=== PATIENT | female | born 1945 | race Caucasian/White ===

== ENCOUNTER → 2017-06-10 | Outpatient (CLI) | payer MEDICARE ==
[2017-06-10 12:55] LABS: Anion Gap 5 mmol/L; Blood Urea Nitrogen 14 mg/dL (7-17); Calcium 9.3 mg/dL (8.4-10.2); Carbon Dioxide 33 mmol/L (22-30); Chloride 100 mmol/L (98-107); Glucose 145 mg/dL (74-99); Non-African American GFR(MDRD) >60 (>60 ml/min/1.73 sqM); Potassium 4.6 mmol/L (3.5-5.1); Sodium 138 mmol/L (137-145)
[2017-06-10 21:00] LABS: Hemoglobin A1C 6.7 % (4.2-6.1)
== END | disposition home or self-care (01) ==
LOC: LABWHC1 11:54
PROVIDERS: ATTEND Internal Medicine
DX: I10 Essential (primary) hypertension (principal); K21.9 Gastro-esophageal reflux disease without esophagitis; R73.9 Hyperglycemia, unspecified
CPT/HCPCS: 36415; 80048; 82272; 83036

== ENCOUNTER → 2017-08-15 | Outpatient (CLI) | payer MEDICARE | END | disposition home or self-care (01) | LOC: LABWHC1 09:59 | PROVIDERS: ATTEND Internal Medicine | DX: E11.9 Type 2 diabetes mellitus without complications (principal) | CPT/HCPCS: 36415; 82947; 83036 ==

== ENCOUNTER 2018-06-08 15:22 | Emergency (ER) | payer MEDICARE ==
[2018-06-08 15:43] VITALS: RESP 18; TEMP 98.2
[2018-06-08] MEDS ORDERED: methylPREDNISolone SOD SUCCI 125 MG/2 ML VIAL IV STA (16:00)
[2018-06-08] MEDS ORDERED: IPRATROPIUM-ALBUTEROL 3 ML NEB INHALATION STA (16:00)
--- NOTE | 2018-06-08 16:05 | ED ---
URI HPI - General Chief Complaint: Upper Respiratory Infection Stated Complaint: SOB, Sent from [facility] Time Seen by Provider: 06/08/18 15:47 Source: patient Mode of arrival: wheelchair Limitations: no limitations - History of Present Illness Initial Comments: Patient is a 72-year-old female with a known past medical history of COPD the presents for shortness breath and coughing. The patient states that since Saturday, she has been having coughing as well as wheezing denies any fevers or chills. She has tried [id number] medication such as DayQuil as well as breathing treatments and she has not had much relief. She denies any chest pain as well as fever/chills or abdominal pain, nausea/vomiting/diarrhea. She was seen at [facility] where a chest x-ray was completed which showed no evidence of infiltrate but they sent her over here for further evaluation as they were concerned about her breathing status. At this time, patient denies any chest pain - Related Data Home Medications Medication Instructions Recorded Confirmed ALPRAZolam [Xanax] 0.5 mg PO BID 06/08/18 06/08/18 Atenolol 25 mg PO DAILY 06/08/18 06/08/18 Dexamethasone [Decadron] 0.75 mg PO DAILY 06/08/18 06/08/18 Gabapentin 600 mg PO TID 06/08/18 06/08/18 HYDROcodone/APAP 10-325MG [[place] 1 tab PO QID PRN 06/08/18 06/08/18 10-325] Ipratropium-Albuterol Nebulize 3 ml INHALATION RT-QID PRN 06/08/18 06/08/18 [Duoneb 0.5 mg-3 mg/3 ml Soln] Meclizine [Antivert] 12.5 mg PO BID 06/08/18 06/08/18 Montelukast [Singulair] 10 mg PO HS 06/08/18 06/08/18 Omeprazole 20 mg PO DAILY 06/08/18 06/08/18 Ranitidine HCl [Zantac] 150 mg PO BID 06/08/18 06/08/18 Simvastatin 40 mg PO DAILY 06/08/18 06/08/18 diphenhydrAMINE [Benadryl] 50 mg PO HS 06/08/18 06/08/18 Previous Rx's Medication Instructions Recorded Azithromycin [Zithromax Z-pack] 250 mg PO DIRECTED #6 tab 06/08/18 predniSONE 50 mg PO DAILY #5 tablet 06/08/18 Allergies Allergy/AdvReac Type Severity Reaction Status Date / Time Penicillins Allergy Rash/Hives Verified 06/08/18 16:07 Review of Systems ROS Statement: Those systems with pertinent positive or pertinent negative responses have been documented in the HPI. Constitutional: Negative for chills, fatigue and fever. HENT: Negative for congestion. Respiratory: Negative for chest tightness, positive for cough, shortness of breath and wheezing. Cardiovascular: Negative for chest pain and palpitations. Gastrointestinal: Negative for abdominal pain. Negative for abdominal distention , diarrhea, nausea and vomiting. Genitourinary: Negative for dysuria. Musculoskeletal: Negative for back pain, neck pain and neck stiffness. Skin: Negative for color change. Neurological: Negative for dizziness, speech difficulty, weakness and light- headedness. Psychiatric/Behavioral: Negative for agitation and confusion. Negative for anxiety ROS Other: All systems not noted in ROS Statement are negative. Past Medical History Past Medical History: Cancer, COPD, Hypertension Additional Past Medical History / Comment(s): breast cancer History of Any Multi-Drug Resistant Organisms: None Reported Past Surgical History: Appendectomy, Breast Surgery, Cholecystectomy, Tubal Ligation Past Psychological History: No Psychological Hx Reported Smoking Status: Current some day smoker Past Alcohol Use History: None Reported Past Drug Use History: None Reported General Exam - General Exam Comments Initial Comments: Constitutional: Pt is oriented to person, place, and time. Pt appears well- developed and well-nourished. No distress. HENT: Head: Normocephalic and atraumatic. Eyes: EOM are normal. Neck: Normal range of motion. Neck supple. Cardiovascular: Normal rate, regular rhythm, S1 normal, S2 normal and normal heart sounds. Exam reveals no gallop and no friction rub. No murmur heard. Pulmonary/Chest: Effort normal. Decreased breath sounds in all lung martinez noted. No tachypnea and no bradypnea. No respiratory distress. No wheezes or rales noted. Abdominal: Soft. Bowel sounds are normal. Pt exhibits no shifting dullness, no distension, no pulsatile liver, no fluid wave, no abdominal bruit and no ascites. There is no tenderness. There is no rigidity, no rebound, no guarding, no tenderness at McBurney's point and negative Kim's sign. Musculoskeletal: Normal range of motion. Neurological: Pt is alert and oriented to person, place, and time. No cranial nerve deficit. Skin: Skin is warm and dry. No rash noted. Pt is not diaphoretic. No erythema. No pallor. Psychiatric: Pt has a normal mood and affect. Pt behavior is normal. Thought content normal. Limitations: no limitations Course Vital Signs 06/08/18 06/08/18 06/08/18 15:40 16:31 16:37 Temperature 98.2 F Pulse Rate 89 67 68 Respiratory 18 Rate Blood Pressure 130/63 O2 Sat by Pulse 93 L Oximetry 06/08/18 06/08/18 06/08/18 16:38 16:48 18:06 Temperature Pulse Rate 68 70 Respiratory Rate Blood Pressure 135/54 O2 Sat by Pulse 94 L Oximetry Medical Decision Making - Medical Decision Making Laboratory studies showed that hemoglobin was stable and there is no evidence of leukocytosis. A letter lites are also relatively within normal limits and chest x-ray showed no evidence of acute infiltrate. Patient was given breathing treatments as well as steroids and showed significant improvement. Troponin was noted to be negative as well and patient was ambulated in the emergency department and did not show any hypoxia. Because of this, it is felt that the patient was a good candidate for outpatient treatment. Therefore she was given azithromycin as well as oral steroids. Explained all labs and diagnostic test results and that we will discharge the patient home and patient is to follow up with PCP in 1-2 days and return to the ED if symptoms worsen. Pt is agreeable to plan. - Lab Data Result diagrams: 06/08/18 16:47 06/08/18 16:47 Lab Results 06/08/18 06/08/18 06/08/18 Range/Units 16:47 16:47 16:47 WBC 8.6 (3.8-10.6) k/uL RBC 4.69 (3.80-5.40) m/uL Hgb 15.2 (11.4-16.0) gm/dL Hct 48.1 H (34.0-46.0) % MCV 102.6 H (80.0-100.0) fL MCH 32.4 (25.0-35.0) pg MCHC 31.5 (31.0-37.0) g/dL RDW 13.1 (11.5-15.5) % Plt Count 184 (150-450) k/uL Neutrophils % 60 % Lymphocytes % 31 % Monocytes % 5 % Eosinophils % 2 % Basophils % 0 % Neutrophils # 5.2 (1.3-7.7) k/uL Lymphocytes # 2.7 (1.0-4.8) k/uL Monocytes # 0.4 (0-1.0) k/uL Eosinophils # 0.1 (0-0.7) k/uL Basophils # 0.0 (0-0.2) k/uL Macrocytosis Slight Sodium 142 (137-145) mmol/L Potassium 4.1 (3.5-5.1) mmol/L Chloride 103 (98-107) mmol/L Carbon Dioxide 31 H (22-30) mmol/L Anion Gap 8 mmol/L BUN 14 (7-17) mg/dL Creatinine 0.85 (0.52-1.04) mg/dL Est GFR (CKD-EPI)AfAm 80 (>60 ml/min/1.73 sqM) Est GFR (CKD-EPI)NonAf 69 (>60 ml/min/1.73 sqM) Glucose 95 (74-99) mg/dL Calcium 9.5 (8.4-10.2) mg/dL Troponin I (0.000-0.034) ng/mL Influenza Type A RNA Not Detected (Not Detectd) Influenza Type B (PCR) Not Detected (Not Detectd) 06/08/18 Range/Units 16:47 WBC (3.8-10.6) k/uL RBC (3.80-5.40) m/uL Hgb (11.4-16.0) gm/dL Hct (34.0-46.0) % MCV (80.0-100.0) fL MCH (25.0-35.0) pg MCHC (31.0-37.0) g/dL RDW (11.5-15.5) % Plt Count (150-450) k/uL Neutrophils % % Lymphocytes % % Monocytes % % Eosinophils % % Basophils % % Neutrophils # (1.3-7.7) k/uL Lymphocytes # (1.0-4.8) k/uL Monocytes # (0-1.0) k/uL Eosinophils # (0-0.7) k/uL Basophils # (0-0.2) k/uL Macrocytosis Sodium (137-145) mmol/L Potassium (3.5-5.1) mmol/L Chloride (98-107) mmol/L Carbon Dioxide (22-30) mmol/L Anion Gap mmol/L BUN (7-17) mg/dL Creatinine (0.52-1.04) mg/dL Est GFR (CKD-EPI)AfAm (>60 ml/min/1.73 sqM) Est GFR (CKD-EPI)NonAf (>60 ml/min/1.73 sqM) Glucose (74-99) mg/dL Calcium (8.4-10.2) mg/dL Troponin I <0.012 (0.000-0.034) ng/mL Influenza Type A RNA (Not Detectd) Influenza Type B (PCR) (Not Detectd) - EKG Data EKG Comments: EKG shows sinus rhythm with first-degree AV block. Rate of 65 bpm, NE interval 210, QRS duration 82, QTC 436 Disposition Clinical Impression: Bronchitis Disposition: HOME SELF-CARE Condition: Good Instructions: Upper Respiratory Infection (ED) Prescriptions: Azithromycin [Zithromax Z-pack] 250 mg PO DIRECTED #6 tab predniSONE 50 mg PO DAILY #5 tablet Is patient prescribed a controlled substance at d/c from ED?: No Referrals: Trae Cooper MD [Primary Care Provider] - 1-2 days Time of Disposition: 18:09
[2018-06-08 16:48] VITALS: PULSE 70
[2018-06-08 17:09] LABS: Basophils % (A) 0 %; Eosinophils # (A) 0.1 k/uL (0-0.7); Eosinophils % (A) 2 %; HCT 48.1 % (34.0-46.0); HGB 15.2 gm/dL (11.4-16.0); Lymphocytes # (A) 2.7 k/uL (1.0-4.8); Lymphocytes % (A) 31 %; MCH 32.4 pg (25.0-35.0); MCHC 31.5 g/dL (31.0-37.0); MCV 102.6 fL (80.0-100.0); Macrocytosis Slight; Mean Platelet Volume 6.6; Monocytes # (A) 0.4 k/uL (0-1.0); Monocytes % (A) 5 %; Neutrophils # (A) 5.2 k/uL (1.3-7.7); Neutrophils % (A) 60 %; Platelet Count 184 k/uL (150-450); RBC 4.69 m/uL (3.80-5.40); RDW 13.1 % (11.5-15.5); WBC 8.6 k/uL (3.8-10.6)
--- NOTE | 2018-06-08 17:09 | XR ---
EXAMINATION TYPE: XR chest 2V DATE OF EXAM: 06/08/2018 COMPARISON: NONE HISTORY: Short of breath TECHNIQUE: Frontal and lateral views of the chest are obtained. FINDINGS: Heart and mediastinum are normal. Lungs are clear. Diaphragm is normal. There are chest le ads. Bony thorax is intact. IMPRESSION: No active cardiopulmonary disease. No change.
[2018-06-08 17:22] LABS: Calcium 9.5 mg/dL (8.4-10.2); Potassium 4.1 mmol/L (3.5-5.1)
[2018-06-08 18:06] VITALS: BP 135/54
== END 2018-06-08 18:21 | disposition home or self-care (01) ==
LOC: EC 15:22
DX: J44.9 Chronic obstructive pulmonary disease, unspecified (principal); I10 Essential (primary) hypertension; F17.200 Nicotine dependence, unspecified, uncomplicated; Z79.899 Other long term (current) drug therapy; Z88.0 Allergy status to penicillin; Z85.3 Personal history of malignant neoplasm of breast
CPT/HCPCS: 36415; 94640 ×2; 93005; 80048; 84484; 85025; 87502; 71046; 99285; 96374; J2930

== ENCOUNTER → 2018-06-13 | Outpatient (CLI) | payer MEDICARE ==
[2018-06-13 14:19] LABS: Basophils % (A) 0 %; Eosinophils # (A) 0.1 k/uL (0-0.7); Eosinophils % (A) 1 %; HCT 46.4 % (34.0-46.0); Lymphocytes # (A) 2.4 k/uL (1.0-4.8); Lymphocytes % (A) 22 %; MCH 33.3 pg (25.0-35.0); MCHC 32.4 g/dL (31.0-37.0); MCV 102.9 fL (80.0-100.0); Macrocytosis Slight; Mean Platelet Volume 6.7; Monocytes # (A) 0.7 k/uL (0-1.0); Monocytes % (A) 6 %; Neutrophils # (A) 7.4 k/uL (1.3-7.7); Neutrophils % (A) 69 %; Platelet Count 200 k/uL (150-450); RBC 4.51 m/uL (3.80-5.40); RDW 13.1 % (11.5-15.5); WBC 10.7 k/uL (3.8-10.6)
[2018-06-13 19:52] LABS: Protein, Total 6.2 g/dL (6.2-8.2)
[2018-06-16 14:07] LABS: Albumin 3.42 g/dL (3.80-4.90); Gamma Globulin 0.85 g/dL (0.70-1.50)
== END | disposition home or self-care (01) ==
LOC: LABWHC1 12:31
PROVIDERS: ATTEND Physical Medicine & Rehabilitation
DX: M54.5 Low back pain (principal); M47.817 Spondylosis without myelopathy or radiculopathy, lumbosacral region; M51.17 Intervertebral disc disorders with radiculopathy, lumbosacral region; M41.86 Other forms of scoliosis, lumbar region; F17.218 Nicotine dependence, cigarettes, with other nicotine-induced disorders; Z85.3 Personal history of malignant neoplasm of breast
CPT/HCPCS: 36415; 84165; 85025

== ENCOUNTER → 2019-03-19 | Outpatient (CLI) | payer MEDICARE ==
--- NOTE | 2019-03-20 09:11 | XR ---
Abdomen HISTORY: Pain Frontal view of the abdomen on 2 images No comparisons There is a rounded density present in the paraspinal location at the L5 level measuring 12 mm in diam eter. Vascular calcifications are present within the pelvis. Degenerative disc change in the visualiz ed spine. There is no evident obstruction or pneumoperitoneum. Surgical clips present in the right up per quadrant. Lung bases are clear. There are overlying artifacts. IMPRESSION: Indeterminate calcification or artifact. Degenerative disc disease.
== END | disposition home or self-care (01) ==
LOC: RADXRMAIN 17:13
PROVIDERS: ATTEND Family Medicine
DX: R10.0 Acute abdomen (principal)
CPT/HCPCS: 74018

== ENCOUNTER → 2019-04-09 | Outpatient (CLI) | payer MEDICARE ==
--- NOTE | 2019-04-09 12:58 | CT ---
EXAMINATION TYPE: CT abdomen wo/w con DATE OF EXAM: 04/09/2019 COMPARISON: None HISTORY: Mid abdominal pain x [address] DLP: 1300 mGycm Automated exposure control for dose reduction was used. TECHNIQUE: Helical acquisition of images was performed from the lung bases through the top of iliac crest to include entire abdomen. CONTRAST: Performed with Oral Contrast and without and with IV Contrast, patient injected with 100 mL of Isovue 300. FINDINGS: LUNG BASES: No significant abnormality is appreciated. LIVER/GB: Low-attenuation liver suggestive of hepatic steatosis or hepatocellular disease. Postcholec ystectomy changes noted.. PANCREAS: No significant abnormality is seen. SPLEEN: No significant abnormality is seen. ADRENALS: No significant abnormality is seen. KIDNEYS: There is a 7 mm lesion involving the lower pole the right kidney measuring 4 Hounsfield unit s compatible simple cyst. Mild cortical loss is seen.. BOWEL: No significant abnormality is seen. LYMPH NODES: No significant abnormality is seen. OSSEOUS STRUCTURES: Scoliotic curvature of the spine with multilevel degenerative disc disease. OTHER: Atherosclerotic change of the aorta. No evidence of aneurysm. IMPRESSION: 1. Simple appearing right renal cyst measuring 4 Hounsfield units and 7 mm. Mild cortical loss on the right suggestive of chronic medical renal disease.
== END | disposition home or self-care (01) ==
LOC: RADCTMAIN 10:03
PROVIDERS: ATTEND Family Medicine
DX: N28.1 Cyst of kidney, acquired (principal); Z88.0 Allergy status to penicillin
CPT/HCPCS: 82565; 84520; 74170; 36415; Q9967

== ENCOUNTER → 2019-06-20 | Outpatient (CLI) | payer MEDICARE ==
--- NOTE | 2019-06-20 17:20 | XR ---
EXAMINATION TYPE: XR chest 2V DATE OF EXAM: 06/20/2019 COMPARISON: 06/08/2018 INDICATION: COPD, preop TECHNIQUE: Frontal and lateral views of the chest are obtained. FINDINGS: The heart size is normal. The pulmonary vasculature is normal. The lungs are clear. There is flattening of diaphragms which can be associated with COPD. IMPRESSION: 1. No acute pulmonary process.
== END ==
LOC: RADXRMAIN 11:07
PROVIDERS: ATTEND Family Medicine
DX: Z01.818 Encounter for other preprocedural examination (principal); J44.9 Chronic obstructive pulmonary disease, unspecified
CPT/HCPCS: 71046

== ENCOUNTER 2019-11-07 | Emergency (ER) | payer MEDICARE | END 2019-11-07 17:05 | disposition home or self-care (01) | CPT/HCPCS: 36415; 93005; 80053; 82150; 83690; 85025; 81001; 74177; 99284; 96374; 96375; 96361 ×2; J2405; S0119; C9113; Q9967 ==

== ENCOUNTER → 2019-12-28 | Outpatient (CLI) | payer MEDICARE | END | disposition home or self-care (01) | LOC: LABWHC1 11:49 | PROVIDERS: ATTEND Surgery Plastic and Reconstructive Surgery | DX: U07.1 COVID-19 (principal) | CPT/HCPCS: 87635 ==

== ENCOUNTER 2019-12-31 10:49 | Day surgery (SDC) | payer MEDICARE ==
[2019-12-30 11:42] VITALS: BMI 25.9
[~2019-12-31 10:49] MED LIST: LACTATED RINGERS 1,000 ML IV SCH
[2019-12-31] MEDS ORDERED: LACTATED RINGERS 1,000 ML IV ONE (11:00)
[2019-12-31 11:06] VITALS: TEMP 97.8
[2019-12-31] MEDS ORDERED: PROPOFOL 10 MG/ML 20 ML VIAL IV ONE (11:39)
--- NOTE | 2019-12-31 11:56 | P.GSHP ---
History of Present Illness H&P Date: 12/31/19 CHIEF COMPLAINT: Dysphagia and rectal bleeding with abdominal pain HISTORY OF PRESENT ILLNESS: The patient is a 74-year-old female who presents with dysphagia, epigastric abdominal pain including rectal bleeding. Upper and lower endoscopy were offered for further evaluation and management. PAST MEDICAL HISTORY: Please see list. PAST SURGICAL HISTORY: Please see list. MEDICATIONS: Please see list. ALLERGIES: Please see list. SOCIAL HISTORY: No illicit drug use FAMILY HISTORY: No reports of Crohn disease or ulcerative colitis. REVIEW OF ORGAN SYSTEMS: CONSTITUTIONAL: No reports of fevers or chills. PHYSICAL EXAM: VITAL SIGNS: Stable GENERAL: Well-developed pleasant in no acute distress. HEENT: No scleral icterus. Extraocular movements grossly intact. Moist buccal mucosa. NECK: Supple without lymphadenopathy. CHEST: Unlabored respirations. Equal bilateral excursions. CARDIOVASCULAR: Regular rate and rhythm. Distal 2+ pulses. ABDOMEN: Soft, nondistended. MUSCULOSKELETAL: No clubbing, cyanosis, or edema. ASSESSMENT: 1. Dysphagia 2. Abdominal pain 3. Rectal bleeding. PLAN: 1. Recommend proceeding with an upper and lower endoscopy Past Medical History Past Medical History: Cancer, COPD, GERD/Reflux, Hypertension Additional Past Medical History / Comment(s): breast cancer History of Any Multi-Drug Resistant Organisms: None Reported Past Surgical History: Appendectomy, Breast Surgery, Cholecystectomy, Tubal Ligation Additional Past Surgical History / Comment(s): SPINAL IMPLANT. LT LUMPECTOMY/WITH 12 LYMPH NODES REMOVED Past Anesthesia/Blood Transfusion Reactions: No Reported Reaction Smoking Status: Current every day smoker - Past Family History Daughter(s) Family Medical History: Cancer Medications and Allergies Home Medications Medication Instructions Recorded Confirmed Type ALPRAZolam [Xanax] 0.5 mg PO DAILY 06/08/18 12/30/19 History Atenolol 25 mg PO DAILY 06/08/18 12/30/19 History Gabapentin 600 mg PO TID 06/08/18 12/30/19 History HYDROcodone/APAP 10-325MG [[place] 1 tab PO QID PRN 06/08/18 12/30/19 History 10-325] Ipratropium-Albuterol Nebulize 3 ml INHALATION RT-QID PRN 06/08/18 12/30/19 History [Duoneb 0.5 mg-3 mg/3 ml Soln] Meclizine [Antivert] 12.5 mg PO BID 06/08/18 12/30/19 History Montelukast [Singulair] 10 mg PO HS 06/08/18 12/30/19 History Omeprazole 20 mg PO DAILY 06/08/18 12/30/19 History Ranitidine HCl [Zantac] 150 mg PO BID 06/08/18 12/30/19 History Simvastatin 40 mg PO DAILY 06/08/18 12/30/19 History Ondansetron Odt [Zofran Odt] 4 mg PO Q8HR PRN #20 tab 11/07/19 12/30/19 Rx Allergies Allergy/AdvReac Type Severity Reaction Status Date / Time Penicillins Allergy Rash/Hives Verified 12/30/19 11:32 Surgical - Exam Vital Signs Temp Pulse Resp BP Pulse Ox 97.8 F 84 18 146/71 96 12/31/19 11:03 12/31/19 11:03 12/31/19 11:03 12/31/19 11:03 12/31/19 11:03
--- NOTE | 2019-12-31 12:15 | P.PCN ---
Date of Procedure: 12/31/19 Description of Procedure: PREOPERATIVE DIAGNOSIS: Dysphagia Abdominal pain POSTOPERATIVE DIAGNOSIS: Ischemic gastritis Gastroesophageal reflux disease Diaphragmatic hiatal hernia OPERATION: Esophagogastroduodenoscopy with biopsies along antrum. SURGEON: Mariangel Torres MD ANESTHESIA: MAC. INDICATIONS: The patient is a 74-year-old female who presents with a history of dysphagia and epigastric abdominal pain. Benefits and risks of the procedure were described. Informed consent was obtained. DESCRIPTION: The patient was brought into the endoscopy suite and laid in the left lateral decubitus position. An Olympus gastroscope was passed along the posterior oropharynx down to the distal esophagus where the squamocolumnar junction was encountered at 36 cm from the incisors. The stomach was entered and no bile reflux was found. Additional findings are listed below. Biopsies with cold forceps were obtained of the antrum. The first through third portion of the duodenum was examined and unremarkable. Retroflexion of the scope confirmed Hill grade 3 lower esophageal valve. The squamocolumnar junction demonstrated LA grade B erosive esophagitis. The stomach was desufflated. The patient tolerated the procedure well. FINDINGS: Squamocolumnar junction 36 cm from the incisors. Diaphragmatic hiatus at 40 cm. Hiatal hernia, 4 cm Hill grade 4 lower esophageal valve. LA grade B erosive esophagitis. No active duodenitis. Chronic gastritis, with ischemic patches with cold forceps biopsies obtained RECOMMENDATIONS: Upper endoscopy as needed.
[2019-12-31 12:19] VITALS: RESP 18
--- NOTE | 2019-12-31 12:21 | P.PCN ---
Date of Procedure: 12/31/19 Description of Procedure: PREOPERATIVE DIAGNOSIS: Change in bowel habits Abdominal pain Rectal bleeding POSTOPERATIVE DIAGNOSIS: Ascending colitis with ulceration Mild sigmoid diverticulosis Sigmoid diverticulitis OPERATION: Colonoscopy to the ileocecal valve and appendiceal orifice. Colonoscopy with cold forceps biopsies. SURGEON: Mariangel Torres MD. ANESTHESIA: MAC. INDICATIONS: The patient is a 74-year-old female who presents with abdominal pain and rectal bleeding. Benefits and risks were described and informed consent was obtained. DESCRIPTION OF PROCEDURE: The patient had undergone Suprep. She had been brought into the operating room and laid in the left lateral decubitus position. After adequate intravenous sedation, the rectum was examined with 2% lidocaine jelly. No external hemorrhoids were encountered. The rectal tone was within normal limits. No lesions were palpated in the rectal vault. An Olympus colonoscope was advanced until the ileocecal valve and appendiceal orifice were clearly viewed. The prep was excellent with clear visualization of the mucosal folds. The scope was removed with visualization of each mucosal fold. sigmoid diverticulosis was encountered. Active ulceration with colitis was found along the ascending colon cold forceps biopsies obtained. Separate ecchymosis along the sigmoid colon was identified also with cold forceps biopsies. Hyperplastic polyps 2 mm of the sigmoid colon. Retroflexion of the scope demonstrated grade 1 internal hemorrhoids without active bleeding or inflammation. The colon was desufflated. The patient had tolerated the procedure well. Withdrawal time was over 6 minutes. FINDINGS: Aronchick preparation quality scale 1 (1-5) Internal hemorrhoids, grade 1 No external prolapsed hemorrhoids. No arteriovenous malformations. Ascending ulcerative colitis biopsies obtained. Biopsies obtained of sigmoid colon Mild sigmoid diverticulosis RECOMMENDATIONS: Lower endoscopy in 5 years, 2024 with history of polyps Plan - Discharge Summary Discharge Rx Participant: No New Discharge Prescriptions: New metroNIDAZOLE [Flagyl] 500 mg PO TID #30 tab Omeprazole [PriLOSEC] 40 mg PO DAILY #30 cap Continue Montelukast [Singulair] 10 mg PO HS Meclizine [Antivert] 12.5 mg PO BID Gabapentin 600 mg PO TID ALPRAZolam [Xanax] 0.5 mg PO DAILY Simvastatin 40 mg PO DAILY Omeprazole 20 mg PO DAILY Atenolol 25 mg PO DAILY HYDROcodone/APAP 10-325MG [[place] 10-325] 1 tab PO QID PRN PRN Reason: Pain Ipratropium-Albuterol Nebulize [Duoneb 0.5 mg-3 mg/3 ml Soln] 3 ml INHALATION RT-QID PRN PRN Reason: Shortness Of Breath Ondansetron Odt [Zofran ODT] 4 mg PO Q8HR PRN #20 tab PRN Reason: Nausea Discontinued Ranitidine HCl [Zantac] 150 mg PO BID Discharge Medication List ALPRAZolam [Xanax] 0.5 mg PO DAILY 06/08/18 [History] Atenolol 25 mg PO DAILY 06/08/18 [History] Gabapentin 600 mg PO TID 06/08/18 [History] HYDROcodone/APAP 10-325MG [[place] 10-325] 1 tab PO QID PRN 06/08/18 [History] Ipratropium-Albuterol Nebulize [Duoneb 0.5 mg-3 mg/3 ml Soln] 3 ml INHALATION RT-QID PRN 06/08/18 [History] Meclizine [Antivert] 12.5 mg PO BID 06/08/18 [History] Montelukast [Singulair] 10 mg PO HS 06/08/18 [History] Omeprazole 20 mg PO DAILY 06/08/18 [History] Simvastatin 40 mg PO DAILY 06/08/18 [History] Ondansetron Odt [Zofran ODT] 4 mg PO Q8HR PRN #20 tab 11/07/19 [Rx] Omeprazole [PriLOSEC] 40 mg PO DAILY #30 cap 12/31/19 [Rx] metroNIDAZOLE [Flagyl] 500 mg PO TID #30 tab 12/31/19 [Rx] Follow up Appointment(s)/Referral(s): Mariangel Torres MD [STAFF PHYSICIAN] - 01/12/20 Patient Instructions/Handouts: Ulcerative Colitis (GEN), Gastritis (DC) Activity/Diet/Wound Care/Special Instructions: Discontinue Zantac. Start Flagyl. Discharge Disposition: HOME SELF-CARE
[2019-12-31] MEDS ORDERED: ONDANSETRON 4 MG/2 ML VIAL IVP ONE (12:33)
[2019-12-31 12:46] VITALS: BP 157/70; PULSE 70
== END 2019-12-31 13:12 | disposition home or self-care (01) ==
LOC: ORWHC2ENDO 10:49
PROVIDERS: ATTEND Surgery Plastic and Reconstructive Surgery
DX: K55.039 Acute (reversible) ischemia of large intestine, extent unspecified (principal); K51.911 Ulcerative colitis, unspecified with rectal bleeding; K63.5 Polyp of colon; K29.50 Unspecified chronic gastritis without bleeding; K57.31 Diverticulosis of large intestine without perforation or abscess with bleeding; K64.0 First degree hemorrhoids; K21.0 Gastro-esophageal reflux disease with esophagitis; K22.10 Ulcer of esophagus without bleeding; K44.9 Diaphragmatic hernia without obstruction or gangrene; E78.5 Hyperlipidemia, unspecified; I10 Essential (primary) hypertension; J44.9 Chronic obstructive pulmonary disease, unspecified; F17.200 Nicotine dependence, unspecified, uncomplicated; Z98.51 Tubal ligation status; Z90.49 Acquired absence of other specified parts of digestive tract; Z79.899 Other long term (current) drug therapy; Z88.0 Allergy status to penicillin; Z85.3 Personal history of malignant neoplasm of breast; Z91.048 Other nonmedicinal substance allergy status
CPT/HCPCS: 88305; 45380; 43239; J2405; J2704

== ENCOUNTER → 2020-03-21 | Outpatient (CLI) | payer MEDICARE ==
[2020-03-21 14:02] LABS: Basophils % (A) 0 %; Eosinophils # (A) 0.1 k/uL (0-0.7); Eosinophils % (A) 1 %; HCT 45.5 % (34.0-46.0); HGB 14.4 gm/dL (11.4-16.0); Lymphocytes # (A) 2.5 k/uL (1.0-4.8); Lymphocytes % (A) 32 %; MCH 32.9 pg (25.0-35.0); MCHC 31.7 g/dL (31.0-37.0); MCV 103.9 fL (80.0-100.0); Macrocytosis Slight; Mean Platelet Volume 7.4; Monocytes # (A) 0.4 k/uL (0-1.0); Monocytes % (A) 5 %; Neutrophils # (A) 4.6 k/uL (1.3-7.7); Neutrophils % (A) 58 %; Platelet Count 242 k/uL (150-450); RBC 4.38 m/uL (3.80-5.40); RDW 12.7 % (11.5-15.5); WBC 7.8 k/uL (3.8-10.6)
[2020-03-21 14:23] LABS: African American GFR (CKD) >90 (>60 ml/min/1.73 sqM); Anion Gap 3 mmol/L; Blood Urea Nitrogen 21 mg/dL (7-17); Carbon Dioxide 33 mmol/L (22-30); Chloride 101 mmol/L (98-107); Non-African American GFR(CKD) 90 (>60 ml/min/1.73 sqM); Potassium 4.3 mmol/L (3.5-5.1); Sodium 137 mmol/L (137-145)
== END | disposition home or self-care (01) ==
LOC: LABPAT 12:59
PROVIDERS: ATTEND Surgery
DX: Z01.818 Encounter for other preprocedural examination (principal); I74.3 Embolism and thrombosis of arteries of the lower extremities
CPT/HCPCS: 36415; 80051; 82565; 84520; 85025

== ENCOUNTER 2020-03-25 07:53 | Day surgery (SDC) | payer MEDICARE ==
[2020-03-22 11:59] VITALS: BMI 23.4
[~2020-03-25 07:53] MED LIST changes: +ALPRAZolam 0.25 MG TAB PO PRN; +ASPIRIN 325 MG TAB PO STA; -LACTATED RINGERS 1,000 ML IV SCH; +SODIUM CHLORIDE 0.9% 1,000 ML in EMPTY BAG 1 BAG IV ONE
[2020-03-25 08:23] VITALS: RESP 16; TEMP 98
[2020-03-25] MEDS ORDERED: SODIUM CHLORIDE 0.9% 1,000 ML IV ONE (08:41)
[2020-03-25] MEDS ORDERED: ASPIRIN 81 MG PO STA (09:08)
[2020-03-25] MEDS ORDERED: ASPIRIN 81 MG ONE (09:10)
[2020-03-25] MEDS ORDERED: MIDAZOLAM 2 MG/2 ML VIAL IV ONE (09:33)
[2020-03-25] MEDS ORDERED: LIDOCAINE 1% INJ 10MG/ML (20 ML MDV) SQ ONE (09:33)
[2020-03-25] MEDS ORDERED: IOPAMIDOL-250 100ML BTL INTRAARTER ONE (09:49)
[2020-03-25] MEDS ORDERED: IOPAMIDOL-250 50ML BTL INTRAARTER ONE (09:50)
--- NOTE | 2020-03-25 10:07 | P.OP ---
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 Celiac artery is stenotic approximately 90% at the takeoff. SMA is stenotic proximally 70% just distal to the takeoff. Iliacs: Right common iliac artery is occluded with reconstitution at the external iliac artery. Left common iliac artery at the takeoff is approximately 60% stenotic. The external iliac arteries bilaterally are patent without any significant stenosis. The left internal iliac artery is patent without any significant stenosis. Femorals: Bilateral common femoral arteries are patent without significant atherosclerotic disease or stenosis. Bilateral profundus and superf icial femoral arteries are patent throughout. Popliteal: Patent without any significant stenosis or atherosclerotic disease. Flow is slowed due to proximal occlusion. Tibials: Patent with slowed flow due to proximal occlusion appears to have at least two-vessel runoff. Operative narrative: After written informed consent was obtained the patient all risks benefits competitions were described the patient is brought to the [facility] and laid in a supine position. The area of the [] was prepped and draped in the usual sterile fashion. Local anesthesia with moderate sedation was performed with continuous pulse ox monitoring and EKG monitoring. Utilizing ultrasound the [] was visualized and shown to be patent without any significant plaque. Utilizing a multipurpose needle under ultrasound guidance the artery was accessed. Guidewire was placed followed by [] sheath. 035 Glidewire was then placed into the aorta followed by pigtail catheter. Angiogram was then obtained of the aorta. Catheter was then placed at the bifurcation and lower extremity runoffs were obtained. Once completed all guidewires, catheters and sheaths were removed and pressure was placed for hemostasis. Patient tolerated procedure well was sent to PACU for recovery Plan - Discharge Summary Discharge Rx Participant: Yes New Discharge Prescriptions: No Action RX: Montelukast [Singulair] 10 mg PO HS RX: Meclizine [Antivert] 12.5 mg PO BID RX: Gabapentin 600 mg PO TID RX: ALPRAZolam [Xanax] 0.5 mg PO DAILY RX: Simvastatin 40 mg PO DAILY RX: atenoloL [Atenolol] 50 mg PO DAILY RX: HYDROcodone/APAP 10-325MG [[place] 10-325] 1 tab PO QID PRN PRN Reason: Pain RX: Ondansetron Odt [Zofran ODT] 4 mg PO Q8HR PRN #20 tab PRN Reason: Nausea RX: Omeprazole [PriLOSEC] 40 mg PO DAILY #30 cap Albuterol Nebulized [Ventolin Nebulized] 2.5 mg INHALATION Q6H PRN PRN Reason: Shortness Of Breath Budesonide [Pulmicort] 0.5 mg INHALATION BID Potassium Chloride [K-Tab ER] 10 meq PO DAILY Discharge Medication List RX: ALPRAZolam [Xanax] 0.5 mg PO DAILY 06/08/18 [History] RX: Gabapentin 600 mg PO TID 06/08/18 [History] RX: HYDROcodone/APAP 10-325MG [[place] 10-325] 1 tab PO QID PRN 06/08/18 [History] RX: Meclizine [Antivert] 12.5 mg PO BID 06/08/18 [History] RX: Montelukast [Singulair] 10 mg PO HS 06/08/18 [History] RX: Simvastatin 40 mg PO DAILY 06/08/18 [History] RX: atenoloL [Atenolol] 50 mg PO DAILY 06/08/18 [History] RX: Ondansetron Odt [Zofran ODT] 4 mg PO Q8HR PRN #20 tab 11/07/19 [Rx] RX: Omeprazole [PriLOSEC] 40 mg PO DAILY #30 cap 12/31/19 [Rx] Albuterol Nebulized [Ventolin Nebulized] 2.5 mg INHALATION Q6H PRN 03/22/20 [History] Budesonide [Pulmicort] 0.5 mg INHALATION BID 03/22/20 [History] Potassium Chloride [K-Tab ER] 10 meq PO DAILY 03/22/20 [History]
[2020-03-25] MEDS ORDERED: SODIUM CHLORIDE 0.9% 1,000 ML IV SCH (10:45)
[2020-03-25 14:36] VITALS: PULSE 59
[2020-03-25 15:08] VITALS: BP 110/62
--- NOTE | 2020-03-25 16:15 | IR ---
EXAMINATION TYPE: IR angio abdominal w runoff DATE OF EXAM: 03/25/2020 CLINICAL HISTORY: Abdominal angiogram with runoff. Right leg pain. TECHNIQUE: Fluoroscopy. COMPARISON: None. FINDINGS: Fluoroscopic guidance was provided for performing physician. A total of 1.2 minutes of fl uoroscopic time was utilized during the procedure and 145 images were acquired. Please see operative report for additional details. IMPRESSION: As Above.
== END 2020-03-25 15:22 | disposition home or self-care (01) ==
LOC: CATHCVL 07:53
PROVIDERS: ATTEND Surgery
DX: I77.4 Celiac artery compression syndrome (principal); K55.1 Chronic vascular disorders of intestine; I74.5 Embolism and thrombosis of iliac artery; I70.8 Atherosclerosis of other arteries; I73.9 Peripheral vascular disease, unspecified; I77.1 Stricture of artery; G89.29 Other chronic pain; R10.9 Unspecified abdominal pain; K55.059 Acute (reversible) ischemia of intestine, part and extent unspecified
CPT/HCPCS: 36200; 75625; 75716; 76937; C1769 ×4; C1894; J2250; J2001; Q9966 ×2

== ENCOUNTER → 2020-03-29 | Outpatient (CLI) | payer MEDICARE ==
--- NOTE | 2020-03-29 18:42 | NM ---
EXAMINATION TYPE: NM bone scan whole body DATE OF EXAM: 03/29/2020 COMPARISON: CT abdomen pelvis 11/07/2019. Chest x-ray 06/20/2019. HISTORY: Breast cancer Delayed whole-body scanning was performed following the injection of 21.2 mCi Tc 99m MDP. Images acq uired 3.5 hours post injection. FINDINGS: There is left-sided curvature of the lumbar spine. There is uptake of the bilateral shoulders, with m ore focused uptake at the left inferior glenohumeral joint/proximal humerus, likely degenerative. The re is degenerative uptake of the spine, with increased activity in the region of L2-L3, which corresp onds to area of significant degenerative change on 11/07/2019 CT comparison. IMPRESSION: 1. No suspicious uptake for metastatic breast cancer. 2. Uptake at the spine and shoulders is likely degenerative.
== END | disposition home or self-care (01) ==
LOC: RADNMMAIN 09:52
PROVIDERS: ATTEND Family Medicine
DX: M19.011 Primary osteoarthritis, right shoulder (principal); M19.012 Primary osteoarthritis, left shoulder; M47.816 Spondylosis without myelopathy or radiculopathy, lumbar region; Z85.3 Personal history of malignant neoplasm of breast
CPT/HCPCS: 78306; A9503

== ENCOUNTER → 2020-06-27 | Outpatient (CLI) | payer MEDICARE ==
[2020-06-27 13:30] LABS: Basophils # (A) 0.1 k/uL (0-0.2); Basophils % (A) 1 %; Eosinophils # (A) 0.1 k/uL (0-0.7); Eosinophils % (A) 2 %; HCT 49.5 % (34.0-46.0); HGB 15.4 gm/dL (11.4-16.0); Hypochromasia Slight; Lymphocytes # (A) 2.4 k/uL (1.0-4.8); Lymphocytes % (A) 36 %; MCH 34.4 pg (25.0-35.0); MCHC 31.2 g/dL (31.0-37.0); MCV 110.3 fL (80.0-100.0); Macrocytosis Marked; Mean Platelet Volume 7.1; Monocytes # (A) 0.4 k/uL (0-1.0); Monocytes % (A) 6 %; Neutrophils # (A) 3.5 k/uL (1.3-7.7); Neutrophils % (A) 52 %; Platelet Count 182 k/uL (150-450); RBC 4.49 m/uL (3.80-5.40); RDW 12.5 % (11.5-15.5); WBC 6.7 k/uL (3.8-10.6)
[2020-06-27 13:35] LABS: African American GFR (CKD) >90 (>60 ml/min/1.73 sqM); Anion Gap 0 mmol/L; Blood Urea Nitrogen 15 mg/dL (7-17); Carbon Dioxide 35 mmol/L (22-30); Chloride 103 mmol/L (98-107); Non-African American GFR(CKD) 87 (>60 ml/min/1.73 sqM); Potassium 5.3 mmol/L (3.5-5.1); Sodium 138 mmol/L (137-145)
== END | disposition home or self-care (01) ==
LOC: LABPAT 12:59
PROVIDERS: ATTEND Surgery
DX: Z01.818 Encounter for other preprocedural examination (principal); I74.3 Embolism and thrombosis of arteries of the lower extremities
CPT/HCPCS: 36415; 80051; 82565; 84520; 85025

== ENCOUNTER 2020-07-05 08:18 | Inpatient (IN) | payer MEDICARE ==
[2020-07-04 10:01] VITALS: BMI 23.6
[~2020-07-05 08:18] MED LIST changes: +ASPIRIN 325 MG TAB PO ONE; -ASPIRIN 325 MG TAB PO STA
[2020-07-05] MEDS ORDERED: SODIUM CHLORIDE 0.9% 1,000 ML IV ONE (08:38)
[2020-07-05] MEDS: MIDAZOLAM 2 MG/2 ML VIAL IV ONE ×2 (09:47→10:51)
[2020-07-05] MEDS: fentaNYL (PF) 50 MCG/ML 2 ML AMP IV ONE ×4 (09:47→11:21)
[2020-07-05] MEDS: LIDOCAINE 1% INJ 10MG/ML (20 ML MDV) SQ ONE ×2 (09:52→12:39)
[2020-07-05] MEDS ORDERED: HEPARIN SODIUM 1,000 UN/ML (10ML VL) IV ONE (10:09)
[2020-07-05] MEDS: MIDAZOLAM 2 MG/2 ML VIAL IVP ONE ×3 (11:14→12:51)
[2020-07-05] MEDS ORDERED: IOPAMIDOL-250 100ML BTL INTRAARTER ONE ×2 (11:25)
[2020-07-05] MEDS: fentaNYL (PF) 50 MCG/ML 2 ML AMP IVP ONE ×4 (11:29→12:41)
[2020-07-05] MEDS ORDERED: IOPAMIDOL-250 50ML BTL INTRAARTER ONE ×2 (11:43→14:38)
[2020-07-05] MEDS ORDERED: ePHEDrine SULFATE/0.9% NACL/PF 50 MG/5 ML SYRINGE IV ONE (13:10)
[2020-07-05] MEDS ORDERED: VANCOMYCIN 1,000 MG VIAL ONE (13:10)
[2020-07-05] MEDS ORDERED: ONDANSETRON 4 MG/2 ML VIAL ONE (13:10)
[2020-07-05] MEDS ORDERED: GLYCOPYRROLATE 0.2 MG/ML 2 ML VIAL ONE (13:10)
[2020-07-05] MEDS ORDERED: DEXAMETHASONE SOD PHOSPHATE 10 MG/ML 1 ML VIAL ONE (13:10)
[2020-07-05] MEDS ORDERED: PROPOFOL 10 MG/ML 20 ML VIAL IV ONE (13:10)
[2020-07-05] MEDS ORDERED: PHENYLEPHRINE-0.9% NACL SYG 1 MG/10 ML SYRINGE ONE (13:10)
[2020-07-05] MEDS ORDERED: FLUMAZENIL 0.1 MG/ML 5 ML VIAL IVP ONE (13:10)
[2020-07-05] MEDS ORDERED: LIDOCAINE 1% INJ 10MG/ML (20 ML MDV) ONE (13:10)
[2020-07-05] MEDS ORDERED: LACTATED RINGERS 1,000 ML IV ONE (13:55)
[2020-07-05] MEDS ORDERED: ALBUTEROL NEBULIZED 2.5 MG/3 ML INHALATION PRN (14:40)
[2020-07-05] MEDS ORDERED: BUDESONIDE 0.5 MG/2 ML NEBU INHALATION PRN (14:40)
[2020-07-05] MEDS: HYDROmorphone 0.5 MG/0.5 ML SYRINGE IVP ONE ×4 (14:51→15:12)
--- NOTE | 2020-07-05 14:52 | IR ---
EXAMINATION TYPE: IR stent intravas non coronary DATE OF EXAM: 07/05/2020 COMPARISON: NONE HISTORY: Fluoroscopy time. Fluoroscopy was provided to the referring clinician.
[2020-07-05] MEDS ORDERED: KETOROLAC 15 MG/ML 1 ML VIAL IVP ONE (15:11)
[2020-07-05] MEDS: HYDROcodone/APAP 5-325MG 1 EACH TAB PO PRN (17:55)
--- NOTE | 2020-07-05 20:25 | P.OP ---
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 Ultrasound guided bilateral common femoral artery access 2. Bilateral selective iliofemoral angiogram 3. Right common iliac, external iliac artery percutaneous transluminal balloon angioplasty with 6 x 80 mm balloon 4. The distal aorta and bilateral iliac artery stenting with AFX aortic graft 5. Aortogram 6. Right external iliac, common iliac artery transluminal stenting with 8 x 80 mm Everflex stent 7. Selective left lower extremity angiogram third order 8. Open left femoral artery exploration with repair of profundus femoris artery and patch angioplasty 9. 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 Patient has had significant pain with ambulation Approximately 100 feet before her significant thigh pain. She did undergo arterial Doppler which demonstrated significant arterial occlusive disease with ABIs measuring less than 0.30. She underwent aortogram with runoff demonstrating once again right common iliac artery occlusion. Description of Procedure: After written and informed consent was obtained from the patient and all risks, benefits, and complications were discussed the patient was brought to the [facility] and laid in a supine position. The area of the bilateral groins were prepp ed and draped in the usual sterile fashion. Timeout was performed in usual fashion. Antibiotics were ordered prior to incisions. Utilizing ultrasound bilateral common femoral artery access was obtained and utilizing Seldinger technique 6 [place] sheaths Were placed in each femoral artery. O35 guidewire was then placed through the left femoral sheath and pigtail catheter was placed in the aorta. Aortogram was obtained demonstrating occlusion of the right iliac artery. O35 Glidewire advantange was placed in the right femoral sheath followed by a quick cross catheter. The iliac occlusion was then attempted to be crossed utilizing the quick cross catheter and multiple wires including 018 Ast[place] wire. Due to the difficulty crossing the lesion via a retrograde attempt we replaced the 6 lux[place] sheath with a 6.5 [place] Destino sheath in the left femoral artery. Utilizing the Destino sheath and 035 Glidewire with a quick cross catheter, the lesion was crossed to the external iliac artery. At that time another 035 guidewire was placed in a retrograde fashion to the Destino sheath. The lesion was crossed and the aorta was entered intraluminally. Quick cross catheter was placed into the aorta and aortogram was obtained demonstrating good intraluminal access. 035 Glidewire advantage was placed into the descending thoracic aorta and quick cross catheter was removed. Percutaneo us transluminal balloon angioplasty was then performed across the iliac lesion with a 6 x 80 mm balloon. Angiogram was obtained demonstrating improved lumen of the right iliac artery. Attention was then placed to perform the AFX graft. 2 Perclose devices were utilized in the left femoral access. AFX 17 [place] sheath was then placed over the wire to the distal aorta. Once in place a 22 x 40 mm AFX bifurcated device was loaded over a stiff wire. A 7 [place] 23 cm sheath was then placed in the contralateral femoral artery after removing the 6 [place] sheath. A snare catheter was then placed and the contralateral wire was snared and pulled to the contralateral side. The AFX2 bifurcated device was transferred into the AFX sheath and advanced under fluoroscopy until the distal limbs were above the aortic bifurcation releasing the limbs of the graft. The system was then pulled down to the aortic bifurcation. The main body was then deployed in normal fashion. The contralateral limb was then deployed by removing the yellow limb cover. We then advanced a pigtail catheter over the contralateral wire until the tip of the catheter was in contact with the wire lock. The pigtail was then utilized to release the wire. The ipsilateral limb was then deployed in normal fashion. An 8 x 80 mm ever Flex stent was placed as a right iliac extension. The delivery device was removed and two 8 x 40mm balloons were placed in the iliac graft and kissing balloon angioplasty was performed. The balloons were removed and pigtail catheter was placed and angiogram was obtain demonstrating complete resolution of the iliac stenoses. The guidewires and catheters were then removed from the left femoral artery and Perclose sutures were secured. Due to the patient's small vasculature and angiogram was obtained of the left femoral artery after closure. Upon angiogram it was noted the profundus femoris artery was occluded. At that time it was determined to open the groin and repair the artery. Anesthesia was contacted and patient was given general anesthetic and LMA was placed. Oblique incision was created with a 10 blade scalpel at the left femoral groin. Dissection was carried down to the femoral artery with electrocautery and circumferential dissection was carried around the common femoral, superficial femoral and profundus femoris artery and Vessel-loops were placed. The 2 Perclose sutures were noted to be at the bifurcation of the profundus. The sutures were then removed. Proximal and distal flow was noted when artery was opened. Due to the size of the injury a patch angioplasty was decided to be performed. Patch was then placed with 6-0 Prolene suture in a running fashion. Pledgeted suture was also placed to help with hemostasis. Once completed control was released revealing good pulsatile flow into the profundus femoris and superficial femoral . Left lower extremity selective angiogram was then obtained after an up and over catheter was placed at the common femoral artery on the left. Occlusion was resolved and flow was noted through the superficial femoral and profundus femoris arteries. The incision site was irrigated with saline and closed in a multilayer fashion. The skin was then cleansed and dressings were placed. The 7 [place] Citizen sheath was removed from the right groin and pressure was placed for hemostasis. Patient had multiphasic signal noted at the PT bilaterally and patient was sent to the PACU for recovery.
[2020-07-05] MEDS ORDERED: MONTELUKAST 10 MG TAB PO SCH (21:00)
[2020-07-05] MEDS ORDERED: ALPRAZolam 0.5 MG TAB PO SCH (21:00)
[2020-07-05] MEDS ORDERED: MECLIZINE 12.5 MG TAB PO SCH (21:00)
[2020-07-05] MEDS: GABAPENTIN 300 MG CAP PO SCH ×2 (21:27→22:15)
[2020-07-05] MEDS: PANTOPRAZOLE 40 MG TABLET PO SCH (21:28)
[2020-07-05] MEDS: ASPIRIN 81 MG PO SCH (22:14)
--- NOTE | 2020-07-05 22:28 | P.CONS ---
History of Present Illness - Reason for Consult Consult date: 07/05/20 Medical management Requesting physician: Geovany Marquez - Chief Complaint Status post bilateral iliac stenting, left femoral cut down and aortic sten - History of Present Illness 74-year-old female one of Dr. Lomeli patient with past medical history of chronic smoking, COPD, hypertension, chronic neuropathy, and severe peripheral arterial disease who apparently has been seen Dr. Marquez lately she had procedure done in 03/30/2020 with balloon angioplasty of the celiac artery and superior mesenteric artery with stenting with good result who has been complaining of severe symptom up PAD of the lower extremity patient has had significant pain with ambulation approximately 100 feet before start having significant thigh pain she underwent arterial Doppler which demonstrate significant arterial occlusion disease with DARIUSZ measure less than 0.30 she underwent aortogram with runoff demonstrating once again right common iliac artery occlusion. Patient brought today for bilateral iliac stenting along with open left femoral artery exploration with repair of profound femoris artery and patch angioplasty. Patient was admitted to the medical floor after procedure she is doing well hemodynamically stable and pain is under control. Review of Systems CONSTITUTIONAL: Well-developed no acute respiratory distress. EYES: No icterus sclerae, no conjunctivitis. EARS, NOSE, MOUTH, THROAT, and FACE: No sore throat, lymphadenopathy, carotid bruits or deformity. RESPIRATORY: Mild shortness of breath no cough or wheezes. CARDIOVASCULAR: No CP, Palpitation, positive PND, positive Orthopnea, no angina. Positive severe PAD of the lower extremity worse in the right than the left side. GASTROINTESTINAL: No Abd pain, Nausea or vomiting, no Diarrhea or constipation, No GI Bleed, no distention or masses. GENITOURINARY: Negative for Hematuria or UTI, no kidney stones. INTEGUMENT/BREAST: Negative for any muscular injury with mild osteoarthritis.. HEMATOLOGIC/LYMPHATIC: Negative for bleed or purpura. MUSCULOSKELTAL: Negative for Myalgia or arthralgia. NEURLOGICAL: No LOC, Sz or syncope, blurred vision dizziness or abnormality.. BEHAVIORAL/PSYCH: Negative. ENDOCRINE: Negative. Past Medical History Past Medical History: Cancer, COPD, GERD/Reflux, Hyperlipidemia, Hypertension, Osteoarthritis (OA), Sleep Apnea/CPAP/BIPAP, Vascular Disorder Additional Past Medical History / Comment(s): breast cancer, hx migraines, varicose veins, uses oxygen 2 L PRN, hx hiatal hernia, History of Any Multi-Drug Resistant Organisms: None Reported Past Surgical History: Appendectomy, Breast Surgery, Cholecystectomy, Tubal Ligation Additional Past Surgical History / Comment(s): SPINAL IMPLANT, LT BREAST LUMPECTOMY/WITH 12 LYMPH NODES REMOVED, sergio cataracts Past Anesthesia/Blood Transfusion Reactions: No Reported Reaction Smoking Status: Current every day smoker - Past Family History Daughter(s) Family Medical History: Cancer Medications and Allergies Home Medications Medication Instructions Recorded Confirmed Type ALPRAZolam [Xanax] 0.5 mg PO HS 06/08/18 07/05/20 History Gabapentin 600 mg PO TID 06/08/18 07/05/20 History HYDROcodone/APAP 10-325MG [[place] 1 tab PO QID 06/08/18 07/05/20 History 10-325] Meclizine [Antivert] 12.5 mg PO BID 06/08/18 07/05/20 History Montelukast [Singulair] 10 mg PO HS 06/08/18 07/05/20 History Simvastatin 40 mg PO DAILY 06/08/18 07/05/20 History atenoloL [Atenolol] 50 mg PO DAILY 06/08/18 07/05/20 History Albuterol Nebulized [Ventolin 2.5 mg INHALATION QID PRN 03/22/20 07/05/20 History Nebulized] Budesonide [Pulmicort] 0.5 mg INHALATION BID PRN 03/22/20 07/05/20 History Potassium Chloride [K-Tab ER] 10 meq PO DAILY 03/22/20 07/05/20 History Clopidogrel Bisulfate [Plavix] 75 mg PO DAILY 07/04/20 07/04/20 History Omeprazole [PriLOSEC] 20 mg PO AC-BID 07/04/20 07/05/20 History Pantoprazole Sodium [Protonix] 40 mg PO BID 07/04/20 07/05/20 History Allergies Allergy/AdvReac Type Severity Reaction Status Date / Time nickel Allergy Rash/Hives Verified 07/05/20 09:06 Penicillins Allergy Rash/Hives Verified 07/05/20 09:06 Physical Exam Vitals: Vital Signs Temp Pulse Resp BP Pulse Ox 07/05/20 15:42 67 16 127/58 96 07/05/20 15:31 69 16 113/59 16 L 07/05/20 15:16 76 16 122/60 93 L 07/05/20 15:00 75 16 117/58 100 07/05/20 14:40 96.8 F L 83 16 138/70 100 Intake and Output 07/05/20 07/05/20 07/05/20 06:59 14:59 22:59 Intake Total 1100 400 Output Total 300 Balance 800 400 Intake: IV 1100 400 Output: Urine 300 Other: Weight 56.5 kg General Appearance: Alert, cooperative, no distress, appears stated age. Neck HEENT: Supple, no lymphadenopathy, no thyroid enlargement, no carotid bruits. Lungs: Decreased breath sound bilaterally with fine rhonchi positive mild crackles with mild expiratory wheezes Chest Wall: Decrease expansion with deep inspiration no tenderness and no deformity was found on exam, no costochondral pain or discomfort. Heart: Regular rate and rhythm, S1, S2 positive history no JVD. Back: Symmetric, no curvature, ROM normal, no CVA tenderness. Abdomen: Soft, non-tender, bowel sounds active all four quadrants, slight discomfort and lower abdominal region area no rebound. Extremities: Significant scar tissue in the groin area bilaterally with mild swelling decreased pulse bilaterally with slight discoloration and changing color from the knee down. Pulses: 2+ and symmetric. Skin: Skin color, texture, tugor normal, no rashes or lesions. Neurologic: Alert oriented x3 cranial nerves II through XII intact, no motor deficit, no abnormal balance or gait. Assessment and Plan Assessment: 1 Severe PAD: Post bilateral iliac stenting with left femoral cutdown surgery along with aortic stenting as well. Patient is doing well post surgery resume home meds, watch hemodynamic status and watch for any complication afterward. 2 severe ischemic bowel: Post repair of celiac and superior mesenteric artery stenting back in March has been doing well still on secondary prevention with Plavix and aspirin. 3 COPD: Patient will continue on Pulmicort and Ventolin along with Singulair. 4 hypertension: Remain on atenolol 50 mg a day. 5 hyperlipidemia: Remain on atorvastatin 20 mg daily. 6 severe GERD: Remain on pantoprazole 40 mg twice a day. 7 chronic neuropathy: Remain on gabapentin 600 mg 3 times a day. 8 GI prophylaxis: Remain on pantoprazole. 9 DVT prophylaxis: Early mobilization, along with knee-high ELLIOT hose and if needed heparin subcutaneous can be use. 10 pain management: Remain on hydrocodone along with gabapentin. CODE STATUS: Full code. Dr. Marquez thank you much for the consult psych can be any further help to please let me know.
[2020-07-06 00:41] VITALS: TEMP 97.9
[2020-07-06] MEDS: PANTOPRAZOLE 40 MG TABLET PO SCH (05:45)
[2020-07-06 05:49] VITALS: RESP 16
[2020-07-06] MEDS: HYDROcodone/APAP 5-325MG 1 EACH TAB PO PRN ×2 (08:05)
[2020-07-06] MEDS: ASPIRIN 81 MG PO SCH (08:05)
[2020-07-06] MEDS: GABAPENTIN 300 MG CAP PO SCH (08:05)
[2020-07-06] MEDS ORDERED: CLOPIDOGREL 75 MG TAB PO SCH (09:00)
[2020-07-06] MEDS ORDERED: atenoloL 50 MG TAB PO SCH (09:00)
[2020-07-06] MEDS ORDERED: ATORVASTATIN 20 MG TAB PO SCH (09:00)
[2020-07-06] MEDS ORDERED: NICOTINE 14MG/24HR PATCH TRANSDERM SCH (09:45)
--- NOTE | 2020-07-06 10:01 | P.DS ---
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 The patient has been having significant pain with ampulla patient approximately 100 feet before significant thigh pain. She did undergo an arterial Doppler which demonstrated significant arterial occlusive disease with ABIs measuring less than 0.30. She underwent an aortogram with runoff and straining right common iliac artery occlusion. She is status post op day #1 for bilateral iliac stenting, with a left femoral cutdown. The patient states her pain is well controlled. She is only having pain to her back which is a chronic condition. She has been up and has ambulated to the restroom without any difficulty. Hayes catheter has been discontinued. She is denying any shortness of breath or chest pain. She states she is ready to be discharged home today. She has a Prevena VAC to the left groin which is intact with good suction. Assessment: General appearance: The patient is alert, oriented, in no acute distress. HET: Head is normocephalic and atraumatic. Neck: Supple without lymphadenopathy. Trachea midline. Heart: S1 S2. Regular rate and rhythm. Lungs: Diminished breath sounds bilaterally with fine crackles and mild expiratory wheezing. Abdomen: Soft, nontender, nondistended with bowel sounds. Extremities: Normal skin color and turgor. No cyanosis, rash, ulceration, clu bbing, or edema. Palpable bilateral dorsalis pedis. Good capillary refill. Neurological: No focal deficits. Strength and sensation are grossly intact. ASSESSMENT 1. Postop day #1 bilateral iliac stenting with a left femoral cutdown 2. Bilateral lower extremity disabling claudication, Erna 3 3. 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 Left common iliac artery arthrosclerosis with stenosis with left deep femoral artery occlusion 4. Tobacco abuse PlAN Patient may be discharged home today. Increase ambulation while in hospital. Patient is instructed for no heavy lifting or strenuous activity. Keep prevena dressing/vac in place for 7 days. Patient may remove and discard after 7 days. She is to follow-up with Dr. Marquez in the office in 2 weeks. She will be s tarted on a low-dose aspirin and continue her Plavix. She was instructed she may not shower or get the left groin incision wet x 2 weeks. The impression and plan of care has been dictated as directed. Dr. Hayes I performed a history and examination of this patient, discussed the same with the dictator. I agree with the dictator's note ,documented as a scribe. Any additional findings or plans will be noted. Procedures: Bilateral iliac stenting with a left femoral cutdown Patient Condition at Discharge: Good Plan - Discharge Summary Discharge Rx Participant: No New Discharge Prescriptions: New Aspirin 81 mg PO DAILY 90 Days #90 chew Nicotine 14Mg/24Hr Patch [Habitrol] 1 patch TRANSDERM DAILY 30 Days #30 patch Continue Montelukast [Singulair] 10 mg PO HS Meclizine [Antivert] 12.5 mg PO BID Gabapentin 600 mg PO TID ALPRAZolam [Xanax] 0.5 mg PO HS Simvastatin 40 mg PO DAILY atenoloL [Atenolol] 50 mg PO DAILY HYDROcodone/APAP 10-325MG [[place] 10-325] 1 tab PO QID Albuterol Nebulized [Ventolin Nebulized] 2.5 mg INHALATION QID PRN PRN Reason: sob Budesonide [Pulmicort] 0.5 mg INHALATION BID PRN PRN Reason: sob Potassium Chloride [K-Tab ER] 10 meq PO DAILY Clopidogrel Bisulfate [Plavix] 75 mg PO DAILY Omeprazole [PriLOSEC] 20 mg PO AC-BID Pantoprazole Sodium [Protonix] 40 mg PO BID Discharge Medication List ALPRAZolam [Xanax] 0.5 mg PO HS 06/08/18 [History] Gabapentin 600 mg PO TID 06/08/18 [History] HYDROcodone/APAP 10-325MG [[place] 10-325] 1 tab PO QID 06/08/18 [History] Meclizine [Antivert] 12.5 mg PO BID 06/08/18 [History] Montelukast [Singulair] 10 mg PO HS 06/08/18 [History] Simvastatin 40 mg PO DAILY 06/08/18 [History] atenoloL [Atenolol] 50 mg PO DAILY 06/08/18 [History] Albuterol Nebulized [Ventolin Nebulized] 2.5 mg INHALATION QID PRN 03/22/20 [History] Budesonide [Pulmicort] 0.5 mg INHALATION BID PRN 03/22/20 [History] Potassium Chloride [K-Tab ER] 10 meq PO DAILY 03/22/20 [History] Clopidogrel Bisulfate [Plavix] 75 mg PO DAILY 07/04/20 [History] Omeprazole [PriLOSEC] 20 mg PO AC-BID 07/04/20 [History] Pantoprazole Sodium [Protonix] 40 mg PO BID 07/04/20 [History] Aspirin 81 mg PO DAILY 90 Days #90 chew 07/06/20 [Rx] Nicotine 14Mg/24Hr Patch [Habitrol] 1 patch TRANSDERM DAILY 30 Days #30 patch 07/06/20 [Rx] Follow up Appointment(s)/Referral(s): Geovany Marquez DO [STAFF PHYSICIAN] - 2 Weeks Activity/Diet/Wound Care/Special Instructions: No heavy lifting than 5-10 pounds or strenuous activity. No showering for allowing the left dressing to get wet Keep Prevena dressing/vac pack 7 days. May remove and discard after 7 days. Discharge Disposition: HOME SELF-CARE
[2020-07-06 10:04] LABS: African American GFR (CKD) >90 (>60 ml/min/1.73 sqM); Anion Gap 1 mmol/L; Blood Urea Nitrogen 15 mg/dL (7-17); Calcium 8.6 mg/dL (8.4-10.2); Carbon Dioxide 32 mmol/L (22-30); Chloride 105 mmol/L (98-107); Glucose 134 mg/dL (74-99); Non-African American GFR(CKD) >90 (>60 ml/min/1.73 sqM); Sodium 138 mmol/L (137-145)
[2020-07-06 10:21] LABS: Basophils % (A) 0 %; Eosinophils % (A) 0 %; HCT 36.9 % (34.0-46.0); Lymphocytes # (A) 1.5 k/uL (1.0-4.8); Lymphocytes % (A) 20 %; MCH 33.8 pg (25.0-35.0); MCHC 31.2 g/dL (31.0-37.0); MCV 108.1 fL (80.0-100.0); Macrocytosis Moderate; Mean Platelet Volume 7.3; Monocytes # (A) 0.5 k/uL (0-1.0); Monocytes % (A) 7 %; Neutrophils # (A) 5.1 k/uL (1.3-7.7); Neutrophils % (A) 71 %; Platelet Count 127 k/uL (150-450); RBC 3.42 m/uL (3.80-5.40); RDW 12.8 % (11.5-15.5); WBC 7.2 k/uL (3.8-10.6)
[2020-07-06 10:28] LABS: HGB 11.5 gm/dL (11.4-16.0)
--- NOTE | 2020-07-06 11:44 | P.PN ---
Subjective Progress Note Date: 07/06/20 HISTORY OF PRESENT ILLNESS 74-year-old female one of Dr. Lomeli patient with past medical history of chronic smoking, COPD, hypertension, chronic neuropathy, and severe peripheral arterial disease who apparently has been seen Dr. Marquez lately she had procedure done in 03/30/2020 with balloon angioplasty of the celiac artery and superior mesenteric artery with stenting with good result who has been complaining of severe symptom up PAD of the lower extremity patient has had significant pain with ambulation approximately 100 feet before start having significant thigh pain she underwent arterial Doppler which demonstrate significant arterial occlusion disease with DARIUSZ measure less than 0.30 she underwent aortogram with runoff demonstrating once again right common iliac artery occlusion. Patient brought today for bilateral iliac stenting along with open left femoral artery exploration with repair of profound femoris artery and patch angioplasty. Patient was admitted to the medical floor after procedure she is doing well hemodynamically stable and pain is under control. 07/06: Post op day #1 for bilateral iliac stenting, with a left femoral cutdown. Patient denies pain. No groin pain. No shortness or breath, chest pain. No nausea or vomiting. She has been up and has ambulated to the restroom without any difficulty. Hayes catheter has been discontinued. She has a wound VAC to the left groin. Discussed in great detail, patient's need for smoking cessation. She has been afebrile, HR 77, BP 100/52, PO 97% on RA. Patient will have follow up with Dr. Acosta following discharge. REVIEW OF SYSTEMS CONSTITUTIONAL: Well-developed no acute respiratory distress. No fever, no chills. EYES: No icterus sclerae, no conjunctivitis. EARS, NOSE, MOUTH, THROAT, and FACE: No sore throat, lymphadenopathy, carotid bruits or deformity. RESPIRATORY: Mild shortness of breath no cough or wheezes. CARDIOVASCULAR: No CP, Palpitation, positive PND, positive Orthopnea, no angina. Positive severe PAD of the lower extremity worse in the right than the left side. GASTROINTESTINAL: No Abd pain, Nausea or vomiting, no Diarrhea or constipation, No GI Bleed, no distention or masses. GENITOURINARY: Negative for Hematuria or UTI, no kidney stones. INTEGUMENT/BREAST: Negative for any muscular injury with mild osteoarthritis.. HEMATOLOGIC/LYMPHATIC: Negative for bleed or purpura. MUSCULOSKELTAL: Negative for Myalgia or arthralgia. NEURLOGICAL: No LOC, Sz or syncope, blurred vision dizziness or abnormality.. BEHAVIORAL/PSYCH: Negative. ENDOCRINE: Negative. PHYSICAL EXAMINATION General Appearance: Alert, cooperative, no distress, appears stated age. Neck HEENT: Supple, no lymphadenopathy, no thyroid enlargement, no carotid bruits. Lungs: Decreased breath sound bilaterally with fine rhonchi positive mild crackles with mild expiratory wheezes Chest Wall: Decrease expansion with deep inspiration no tenderness and no deformity was found on exam, no costochondral pain or discomfort. Heart: Regular rate and rhythm, S1, S2 positive history no JVD. Back: Symmetric, no curvature, ROM normal, no CVA tenderness. Abdomen: Soft, non-tender, bowel sounds active all four quadrants, slight discomfort and lower abdominal region area no rebound. Extremities: Significant scar tissue in the groin area bilaterally with mild swelling decreased pulse bilaterally with slight discoloration and changing color from the knee down. Wound vac in place to left groin. Pulses: 2+ and symmetric. Skin: Skin color, texture, tugor normal, no rashes or lesions. Neurologic: Alert oriented x3 cranial nerves II through XII intact, no motor deficit, no abnormal balance or gait. ASSESSMENT AND PLAN 1 Severe PAD: Post bilateral iliac stenting with left femoral cutdown surgery along with aortic stenting as well. Patient is doing well post surgery. Patient is stable for discharge. 2 severe ischemic bowel: Post repair of celiac and superior mesenteric artery stenting back in March has been doing well still on secondary prevention with Plavix and aspirin. 3 COPD: Patient will continue on Pulmicort and Ventolin along with Singulair. 4 hypertension: Remain on atenolol 50 mg a day. 5 hyperlipidemia: Remain on atorvastatin 20 mg daily. 6 severe GERD: Remain on pantoprazole 40 mg twice a day. 7 chronic neuropathy: Remain on gabapentin 600 mg 3 times a day. 8 GI prophylaxis: Remain on pantoprazole. 9 DVT prophylaxis: Early mobilization, along with knee-high ELLIOT hose and if ne eded heparin subcutaneous can be use. 10 pain management: Remain on hydrocodone along with gabapentin. CODE STATUS: Full code. Dr. Marquez thank you much for the consult psych can be any further help to please let me know. DISCHARGE PLAN Home today. Impression and plan of care have been directed as dictated by the signing physician. Clara Carter nurse practitioner acting as scribe for signing physician. Objective - Vital Signs Vital signs: Vital Signs Temp 97.9 F 07/06/20 05:00 Pulse 77 07/06/20 05:00 Resp 16 07/06/20 05:00 BP 100/52 07/06/20 05:00 Pulse Ox 97 07/06/20 05:00 Intake & Output 07/05/20 07/06/20 07/06/20 18:59 06:59 18:59 Intake Total 1500 240 Output Total 700 400 Balance 800 -400 240 Weight 56.5 kg 56.5 kg Intake: IV 1500 Oral 240 Output: Urine 700 400 Other: Voiding Method Toilet - Labs CBC & Chem 7: 07/06/20 08:53 07/06/20 08:53
[2020-07-06 11:55] VITALS: BP 119/72; PULSE 96
== END 2020-07-06 11:38 | disposition home or self-care (01) | DRG 253 ==
LOC: CATHCVL 08:18 → 3SCARD 15:37
PROVIDERS: ADMIT Surgery; ATTEND Surgery
PROC: 04UL0JZ Supplement Left Femoral Artery with Synthetic Substitute, Open Approach (ICD-10-PCS; 2020-07-05)
PROC: B41D1ZZ Fluoroscopy of Aorta and Bilateral Lower Extremity Arteries using Low Osmolar Contrast (ICD-10-PCS; 2020-07-05)
PROC: 047C3DZ Dilation of Right Common Iliac Artery with Intraluminal Device, Percutaneous Approach (ICD-10-PCS; principal; 2020-07-05 09:30)
PROC: 047D3DZ Dilation of Left Common Iliac Artery with Intraluminal Device, Percutaneous Approach (ICD-10-PCS; 2020-07-05 09:30)
DX: I70.213 Atherosclerosis of native arteries of extremities with intermittent claudication, bilateral legs (principal); I74.5 Embolism and thrombosis of iliac artery; J44.9 Chronic obstructive pulmonary disease, unspecified; I70.8 Atherosclerosis of other arteries; F17.210 Nicotine dependence, cigarettes, uncomplicated; G62.9 Polyneuropathy, unspecified; I10 Essential (primary) hypertension; E78.5 Hyperlipidemia, unspecified; K21.9 Gastro-esophageal reflux disease without esophagitis; G47.30 Sleep apnea, unspecified; M19.90 Unspecified osteoarthritis, unspecified site; G43.909 Migraine, unspecified, not intractable, without status migrainosus; I83.90 Asymptomatic varicose veins of unspecified lower extremity; K44.9 Diaphragmatic hernia without obstruction or gangrene; Z79.02 Long term (current) use of antithrombotics/antiplatelets; Z79.891 Long term (current) use of opiate analgesic; Z79.899 Other long term (current) drug therapy; Z87.19 Personal history of other diseases of the digestive system; Z98.42 Cataract extraction status, left eye; Z98.890 Other specified postprocedural states; Z85.3 Personal history of malignant neoplasm of breast; Z90.49 Acquired absence of other specified parts of digestive tract; Z88.0 Allergy status to penicillin; Z91.048 Other nonmedicinal substance allergy status; Z98.51 Tubal ligation status; Z98.41 Cataract extraction status, right eye; Z80.9 Family history of malignant neoplasm, unspecified
CPT/HCPCS: 37221; 37223; 80048; 85025; 85347

== ENCOUNTER → 2020-10-05 | Outpatient (CLI) | payer MEDICARE ==
--- NOTE | 2020-10-05 09:57 | CT ---
EXAMINATION TYPE: CT shoulder LT wo con DATE OF EXAM: 10/05/2020 COMPARISON: None HISTORY: Lt Shoulder Pain CT DLP: 235.6 mGycm Automated exposure control for dose reduction was used. FINDINGS: Severe arthropathy of the shoulder with near complete loss of joint space. Soft tissue ossification. To the glenoid with hypertrophic spurring along the lower margin of both the glenoid and humeral head . Cystic geodes are suspected within the glenoid. No acute fracture. No dislocation. No destructive c hanges. Visualized lung martinez clear. Visualized rib cage is intact. Surgical clips and spiculated density wi thin the left breast may be related to patient's reported history of breast carcinoma. Vacuum phenomenon within the AC joint with hypertrophic changes compatible with severe arthritic eagle ges. IMPRESSION: 1. SEVERE AC JOINT AND GLENOHUMERAL JOINT ARTHROPATHY. LYTIC LESIONS INVOLVING THE GLENOID APPEAR TO HAVE CIRCUMSCRIBED SCLEROTIC MARGINS AND ARE MOST TYPICAL CYSTIC GEODE AND POST ARTHRITIC CHANGES. 2. NO ACUTE FRACTURE OR DESTRUCTIVE CHANGE.
--- NOTE | 2020-10-05 10:05 | CT ---
EXAMINATION TYPE: CT lumbar spine wo con DATE OF EXAM: 10/05/2020 8:50 AM COMPARISON: CT scan 11/07/2019, 04/09/2019 HISTORY: Low back pain CT DLP: 394.6 mGycm Automated exposure control for dose reduction was used. Unenhanced CT of the lumbar spine was performed. Bone and soft tissue window settings are submitted as well as coronal and sagittal reconstructions. There is a levoscoliosis of the lumbar spine. Multilevel degenerative disc disease. Most marked findi ngs are seen at L2-3 and L3-4 with vacuum disc and complete loss of disc space. Discogenic marrow maria ines nges are seen at both levels. Intrathecal catheter noted. L1-L2: Circumferential disc bulging with no significant foraminal encroachment. No Canal stenosis. L2-L3: Complete loss of disc space with vacuum disc. Lucency seen involving the central aspect of the L3 vertebral segment is stable dating back to the CT scan of 2019 and therefore likely benign. Disco genic marrow changes at both levels with complete loss of disc space. No Canal stenosis. Mild right-s ided foraminal encroachment secondary to hypertrophic changes and posterior spur formation. L3-L4: Complete loss of disc space with vacuum disc compatible severe degenerative disc disease. Face t arthropathy with diffuse disc bulging and mild effacement of thecal sac. Suspect mild central steno sis and mild to moderate bilateral foraminal encroachment greater on the right. L4-L5: Diffuse disc bulging with facet arthropathy and ligamentum flavum hypertrophy. There is modera te bilateral foraminal encroachment and mild central canal stenosis. L5-S1: Advanced facet arthropathy with mild bilateral foraminal encroachment. No disc herniation or c anal stenosis. Previous aortic surgery incidentally noted. No obvious renal calcifications. Surgical clip is suggest ed in the gallbladder fossa. Stimulator device noted. There is extensive atherosclerotic changes and vasculature including the mesenteric vasculature should be correlated clinically. IMPRESSION: 1. Severe multilevel degenerative disc disease with vacuum disc at multiple levels as discussed above most marked at L2-3 and L3-4. Disc bulging and foraminal encroachment at multiple levels with canal stenosis suspected at L3-4 and L4-5.
== END | disposition home or self-care (01) ==
LOC: RADCTMAIN 07:44
PROVIDERS: ATTEND Family Medicine
DX: M51.36 Other intervertebral disc degeneration, lumbar region (principal); M51.26 Other intervertebral disc displacement, lumbar region; M19.012 Primary osteoarthritis, left shoulder; Z88.0 Allergy status to penicillin
CPT/HCPCS: 72131

== ENCOUNTER → 2020-12-16 | Outpatient (CLI) | payer MEDICARE ==
--- NOTE | 2020-12-16 15:37 | NM ---
EXAMINATION TYPE: NM bone scan whole body DATE OF EXAM: 12/16/2020 COMPARISON: Whole-body bone scan 03/29/2020 HISTORY: M [age], back pain, hip and pelvic pain for 3 months, remote history of breast carcinoma Delayed whole-body scanning was performed following the injection of 24.4 mCi Tc 99m MDP. Images acq uired 3 hours post injection. FINDINGS: Spinal curvature is again noted, there is uptake along the distal thoracic, lumbar spine which is lik dany degenerative as on prior exam. Uptake along the shoulders, sternoclavicular joints is again noted , likely degenerative. Soft tissue uptake is normal. There is uptake at the distal femurs, proximal t ibias is symmetric distribution. IMPRESSION: No evident metastatic disease. Osteoarthritic change, degenerative disc changes. Indeterminate uptake in the distal femurs and proximal tibias of questionable clinical significance.
== END | disposition home or self-care (01) ==
LOC: RADNMMAIN 11:22
PROVIDERS: ATTEND Family Medicine
DX: M51.35 Other intervertebral disc degeneration, thoracolumbar region (principal); Z85.3 Personal history of malignant neoplasm of breast
CPT/HCPCS: 78306; A9503

== ENCOUNTER → 2022-04-26 | Outpatient (CLI) | payer MEDICARE ==
--- NOTE | 2022-04-26 11:42 | BD ---
EXAMINATION TYPE: Axial Bone Density DATE OF EXAM: 04/26/2022 COMPARISON: NONE CLINICAL HISTORY: 76 years year old Female. ICD-10 CODE: Z78.0 Post menopausal w/o HRT Height: 60 Weight: 134.7 FRAX RISK QUESTIONS: Alcohol (3 or more units per day): NO Family History (Parent hip fracture): NO Glucocorticoids (More than 3mos): NO History of Fracture in Adulthood: YES Secondary Osteoporosis: 1. Type 1 Diabetes: NO 2. Hyperthyroidism: NO 3. Menopause before 45: NO 4. Malnutrition: NO 5. Chronic liver disease: NO Rheumatoid Arthritis: NO Current Tobacco Use: YES RISK FACTORS HISTORY OF: Hip Fracture (Right/Left): NO Spine Fracture: NO History of Wrist Fracture: NO Surgery to Spine/Hip(right/left)/Wrist (right/left): NO Family History of Osteoporosis: NO Active: NO Diet low in dairy products/other sources of calcium: NO Postmenopausal woman: YES Take estrogen and/or progesterone medications: NO Lost more than 2 inches in height since high school: NO Frequent falls: NO Poor Health: NO Hyperparathyroidism: NO Adrenal Insufficiency: NO MEDICATIONS: Prednisone or other steroids: NO Thyroid Medications: NO Osteoporosis Medications:NO Additional Medications: OMEPRAZOLE, ATLANTAL, SIMVASTATIN, VIT D, INHALER, CLOPIDOGREL Additional History: BREAST CANCER 2012 WITH CHEMO AND RADIATION PT HAS A STIMULATOR IN PELVIS AREA. EXAM MEASUREMENTS: Bone mineral densitometry was performed using the [employer] System. Bone mineral density as measured about the Lumbar spine is: ----- L1-L4(G/cm2): 1.217 T Score Values are as follows: ----- L1: -1.2 ----- L2: 0.5 ----- L3: 0.6 ----- L4: 1.4 ----- L1-L4: 0.3 BASELINE STUDY Bone mineral density about the R hip (g/cm2): 0.720 Bone mineral density about the L hip (g/cm2): 0.663 T Score values are as follows: -----R Neck: -2.3 -----L Neck: -2.7 -----R Total: -1.7 -----L Total: -2.1 BASELINE STUDY FRAX%s: The graph provided illustrates a 30.1% chance for a major osteoporotic fx and a 14.6^ chance for the hips probability for fx in 10 years time. IMPRESSION: Osteoporosis (T Score less than -2.5). There is increased fracture risk and therapy is usually indicated based on age. Re-Screen 1-2 years. NOTE: T-SCORE=SD OF THE YOUNG ADULT MEAN.
== END | disposition home or self-care (01) ==
LOC: RADBDWWP 09:50
PROVIDERS: ATTEND Family Medicine
DX: M81.0 Age-related osteoporosis without current pathological fracture (principal); Z78.0 Asymptomatic menopausal state
CPT/HCPCS: 77080

== ENCOUNTER → 2022-05-21 | Outpatient (CLI) | payer MEDICARE ==
--- NOTE | 2022-05-21 15:13 | NM ---
EXAMINATION TYPE: NM bone scan whole body DATE OF EXAM: 05/21/2022 COMPARISON: 12/16/2020 HISTORY: Back pain Delayed whole-body scanning was performed following the injection of 22.6 mCi Tc 99m MDP. Images acq uired 4 hours post injection. FINDINGS: There is intense abnormal uptake involving the right pubic rami. Scoliosis with intense abnormal uptake involving the lower and mid lumbar spine. More [id number] e uptake throughout the thoracic and lumbar spine. Abnormal uptake involving the right shoulder likely posterior IMPRESSION: 1. Scoliosis with persistent uptake throughout the vertebral column similar to the prior exam and mos t likely degenerative. Appears to correspond to significant degenerative disc disease by CT scan lumb ar spine 10/05/2020. 2. No abnormal uptake involving the right inferior pubic ramus and inferior pubic ramus. Could be on the basis of trauma. Recommend x-ray correlation to exclude other etiologies.
== END | disposition home or self-care (01) ==
LOC: RADNMMAIN 10:02
PROVIDERS: ATTEND Family Medicine
DX: M51.26 Other intervertebral disc displacement, lumbar region (principal)
CPT/HCPCS: 78306; A9503

== ENCOUNTER → 2022-06-18 | Outpatient (CLI) | payer MEDICARE ==
[~2022-06-18] MED LIST changes: -ALPRAZolam 0.25 MG TAB PO PRN; -ASPIRIN 325 MG TAB PO ONE; -SODIUM CHLORIDE 0.9% 1,000 ML in EMPTY BAG 1 BAG IV ONE; +SODIUM CHLORIDE 0.9% 500 ML 500 ML in EMPTY BAG 1 BAG IV PRN; +ZOLEDRONIC ACID 5 MG in SODIUM CHLORIDE 0.9% 100 ML IV NR
[2022-06-18 13:55] VITALS: BP 145/78; PULSE 77; RESP 16; TEMP 98.1
== END ==
LOC: PROCWHC3 13:27
PROVIDERS: ATTEND Family Medicine
DX: M81.0 Age-related osteoporosis without current pathological fracture (principal); F17.200 Nicotine dependence, unspecified, uncomplicated; Z91.048 Other nonmedicinal substance allergy status; Z88.0 Allergy status to penicillin
CPT/HCPCS: 96365; J3489

== ENCOUNTER → 2022-07-26 | Outpatient (CLI) | payer MEDICARE ==
--- NOTE | 2022-07-26 15:14 | CT ---
EXAMINATION TYPE: CT hip RT wo con DATE OF EXAM: 07/26/2022 COMPARISON: None HISTORY: right hip pain, no injury CT DLP: 326.8 mGycm Automated exposure control for dose reduction was used. Unenhanced CT of the right hip was performed with bone and soft tissue window settings. FINDINGS: There is a mottled appearance of the right inferior pubic ramus with associated fracture. Pathologic component is suspected. No definite soft tissue mass component. Cortical irregularity noted. Remainin g osseous structures within the field of view appear to be unremarkable. Mild degenerative joint spac e narrowing. No evidence for pelvic mass. Pelvic free fluid. IMPRESSION: There is a mottled appearance of the right inferior pubic ramus with associated fracture. Pathologic component is suspected.
== END | disposition home or self-care (01) ==
LOC: RADCTMAIN 14:14
PROVIDERS: ATTEND Psychiatry & Neurology Neurology
DX: S32.591A Other specified fracture of right pubis, initial encounter for closed fracture (principal)

== ENCOUNTER → 2023-05-01 | Outpatient (CLI) | payer MEDICARE ==
--- NOTE | 2023-05-01 15:40 | XR ---
EXAMINATION TYPE: XR femur LT DATE OF EXAM: 05/01/2023 COMPARISON: NONE HISTORY: Pain TECHNIQUE: 4 views submitted FINDINGS: Abdominal x-ray 12/28/2022 IMPRESSION: There is diffuse osteopenia. There is a calcification along the greater trochanter of the left hip. There appears to be mild arthropathy of the knee joint. There is a deformity of the left s uperior pubic ramus and portions of the right inferior pubic ramus. Findings involving the right infe rior pubic ramus have been reported by prior CT scan. IMPRESSION: 1. A deformity involving the left superior pubic ramus could not exclude fracture recommend CT scan. 2. Stable deformity partially included in the field of view of the right inferior pubic ramus. Paget' s disease, remote trauma or metastasis in the differential diagnosis. A [place] level critical message alert has been initiated for Kapil Acosta DO via the [facility] [employer] Critical Results System on 05/01/2023 3:38 PM. This message alert has been sent to Kapil mendez DO via the preferences provided by the clinician for the receipt of Radiology Critical Findings. Message ID [id number].
--- NOTE | 2023-05-01 15:42 | XR ---
EXAMINATION TYPE: XR Hip Complete LT DATE OF EXAM: 05/01/2023 COMPARISON: NONE HISTORY: Pain TECHNIQUE: 2 views submitted FINDINGS: There is a deformity involving the superior pubic ramus. Diffuse osteopenia and vascular calcificatio ns. Calcification along the greater trochanter can be associated with trochanteric bursitis. Stable c hronic appearing deformity partially included in the field of view of the right inferior pubic ramus. IMPRESSION: 1. There is a deformity involving the left superior pubic ramus cannot exclude recent fracture recomm end CT scan. 2. Partially included [id number] is the mottled appearance of the right inferior pubic ramus. Unde rlying metastasis or remote fracture including pathologic fracture in the differential diagnosis. A [place] level critical message alert has been initiated for Kapil Acosta DO via the [employer] Critical Results System on 05/01/2023 3:40 PM. This message alert has been sent to Kapil mendez DO via the preferences provided by the clinician for the receipt of Radiology Critical Findings. Message ID [id number].
== END | disposition home or self-care (01) ==
LOC: LABWHC1 14:57
PROVIDERS: ATTEND Family Medicine
DX: M85.89 Other specified disorders of bone density and structure, multiple sites (principal); M79.605 Pain in left leg; M25.552 Pain in left hip
CPT/HCPCS: 73502

== ENCOUNTER → 2023-06-11 | Outpatient (CLI) | payer MEDICARE ==
--- NOTE | 2023-06-12 16:56 | CT ---
EXAMINATION TYPE: CT pelvis wo con DATE OF EXAM: 06/11/2023 COMPARISON: 07/26/2022 HISTORY: Pt stated she has two pelvic fx's from osteoarthritis. CT DLP: 243.1 mGycm Automated exposure control for dose reduction was used. Contrast: None Technique: Axial images 3 mm thick sections. Reconstructed images in the coronal and sagittal planes. 3-D reconstructive images were obtained. FINDINGS: There is a fracture of the inferior medial pubic ramus on the left. The right pubic ramus has a moth- eaten appearance which may be related to infection or metastasis. Consider disuse osteopenia porosis as an etiology with a somewhat similar appearance to the comparison study. Femoral heads articulate with the acetabulum. Joint spaces are narrowed. Symphysis pubis appears norm al. Some degenerative changes likely present through the sacroiliac joints bilaterally. Facet degener ative changes are noted at L5-S1. IMPRESSION: 1. FRACTURE THE INFERIOR MEDIAL LEFT PUBIC RAMUS. 2. IRREGULAR APPEARANCE THROUGH THE MEDIAL INFERIOR RIGHT PUBIC RAMUS. DIFFERENTIAL DIAGNOSIS IS DISC USSED ABOVE. MORE BENIGN ETIOLOGIES MAY BE FAVORED GIVEN RELATIVE SIMILARITY TO JULY 2022.
== END | disposition home or self-care (01) ==
LOC: RADCTMAIN 14:01
PROVIDERS: ATTEND Psychiatry & Neurology Neurology
DX: S32.9XXA Fracture of unspecified parts of lumbosacral spine and pelvis, initial encounter for closed fracture (principal); M16.0 Bilateral primary osteoarthritis of hip; X58.XXXA Exposure to other specified factors, initial encounter
CPT/HCPCS: 72192

== ENCOUNTER → 2023-06-19 | Outpatient (CLI) | payer MEDICARE ==
[2023-06-19 14:32] VITALS: BP 125/67; PULSE 55; RESP 16; TEMP 97.9
== END ==
LOC: PROCWHC3 14:08
PROVIDERS: ATTEND Family Medicine
DX: M81.0 Age-related osteoporosis without current pathological fracture (principal)
CPT/HCPCS: 96365; J3489

== ENCOUNTER → 2023-07-08 | Outpatient (CLI) | payer MEDICARE ==
[2023-07-08 14:45] LABS: African American GFR (CKD) >90 (>60 ml/min/1.73 sqM); Blood Urea Nitrogen 30 mg/dL (7-17); Non-African American GFR(CKD) 84 (>60 ml/min/1.73 sqM)
--- NOTE | 2023-07-09 13:09 | CT ---
EXAMINATION TYPE: CT angio abdomen pelvis DATE OF EXAM: 07/08/2023 COMPARISON: 06/11/2023 INDICATION: f/u mesenteric stenosis. hx of aortic stents. DLP: 1592 mGycm, Automated exposure control for dose reduction was used. CONTRAST: 145ml mL of Isovue 370. Study performed without Oral Contrast TECHNIQUE: Axial images were obtained from above the diaphragm to the pubic rami in the axial plane a t 5 mm thick sections. Reconstructed images are reviewed on the computer in the coronal plane. FINDINGS: Limited CT sections are obtained the lung bases. There is a suspicious 1.0 x 1.3 cm spiculated nodul e in the left lung base. Series 4 image 12. Additional workup is recommended. Metastatic disease is n ot excluded. A smooth bordered nodules in the posterior lateral right lung base measuring 1.0 cm. Ser ies 4 image 21.. Emphysematous changes are present CT ABDOMEN: Liver: Normal Spleen: Normal Pancreas: Normal Adrenal glands: The adrenal glands are normal. Gallbladder: Normal Kidneys: No masses are evident. No hydronephrosis is present. There is a 1.1 cm cortical renal cyst superior pole right kidney. Aorta: Vascular calcification is within the aorta. Aortic stent extending into the iliac arteries is present. There is a stent to the celiac axis which appears patent. Stent within the proximal superio r mesenteric artery appears patent. Left renal artery takeoff appears normal. Right renal artery take off appears normal. Common iliac internal and external iliac and common femoral arteries are patent. No significant focal stenosis is evident. There is plaquing or thrombus within the aorta causing some narrowing of the flow lumen in relation to the outer diameter of the stent and vessel. Inferior vena cava: Normal. CT PELVIS: Loops of bowel within the abdomen and pelvis are normal. This study is lateral contrast limiting evaluation. Some diverticular changes are within the sigmoid colon. No acute diverticulitis is eviden t. Appendix: Not identified. No dilated tubular structure or inflammatory change is evident. Urinary bladder: Normal. Genitourinary structures: Uterus is normal. Adnexa are unremarkable. Osseous structures: Fracture left pubic ramus appears to be present. There is incomplete union withou t significant interval healing from the comparison study. IMPRESSION: 1. No significant flow-limiting stenosis aorta, iliacs, and proximal runoff identified. No obstructi on of the stent evident. 2. Celiac axis and superior mesenteric artery branches appear normal. 3. Bilateral lung nodules one of which appears suspicious for neoplasm. Additional workup is recommen ded.
== END | disposition home or self-care (01) ==
LOC: RADCTMAIN 13:59
PROVIDERS: ATTEND Surgery
DX: I77.1 Stricture of artery (principal); R91.8 Other nonspecific abnormal finding of lung field
CPT/HCPCS: 82565; 84520; 36415; 74174; Q9967

== ENCOUNTER 2023-07-24 16:32 | Emergency (ER) | payer MEDICARE ==
[2023-07-24 16:43] VITALS: BP 163/61; RESP 20; TEMP 98.4
[2023-07-24] MEDS ORDERED: ALBUTEROL NEBULIZED 2.5 MG/3 ML INHALATION STA (17:11)
[2023-07-24] MEDS ORDERED: IPRATROPIUM-ALBUTEROL 3 ML NEB INHALATION STA (17:11)
--- NOTE | 2023-07-24 17:21 | ED ---
SOB HPI - General Chief Complaint: Shortness of Breath Stated Complaint: low oxygen Time Seen by Provider: 07/24/23 16:42 Source: patient Mode of arrival: wheelchair Limitations: no limitations - History of Present Illness Initial Comments: This patient is a 77-year-old woman with history of COPD who presents with approximately one week of progressive shortness of breath and cough, nonproductive. The patient does use oxygen at home, 2 L usually at night. The patient states she was not getting any better so she saw her arm her physician yesterday. He has scheduled her to have CAT scan of the chest tomorrow. She was feeling more short of breath so she comes for evaluation today. She has also had fatigue. Patient denies fever or chills. No leg pain or swelling. No change in urination or bowel movements. MD Complaint: shortness of breath Onset/Timin -: week(s) Severity scale (1-10): 0 Consistency: constant Improves With: nothing Worsens With: nothing Known History Of: COPD Associated Symptoms: cough Treatments Prior to Arrival: oxygen, bronchodilator - Related Data Home Oxygen Therapy: Yes Home Oxygen Amount: 2 Liters Home Medications Medication Instructions Recorded Confirmed ALPRAZolam [Xanax] 0.5 mg PO HS 06/08/18 07/24/23 Gabapentin 600 mg PO BID 06/08/18 07/24/23 Meclizine [Antivert] 12.5 mg PO BID PRN 06/08/18 07/24/23 Montelukast [Singulair] 10 mg PO DAILY 06/08/18 07/24/23 Simvastatin 40 mg PO DAILY 06/08/18 07/24/23 Clopidogrel Bisulfate [Plavix] 75 mg PO DAILY 07/04/20 07/24/23 Omeprazole [PriLOSEC] 20 mg PO DAILY 07/04/20 07/24/23 Albuterol Inhaler [Ventolin Hfa 1 - 2 puff INHALATION RT-Q6H PRN 07/24/23 07/24/23 Inhaler] Baclofen [Lioresal] 10 mg PO HS 07/24/23 07/24/23 Cholecalciferol (Vitamin D3) 1,250 mcg PO MO 07/24/23 07/24/23 [Decara (50,000 Iu)] Ibuprofen [Motrin] 800 mg PO TID PRN 07/24/23 07/24/23 atenoloL [Tenormin] 50 mg PO DAILY 07/24/23 07/24/23 oxyCODONE-APAP 7.5-325MG [Percocet 1 tab PO TID@0900,1630,2300 07/24/23 07/24/23 7.5-325 mg] Previous Rx's Medication Instructions Recorded Furosemide [Lasix] 20 mg PO DAILY #3 tab 07/24/23 predniSONE [Deltasone] 20 mg PO BID #8 tab 07/24/23 Allergies Allergy/AdvReac Type Severity Reaction Status Date / Time nickel Allergy Rash/Hives Verified 06/19/23 14:14 Penicillins Allergy Rash/Hives Verified 07/24/23 17:43 Review of Systems ROS Statement: Those systems with pertinent positive or pertinent negative responses have been documented in the HPI. ROS Other: All systems not noted in ROS Statement are negative. Constitutional: Reports: weakness. Denies: fever, chills Respiratory: Reports: cough, dyspnea, wheezes. Denies: hemoptysis Cardiovascular: Denies: chest pain, palpitations, orthopnea, edema, syncope Gastrointestinal: Denies: abdominal pain, nausea, vomiting Genitourinary: Denies: dysuria, hematuria Musculoskeletal: Denies: back pain Skin: Denies: rash Neurological: Denies: headache, weakness, numbness Past Medical History Past Medical History: Cancer, COPD, Hypertension Additional Past Medical History / Comment(s): breast cancer, osteoporosis, broken pelvis end of apr 2023 History of Any Multi-Drug Resistant Organisms: None Reported Past Surgical History: Appendectomy, Breast Surgery, Cholecystectomy, Tubal Ligation Additional Past Surgical History / Comment(s): SPINAL IMPLANT. LT LUMPECTOMY/WITH 12 LYMPH NODES REMOVED Past Anesthesia/Blood Transfusion Reactions: No Reported Reaction Past Psychological History: No Psychological Hx Reported Smoking Status: Current every day smoker - Past Family History Daughter(s) Family Medical History: Cancer General Exam Limitations: no limitations General appearance: alert, in no apparent distress Head exam: Present: atraumatic, normocephalic Eye exam: Present: normal appearance. Absent: scleral icterus, conjunctival injection Neck exam: Present: normal inspection Respiratory exam: Present: wheezes, decreased breath sounds. Absent: respiratory distress, rales, rhonchi, stridor, accessory muscle use Cardiovascular Exam: Present: regular rate, normal rhythm, normal heart sounds. Absent: systolic murmur, diastolic murmur, rubs, gallop GI/Abdominal exam: Present: soft. Absent: distended, tenderness, guarding, rebound, rigid, mass Extremities exam: Present: normal inspection, normal capillary refill. Absent: pedal edema, calf tenderness Back exam: Present: normal inspection. Absent: CVA tenderness (R), CVA tenderne ss (L) Neurological exam: Present: alert Skin exam: Present: warm, dry, intact, normal color. Absent: rash Course Vital Signs 07/24/23 07/24/23 07/24/23 16:35 19:53 20:05 Temperature 98.4 F Pulse Rate 82 80 80 Respiratory 20 Rate Blood Pressure 163/61 O2 Sat by Pulse 85 L Oximetry Medical Decision Making - Medical Decision Making Patient is 77-year-old woman with dyspnea. She does appear to have multifactorial dyspnea with a component of COPD and then some CHF evident on computed tomography scan and elevated BNP. I was preparing to admit the patient but she stated that she will was feeling much better after the treatment and wanted to go home. We discussed appropriate further care and follow-up as well as return parameters. Also discussed the CT findings including lung nodules and the breast findings. The patient did have left sided breast cancer treated in 2012. She states she will discuss with her physician to ensure that this is not acute. She will maintain a low index to return to the emergency department should she not be having improvement or if there is any worsening. The patient had chest x-ray which I interpreted as negative for acute infiltrate, pneumothorax, congestive heart failure. The patient had CT angiography which I interpreted as negative for acute PE Was pt. sent in by a medical professional or institution (, PA, [employer], urgent care, hospital, or skilled nursing...) When possible be specific @ -[No] Did you speak to anyone other than the patient for history (EMS, parent, family, police, friend...)? What history was obtained from this source @ -[No] Did you review nursing and triage notes (agree or disagree)? Why? @ -[I reviewed and agree with nursing and triage notes] Were old charts reviewed (outside hosp., previous admission, EMS record, old EKG, old radiological studies, urgent care reports/EKG's, skilled nursing records)? Report findings @ -[No old charts were reviewed] Differential Diagnosis (chest pain, altered mental status, abdominal pain women, abdominal pain men, vaginal bleeding, weakness, fever, dyspnea, syncope, headache, dizziness, GI bleed, back pain, seizure, CVA, palpatations, mental health, musculoskeletal)? @ -[Differential Dyspnea: Coronary syndrome, arrhythmia, tamponade, asthma, COPD, pulmonary embolism, pneumonia, pneumothorax, pulmonary effusion, anaphylaxis, diabetic ketoacidosis, flailed chest, pulmonary contusion, diaphragmatic rupture, anemia, neuromuscular, this is not meant to be an all-inclusive list. EKG interpreted by me (3pts min.). @ -[As above] X-rays interpreted by me (1pt min.). @ -[I interpreted as above CT interpreted by me (1pt min.). @ -Related as above U/S interpreted by me (1pt. min.). @ -[None done] What testing was considered but not performed or refused? (CT, X-rays, U/S, labs)? Why? @ -[None] What meds were considered but not given or refused? Why? @ -[None] Did you discuss the management of the patient with other professionals (professionals i.e. , PA, [employer], lab, RT, psych nurse, director of social media marketing, can tester, teacher, child support case officer, counseling case manager)? Give summary @ -[No] Was smoking cessation discussed for >3mins.? @ -[No] Was critical care preformed (if so, how long)? @ -[No] Were there social determinants of health that impacted care today? How? (Homelessness, low income, unemployed, alcoholism, drug addiction, transportation, low edu. Level, literacy, decrease access to med. care, usp, rehab)? @ -[No] Was there de-escalation of care discussed even if they declined (Discuss DNR or withdrawal of care, Hospice)? DNR status @ -[No] What co-morbidities impacted this encounter? (DM, HTN, Smoking, COPD, CAD, Cancer, CVA, ARF, Chemo, Hep., AIDS, mental health diagnosis, sleep apnea, morbid obesity)? @ -[None] Was patient admitted / discharged? Hospital course, mention meds given and route, prescriptions, significant lab abnormalities, going to OR and other pertinent info. @ -[Please see above Undiagnosed new problem with uncertain prognosis? @ -[No] Drug Therapy requiring intensive monitoring for toxicity (Heparin, Nitro, Insulin, Cardizem)? @ -[No] Were any procedures done? @ -[No] Diagnosis/symptom? @ -[Dyspnea Acute COPD exacerbation Possible breast cancer Acute, or Chronic, or Acute on Chronic? @ -[Acute Uncomplicated (without systemic symptoms) or Complicated (systemic symptoms)? @ -[Uncomplicated Side effects of treatment? @ -[No] Exacerbation, Progression, or Severe Exacerbation? @ -[No] Poses a threat to life or bodily function? How? (Chest pain, [place], [place], pneumonia, PE, COPD, DKA, ARF, appy, cholecystitis, CVA, Diverticulitis, Homicidal, Suicidal, threat to staff... and all critical care pts) @ -[Yes - Lab Data Result diagrams: 07/24/23 17:47 07/24/23 17:47 Lab Results 07/24/23 07/24/23 07/24/23 Range/Units 17:47 17:47 17:47 WBC 5.8 (3.8-10.6) k/uL RBC 3.94 (3.80-5.40) m/uL Hgb 13.6 (11.4-16.0) gm/dL Hct 41.6 (34.0-46.0) % MCV 105.7 H (80.0-100.0) fL MCH 34.5 (25.0-35.0) pg MCHC 32.6 (31.0-37.0) g/dL RDW 12.7 (11.5-15.5) % Plt Count 174 (150-450) k/uL MPV 7.6 Neutrophils % 57 % Lymphocytes % 33 % Monocytes % 6 % Eosinophils % 1 % Basophils % 0 % Neutrophils # 3.3 (1.3-7.7) k/uL Lymphocytes # 1.9 (1.0-4.8) k/uL Monocytes # 0.3 (0-1.0) k/uL Eosinophils # 0.1 (0-0.7) k/uL Basophils # 0.0 (0-0.2) k/uL Macrocytosis Slight PT 10.0 (10.0-12.5) sec INR 0.9 (<1.2) APTT 23.0 (22.0-30.0) sec D-Dimer 2.14 H (<0.60) mg/L FEU Sodium 139 (137-145) mmol/L Potassium 4.2 (3.5-5.1) mmol/L Chloride 104 (98-107) mmol/L Carbon Dioxide 30 (22-30) mmol/L Anion Gap 5 mmol/L BUN 17 (7-17) mg/dL Creatinine 0.67 (0.52-1.04) mg/dL Est GFR (CKD-EPI)AfAm >90 (>60 ml/min/1.73 sqM) Est GFR (CKD-EPI)NonAf 86 (>60 ml/min/1.73 sqM) Glucose 102 H (74-99) mg/dL Plasma Lactic Acid Luke (0.7-2.0) mmol/L Calcium 9.0 (8.4-10.2) mg/dL Total Bilirubin 0.3 (0.2-1.3) mg/dL AST 25 (14-36) U/L ALT 8 (4-34) U/L Alkaline Phosphatase 81 (38-126) U/L Troponin I (0.000-0.034) ng/mL NT-Pro-B Natriuret Pep 1810 pg/mL Total Protein 5.9 L (6.3-8.2) g/dL Albumin 3.3 L (3.5-5.0) g/dL Influenza Type A (PCR) (Not Detectd) Influenza Type B (PCR) (Not Detectd) RSV (PCR) (Not Detectd) SARS-CoV-2 (PCR) (Not Detectd) 07/24/23 07/24/23 07/24/23 Range/Units 17:47 17:47 18:20 WBC (3.8-10.6) k/uL RBC (3.80-5.40) m/uL Hgb (11.4-16.0) gm/dL Hct (34.0-46.0) % MCV (80.0-100.0) fL MCH (25.0-35.0) pg MCHC (31.0-37.0) g/dL RDW (11.5-15.5) % Plt Count (150-450) k/uL MPV Neutrophils % % Lymphocytes % % Monocytes % % Eosinophils % % Basophils % % Neutrophils # (1.3-7.7) k/uL Lymphocytes # (1.0-4.8) k/uL Monocytes # (0-1.0) k/uL Eosinophils # (0-0.7) k/uL Basophils # (0-0.2) k/uL Macrocytosis PT (10.0-12.5) sec INR (<1.2) APTT (22.0-30.0) sec D-Dimer (<0.60) mg/L FEU Sodium (137-145) mmol/L Potassium (3.5-5.1) mmol/L Chloride (98-107) mmol/L Carbon Dioxide (22-30) mmol/L Anion Gap mmol/L BUN (7-17) mg/dL Creatinine (0.52-1.04) mg/dL Est GFR (CKD-EPI)AfAm (>60 ml/min/1.73 sqM) Est GFR (CKD-EPI)NonAf (>60 ml/min/1.73 sqM) Glucose (74-99) mg/dL Plasma Lactic Acid Luke 0.9 (0.7-2.0) mmol/L Calcium (8.4-10.2) mg/dL Total Bilirubin (0.2-1.3) mg/dL AST (14-36) U/L ALT (4-34) U/L Alkaline Phosphatase (38-126) U/L Troponin I 0.015 (0.000-0.034) ng/mL NT-Pro-B Natriuret Pep pg/mL Total Protein (6.3-8.2) g/dL Albumin (3.5-5.0) g/dL Influenza Type A (PCR) Not Detected (Not Detectd) Influenza Type B (PCR) Not Detected (Not Detectd) RSV (PCR) Not Detected (Not Detectd) SARS-CoV-2 (PCR) Not Detected (Not Detectd) Disposition Clinical Impression: Dyspnea, COPD (chronic obstructive pulmonary disease) Disposition: HOME SELF-CARE Condition: Good Instructions (If sedation given, give patient instructions): COPD (Chronic Obstructive Pulmonary Disease) (ED) Additional Instructions: As we discussed, review the CT results with your physician to ensure that these are all chronic findings. If there is any problem return to the emergency depa rtment. Prescriptions: predniSONE [Deltasone] 20 mg PO BID #8 tab Furosemide [Lasix] 20 mg PO DAILY #3 tab Is patient prescribed a controlled substance at d/c from ED?: No Referrals: Kapil Acosta DO [Primary Care Provider] - 1-2 days
[2023-07-24 18:03] LABS: Basophils % (A) 0 %; Eosinophils # (A) 0.1 k/uL (0-0.7); Eosinophils % (A) 1 %; HCT 41.6 % (34.0-46.0); HGB 13.6 gm/dL (11.4-16.0); Lymphocytes # (A) 1.9 k/uL (1.0-4.8); Lymphocytes % (A) 33 %; MCH 34.5 pg (25.0-35.0); MCHC 32.6 g/dL (31.0-37.0); MCV 105.7 fL (80.0-100.0); Macrocytosis Slight; Mean Platelet Volume 7.6; Monocytes # (A) 0.3 k/uL (0-1.0); Monocytes % (A) 6 %; Neutrophils # (A) 3.3 k/uL (1.3-7.7); Neutrophils % (A) 57 %; Platelet Count 174 k/uL (150-450); RBC 3.94 m/uL (3.80-5.40); RDW 12.7 % (11.5-15.5); WBC 5.8 k/uL (3.8-10.6)
[2023-07-24 18:16] LABS: INR 0.9 (<1.2)
[2023-07-24 18:20] LABS: ALT 8 U/L (4-34); AST 25 U/L (14-36); African American GFR (CKD) >90 (>60 ml/min/1.73 sqM); Albumin 3.3 g/dL (3.5-5.0); Alkaline Phosphatase 81 U/L (38-126); Anion Gap 5 mmol/L; Blood Urea Nitrogen 17 mg/dL (7-17); Carbon Dioxide 30 mmol/L (22-30); Chloride 104 mmol/L (98-107); Glucose 102 mg/dL (74-99); Non-African American GFR(CKD) 86 (>60 ml/min/1.73 sqM); Potassium 4.2 mmol/L (3.5-5.1); Sodium 139 mmol/L (137-145); Total Bilirubin 0.3 mg/dL (0.2-1.3); Total Protein 5.9 g/dL (6.3-8.2)
--- NOTE | 2023-07-24 18:25 | XR ---
EXAMINATION TYPE: XR chest 2V DATE OF EXAM: 07/24/2023 6:08 PM CLINICAL INDICATION:Female, 77 years old with history of difficulty breathing; [facility] COMPARISON: Chest radiographs from 06/20/2019. TECHNIQUE: XR chest 2V Frontal and lateral views of the chest. FINDINGS: Lungs/Pleura: Prominent interstitial lung markings are seen scattered throughout the lungs with daniel ening of the diaphragm and increased lucency of the lung apices. No evidence of focal consolidation, pneumothorax or pleural effusion. Pulmonary vascularity: Unremarkable. Heart/mediastinum: Cardiomediastinal silhouette is unremarkable. Musculoskeletal: No acute osseous pathology. . Electronic leads project over the spine. Other findings: None IMPRESSION: 1. No acute cardiopulmonary disease process. 2. COPD changes.
[2023-07-24 18:28] LABS: NT-Pro-B-Type Natriuretic Pept 1810 pg/mL
--- NOTE | 2023-07-24 19:20 | CT ---
EXAMINATION TYPE: CT chest angio for PE CT DLP: 276.7 mGycm, Automated exposure control for dose reduction was used. DATE OF EXAM: 07/24/2023 6:59 PM COMPARISON: 06/28/2014 CLINICAL INDICATION:Female, 77 years old with history of dyspnea, possible PE; dyspnea, possible PE TECHNIQUE/CONTRAST: CTA scan of the thorax is performed with IV Contrast, patient injected with 68ml mL of Isovue 370, IN P images are created and reviewed these are created on a separate workstation.. FINDINGS: Pulmonary Artery: There is no evidence for a filling defect within the pulmonary vasculature to sugge st acute pulmonary embolism. The pulmonary artery is of normal size. Lungs/Pleura: No evidence of focal consolidation, pleural effusion or pneumothorax. Pulmonary vascula r congestion is present. With thickening of interlobular septa. There is a right anterior pulmonary n odule measuring 9 mm in more inferiorly lateral measuring 5 mm in the right upper lung. Left lower yaron ng spiculated nodule measuring 10 mm. Right lower lung nodule measuring 7 mm. Airway: Large airways are patent. Heart: Heart is within normal limits for size. Vasculature: No evidence of aortic aneurysm. Atherosclerosis with Mediastinum: No gross evidence of adenopathy. Musculoskeletal: No acute osseous abnormalities Soft Tissues: Left upper shoulder ill-defined soft tissue at the thoracic inlet.r left breast mass is present posterior nipple measuring at least 2.2 x 1.4 cm with skin thickening up to 9 mm. Lower neck: No significant findings. Upper Abdomen: Stent grafts in the upper abdomen along the celiac axis in the superior mesenteric art rosemarie appear intact. The gallbladder surgically absent. IMPRESSION: 1. No evidence of pulmonary embolism. 2. Left breast mass with skin thickening concerning for malignancy. Additionally, Ill-defined soft ti ssue in the left shoulder and scattered pulmonary nodules are concerning for malignancy. 3. Cardiomegaly with pulmonary vascular congestion concerning for congestive heart failure.
[2023-07-24] MEDS ORDERED: predniSONE 20 MG TAB PO STA (20:01)
[2023-07-24 20:17] VITALS: PULSE 80
== END 2023-07-24 20:04 | disposition home or self-care (01) ==
LOC: EC 16:32
DX: J44.9 Chronic obstructive pulmonary disease, unspecified (principal); I11.0 Hypertensive heart disease with heart failure; I50.9 Heart failure, unspecified; F17.200 Nicotine dependence, unspecified, uncomplicated; Z20.822 Contact with and (suspected) exposure to COVID-19; Z79.02 Long term (current) use of antithrombotics/antiplatelets; Z79.899 Other long term (current) drug therapy; Z88.0 Allergy status to penicillin; Z91.09 Other allergy status, other than to drugs and biological substances
CPT/HCPCS: 99285; 36415; 94640; 85379; 83880; 80053; 83605; 84484; 85025; 85610; 85730; 87636; 71046; 71275; Q9967

== ENCOUNTER → 2023-08-23 | Outpatient (CLI) | payer MEDICARE ==
--- NOTE | 2023-08-23 11:11 | MM ---
Reason for Exam: Clinical finding. Last mammogram was performed 2 year(s) and 9 month(s) ago. Patient History: Menarche at age 14. First Full-Term at age 17. Postmenopausal. Breast cancer, left, age 67. Previous chest radiation therapy at age 67. Previous chemotherapy at age 67. Daughter had breast cancer under age 50. Prior Study Comparison: 12/12/2016 Bilateral Diagnostic Mammogram, [facility]. 02/19/2018 Bilateral Diagnostic Mammogram, [facility]. 11/18/2020 Bilateral Diagnostic Mammogram, [facility]. Tissue Density: The breast tissue is heterogeneously dense. This may lower the sensitivity of mammography. Findings: Analyzed By CAD. Postsurgical and posttreatment change redemonstrated in left breast. Lumpectomy scar posterior upper outer quadrant. There is a new 2 cm mass within the subareolar region of the left breast. Further ultrasound evaluation is recommended. Microclip lateral right breast from prior biopsy. Punctate grouped calcifications at the site of clip related to prior biopsy. Overall Assessment: Incomplete: need additional imaging evaluation, BI-RAD 0 Management: Diagnostic Breast Ultrasound of the left breast. Electronically signed and approved by: Heber Marcelino M.D. Radiologist
== END | disposition home or self-care (01) ==
LOC: RADMAMWWP 09:57
PROVIDERS: ATTEND Family Medicine
DX: N63.20 Unspecified lump in the left breast, unspecified quadrant (principal); N63.10 Unspecified lump in the right breast, unspecified quadrant; R92.333 Mammographic heterogeneous density, bilateral breasts; Z78.0 Asymptomatic menopausal state; Z80.3 Family history of malignant neoplasm of breast
CPT/HCPCS: 77066; G0279; 77062

== ENCOUNTER → 2023-08-23 | Outpatient (CLI) | payer MEDICARE ==
--- NOTE | 2023-08-23 11:51 | USB ---
Reason for Exam: Clinical finding. Patient History: Menarche at age 14. First Full-Term at age 17. Postmenopausal. Breast cancer, left, age 67. Previous chest radiation therapy at age 67. Previous chemotherapy at age 67. Daughter had breast cancer under age 50. Technique: Method: Whole Breast Handheld. Prior Study Comparison: 12/12/2016 Bilateral Diagnostic Mammogram, [facility]. 02/19/2018 Bilateral Diagnostic Mammogram, [facility]. 11/18/2020 Bilateral Diagnostic Mammogram, [facility]. Findings: The whole breast of the left breast, the axilla of the left breast and the retroareolar of the left breast were scanned. A complete US of all four quadrants of the breast, axilla, and retro-areolar region were reviewed. At the 2:00 position, 8 cm from the nipple, the patient's lumpectomy scar is noted. At the 9:00 position, 1 cm from the nipple, there is an irregular hypoechoic solid mass measuring 1.8 x 1.5 x 1.3 cm. Some minimal internal vascularity is noted. No other solid or cystic lesion or axillary lymphadenopathy. Overall Assessment: Highly suggestive of malignancy, BI-RAD 5 Management: Ultrasound Core Biopsy of the left breast. Results were given to the patient verbally at the time of exam. Electronically signed and approved by: Heber Marcelino M.D. Radiologist
== END | disposition home or self-care (01) ==
LOC: RADUSWWP 09:56
PROVIDERS: ATTEND Internal Medicine Hematology & Oncology
DX: N63.21 Unspecified lump in the left breast, upper outer quadrant (principal); R92.8 Other abnormal and inconclusive findings on diagnostic imaging of breast; Z85.3 Personal history of malignant neoplasm of breast; Z78.0 Asymptomatic menopausal state; Z80.3 Family history of malignant neoplasm of breast

== ENCOUNTER → 2023-09-09 | Day surgery (SDC) | payer MEDICARE ==
--- NOTE | 2023-09-13 09:45 | MM ---
Reason for Exam: Post Procedure Mammogram. Last screening mammogram was performed less than 1 month ago. Patient History: Menarche at age 14. First Full-Term at age 17. Postmenopausal. Breast cancer, left, age 67. Previous chest radiation therapy at age 67. Previous chemotherapy at age 67. Daughter had breast cancer under age 50. Prior Study Comparison: 12/12/2016 Bilateral Diagnostic Mammogram, [facility]. 02/19/2018 Bilateral Diagnostic Mammogram, [facility]. 11/18/2020 Bilateral Diagnostic Mammogram, [facility]. 08/23/2023 Bilateral MG 3D diag mammo w/cad JARAD, [facility]. Tissue Density: Left: The breast tissue is heterogeneously dense. This may lower the sensitivity of mammography. Pathology Description: Location: 9 o'clock. Marker Left Behind. Needle Type: Mammotome Cores: 5 Gauge: 13 The procedure of ultrasound guided core biopsy was explained to the patient. Benefits, alternatives, and risks were discussed. An informed consent was then obtained. The suspicious 1.9 cm hypoechoic mass at the 9:00 subareolar left breast is identified and targeted for biopsy. The patient was placed in supine positioning for imaging and for the procedure. The overlying skin was prepped and draped in usual sterile fashion. Lidocaine was used as anesthetic into the skin and subcutaneous tissue up to area of concern in the 9:00 periareolar left breast. Under ultrasound guidance, initial attempts at biopsy with a a 13-gauge vacuum-assisted Mammotome Elite biopsy gun yielded only miniscule fragments. Subsequently, a 12-gauge vacuum assisted Celero device was used to obtain 2 core samples. Following this, a butterfly Hydromark clip was left in lesion. The patient tolerated the procedure well without any immediate complication. The patient was kept in the radiology department for short stay after the procedure and then discharged home in stable condition. Postprocedure mammogram: The patient was transferred to mammography for physician ordered post procedure mammogram for clip placement verification. Post procedure mammogram shows clip within the subareolar mass. IMPRESSION: Successful, uncomplicated ultrasound guided core biopsy of suspicious subareolar 9:00 left breast mass in a patient previously treated for left breast cancer; full pathology results to follow. Pathology Results: Result: Malignant, Invasive ductal carcinoma. LEFT BREAST, 9:00 1 CM FROM NIPPLE, ULTRASOUND GUIDED CORE BIOPSY: Invasive high grade ductal carcinoma, grade 3 (see Surgical Pathology Cancer Case Summary and comment). Overall Assessment: Malignant Assessment: MG diagnostic mammo LT wo CAD. - Left: Known biopsy proven malignancy, BI-RAD 6. Management: Surgical Consultation of the left breast. Electronically signed and approved by: Heber Marcelino M.D. Radiologist
== END ==
LOC: RADUSWWP 12:24
PROVIDERS: ATTEND Internal Medicine Hematology & Oncology
DX: C50.812 Malignant neoplasm of overlapping sites of left female breast (principal); Z17.1 Estrogen receptor negative status [ER-]; Z78.0 Asymptomatic menopausal state
CPT/HCPCS: 88305; 88342; 88341; 77065; 19083; A4648

== ENCOUNTER 2023-09-26 14:23 | Observation (INO) | payer MEDICARE ==
--- NOTE | 2023-09-26 15:48 | ED ---
Abdominal Pain HPI - General Source: patient, RN notes reviewed Mode of arrival: wheelchair Limitations: no limitations <Anette Marshall - Last Filed: 09/26/23 15:46> <Sachin Guy - Last Filed: 09/26/23 19:55> - General Chief Complaint: Abdominal Pain Stated Complaint: Abd pain Time Seen by Provider: 09/26/23 15:46 - History of Present Illness Initial Comments: Patient is a 78-year-old female presented to the ER with a chief complaint of dark tarry stools and abdominal pain. Patient states been going on for about 2 weeks. Patient is prescribed Percocet and states it was not helping her pain so she started taking ibuprofen which she thinks is causing her dark tarry stools. Patient denies any nausea or vomiting. Patient is on Plavix. Denies any chest pain, shortness of breath, lightheaded, dizziness. (Anette Marshall) 78-year-old female with a past medical history significant for mesenteric artery stent, bilateral iliac artery stent on Plavix presenting to the ED with a chief complaint of abdominal pain. Patient states for the past 2 weeks has had lower abdominal pain and also notes that she has been having dark tarry stools. Since onset, reports pain has worsened in severity prompting presentation to the ED for further evaluation. Patient also notes some associated fatigue with this. No nausea or vomiting. Denies chest pain shortness of breath. No other compla ints. (Sachin Guy) - Related Data Home Medications Medication Instructions Recorded Confirmed ALPRAZolam [Xanax] 0.5 mg PO HS 06/08/18 08/23/23 Gabapentin 600 mg PO BID 06/08/18 08/23/23 Meclizine [Antivert] 12.5 mg PO BID PRN 06/08/18 08/23/23 Montelukast [Singulair] 10 mg PO DAILY 06/08/18 08/23/23 Simvastatin 40 mg PO DAILY 06/08/18 08/23/23 Clopidogrel Bisulfate [Plavix] 75 mg PO DAILY 07/04/20 08/23/23 Omeprazole [PriLOSEC] 20 mg PO DAILY 07/04/20 08/23/23 Albuterol Inhaler [Ventolin Hfa 1 - 2 puff INHALATION RT-Q6H PRN 07/24/23 08/23/23 Inhaler] Baclofen [Lioresal] 10 mg PO HS 07/24/23 08/23/23 Cholecalciferol (Vitamin D3) 1,250 mcg PO MO 07/24/23 08/23/23 [Decara (50,000 Iu)] Ibuprofen [Motrin] 800 mg PO TID PRN 07/24/23 08/23/23 atenoloL [Tenormin] 50 mg PO DAILY 07/24/23 08/23/23 oxyCODONE-APAP 7.5-325MG [Percocet 1 tab PO TID@0900,1630,2300 07/24/23 08/23/23 7.5-325 mg] Allergies Allergy/AdvReac Type Severity Reaction Status Date / Time nickel Allergy Rash/Hives Verified 08/23/23 15:15 Penicillins Allergy Rash/Hives Verified 08/23/23 15:15 Review of Systems ROS Other: All systems not noted in ROS Statement are negative. <Anette Marshall - Last Filed: 09/26/23 15:46> ROS Other: All systems not noted in ROS Statement are negative. <Sachin Guy - Last Filed: 09/26/23 19:55> ROS Statement: Those systems with pertinent positive or pertinent negative responses have been documented in the HPI. Past Medical History Past Medical History: Cancer, COPD, Hyperlipidemia, Hypertension, Osteoarthritis (OA) Additional Past Medical History / Comment(s): breast cancer, osteoporosis, broken pelvis end of apr 2023. 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 LT LUMPECTOMY /WITH 12 LYMPH NODES REMOVED Past Anesthesia/Blood Transfusion Reactions: No Reported Reaction Past Psychological History: Depression Smoking Status: Current every day smoker Past Alcohol Use History: None Reported Past Drug Use History: None Reported - Past Family History Daughter(s) Family Medical History: Cancer <Anette Marshall - Last Filed: 09/26/23 15:46> General Exam Limitations: no limitations <Anette Marshall - Last Filed: 09/26/23 15:46> General appearance: alert, in no apparent distress Eye exam: Present: normal appearance Neck exam: Present: normal inspection Respiratory exam: Present: normal lung sounds bilaterally Cardiovascular Exam: Present: regular rate, normal rhythm GI/Abdominal exam: Present: soft (No tenderness to palpation. No rebound guarding or rigidity.) Neurological exam: Present: alert, oriented X3 Skin exam: Present: warm, dry <Sachin Guy - Last Filed: 09/26/23 19:55> - General Exam Comments Initial Comments: Visual Physical Exam Vital signs reviewed General: Well-appearing, nontoxic, no acute distress. Head: Normocephalic, atraumatic Eyes: PERRLA, EOMI ENT: Airway patent Chest: Nonlabored breathing Skin: No visual rash, normal skin tone Neuro: Alert and oriented 3 Musculoskeletal: No gross abnormalities (Anette Marshall) Course Vital Signs 09/26/23 09/26/23 09/26/23 14:47 16:44 17:19 Temperature 97.8 F 98.2 F Pulse Rate 79 65 63 Respiratory 16 16 16 Rate Blood Pressure 124/69 138/60 122/58 O2 Sat by Pulse 98 95 95 Oximetry 09/26/23 18:00 Temperature Pulse Rate 61 Respiratory 19 Rate Blood Pressure 127/85 O2 Sat by Pulse 99 Oximetry Medical Decision Making <Anette Marshall - Last Filed: 09/26/23 15:46> - Lab Data Result diagrams: 09/26/23 14:50 09/26/23 14:50 <Sachin Guy - Last Filed: 09/26/23 19:55> - Medical Decision Making I performed the quick note portion of the exam. Electronically signed by Anette Marshall PA-C (Anette Marshall) Was pt. sent in by a medical professional or institution ([facility], [employer] EQUIPMENT REPAIRER, urgent care, hospital, or assisted...) When possible be specific @ -No Did you speak to anyone other than the patient for history (EMS, parent, family, police, friend...)? What history was obtained from this source @ -No Did you review nursing and triage notes (agree or disagree)? Why? @ -I reviewed and agree with nursing and triage notes Were old charts reviewed (outside hosp., previous admission, EMS record, old EKG, old radiological studies, urgent care reports/EKG's, assisted records)? Report findings @ -Prior charts reviewed showing history of bilateral iliac stents and me senteric artery stent on Plavix Differential Diagnosis (chest pain, altered mental status, abdominal pain women, abdominal pain men, vaginal bleeding, weakness, fever, dyspnea, syncope, he adache, dizziness, GI bleed, back pain, seizure, CVA, palpatations, mental health, musculoskeletal)? @ -Not applicable EKG interpreted by me (3pts min.). @ -As above X-rays interpreted by me (1pt min.). @ -None done CT interpreted by me (1pt min.). @ -None done U/S interpreted by me (1pt. min.). @ -None done What testing was considered but not performed or refused? (CT, X-rays, U/S, labs)? Why? @ -None What meds were considered but not given or refused? Why? @ -None Did you discuss the management of the patient with other professionals (professionals i.e. , PA, RADIO EQUIPMENT REPAIRER, lab, RT, psych nurse, manager social responsibility, scientific investigator, teacher, special assets officer, case advocate)? Give summary @ -No Was smoking cessation discussed for >3mins.? @ -No Was critical care preformed (if so, how long)? @ -No Were there social determinants of health that impacted care today? How? (Homelessness, low income, unemployed, alcoholism, drug addiction, transportation, low edu. Level, literacy, decrease access to med. care, shelter, rehab)? @ -No Was there de-escalation of care discussed even if they declined (Discuss DNR or withdrawal of care, Hospice)? DNR status @ -No What co-morbidities impacted this encounter? (DM, HTN, Smoking, COPD, CAD, Cancer, CVA, ARF, Chemo, Hep., AIDS, mental health diagnosis, sleep apnea, morbid obesity)? @ -None Was patient admitted / discharged? Hospital course, mention meds given and route, prescriptions, significant lab abnormalities, going to OR and other pertinent info. @ -Admission 78-year-old female presenting to the ED with complaints of abdominal pain for the past 2 weeks appearance of melena like material per rectum, and also constipation for the last 2 weeks. Mostly notes some fatigue at this time. Patient currently denies any chest pain or shortness of breath. Laboratory studies reviewed. CBC shows no evidence of anemia with hemoglobin of 14.2. Chemistry panel remarkable for elevated BUN at 26. Troponin initially elevated at 0.035. Repeat troponin at 0.035. Plavix at this time held. UA shows no evidence of infection. Occult blood negative. CTA of the abdomen pelvis shows no evidence of gastrointestinal hemorrhage. There is some suspected wall thickening of the sigmoid colon possibly representing partial bowel obstruction. Patient will be admitted with consults to GI and cardiology. Discussed plan of care with patient who is in agreement. Undiagnosed new problem with uncertain prognosis? @ -No Drug Therapy requiring intensive monitoring for toxicity (Heparin, Nitro, Insulin, Cardizem)? @ -No Were any procedures done? @ -No Diagnosis/symptom? @ -Possible large bowel obstruction, elevated troponin Acute, or Chronic, or Acute on Chronic? @ -Acute Uncomplicated (without systemic symptoms) or Complicated (systemic symptoms)? @ -Complicated Side effects of treatment? @ -No Exacerbation, Progression, or Severe Exacerbation? @ -No Poses a threat to life or bodily function? How? (Chest pain, [place], CO, pneumonia, PE, COPD, DKA, ARF, appy, cholecystitis, CVA, Diverticulitis, Homicidal, Suicidal, threat to staff... and all critical care pts) @ -Possibly (Sachin Guy) - Lab Data Lab Results 09/26/23 09/26/23 09/26/23 Range/Units 14:50 14:50 14:50 WBC 10.3 (3.8-10.6) k/uL RBC 4.25 (3.80-5.40) m/uL Hgb 14.2 (11.4-16.0) gm/dL Hct 44.1 (34.0-46.0) % MCV 103.7 H (80.0-100.0) fL MCH 33.5 (25.0-35.0) pg MCHC 32.3 (31.0-37.0) g/dL RDW 12.1 (11.5-15.5) % Plt Count 164 (150-450) k/uL MPV 7.8 Neutrophils % 70 % Lymphocytes % 22 % Monocytes % 5 % Eosinophils % 1 % Basophils % 0 % Neutrophils # 7.2 (1.3-7.7) k/uL Lymphocytes # 2.3 (1.0-4.8) k/uL Monocytes # 0.5 (0-1.0) k/uL Eosinophils # 0.1 (0-0.7) k/uL Basophils # 0.0 (0-0.2) k/uL Macrocytosis Slight PT (10.0-12.5) sec INR (<1.2) APTT (22.0-30.0) sec Sodium 138 (137-145) mmol/L Potassium 4.3 (3.5-5.1) mmol/L Chloride 106 (98-107) mmol/L Carbon Dioxide 32 H (22-30) mmol/L Anion Gap 0 mmol/L BUN 26 H (7-17) mg/dL Creatinine 0.64 (0.52-1.04) mg/dL Est GFR (CKD-EPI)AfAm >90 (>60 ml/min/1.73 sqM) Est GFR (CKD-EPI)NonAf 86 (>60 ml/min/1.73 sqM) Glucose 124 H (74-99) mg/dL Calcium 8.8 (8.4-10.2) mg/dL Total Bilirubin 0.6 (0.2-1.3) mg/dL AST 40 H (14-36) U/L ALT 9 (4-34) U/L Alkaline Phosphatase 86 (38-126) U/L Troponin I 0.035 H* (0.000-0.034) ng/mL Total Protein 5.8 L (6.3-8.2) g/dL Albumin 3.2 L (3.5-5.0) g/dL Amylase 32 (30-110) U/L Lipase 22 L (23-300) U/L Urine Color Urine Appearance (Clear) Urine pH (5.0-8.0) Ur Specific [place] (1.001-1.035) Urine Protein (Negative) Urine Glucose (UA) (Negative) Urine Ketones (Negative) Urine Blood (Negative) Urine Nitrite (Negative) Urine Bilirubin (Negative) Urine Urobilinogen (<2.0) mg/dL Ur Leukocyte Esterase (Negative) Stool Occult Blood (Negative) Blood Type Blood Type Confirm Blood Type Recheck Bld Type Recheck Status Antibody Screen Spec Expiration Date 09/26/23 09/26/23 09/26/23 Range/Units 14:51 15:25 15:30 WBC (3.8-10.6) k/uL RBC (3.80-5.40) m/uL Hgb (11.4-16.0) gm/dL Hct (34.0-46.0) % MCV (80.0-100.0) fL MCH (25.0-35.0) pg MCHC (31.0-37.0) g/dL RDW (11.5-15.5) % Plt Count (150-450) k/uL MPV Neutrophils % % Lymphocytes % % Monocytes % % Eosinophils % % Basophils % % Neutrophils # (1.3-7.7) k/uL Lymphocytes # (1.0-4.8) k/uL Monocytes # (0-1.0) k/uL Eosinophils # (0-0.7) k/uL Basophils # (0-0.2) k/uL Macrocytosis PT 10.3 (10.0-12.5) sec INR 0.9 (<1.2) APTT 23.3 (22.0-30.0) sec Sodium (137-145) mmol/L Potassium (3.5-5.1) mmol/L Chloride (98-107) mmol/L Carbon Dioxide (22-30) mmol/L Anion Gap mmol/L BUN (7-17) mg/dL Creatinine (0.52-1.04) mg/dL Est GFR (CKD-EPI)AfAm (>60 ml/min/1.73 sqM) Est GFR (CKD-EPI)NonAf (>60 ml/min/1.73 sqM) Glucose (74-99) mg/dL Calcium (8.4-10.2) mg/dL Total Bilirubin (0.2-1.3) mg/dL AST (14-36) U/L ALT (4-34) U/L Alkaline Phosphatase (38-126) U/L Troponin I (0.000-0.034) ng/mL Total Protein (6.3-8.2) g/dL Albumin (3.5-5.0) g/dL Amylase (30-110) U/L Lipase (23-300) U/L Urine Color Urine Appearance (Clear) Urine pH (5.0-8.0) Ur Specific [place] (1.001-1.035) Urine Protein (Negative) Urine Glucose (UA) (Negative) Urine Ketones (Negative) Urine Blood (Negative) Urine Nitrite (Negative) Urine Bilirubin (Negative) Urine Urobilinogen (<2.0) mg/dL Ur Leukocyte Esterase (Negative) Stool Occult Blood (Negative) Blood Type A Positive Blood Type Confirm A Positive Blood Type Recheck No Previous Record Bld Type Recheck Status CABO Indicated Antibody Screen NEGATIVE Spec Expiration Date 09/29/2023232409/26/23 09/26/23 09/26/23 Range/Units 17:08 17:08 17:08 WBC (3.8-10.6) k/uL RBC (3.80-5.40) m/uL Hgb (11.4-16.0) gm/dL Hct (34.0-46.0) % MCV (80.0-100.0) fL MCH (25.0-35.0) pg MCHC (31.0-37.0) g/dL RDW (11.5-15.5) % Plt Count (150-450) k/uL MPV Neutrophils % % Lymphocytes % % Monocytes % % Eosinophils % % Basophils % % Neutrophils # (1.3-7.7) k/uL Lymphocytes # (1.0-4.8) k/uL Monocytes # (0-1.0) k/uL Eosinophils # (0-0.7) k/uL Basophils # (0-0.2) k/uL Macrocytosis PT (10.0-12.5) sec INR (<1.2) APTT (22.0-30.0) sec Sodium (137-145) mmol/L Potassium (3.5-5.1) mmol/L Chloride (98-107) mmol/L Carbon Dioxide (22-30) mmol/L Anion Gap mmol/L BUN (7-17) mg/dL Creatinine (0.52-1.04) mg/dL Est GFR (CKD-EPI)AfAm (>60 ml/min/1.73 sqM) Est GFR (CKD-EPI)NonAf (>60 ml/min/1.73 sqM) Glucose (74-99) mg/dL Calcium (8.4-10.2) mg/dL Total Bilirubin (0.2-1.3) mg/dL AST (14-36) U/L ALT (4-34) U/L Alkaline Phosphatase (38-126) U/L Troponin I 0.035 H* (0.000-0.034) ng/mL Total Protein (6.3-8.2) g/dL Albumin (3.5-5.0) g/dL Amylase (30-110) U/L Lipase (23-300) U/L Urine Color Yellow Urine Appearance Clear (Clear) Urine pH 6.5 (5.0-8.0) Ur Specific [place] >1.050 H (1.001-1.035) Urine Protein Trace H (Negative) Urine Glucose (UA) Negative (Negative) Urine Ketones Negative (Negative) Urine Blood Negative (Negative) Urine Nitrite Negative (Negative) Urine Bilirubin Negative (Negative) Urine Urobilinogen <2.0 (<2.0) mg/dL Ur Leukocyte Esterase Negative (Negative) Stool Occult Blood Negative (Negative) Blood Type Blood Type Confirm Blood Type Recheck Bld Type Recheck Status Antibody Screen Spec Expiration Date - EKG Data EKG Comments: KG interpreted by me showing a sinus rhythm with a first-degree AV block with a NC interval of [address] and T wave changes. QRS 89, QT/QTc 377/398. (Sachin Guy) Disposition <Anette Marshall - Last Filed: 09/26/23 15:46> Time of Disposition: 19:55 <Sachin Guy - Last Filed: 09/26/23 19:55> Clinical Impression: Large bowel obstruction, Elevated troponin Disposition: ADMITTED IP TO THIS HOSP Condition: Good Referrals: Kapil Acosta DO [Primary Care Provider] - 1-2 days
[2023-09-26 15:54] LABS: Basophils % (A) 0 %; Eosinophils # (A) 0.1 k/uL (0-0.7); Eosinophils % (A) 1 %; HCT 44.1 % (34.0-46.0); HGB 14.2 gm/dL (11.4-16.0); Lymphocytes # (A) 2.3 k/uL (1.0-4.8); Lymphocytes % (A) 22 %; MCH 33.5 pg (25.0-35.0); MCHC 32.3 g/dL (31.0-37.0); MCV 103.7 fL (80.0-100.0); Macrocytosis Slight; Mean Platelet Volume 7.8; Monocytes # (A) 0.5 k/uL (0-1.0); Monocytes % (A) 5 %; Neutrophils # (A) 7.2 k/uL (1.3-7.7); Neutrophils % (A) 70 %; Platelet Count 164 k/uL (150-450); RBC 4.25 m/uL (3.80-5.40); RDW 12.1 % (11.5-15.5); WBC 10.3 k/uL (3.8-10.6)
[2023-09-26 16:02] LABS: INR 0.9 (<1.2); Partial Thromboplastin Time 23.3 sec (22.0-30.0); Prothrombin Time 10.3 sec (10.0-12.5)
[2023-09-26 16:06] LABS: ALT 9 U/L (4-34); AST 40 U/L (14-36); African American GFR (CKD) >90 (>60 ml/min/1.73 sqM); Albumin 3.2 g/dL (3.5-5.0); Alkaline Phosphatase 86 U/L (38-126); Amylase 32 U/L (30-110); Anion Gap 0 mmol/L; Blood Urea Nitrogen 26 mg/dL (7-17); Calcium 8.8 mg/dL (8.4-10.2); Carbon Dioxide 32 mmol/L (22-30); Chloride 106 mmol/L (98-107); Glucose 124 mg/dL (74-99); Lipase 22 U/L (23-300); Non-African American GFR(CKD) 86 (>60 ml/min/1.73 sqM); Potassium 4.3 mmol/L (3.5-5.1); Sodium 138 mmol/L (137-145); Total Bilirubin 0.6 mg/dL (0.2-1.3); Total Protein 5.8 g/dL (6.3-8.2)
[2023-09-26] MEDS ORDERED: PANTOPRAZOLE 40 MG/10 ML VIAL IVP STA (16:59)
[2023-09-26] MEDS ORDERED: SODIUM CHLORIDE 0.9% 1,000 ML IV STA (16:59)
[2023-09-26] MEDS ORDERED: MORPHINE SULFATE 4 MG/ML SYRINGE IVP STA (18:09)
--- NOTE | 2023-09-26 18:34 | CT ---
EXAMINATION TYPE: CT angio abdomen pelvis CT DLP: 1112.8 mGycm, Automated exposure control for dose reduction was used. DATE OF EXAM: 09/26/2023 5:46 PM COMPARISON: 07/08/2023 CLINICAL INDICATION:Female, 78 years old with history of melena ct GI bleed protocol; [facility], Suspected GI bleed. TECHNIQUE: Multiple thin slice sub-millimeter images were obtained after administration of contrast. 3-D reconstructed images and maximum intensity projection images were obtained. CT angio abdomen pel vis CT Contrast: Contrast used:100ml mL of Isovue 370 with IV Contrast, Oral contrast used: without Oral Contrast None FINDINGS: CTA Abdomen and pelvis: There is severe atherosclerosis of the arterial vasculature sac access stent graft appears patent. Superior mesenteric artery stent graft also appears patent. The bilateral renal arteries are patent. Aortobiiliac stent graft is present and patent. No evidence for occlusion. LOWER CHEST: Right lower lobe 3 mm pulmonary nodule. Left lower lobe pulmonary nodule measuring up t o 10 mm these nodules were previously 7 and 9 mm respectively.. Moderate emphysema changes seen throu ghout the lungs. No evidence of focal consolidation, pneumothorax or pleural effusion. LIVER: Unremarkable GALLBLADDER AND BILE DUCTS: Gallbladder is surgically absent with mild intrahepatic and extra hepatic biliary dilatation likely physiologic and a postcholecystectomy change. No evidence of choledocholit hiasis. PANCREAS: Unremarkable. SPLEEN: Unremarkable. ADRENAL GLANDS: Unremarkable. KIDNEYS AND URETERS: No evidence of hydronephrosis or renal calculus. The ureters are unremarkable. Right renal cyst. PELVIS BLADDER: Unremarkable REPRODUCTIVE: Unremarkable. ABDOMEN & PELVIS STOMACH AND BOWEL: There is wall thickening of the sigmoid colon with upstream moderate to large stoo l series 501 image 145. There is upstream large stool burden in the colon. PERITONEUM: No evidence of pneumoperitoneum or free fluid. VASCULATURE: No evidence of aortic aneurysm. MUSCULOSKELETAL: Suspected remote injury to the left superior left inferior right inferior pubic rami . Some mottled appearance of the osseous structures in the right inferior pubic ramus and to lesser e xtent the left superior pubic ramus. Severe degeneration changes throughout the spine. There are stim ulator device terminating in the posterior thecal sac. LYMPH NODES: No gross evidence for lymphadenopathy. SOFT TISSUE/ABDOMINAL WALL: Unremarkable IMPRESSION 1. No evidence for gastrointestinal hemorrhage. There is suspected wall thickening of the sigmoid co cathi which is poorly evaluated. Given stool in the region. Consider colonoscopy if not recently perfor med. Findings could represent partial obstruction given the upstream large stool burden in the colon. 2. Remote injuries of the pelvis including left superior and inferior pubic rami as well as the righ t inferior pubic ramus. The mottled appearance of the right inferior pubic ramus could represent post traumatic change versus underlying malignant change versus other. 3. Bilateral lower lobe pulmonary nodules have increased in size from 07/08/2023. Correlate with his tory of malignancy. 4. No evidence for occlusion. Stent grafts appear patent.
[2023-09-26 18:56] LABS: Appearance,Urine Clear (Clear); Bilirubin,Urine Negative (Negative); Blood,Urine Negative (Negative); Color,Urine Yellow; Glucose,Urine (UA) Negative (Negative); Ketones,Urine Negative (Negative); Leukocyte Esterase,Urine Negative (Negative); Nitrite,Urine Negative (Negative); PH, Urine 6.5 (5.0-8.0); Protein,Urine Trace (Negative); Urobilinogen,Urine <2.0 mg/dL (<2.0)
[2023-09-26 19:00] LABS: Specific Gravity,Urine >1.050 (1.001-1.035)
[2023-09-26] MEDS ORDERED: ONDANSETRON 4 MG/2 ML VIAL IVP PRN (19:55)
[2023-09-26] MEDS ORDERED: NALOXONE 0.4 MG/ML 1 ML VIAL IV PRN (19:55)
[2023-09-26] MEDS: SODIUM CHLORIDE 0.9% 1,000 ML IV SCH (21:54)
[2023-09-26] MEDS ORDERED: ACETAMINOPHEN TAB 325 MG TAB PO PRN (22:51)
[2023-09-26] MEDS ORDERED: ACETAMINOPHEN TAB 325 MG TAB PO STA (22:52)
[2023-09-26] MEDS: KETOROLAC 15 MG/ML 1 ML VIAL IVP PRN (23:03)
[2023-09-26] MEDS ORDERED: ALPRAZolam 0.5 MG TAB PO STA (23:12)
[2023-09-27] MEDS: KETOROLAC 15 MG/ML 1 ML VIAL IVP PRN ×2 (05:22→13:13)
[2023-09-27] MEDS: SODIUM CHLORIDE 0.9% 1,000 ML IV SCH (09:07)
[2023-09-27] MEDS: PANTOPRAZOLE 40 MG/10 ML VIAL IV SCH (09:08)
[2023-09-27] MEDS ORDERED: LACTULOSE 20 GM/30 ML CUP PO ONE (10:04)
--- NOTE | 2023-09-27 10:14 | P.CONS ---
History of Present Illness - Reason for Consult Consult date: 09/27/23 Possible large bowel obstruction Requesting physician: Sachin Guy - Chief Complaint Constipation, abdominal pain - History of Present Illness This is a pleasant 78-year-old female who presented to the emergency department with complaints of abdominal pain and constipation. She states she has not had a good bowel movement in 2 weeks. States she just has small smears and that they are black. She states that she has been taking Pepto-Bismol for the stomach pain. States that she started out having diarrhea about 2 weeks ago she then started taking Imodium and now she has been taking Pepto-Bismol. Started getting uncomfortable about 2 days ago. 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 Patient also noted to have elevated troponins. She denies any nausea or vomiting, abdominal pain somewhat improved. It is in her lower abdomen. She has been afebrile. Review of Systems REVIEW OF SYSTEMS: CARDIOPULMONARY: No chest pain or shortness of breath. Gastrointestinal: Lower abdominal pain. No nausea or vomiting. No hematemesis, coffee-ground emesis. No rectal bleeding, or melena. Constipation for 2 weeks. GENITOURINARY: No dysuria or hematuria. MUSCULOSKELETAL: Reports normal range of motion., Joint pain. SKIN: No rashes. No jaundice. ENDOCRINE: No chills, fevers. No excessive weight gain or loss. No polydipsia or polyuria. PSYCHIATRIC: Unremarkable. NEUROLOGY: No change in mental status. Denies dizziness, headache. ENT: Vision unremarkable. CONSTITUTIONAL: No recent weight loss. No fever, chills, night sweats. Past Medical History Past Medical History: Cancer, COPD, Hyperlipidemia, Hypertension, Osteoarthritis (OA) Additional Past Medical History / Comment(s): breast cancer, osteoporosis, broken pelvis end of apr 2023. 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 LT LUMPECTOMY/WITH 12 LYMPH NODES REMOVED Past Anesthesia/Blood Transfusion Reactions: No Reported Reaction Past Psychological History: Depression Smoking Status: Current every day smoker Past Alcohol Use History: None Reported Past Drug Use History: None Reported - Past Family History Daughter(s) Family Medical History: Cancer Medications and Allergies Home Medications Medication Instructions Recorded Confirmed Type ALPRAZolam [Xanax] 0.5 mg PO HS 06/08/18 09/26/23 History Gabapentin 600 mg PO BID 06/08/18 09/26/23 History Meclizine [Antivert] 12.5 mg PO BID PRN 06/08/18 09/26/23 History Montelukast [Singulair] 10 mg PO DAILY 06/08/18 09/26/23 History Simvastatin 40 mg PO DAILY 06/08/18 09/26/23 History Clopidogrel Bisulfate [Plavix] 75 mg PO DAILY 07/04/20 09/26/23 History Omeprazole [PriLOSEC] 20 mg PO BID 07/04/20 09/26/23 History Albuterol Inhaler [Ventolin Hfa 1 - 2 puff INHALATION RT-Q6H PRN 07/24/23 09/26/23 History Inhaler] Baclofen [Lioresal] 10 mg PO BID PRN 07/24/23 09/26/23 History Cholecalciferol (Vitamin D3) 1,250 mcg PO MO 07/24/23 09/26/23 History [Decara (50,000 Iu)] Ibuprofen [Motrin] 800 mg PO TID PRN 07/24/23 09/26/23 History atenoloL [Tenormin] 50 mg PO DAILY 07/24/23 09/26/23 History oxyCODONE-APAP 7.5-325MG [Percocet 1 tab PO QID PRN 07/24/23 09/26/23 History 7.5-325 mg] ALPRAZolam [Xanax] 0.5 mg PO DAILY PRN 09/26/23 09/26/23 History Budesonide Nebulizer (Unknown 1 dose INHALATION DIRECTED 09/26/23 09/26/23 History Strength) Unknown Nebulizer Solution 1 dose INHALATION DIRECTED 09/26/23 09/26/23 History predniSONE See Taper PO DIRECTED 09/26/23 09/26/23 History Allergies Allergy/AdvReac Type Severity Reaction Status Date / Time nickel Allergy Rash/Hives Verified 09/26/23 20:02 Penicillins Allergy Rash/Hives Verified 09/26/23 20:02 Physical Exam Vitals: Vital Signs Temp Pulse Resp BP Pulse Ox 09/27/23 06:03 98 F 09/27/23 06:00 57 L 14 115/50 99 09/27/23 04:00 58 L 15 114/43 100 09/27/23 02:00 61 12 107/45 99 09/27/23 00:00 62 20 99/44 99 09/26/23 23:30 61 18 120/61 99 09/26/23 22:00 63 15 131/58 94 L 09/26/23 18:00 61 19 127/85 99 09/26/23 17:19 63 16 122/58 95 09/26/23 16:44 98.2 F 65 16 138/60 95 09/26/23 14:47 97.8 F 79 16 124/69 98 Intake and Output 09/26/23 09/26/23 09/27/23 14:59 22:59 06:59 Other: Weight 56.699 kg General appearance: The patient is alert, oriented, appears in no acute distress. HET: Head is normocephalic and atraumatic. Conjunctiva pink. Sclera anicteric. Neck: Supple without lymphadenopathy. Trachea midline. Heart: Regular. Lungs: Equal expansion, normal respiratory effort. Abdomen: Soft, Nontender, nondistended with bowel sounds. No guarding or rigidity. Skin: No rashes. No jaundice. Extremities: Normal skin color and turgor. Neurological: No focal deficits. Alert and oriented x3. Results CBC & Chem 7: 09/26/23 14:50 09/26/23 14:50 Labs: Abnormal Lab Results - Last 24 Hours (Table) 09/26/23 09/26/23 09/26/23 Range/Units 14:50 14:50 14:50 MCV 103.7 H (80.0-100.0) fL Carbon Dioxide 32 H (22-30) mmol/L BUN 26 H (7-17) mg/dL Glucose 124 H (74-99) mg/dL AST 40 H (14-36) U/L Troponin I 0.035 H* (0.000-0.034) ng/mL Total Protein 5.8 L (6.3-8.2) g/dL Albumin 3.2 L (3.5-5.0) g/dL Lipase 22 L (23-300) U/L Ur Specific [place] (1.001-1.035) Urine Protein (Negative) 09/26/23 09/26/23 09/26/23 Range/Units 17:08 17:08 23:16 MCV (80.0-100.0) fL Carbon Dioxide (22-30) mmol/L BUN (7-17) mg/dL Glucose (74-99) mg/dL AST (14-36) U/L Troponin I 0.035 H* 0.035 H* (0.000-0.034) ng/mL Total Protein (6.3-8.2) g/dL Albumin (3.5-5.0) g/dL Lipase (23-300) U/L Ur Specific [place] >1.050 H (1.001-1.035) Urine Protein Trace H (Negative) 09/27/23 Range/Units 01:16 MCV (80.0-100.0) fL Carbon Dioxide (22-30) mmol/L BUN (7-17) mg/dL Glucose (74-99) mg/dL AST (14-36) U/L Troponin I 0.036 H* (0.000-0.034) ng/mL Total Protein (6.3-8.2) g/dL Albumin (3.5-5.0) g/dL Lipase (23-300) U/L Ur Specific [place] (1.001-1.035) Urine Protein (Negative) Comments: CT angiogram abdomen and pelvis reports no evidence for gastrointestinal hemorrhage. There is suspected wall thickening of the sigmoid colon which is poorly evaluated. Given stool in the region. Considering colonoscopy if not recently performed. Findings could represent partial obstruction given the upstream large stool burden in the colon. Remote injuries of the pelvis including left superior and inferior pubic rami as well as the right inferior pubic ramus the mottled appearance of the right inferior pubic ramus could represent posttraumatic change versus underlying malignant change versus other. Bilateral lower lobe pulmonary nodules have increased in size from 07/08/2023. Correlate with history of malignancy. No evidence for occlusion. Stent grafts appear patent. Assessment and Plan (1) Constipation Narrative/Plan: 78-year-old female who presented with abdominal discomfort and constipation. Has not had a good bowel movement in about 2 weeks. She initially started out with diarrhea was then taking antidiarrheal including Imodium. She then became constipated and had upset stomach and started taking Pepto-Bismol. She is only been having small smears of BM. Last EGD and colonoscopy was with Dr. Torres in 2019. EGD performed for dysphagia and abdominal pain with findings of ischemic gastritis, and LA grade B erosive esophagitis.colonoscopy with findings of mild sigmoid diverticulosis. Likely black stool is related to Pepto-Bismol and had a GI bleed as patient's hemoglobin is very stable. Will plan to the soapsuds enema and lactulose. If patient does not have good results will consider consulting general surgery as there will be no further GI present. Current Visit: Yes Status: Acute Code(s): K59.00 - CONSTIPATION, UNSPECIFIED SNOMED Code(s): 14226528 (2) Elevated troponin Current Visit: Yes Status: Acute Code(s): R79.89 - OTHER SPECIFIED ABNORMAL FINDINGS OF BLOOD CHEMISTRY SNOMED Code(s): 726501594 Plan: 1. Continue symptomatic and supportive care 2. Continue with recommendations from cardiology 3. Soapsuds enema, may repeat 1 to 2 hours following 4. Lactulose 20 g ordered 5. MiraLAX daily 6. Patient may have clear liquid diets once cleared by cardiology 7. Consider possible general surgery consultation if patient does not have successful bowel movement with enemas and lactulose Thank you for this consultation, we will sign off at this time as there is no further gastroenterology coverage
--- NOTE | 2023-09-27 13:32 | P.CRDCN ---
History of Present Illness Consult date: 09/27/23 Reason for Consult (text): Elevated troponins History of present illness: History of present illness: This is a 78-year-old female does not follow with cardiology and has not had a previous workup. She may have had a stress test many years ago. She has a PMH of left breast cancer with recurrence with suspected mets to lung and bone scheduled for biopsy at [place]. History of peripheral vascular disease reports status post balloon angioplasty and stenting of the bilateral iliac artery, stent of the right external iliac by Dr. Marquez, hypertension, hyperlipidemia, peripheral neuropathy, COPD, active tobacco use and dependence. We have been asked to evaluate the patient for elevated troponins. Patient states she came into the hospital due to her bowel being backed up but she is never had before. She is complaining of discomfort in the right lower abdominal area this been going on for 2 weeks. She just had an enema that seemed to ease it slightly but not a whole lot better. EKG sinus rhythm with first-degree AV block. Possible right ventricular hypertrophy. CT angiogram of the abdomen pelvis no evidence of GI hemorrhage. Suspect wall thickening of the sigmoid colon. CBC is unremarkable. INR 0.9. CO2 32 otherwise electrolytes are within nor Findings could represent partial obstruction given the upstream large stool burden. Remote injuries of the pelvis including left superior and inferior pubic [place] as well as right inferior pubic ramus. Mottled appearance of the right inferior pubic ramus could represent posttraumatic change versus underlying malignant change. Bilateral lower lobe pulmonary nodules increased in size. No evidence of occlusion stent grafts appear patent.mal limits. BUN 26 creatinine 0.64. Glucose 124. Lactic acid 0.7. AST 40. Troponin 0.035, 0.035, 0.034, 0.035, 0.036. Lipase 22. Urinalysis negative. Stool for occult blood negative. Home cardiac medications: Atenolol 50 mg daily, Plavix 75 mg daily, simvastatin 40 mg daily. Review Of Systems: At the time of my exam: CONSTITUTIONAL: Denies fever or chills. HEENT: Denies blurred vision, vision changes, or eye pain. Denies hemoptysis CARDIOVASCULAR: Denies chest pain. Denies orthopnea. Denies PND. Denies palpitations RESPIRATORY: Denies shortness of breath. GASTROINTESTINAL: Reports abdominal pain. Denies nausea or vomiting. HEMATOLOGIC: Denies bleeding disorders. GENITOURINARY: Denies any blood in urine. SKIN: Denies pruitis. Denies rash. Physical examination: Gen: This is a [ ] VS: reviewed HEENT: Head is atraumatic, normocephalic. Pupils equal, round. Sclerae is anicteric. NECK: Supple. No JVD. LUNGS: Clear to auscultation. No wheezes or rhonchi. No intercostal retractions. HEART: Regular rate and rhythm. No murmur. ABDOMEN: Soft No tenderness. EXTREMITIES: No pedal edema. No calf tenderness. NEUROLOGICAL: Patient is awake, alert and oriented x3. Assessment: Elevated troponins that are flat, not indicative of acute coronary syndrome Possible bowel obstruction Breast cancer Metastatic breast disease Peripheral vascular disease COPD Hypertension Hyperlipidemia Peripheral neuropathy Active tobacco use and dependence Plan: Continue patient's home cardiac medications Obtain 2-D echocardiogram and Doppler study to assess cardiac structure and function No further workup at this time. Patient would benefit from stress testing if any surgical intervention is planned in the future. Thank you kindly for this consultation. Nurse practitioner note has been reviewed, I agree with documented findings and plan of care. Patient was seen and examined. Past Medical History Past Medical History: Cancer, COPD, Hyperlipidemia, Hypertension, Osteoarthritis (OA) Additional Past Medical History / Comment(s): breast cancer, osteoporosis, broken pelvis end of apr 2023. 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 LT LUMPECTOMY/WITH 12 LYMPH NODES REMOVED Past Anesthesia/Blood Transfusion Reactions: No Reported Reaction Past Psychological History: Depression Smoking Status: Current every day smoker Past Alcohol Use History: None Reported Past Drug Use History: None Reported - Past Family History Daughter(s) Family Medical History: Cancer Medications and Allergies Home Medications Medication Instructions Recorded Confirmed Type ALPRAZolam [Xanax] 0.5 mg PO HS 06/08/18 09/26/23 History Gabapentin 600 mg PO BID 06/08/18 09/26/23 History Meclizine [Antivert] 12.5 mg PO BID PRN 06/08/18 09/26/23 History Montelukast [Singulair] 10 mg PO DAILY 06/08/18 09/26/23 History Simvastatin 40 mg PO DAILY 06/08/18 09/26/23 History Clopidogrel Bisulfate [Plavix] 75 mg PO DAILY 07/04/20 09/26/23 History Omeprazole [PriLOSEC] 20 mg PO BID 07/04/20 09/26/23 History Albuterol Inhaler [Ventolin Hfa 1 - 2 puff INHALATION RT-Q6H PRN 07/24/23 09/26/23 History Inhaler] Baclofen [Lioresal] 10 mg PO BID PRN 07/24/23 09/26/23 History Cholecalciferol (Vitamin D3) 1,250 mcg PO MO 07/24/23 09/26/23 History [Decara (50,000 Iu)] Ibuprofen [Motrin] 800 mg PO TID PRN 07/24/23 09/26/23 History atenoloL [Tenormin] 50 mg PO DAILY 07/24/23 09/26/23 History oxyCODONE-APAP 7.5-325MG [Percocet 1 tab PO QID PRN 07/24/23 09/26/23 History 7.5-325 mg] ALPRAZolam [Xanax] 0.5 mg PO DAILY PRN 09/26/23 09/26/23 History predniSONE See Taper PO DIRECTED 09/26/23 09/26/23 History Albuterol Nebulized [Ventolin 2.5 mg INHALATION RT-BID 09/27/23 09/27/23 History Nebulized] Budesonide [Pulmicort] 0.5 mg INHALATION RT-BID 09/27/23 09/27/23 History Allergies Allergy/AdvReac Type Severity Reaction Status Date / Time nickel Allergy Rash/Hives Verified 09/26/23 20:02 Penicillins Allergy Rash/Hives Verified 09/26/23 20:02 Physical Exam Vitals: Vital Signs Temp Pulse Resp BP Pulse Ox 09/27/23 07:32 61 16 115/50 91 L 09/27/23 06:03 98 F 09/27/23 06:00 57 L 14 115/50 99 09/27/23 04:00 58 L 15 114/43 100 09/27/23 02:00 61 12 107/45 99 09/27/23 00:00 62 20 99/44 99 09/26/23 23:30 61 18 120/61 99 09/26/23 22:00 63 15 131/58 94 L 09/26/23 18:00 61 19 127/85 99 09/26/23 17:19 63 16 122/58 95 09/26/23 16:44 98.2 F 65 16 138/60 95 09/26/23 14:47 97.8 F 79 16 124/69 98 Results 09/26/23 14:50 09/26/23 14:50 Cardiac Enzymes 09/26/23 09/26/23 09/26/23 Range/Units 14:50 14:50 17:08 AST 40 H (14-36) U/L Troponin I 0.035 H* 0.035 H* (0.000-0.034) ng/mL 09/26/23 09/26/23 09/27/23 Range/Units 20:05 23:16 01:16 AST (14-36) U/L Troponin I 0.034 0.035 H* 0.036 H* (0.000-0.034) ng/mL Coagulation 09/26/23 Range/Units 14:51 PT 10.3 (10.0-12.5) sec APTT 23.3 (22.0-30.0) sec CBC 09/26/23 Range/Units 14:50 WBC 10.3 (3.8-10.6) k/uL RBC 4.25 (3.80-5.40) m/uL Hgb 14.2 (11.4-16.0) gm/dL Hct 44.1 (34.0-46.0) % Plt Count 164 (150-450) k/uL Comprehensive Metabolic Panel 09/26/23 Range/Units 14:50 Sodium 138 (137-145) mmol/L Potassium 4.3 (3.5-5.1) mmol/L Chloride 106 (98-107) mmol/L Carbon Dioxide 32 H (22-30) mmol/L BUN 26 H (7-17) mg/dL Creatinine 0.64 (0.52-1.04) mg/dL Glucose 124 H (74-99) mg/dL Calcium 8.8 (8.4-10.2) mg/dL AST 40 H (14-36) U/L ALT 9 (4-34) U/L Alkaline Phosphatase 86 (38-126) U/L Total Protein 5.8 L (6.3-8.2) g/dL Albumin 3.2 L (3.5-5.0) g/dL Current Medications Generic Name Dose Route Start Last Admin Trade Name Freq PRN Reason Stop Dose Admin Acetaminophen 650 mg 09/26/23 22:51 Acetaminophen Tab 325 Mg Tab PO Q6HR PRN Fever and/ or Pain Sodium Chloride 1,000 mls @ 75 mls/hr 09/26/23 20:00 09/27/23 09:07 Saline 0.9% IV 75 mls/hr .[id number] BRIE Administration Ketorolac Tromethamine 15 mg 09/26/23 19:55 09/27/23 05:22 Ketorolac 15 Mg/Ml 1 Ml Vial IVP 09/29/23 19:57 15 mg Q6HR PRN Administration Moderate Pain (Scale 4 to 6) Lactulose 20 gm 09/27/23 10:04 Lactulose 20 Gm/30 Ml Cup PO 09/27/23 10:05 ONCE ONE Naloxone HCl 0.2 mg 09/26/23 19:55 Naloxone 0.4 Mg/Ml 1 Ml Vial IV Q2M PRN Opioid Reversal Ondansetron HCl 4 mg 09/26/23 19:55 Ondansetron 4 Mg/2 Ml Vial IVP Q8HR PRN Nausea And Vomiting Pantoprazole Sodium 40 mg 09/27/23 09:00 09/27/23 09:08 Pantoprazole 40 Mg/10 Ml Vial IV 40 mg DAILY BRIE Administration Polyethylene Glycol 17 gm 09/28/23 09:00 Polyethylene Glycol 3350 17 Gm Powd.Pack PO DAILY BRIE 09/26/23 14:50 09/26/23 14:50
[2023-09-27] MEDS ORDERED: BACLOFEN 10 MG TAB PO PRN (17:27)
[2023-09-27] MEDS: oxyCODONE-APAP 7.5-325MG 1 EACH TAB PO PRN (18:55)
[2023-09-27] MEDS: BUDESONIDE 0.5 MG/2 ML NEBU INHALATION SCH (20:12)
[2023-09-27] MEDS: ALBUTEROL NEBULIZED 2.5 MG/3 ML INHALATION PRN (20:12)
[2023-09-27] MEDS: ALPRAZolam 0.5 MG TAB PO SCH (21:51)
[2023-09-28] MEDS: SODIUM CHLORIDE 0.9% 1,000 ML IV SCH ×2 (01:02→15:58)
[2023-09-28] MEDS: oxyCODONE-APAP 7.5-325MG 1 EACH TAB PO PRN ×3 (01:53→21:52)
[2023-09-28] MEDS: MONTELUKAST 10 MG TAB PO SCH (08:58)
[2023-09-28] MEDS: ATORVASTATIN 20 MG TAB PO SCH (08:58)
[2023-09-28] MEDS: atenoloL 50 MG TAB PO SCH (08:58)
[2023-09-28] MEDS: BUDESONIDE 0.5 MG/2 ML NEBU INHALATION SCH ×2 (09:02→20:05)
[2023-09-28] MEDS: ALBUTEROL NEBULIZED 2.5 MG/3 ML INHALATION PRN ×2 (09:02→20:05)
[2023-09-28] MEDS: polyethylene glycoL 3350 17 GM POWD.PACK PO SCH (09:03)
[2023-09-28] MEDS: PANTOPRAZOLE 40 MG/10 ML VIAL IV SCH (10:21)
--- NOTE | 2023-09-28 16:46 | P.PN ---
Subjective Progress Note Date: 09/28/23 History of present illness: This is a 78-year-old female does not follow with cardiology and has not had a previous workup. She may have had a stress test many years ago. She has a PMH of left breast cancer with recurrence with suspected mets to lung and bone scheduled for biopsy at [place]. History of peripheral vascular disease reports status post balloon angioplasty and stenting of the bilateral iliac artery, stent of the right external iliac by Dr. Marquez, hypertension, hyperlipidemia, peripheral neuropathy, COPD, active tobacco use and dependence. We have been asked to evaluate the patient for elevated troponins. Patient states she came into the hospital due to her bowel being backed up but she is never had before. She is complaining of discomfort in the right lower abdominal area this been going on for 2 weeks. She just had an enema that seemed to ease it slightly but not a whole lot better. EKG sinus rhythm with first-degree AV block. Possible right ventricular hypertrophy. CT angiogram of the abdomen pelvis no evidence of GI hemorrhage. Suspect wall thickening of the sigmoid colon. CBC is unremarkable. INR 0.9. CO2 32 otherwise electrolytes are within nor Findings could represent partial obstruction given the upstream large stool burden. Remote injuries of the pelvis including left superior and inferior pubic [place] as well as right inferior pubic ramus. Mottled appearance of the right inferior pubic ramus could represent posttraumatic change versus underlying malignant change. Bilateral lower lobe pulmonary nodules increased in size. No evidence of occlusion stent grafts appear patent.mal limits. BUN 26 creatinine 0.64. Glucose 124. Lactic acid 0.7. AST 40. Troponin 0.035, 0.035, 0.034, 0.035, 0.036. Lipase 22. Urinalysis negative. Stool for occult blood negative. Home cardiac medications: Atenolol 50 mg daily, Plavix 75 mg daily, simvastatin 40 mg daily. 09/28/23 She did have a large bowel movement and feeling better. No chest pain or shor tness of breath. Physical examination: VS: reviewed HEENT: Head is atraumatic, normocephalic. Pupils equal, round. Sclerae is anicteric. NECK: Supple. No JVD. LUNGS: Clear to auscultation. No wheezes or rhonchi. No intercostal retractions. HEART: Regular rate and rhythm. No murmur. ABDOMEN: Soft No tenderness. EXTREMITIES: No pedal edema. No calf tenderness. NEUROLOGICAL: Patient is awake, alert and oriented x3. Assessment: Elevated troponins that are flat, not indicative of acute coronary syndrome Possible bowel obstruction Breast cancer Metastatic breast disease Peripheral vascular disease COPD Hypertension Hyperlipidemia Peripheral neuropathy Active tobacco use and dependence Plan: Continue patient's home cardiac medications. Awaiting echo report, if unrevealing, okay to discharge home from a cardiology standpoint. No further workup at this time. Patient would benefit from stress testing if any surgical intervention is planned in the future. Follow-up in office 1 week after discharge. Nurse practitioner note has been reviewed, I agree with documented findings and plan of care. Patient was seen and examined. Objective - Vital Signs Vital signs: Vital Signs Temp 98.1 F 09/28/23 07:25 Pulse 76 09/28/23 09:17 Resp 19 09/28/23 07:25 BP 110/62 09/28/23 07:25 Pulse Ox 100 09/28/23 07:25 FiO2 Intake & Output 09/27/23 09/28/23 09/28/23 18:59 06:59 18:59 Weight 56.699 kg 66 kg Other: Voiding Method Bedside Commode # Voids 3 1 - Labs CBC & Chem 7: 09/26/23 14:50 09/26/23 14:50
--- NOTE | 2023-09-28 17:30 | XR ---
Abdomen, single view. HISTORY: Evaluate for fecal impaction. COMPARISON: 12/28/2022. TECHNIQUE: Single supine AP portable view the abdomen was obtained. FINDINGS: The bowel gas pattern is nonspecific and there is no evidence of obstruction. There is minimal stool within the colon. There is been prior cholecystectomy. There are aortic and iliac stents. There is a electronic stimula tor device in the lower thoracic spine. There is evidence for remote trauma to the left pubic bone. There is a mixed sclerotic/lytic abnormal ity of the right inferior pubic bone. The possibility of metastatic disease. Clinical correlation is recommended. Bone scan might be useful for further evaluation. IMPRESSION: 1. No bowel obstruction. 2. Minimal stool within the colon and no evidence of fecal impaction. 3. abnormal right inferior pubic bone. Question of metastatic bone disease. Clinical correlation and follow-up is recommended.
--- NOTE | 2023-09-28 19:29 | P.HPIM ---
History of Present Illness H&P Date: 09/27/23 Chief Complaint: Abdominal pain 78-year-old female who presented to the emergency department with complaints of abdominal pain and constipation. She states she has not had a good bowel movement in 2 weeks. States she just has small smears and that they are black. She states that she has been taking Pepto-Bismol for the stomach pain. States that she started out having diarrhea about 2 weeks ago she then started taking Imodium and now she has been taking Pepto-Bismol. Started getting uncomfortable about 2 days ago. 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 Patient also noted to have elevated troponins. She denies any nausea or vomiting, abdominal pain somewhat improved. It is in her lower abdomen. She has been afebrile. Review of Systems REVIEW OF SYSTEMS: CONSTITUTIONAL: No fever, no malaise, no fatigue. HEENT: No recent visual problems or hearing problems. Denied any sore throat. CARDIOVASCULAR: No chest pain, orthopnea, PND, no palpitations, no syncope. PULMONARY: No shortness of breath, no cough, no hemoptysis. GASTROINTESTINAL: No diarrhea, no nausea, no vomiting, no abdominal pain. NEUROLOGICAL: No headaches, no weakness, no numbness. HEMATOLOGICAL: Denies any bleeding or petechiae. GENITOURINARY: Denies any burning micturition, frequency, or urgency. MUSCULOSKELETAL/RHEUMATOLOGICAL: Denies any joint pain, swelling, or any muscle pain. ENDOCRINE: Denies any polyuria or polydipsia. The rest of the 14-point review of systems is negative. Past Medical History Past Medical History: Cancer, COPD, Hyperlipidemia, Hypertension, Osteoarthritis (OA) Additional Past Medical History / Comment(s): breast cancer, osteoporosis, broken pelvis end of apr 2023. 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 LT LUMPECTOMY/WITH 12 LYMPH NODES REMOVED Past Anesthesia/Blood Transfusion Reactions: No Reported Reaction Past Psychological History: Depression Smoking Status: Current every day smoker Past Alcohol Use History: None Reported Past Drug Use History: None Reported - Past Family History Daughter(s) Family Medical History: Cancer Medications and Allergies Home Medications Medication Instructions Recorded Confirmed Type ALPRAZolam [Xanax] 0.5 mg PO HS 06/08/18 09/26/23 History Gabapentin 600 mg PO BID 06/08/18 09/26/23 History Meclizine [Antivert] 12.5 mg PO BID PRN 06/08/18 09/26/23 History Montelukast [Singulair] 10 mg PO DAILY 06/08/18 09/26/23 History Simvastatin 40 mg PO DAILY 06/08/18 09/26/23 History Clopidogrel Bisulfate [Plavix] 75 mg PO DAILY 07/04/20 09/26/23 History Omeprazole [PriLOSEC] 20 mg PO BID 07/04/20 09/26/23 History Albuterol Inhaler [Ventolin Hfa 1 - 2 puff INHALATION RT-Q6H PRN 07/24/23 09/26/23 History Inhaler] Baclofen [Lioresal] 10 mg PO BID PRN 07/24/23 09/26/23 History Cholecalciferol (Vitamin D3) 1,250 mcg PO MO 07/24/23 09/26/23 History [Decara (50,000 Iu)] Ibuprofen [Motrin] 800 mg PO TID PRN 07/24/23 09/26/23 History atenoloL [Tenormin] 50 mg PO DAILY 07/24/23 09/26/23 History oxyCODONE-APAP 7.5-325MG [Percocet 1 tab PO QID PRN 07/24/23 09/26/23 History 7.5-325 mg] ALPRAZolam [Xanax] 0.5 mg PO DAILY PRN 09/26/23 09/26/23 History predniSONE See Taper PO DIRECTED 09/26/23 09/26/23 History Albuterol Nebulized [Ventolin 2.5 mg INHALATION RT-BID 09/27/23 09/27/23 History Nebulized] Budesonide [Pulmicort] 0.5 mg INHALATION RT-BID 09/27/23 09/27/23 History Allergies Allergy/AdvReac Type Severity Reaction Status Date / Time nickel Allergy Rash/Hives Verified 09/26/23 20:02 Penicillins Allergy Rash/Hives Verified 09/26/23 20:02 Physical Exam Vitals: Vital Signs Temp Pulse Resp BP Pulse Ox 09/27/23 07:32 61 16 115/50 91 L 09/27/23 06:03 98 F 09/27/23 06:00 57 L 14 115/50 99 09/27/23 04:00 58 L 15 114/43 100 09/27/23 02:00 61 12 107/45 99 09/27/23 00:00 62 20 99/44 99 09/26/23 23:30 61 18 120/61 99 09/26/23 22:00 63 15 131/58 94 L 09/26/23 18:00 61 19 127/85 99 09/26/23 17:19 63 16 122/58 95 09/26/23 16:44 98.2 F 65 16 138/60 95 09/26/23 14:47 97.8 F 79 16 124/69 98 General appearance: The patient is alert, oriented, appears in no acute distress. HET: Head is normocephalic and atraumatic. Conjunctiva pink. Sclera anicteric. Neck: Supple without lymphadenopathy. Trachea midline. Heart: Regular. Lungs: Equal expansion, normal respiratory effort. Abdomen: Soft, Nontender, nondistended with bowel sounds. No guarding or rig idity. Skin: No rashes. No jaundice. Extremities: Normal skin color and turgor. Neurological: No focal deficits. Alert and oriented x3. Results CBC & Chem 7: 09/26/23 14:50 09/26/23 14:50 Labs: Abnormal Lab Results - Last 24 Hours (Table) 09/26/23 09/26/23 09/26/23 Range/Units 14:50 14:50 14:50 MCV 103.7 H (80.0-100.0) fL Carbon Dioxide 32 H (22-30) mmol/L BUN 26 H (7-17) mg/dL Glucose 124 H (74-99) mg/dL AST 40 H (14-36) U/L Troponin I 0.035 H* (0.000-0.034) ng/mL Total Protein 5.8 L (6.3-8.2) g/dL Albumin 3.2 L (3.5-5.0) g/dL Lipase 22 L (23-300) U/L Ur Specific Shafter (1.001-1.035) Urine Protein (Negative) 09/26/23 09/26/23 09/26/23 Range/Units 17:08 17:08 23:16 MCV (80.0-100.0) fL Carbon Dioxide (22-30) mmol/L BUN (7-17) mg/dL Glucose (74-99) mg/dL AST (14-36) U/L Troponin I 0.035 H* 0.035 H* (0.000-0.034) ng/mL Total Protein (6.3-8.2) g/dL Albumin (3.5-5.0) g/dL Lipase (23-300) U/L Ur Specific Shafter >1.050 H (1.001-1.035) Urine Protein Trace H (Negative) 09/27/23 Range/Units 01:16 MCV (80.0-100.0) fL Carbon Dioxide (22-30) mmol/L BUN (7-17) mg/dL Glucose (74-99) mg/dL AST (14-36) U/L Troponin I 0.036 H* (0.000-0.034) ng/mL Total Protein (6.3-8.2) g/dL Albumin (3.5-5.0) g/dL Lipase (23-300) U/L Ur Specific Shafter (1.001-1.035) Urine Protein (Negative) Assessment and Plan Assessment: 1. Possible large bowel obstruction likely related to fecal impaction/constipation CT angiogram abdomen and pelvis reports no evidence for gastrointestinal hemorrhage. There is suspected wall thickening of the sigmoid colon which is poorly evaluated. Given stool in the region. Considering colonoscopy if not recently performed. Findings could represent partial obstruction given the upstream large stool burden in the colon. Remote injuries of the pelvis including left superior and inferior pubic rami as well as the right inferior pubic ramus the mottled appearance of the right inferior pubic ramus could represent posttraumatic change versus underlying malignant change versus other. Bilateral lower lobe pulmonary nodules have increased in size from 07/08/2023. -- Patient has been kept n.p.o.; IV fluids; GI on board 2. Constipation/fecal impaction -Patient has been placed on soapsuds enema with recommendations to repeat in 1 to 2 hours; lactulose 20 g along with MiraLAX daily -- Patient to be placed on clear liquid diet once bowel obstruction is ruled out and patient is cleared by cardiology 3. Elevated troponin; -- Trend troponin every 4 hours x 3; monitor EKG; continue with home dose of aspirin and Plavix -2D echo to assess for left ventricular function -Cardiology is consulted 4. Hypertension; Tenormin 50 mg daily 5. Hyperlipidemia; simvastatin 40 mg daily 6. Asthma/COPD; Singulair 10 mg daily; continue with home inhaler therapy 7. Chronic back pain/osteoarthritis; patient takes gabapentin 600 mg twice daily, baclofen 10 mg twice daily as needed and Percocet 7.5 mg 4 times daily as needed; all meds have been placed on hold till fecal impaction is resolved DVT prophylaxis; SCDs/subcu heparin CODE STATUS; full code
[2023-09-28] MEDS: ALPRAZolam 0.5 MG TAB PO SCH (21:52)
[2023-09-29] MEDS: oxyCODONE-APAP 7.5-325MG 1 EACH TAB PO PRN ×2 (06:42→13:15)
[2023-09-29] MEDS: MONTELUKAST 10 MG TAB PO SCH (08:04)
[2023-09-29] MEDS: ATORVASTATIN 20 MG TAB PO SCH (08:05)
[2023-09-29] MEDS: PANTOPRAZOLE 40 MG/10 ML VIAL IV SCH (08:05)
[2023-09-29] MEDS: atenoloL 50 MG TAB PO SCH (08:05)
[2023-09-29] MEDS: KETOROLAC 15 MG/ML 1 ML VIAL IVP PRN (08:05)
[2023-09-29] MEDS: polyethylene glycoL 3350 17 GM POWD.PACK PO SCH (08:05)
[2023-09-29 08:11] LABS: Basophils % (A) 1 %; Eosinophils # (A) 0.1 k/uL (0-0.7); Eosinophils % (A) 2 %; HCT 42.3 % (34.0-46.0); HGB 13.2 gm/dL (11.4-16.0); Hypochromasia Slight; Lymphocytes # (A) 2.4 k/uL (1.0-4.8); Lymphocytes % (A) 36 %; MCH 33.4 pg (25.0-35.0); MCHC 31.3 g/dL (31.0-37.0); MCV 106.7 fL (80.0-100.0); Macrocytosis Slight; Mean Platelet Volume 8.2; Monocytes # (A) 0.4 k/uL (0-1.0); Monocytes % (A) 7 %; Neutrophils # (A) 3.4 k/uL (1.3-7.7); Neutrophils % (A) 52 %; Platelet Count 133 k/uL (150-450); RBC 3.97 m/uL (3.80-5.40); RDW 11.9 % (11.5-15.5); WBC 6.6 k/uL (3.8-10.6)
[2023-09-29] MEDS: BUDESONIDE 0.5 MG/2 ML NEBU INHALATION SCH (08:13)
[2023-09-29] MEDS: ALBUTEROL NEBULIZED 2.5 MG/3 ML INHALATION PRN (08:13)
[2023-09-29 08:21] VITALS: BP 120/68; RESP 19; TEMP 97.9
[2023-09-29 08:36] LABS: African American GFR (CKD) >90 (>60 ml/min/1.73 sqM); Anion Gap 1 mmol/L; Blood Urea Nitrogen 12 mg/dL (7-17); Calcium 9.3 mg/dL (8.4-10.2); Carbon Dioxide 34 mmol/L (22-30); Chloride 104 mmol/L (98-107); Glucose 103 mg/dL (74-99); Non-African American GFR(CKD) >90 (>60 ml/min/1.73 sqM); Potassium 4.4 mmol/L (3.5-5.1); Sodium 139 mmol/L (137-145)
[2023-09-29 08:49] VITALS: PULSE 72
--- NOTE | 2023-09-29 08:54 | CA ---
Transthoracic Echo Report Name: Jazmyne Loyola Age: 78 Gender: F : 1945 Exam Date: 09/28/2023 12:08 Exam Location: [place] [facility] Ht (in): 61 Wt (lb): 125 Ordering Physician: Clara Carter Attending/Referring Phys: [id number], Raul Cake Froster Cathi Davial RDCS Procedure CPT: Indications: LVF Cardiac Hx: Technical Quality: Fair Contrast 1: Total Dose (mL): Contrast 2: Total Dose (mL): MEASUREMENTS (Male / Female) Normal Values 2D ECHO LV Diastolic Diameter PLAX 2.7 cm 4.2 - 5.9 / 3.9 - 5.3 cm LV Systolic Diameter PLAX 1.7 cm IVS Diastolic Thickness 1.3 cm 0.6 - 1.0 / 0.6 - 0.9 cm LVPW Diastolic Thickness 1.3 cm 0.6 - 1.0 / 0.6 - 0.9 cm LV Relative Wall Thickness 1.0 LA Volume 40.6 cm??? 18 - 58 / 22 - 52 cm??? LA Volume Index 25.8 cm???/m??? 16 - 28 cm???/m??? M-MODE Aortic Root Diameter MM 2.5 cm LA Systolic Diameter MM 2.5 cm LA Ao Ratio MM 1.0 AV Cusp Separation MM 1.9 cm DOPPLER AV Peak Velocity 95.8 cm/s AV Peak Gradient 3.7 mmHg AV Mean Velocity 64.2 cm/s AV Mean Gradient 1.8 mmHg AV Velocity Time Integral 19.0 cm LVOT Peak Velocity 94.5 cm/s LVOT Peak Gradient 3.6 mmHg LVOT Velocity Time Integral 19.7 cm MV Area PHT 3.3 cm??? Mitral E Point Velocity 76.1 cm/s Mitral A Point Velocity 86.4 cm/s Mitral E to A Ratio 0.9 MV Deceleration Time 227.0 ms MV E' Velocity 6.3 cm/s Mitral E to MV E' Ratio 12.2 FINDINGS Left Ventricle Mildly increased left ventricular wall thickness. Left ventricular cavity size normal. Normal left ventricular systolic function with no obvious regional wall motion abnormalities. Left ventricular ejection fraction is estimated at 55-60 %. Right Ventricle Mild right ventricular dilatation. Right Atrium Normal right atrial size. Left Atrium Normal left atrial size. Mitral Valve Mitral valve thickened. Moderate mitral annular calcification. Mild mitral regurgitation. Aortic Valve Thickened aortic valve without stenosis. No aortic regurgitation. Tricuspid Valve Structurally normal tricuspid valve. Pulmonic Valve Trace pulmonic regurgitation. Pericardium No pericardial effusion. Aorta Normal size aortic root and proximal ascending aorta. CONCLUSIONS Mildly increased left ventricular wall thickness Left ventricular ejection fraction 55-60% Moderate mitral annular calcification Mild mitral regurgitation No pericardial effusion Previewed by: Dr. Juan Harris DO (Electronically Signed) Final Date: 29 September 2023 08:54
== END 2023-09-29 13:20 | disposition home or self-care (01) ==
LOC: EC 14:23 → 3SCARD 20:26 → 4SSUR 09-27 13:46
PROVIDERS: ADMIT Internal Medicine; ATTEND Internal Medicine
DX: K59.00 Constipation, unspecified (principal); R79.89 Other specified abnormal findings of blood chemistry; J44.9 Chronic obstructive pulmonary disease, unspecified; E78.5 Hyperlipidemia, unspecified; I10 Essential (primary) hypertension; F32.A Depression, unspecified; I73.9 Peripheral vascular disease, unspecified; G62.9 Polyneuropathy, unspecified; M54.9 Dorsalgia, unspecified; G89.29 Other chronic pain; F17.200 Nicotine dependence, unspecified, uncomplicated; Z85.3 Personal history of malignant neoplasm of breast; Z79.02 Long term (current) use of antithrombotics/antiplatelets; Z79.899 Other long term (current) drug therapy; Z88.0 Allergy status to penicillin
CPT/HCPCS: 96376 ×3; 96361; 96374; 96375; 99285; 36415; 94640 ×4; 94760; 93005; 93306; 86900; 86901; 80053; 80048; 82150; 83605; 83690; 84484 ×2; 85025 ×2; 85610; 85730; 86850; 82272; 81003; 74018; 74174; G0378 ×5; J2270; J1885 ×3; C9113 ×4; Q9967

== ENCOUNTER 2023-11-04 14:02 | Inpatient (IN) | payer MEDICARE ==
--- NOTE | 2023-11-04 14:55 | ED ---
General Adult HPI - General Chief complaint: Weakness Stated complaint: Weakness Time Seen by Provider: 11/04/23 14:25 Source: patient, EMS, RN notes reviewed, old records reviewed Mode of arrival: EMS Limitations: no limitations - History of Present Illness Initial comments: This is a 78-year-old female presents to the emergency department stating that she had breast cancer 10 years ago and she has a recurrence which is stage IV and her bone now. Patient states Saturday she went to bed and did not wake up for 16 hours. Patient states since then she has been so weak and shaky as she is fallen twice. The first time she hit her head and she is on blood thinners. Patient states the second time she hit her elbow and that is painful. Patient denies any hip pain or lower extremity pain. Patient states she has limp edema in her right arm from the first time she had breast cancer. Patient states she feels extremely weak and tired. Patient denies fever chills or cough patient denies abdominal pain patient has nausea vomiting diarrhea patient Nuys dysuria hematuria urinary frequency. - Related Data Home Medications Medication Instructions Recorded Confirmed ALPRAZolam [Xanax] 0.5 mg PO HS 06/08/18 09/26/23 Gabapentin 600 mg PO BID 06/08/18 09/26/23 Meclizine [Antivert] 12.5 mg PO BID PRN 06/08/18 09/26/23 Montelukast [Singulair] 10 mg PO DAILY 06/08/18 09/26/23 Simvastatin 40 mg PO DAILY 06/08/18 09/26/23 Clopidogrel Bisulfate [Plavix] 75 mg PO DAILY 07/04/20 09/26/23 Omeprazole [PriLOSEC] 20 mg PO BID 07/04/20 09/26/23 Albuterol Inhaler [Ventolin Hfa 1 - 2 puff INHALATION RT-Q6H PRN 07/24/23 09/26/23 Inhaler] Baclofen [Lioresal] 10 mg PO BID PRN 07/24/23 09/26/23 Cholecalciferol (Vitamin D3) 1,250 mcg PO MO 07/24/23 09/26/23 [Decara (50,000 Iu)] Ibuprofen [Motrin] 800 mg PO TID PRN 07/24/23 09/26/23 atenoloL [Tenormin] 50 mg PO DAILY 07/24/23 09/26/23 oxyCODONE-APAP 7.5-325MG [Percocet 1 tab PO QID PRN 07/24/23 09/26/23 7.5-325 mg] ALPRAZolam [Xanax] 0.5 mg PO DAILY PRN 09/26/23 09/26/23 predniSONE See Taper PO DIRECTED 09/26/23 09/26/23 Albuterol Nebulized [Ventolin 2.5 mg INHALATION RT-BID 09/27/23 09/27/23 Nebulized] Budesonide [Pulmicort] 0.5 mg INHALATION RT-BID 09/27/23 09/27/23 Previous Rx's Medication Instructions Recorded polyethylene glycoL 3350 [Miralax] 17 gm PO DAILY 30 Days #30 packet 09/29/23 Allergies Allergy/AdvReac Type Severity Reaction Status Date / Time nickel Allergy Rash/Hives Verified 11/04/23 17:20 Penicillins Allergy Rash/Hives Verified 11/04/23 17:20 Review of Systems ROS Statement: Those systems with pertinent positive or pertinent negative responses have been documented in the HPI. ROS Other: All systems not noted in ROS Statement are negative. Past Medical History Past Medical History: Cancer, COPD, Hyperlipidemia, Hypertension, Osteoarthritis (OA) Additional Past Medical History / Comment(s): breast cancer, osteoporosis, broken pelvis end of apr 2023. 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 LT LUMPECTOMY/WITH 12 LYMPH NODES REMOVED Past Anesthesia/Blood Transfusion Reactions: No Reported Reaction Past Psychological History: Depression Smoking Status: Current every day smoker Past Alcohol Use History: None Reported Past Drug Use History: None Reported - Past Family History Daughter(s) Family Medical History: Cancer General Exam - General Exam Comments Initial Comments: GENERAL: Patient is well-developed and well-nourished. Patient is nontoxic and well- hydrated and is in mild distress. ENT: Neck is soft and supple. No significant lymphadenopathy is noted. Oropharynx is clear. Moist mucous membranes. Neck has full range of motion without eliciting any pain. Patient has tenderness in the right occipital region of her head. No hematoma or abrasion or laceration noted EYES: The sclera were anicteric and conjunctiva were pink and moist. Extraocular movements were intact and pupils were equal round and reactive to light. Eyelids were unremarkable. PULMONARY: Unlabored respirations. Good breath sounds bilaterally. No audible rales rhonchi or wheezing was noted. CARDIOVASCULAR: There is a regular rate and rhythm without any murmurs gallops or rubs. ABDOMEN: Soft and nontender with normal bowel sounds. SKIN: Skin is clear with no lesions or rashes and otherwise unremarkable. NEUROLOGIC: Patient is alert and oriented x3. Cranial nerves II through XII are grossly intact. Motor and sensory are also intact. Normal speech, volume and content. Symmetrical smile. MUSCULOSKELETAL: Normal extremities with adequate strength and full range of motion. No lower extremity swelling or edema. No calf tenderness. Left arm has lymphedema and is significantly larger than the right. Patient has tenderness on the lateral aspect of the left elbow but does have full range of motion. LYMPHATICS: No significant lymphadenopathy is noted PSYCHIATRIC: Normal psychiatric evaluation. Limitations: no limitations Course Vital Signs 11/04/23 11/04/23 14:07 15:43 Temperature 97.5 F L Pulse Rate 61 83 Respiratory 16 18 Rate Blood Pressure 98/64 104/62 O2 Sat by Pulse 94 L 98 Oximetry Medical Decision Making - Medical Decision Making EKG is interpreted by myself. EKG shows a sinus rhythm at 82 bpm DC of 216 QRS is 112 QT interval 364 QTc is 403 patient's EKG shows T wave inversions in 3 aVF as well as V3 V4 and V5. Was pt. sent in by a medical professional or institution (, PA, REIMBURSEMENT MANAGER, urgent care, hospital, or prison...) When possible be specific @ -No Did you speak to anyone other than the patient for history (EMS, parent, family, police, friend...)? What history was obtained from this source @ -No Did you review nursing and triage notes (agree or disagree)? Why? @ -I reviewed and agree with nursing and triage notes Were old charts reviewed (outside hosp., previous admission, EMS record, old EKG, old radiological studies, urgent care reports/EKG's, prison records)? Report findings @ -I reviewed prior charts and prior lab work on this patient Differential Diagnosis (chest pain, altered mental status, abdominal pain women, abdominal pain men, vaginal bleeding, weakness, fever, dyspnea, syncope, headache, dizziness, GI bleed, back pain, seizure, CVA, palpatations, mental health, musculoskeletal)? @ -Differential Weakness: Hypoglycemia, shock, sepsis, hyponatremia, anemia, infection, CO, ETOH, adverse medicine reaction, overdose, stroke, this is not meant to be an all-inclusive list. EKG interpreted by me (3pts min.). @ -As above X-rays interpreted by me (1pt min.). @ -Chest x-ray showed no acute abnormality. X-ray of the elbow showed a chip fracture on the ulnar CT interpreted by me (1pt min.). @ -CT of the brain shows no acute abnormality U/S interpreted by me (1pt. min.). @ -None done What testing was considered but not performed or refused? (CT, X-rays, U/S, labs)? Why? @ -None What meds were considered but not given or refused? Why? @ -None Did you discuss the management of the patient with other professionals (professionals i.e. , PA, REIMBURSEMENT MANAGER, lab, RT, psych nurse, social professionals, it security manager, teacher, chief legal officer, family caseworker)? Give summary @ -I spoke with Dr. Martinez and he agreed to admit the patient. Was smoking cessation discussed for >3mins.? @ -No Was critical care preformed (if so, how long)? @ -35 minutes Were there social determinants of health that impacted care today? How? (Homelessness, low income, unemployed, alcoholism, drug addiction, transportation, low edu. Level, literacy, decrease access to med. care, fpc, rehab)? @ -No Was there de-escalation of care discussed even if they declined (Discuss DNR or withdrawal of care, Hospice)? DNR status @ -No What co-morbidities impacted this encounter? (DM, HTN, Smoking, COPD, CAD, Cancer, CVA, ARF, Chemo, Hep., AIDS, mental health diagnosis, sleep apnea, morbid obesity)? @ -None Was patient admitted / discharged? Hospital course, mention meds given and route, prescriptions, significant lab abnormalities, going to OR and other perti nent info. @ -Patient's troponin came back elevated 0.971. Patient was placed on heparin immediately I spoke with cardiology they agreed to monitor the patient to be on consult. Patient also had an elbow fracture she was placed in a sling because the cast would be difficult on the limb edema arm and Ortho will be consulted. Undiagnosed new problem with uncertain prognosis? @ -No Drug Therapy requiring intensive monitoring for toxicity (Heparin, Nitro, Insulin, Cardizem)? @ -No Were any procedures done? @ -No Diagnosis/symptom? @ -NSTEMI Acute, or Chronic, or Acute on Chronic? @ -Acute Uncomplicated (without systemic symptoms) or Complicated (systemic symptoms)? @ -Complicated Side effects of treatment? @ -No Exacerbation, Progression, or Severe Exacerbation? @ -No Poses a threat to life or bodily function? How? (Chest pain, USA, CO, pneumonia, PE, COPD, DKA, ARF, appy, cholecystitis, CVA, Diverticulitis, Homicidal, Suicidal, threat to staff... and all critical care pts) @ -Yes this can lead to endorgan dysfunction Diagnosis/symptom? @ -Acute ulnar fracture Acute, or Chronic, or Acute on Chronic? @ -Acute Uncomplicated (without systemic symptoms) or Complicated (systemic symptoms)? @ -Uncomplicated Side effects of treatment? @ -None Exacerbation, Progression, or Severe Exacerbation] @ -No Poses a threat to life or bodily function? @ -No - Lab Data Result diagrams: 11/04/23 15:17 11/04/23 15:17 Lab Results 11/04/23 11/04/23 11/04/23 Range/Units 15:17 15:17 15:17 WBC 5.2 (3.8-10.6) k/uL RBC 3.98 (3.80-5.40) m/uL Hgb 13.6 (11.4-16.0) gm/dL Hct 42.4 (34.0-46.0) % MCV 106.5 H (80.0-100.0) fL MCH 34.2 (25.0-35.0) pg MCHC 32.2 (31.0-37.0) g/dL RDW 13.3 (11.5-15.5) % Plt Count 121 L (150-450) k/uL MPV 8.1 Neutrophils % 60 % Lymphocytes % 29 % Monocytes % 7 % Eosinophils % 1 % Basophils % 1 % Neutrophils # 3.1 (1.3-7.7) k/uL Lymphocytes # 1.5 (1.0-4.8) k/uL Monocytes # 0.4 (0-1.0) k/uL Eosinophils # 0.0 (0-0.7) k/uL Basophils # 0.0 (0-0.2) k/uL Macrocytosis Moderate PT 10.5 (10.0-12.5) sec INR 1.0 (<1.2) APTT 20.3 L (22.0-30.0) sec Sodium 133 L (137-145) mmol/L Potassium 4.2 (3.5-5.1) mmol/L Chloride 98 (98-107) mmol/L Carbon Dioxide 30 (22-30) mmol/L Anion Gap 5 mmol/L BUN 33 H (7-17) mg/dL Creatinine 0.81 (0.52-1.04) mg/dL Est GFR (CKD-EPI)AfAm 82 (>60 ml/min/1.73 sqM) Est GFR (CKD-EPI)NonAf 71 (>60 ml/min/1.73 sqM) Glucose 163 H (74-99) mg/dL Plasma Lactic Acid Luke (0.7-2.0) mmol/L Calcium 8.6 (8.4-10.2) mg/dL Magnesium 2.1 (1.6-2.3) mg/dL Total Bilirubin 1.1 (0.2-1.3) mg/dL AST 55 H (14-36) U/L ALT 21 (4-34) U/L Alkaline Phosphatase 111 (38-126) U/L Troponin I (0.000-0.034) ng/mL Total Protein 5.5 L (6.3-8.2) g/dL Albumin 3.1 L (3.5-5.0) g/dL Influenza Type A (PCR) (Not Detectd) Influenza Type B (PCR) (Not Detectd) RSV (PCR) (Not Detectd) SARS-CoV-2 (PCR) (Not Detectd) 11/04/23 11/04/23 11/04/23 Range/Units 15:17 15:17 16:31 WBC (3.8-10.6) k/uL RBC (3.80-5.40) m/uL Hgb (11.4-16.0) gm/dL Hct (34.0-46.0) % MCV (80.0-100.0) fL MCH (25.0-35.0) pg MCHC (31.0-37.0) g/dL RDW (11.5-15.5) % Plt Count (150-450) k/uL MPV Neutrophils % % Lymphocytes % % Monocytes % % Eosinophils % % Basophils % % Neutrophils # (1.3-7.7) k/uL Lymphocytes # (1.0-4.8) k/uL Monocytes # (0-1.0) k/uL Eosinophils # (0-0.7) k/uL Basophils # (0-0.2) k/uL Macrocytosis PT (10.0-12.5) sec INR (<1.2) APTT (22.0-30.0) sec Sodium (137-145) mmol/L Potassium (3.5-5.1) mmol/L Chloride (98-107) mmol/L Carbon Dioxide (22-30) mmol/L Anion Gap mmol/L BUN (7-17) mg/dL Creatinine (0.52-1.04) mg/dL Est GFR (CKD-EPI)AfAm (>60 ml/min/1.73 sqM) Est GFR (CKD-EPI)NonAf (>60 ml/min/1.73 sqM) Glucose (74-99) mg/dL Plasma Lactic Acid Luke 2.4 H* (0.7-2.0) mmol/L Calcium (8.4-10.2) mg/dL Magnesium (1.6-2.3) mg/dL Total Bilirubin (0.2-1.3) mg/dL AST (14-36) U/L ALT (4-34) U/L Alkaline Phosphatase (38-126) U/L Troponin I 0.971 H* (0.000-0.034) ng/mL Total Protein (6.3-8.2) g/dL Albumin (3.5-5.0) g/dL Influenza Type A (PCR) Not Detected (Not Detectd) Influenza Type B (PCR) Not Detected (Not Detectd) RSV (PCR) Detected A (Not Detectd) SARS-CoV-2 (PCR) Not Detected (Not Detectd) Critical Care Time Critical Care Time: Yes Total Critical Care Time: 35 Disposition Clinical Impression: Ulnar fracture, NSTEMI (non-ST elevated myocardial infarction) Disposition: ADMITTED IP TO THIS HOSP Referrals: None,Stated [REFERRING] - 1-2 days Time of Disposition: 17:23
[2023-11-04 15:35] LABS: Basophils % (A) 1 %; Eosinophils % (A) 1 %; HCT 42.4 % (34.0-46.0); HGB 13.6 gm/dL (11.4-16.0); Lymphocytes # (A) 1.5 k/uL (1.0-4.8); Lymphocytes % (A) 29 %; MCH 34.2 pg (25.0-35.0); MCHC 32.2 g/dL (31.0-37.0); MCV 106.5 fL (80.0-100.0); Macrocytosis Moderate; Mean Platelet Volume 8.1; Monocytes # (A) 0.4 k/uL (0-1.0); Monocytes % (A) 7 %; Neutrophils # (A) 3.1 k/uL (1.3-7.7); Neutrophils % (A) 60 %; Platelet Count 121 k/uL (150-450); RBC 3.98 m/uL (3.80-5.40); RDW 13.3 % (11.5-15.5); WBC 5.2 k/uL (3.8-10.6)
[2023-11-04 15:40] LABS: ALT 21 U/L (4-34); AST 55 U/L (14-36); African American GFR (CKD) 82 (>60 ml/min/1.73 sqM); Albumin 3.1 g/dL (3.5-5.0); Alkaline Phosphatase 111 U/L (38-126); Anion Gap 5 mmol/L; Blood Urea Nitrogen 33 mg/dL (7-17); Calcium 8.6 mg/dL (8.4-10.2); Carbon Dioxide 30 mmol/L (22-30); Chloride 98 mmol/L (98-107); Glucose 163 mg/dL (74-99); Magnesium 2.1 mg/dL (1.6-2.3); Non-African American GFR(CKD) 71 (>60 ml/min/1.73 sqM); Potassium 4.2 mmol/L (3.5-5.1); Sodium 133 mmol/L (137-145); Total Bilirubin 1.1 mg/dL (0.2-1.3); Total Protein 5.5 g/dL (6.3-8.2)
[2023-11-04 15:56] LABS: Prothrombin Time 10.5 sec (10.0-12.5)
[2023-11-04 16:25] LABS: Partial Thromboplastin Time 20.3 sec (22.0-30.0)
--- NOTE | 2023-11-04 16:27 | CT ---
EXAMINATION TYPE: CT brain cspine wo con DATE OF EXAM: 11/04/2023 COMPARISON: None available. HISTORY: Frequent falls and weakness with metastatic breast cancer. CT DLP: 1381.2 mGycm Automated exposure control for dose reduction was used. TECHNIQUE: CT scan of the head and cervical spine are performed without contrast. FINDINGS: There is no acute intracranial hemorrhage, mass effect, or midline shift identified. The ventricles and sulci are within normal limits in size. The globes are intact and the visualized sin uses are clear. Cervical spine is visualized in its entirety from C1 through upper thoracic levels and demonstrates s atisfactory alignment without evidence of acute fracture or dislocation. Prevertebral soft tissue ap pears within normal limits. The C1-C2 articulation is unremarkable. There is some scattered scleroti c changes with the cervical vertebral bodies and the upper thoracic vertebral bodies which is most pr ominent at T2 which may be metastatic. Some of this may be degenerative. Significant emphysema is seen at the visualized lung apices. IMPRESSION: 1. There is no acute fracture or dislocation evident in the cervical spine. 2. No acute intracranial hemorrhage, mass effect, or midline shift is seen. 3. Sclerotic changes within several lower cervical vertebral bodies as well as most prominently T2 ve rtebral level could potentially represent metastasis.
--- NOTE | 2023-11-04 16:32 | XR ---
EXAMINATION TYPE: XR chest 2V DATE OF EXAM: 11/04/2023 4:05 PM CLINICAL INDICATION:Female, 78 years old with history of Weakness; PHH COMPARISON: Chest radiographs from 07/24/2023 TECHNIQUE: XR chest 2V Frontal and lateral views of the chest. FINDINGS: Lungs/Pleura: Prominent interstitial lung markings are seen scattered throughout the lungs. No eviden ce of focal consolidation, pneumothorax or pleural effusion. Pulmonary vascularity: Unremarkable. Heart/mediastinum: Cardiomediastinal silhouette is unremarkable. Atherosclerotic calcifications are seen in the aorta. Musculoskeletal: No acute osseous pathology. IMPRESSION: Chronic changes without acute pulmonary process. No significant change from prior.
--- NOTE | 2023-11-04 16:32 | XR ---
EXAMINATION TYPE: XR elbow complete LT DATE OF EXAM: 11/04/2023 4:05 PM CLINICAL INDICATION:Female, 78 years old with history of Trauma; COMPARISON: None TECHNIQUE: XR elbow complete LT; elbow was examined in AP, lateral, and oblique projections. FINDINGS/IMPRESSION: Acute fracture of the coronoid process of the ulna. There is mild displacement of 2 mm. There is asso ciated soft tissue swelling.
[2023-11-04] MEDS: HEPARIN SODIUM 1,000 UN/ML (10ML VL) IV ONE (16:36)
[2023-11-04] MEDS: HEPARIN SOD,PORK IN 0.45% NACL 25,000 UNIT in 0.45% NACL 1 250ML.BAG IV SCH (16:39)
[2023-11-04] MEDS ORDERED: NITROGLYCERIN SL TABS 0.4 MG TAB SUBLINGUAL PRN (17:23)
[2023-11-04] MEDS ORDERED: ALPRAZolam 0.5 MG TAB PO PRN (18:00)
[2023-11-04] MEDS ORDERED: BACLOFEN 10 MG TAB PO PRN (18:00)
[2023-11-04] MEDS: NITROGLYCERIN OINT 1 INCH/GM PACKET TOPICAL SCH (18:04)
[2023-11-04] MEDS: ASPIRIN 81 MG PO STA (18:04)
[2023-11-04] MEDS: ALBUTEROL NEBULIZED 2.5 MG/3 ML INHALATION PRN (19:51)
[2023-11-04] MEDS: BUDESONIDE 0.5 MG/2 ML NEBU INHALATION SCH (19:52)
[2023-11-04] MEDS: ATORVASTATIN 20 MG TAB PO SCH (21:49)
[2023-11-04] MEDS: MECLIZINE 12.5 MG TAB PO SCH (21:49)
[2023-11-04] MEDS: GABAPENTIN 300 MG CAP PO SCH (21:49)
[2023-11-04] MEDS: ALPRAZolam 0.5 MG TAB PO SCH (21:49)
[2023-11-04] MEDS: MORPHINE SULFATE IR 15 MG TABLET PO SCH (22:00)
[2023-11-05] MEDS ORDERED: ASPIRIN 325 MG TAB PO SCH (09:00)
[2023-11-05] MEDS: MONTELUKAST 10 MG TAB PO SCH (09:36)
[2023-11-05] MEDS: ASPIRIN 81 MG PO SCH (09:36)
[2023-11-05] MEDS: CLOPIDOGREL 75 MG TAB PO SCH (09:36)
[2023-11-05] MEDS: PANTOPRAZOLE 40 MG TABLET PO SCH (09:37)
[2023-11-05] MEDS: predniSONE 20 MG TAB PO SCH (09:37)
[2023-11-05] MEDS: atenoloL 50 MG TAB PO SCH (09:38)
--- NOTE | 2023-11-05 10:30 | P.CRDCN ---
History of Present Illness Consult date: 11/05/23 Reason for Consult (text): NSTEMI History of present illness: History of present illness: This is a 78-year-old female patient of Dr. Handy with past medical history of left breast cancer with recurrence with metastatic disease to lung and bone, peripheral vascular disease s/p angioplasty and stenting of the bilateral iliac arteries, stent in the right external iliac by Dr. Marquez, hypertension, hyperlipidemia, peripheral neuropathy, COPD, left upper extremity lymphedema, tobacco use and dependence. We have been asked to evaluate the patient for non- ST elevated myocardial infarction. Patient had a recent hospitalization in [facility] of this year at which time she was seen by cardiology for elevated troponins, EKG was a sinus rhythm with first-degree AV block possible right ventricular hypertrophy. Troponins were mildly elevated in the range of 0.035. Echocardiogram at that time revealed EF of 55 to 60%, mild mitral digitation, no pericardial effusion. Patient presented to the ER she had a fall, weakness. She denies any loss of consciousness and no dizziness. She may have occasional palpitations. She denies shortness of breath. She complains of lower right extremity edema. She denies any nausea or vomiting. No blood in her stools or urine. Patient is still active smoker 1 pack/day. EKG sinus rhythm with first-degree AV block, right ventricular hypertrophy. Chest x-ray: Chronic changes without acute pulmonary process. Elbow x-ray acute fracture of the coronoid process of the ulnar left. CT brain and cervical spine revealed no acute fracture or dislocation of the cervical spine. No acute intracranial hemorrhage mass effect or midline shift. WBC 5.2, hemoglobin 13.6, platelet count 121, INR 1. Sodium 133, potassium 4.2, chloride 98, CO2 30, BUN 33 creatinine 0.81. Blood sugar 163. Initial lactic acid 2 point 4 repeat 1.4. Magnesium 2.1. AST 55 otherwise liver function test are normal. Troponin 0.971, 0.858, 1.01. Influenza A, influenza B, COVID-19 not detected. RSV detected. Home cardiac medications: Atenolol 50 mg daily, Plavix 75 mg daily, simvastatin 40 mg daily. Review Of Systems: At the time of my exam: CONSTITUTIONAL: Denies fever or chills. + Weakness. + fall. HEENT: Denies blurred vision, vision changes, or eye pain. Denies hemoptysis CARDIOVASCULAR: Denies chest pain. Denies orthopnea. Denies PND. Denies palpitations. + edema. RESPIRATORY: Denies shortness of breath. GASTROINTESTINAL: Denies abdominal pain. Denies nausea or vomiting. HEMATOLOGIC: Denies bleeding disorders. GENITOURINARY: Denies any blood in urine. SKIN: Denies pruitis. Denies rash. Physical examination: Gen: This is a 78-year-old female in no acute distress VS: reviewed HEENT: Head is atraumatic, normocephalic. Pupils equal, round. Sclerae is anicteric. NECK: Supple. No JVD. LUNGS: Clear to auscultation. No wheezes or rhonchi. No intercostal retractions. HEART: Regular rate and rhythm. No murmur. ABDOMEN: Soft No tenderness. EXTREMITIES: Minimal right lower systolic pedal edema. Left upper extremity lymphedema. NEUROLOGICAL: Patient is awake, alert and oriented x3. Assessment: Non-ST elevated myocardial infarction RSV Metastatic breast disease Peripheral vascular disease COPD Hypertension Hyperlipidemia Peripheral neuropathy Active tobacco use and dependence Plan: Continue patient's home cardiac medications Obtain limited 2-D echocardiogram and Doppler study Continue heparin drip Add aspirin 81 mg daily Increase atorvastatin to 40 mg at bedtime Repeat EKG in the morning Will need update from oncology regarding patient's prognosis. If patient's pro gnosis is guarded, most likely medical management only at this time. Continue RSV treatment Thank you kindly for this consultation. Nurse practitioner note has been reviewed, I agree with documented findings and plan of care. Patient was seen and examined. Past Medical History Past Medical History: Cancer, COPD, Hyperlipidemia, Hypertension, Osteoarthritis (OA) Additional Past Medical History / Comment(s): breast cancer, osteoporosis, broken pelvis end of apr 2023. 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 LT LUMPECTOMY/WITH 12 LYMPH NODES REMOVED Past Anesthesia/Blood Transfusion Reactions: No Reported Reaction Past Psychological History: Depression Smoking Status: Current every day smoker Past Alcohol Use History: None Reported Past Drug Use History: None Reported - Past Family History Daughter(s) Family Medical History: Cancer Medications and Allergies Home Medications Medication Instructions Recorded Confirmed Type ALPRAZolam [Xanax] 0.5 mg PO HS 06/08/18 11/04/23 History Gabapentin 600 mg PO BID 06/08/18 11/04/23 History Meclizine [Antivert] 12.5 mg PO BID 06/08/18 11/04/23 History Montelukast [Singulair] 10 mg PO DAILY 06/08/18 11/04/23 History Simvastatin 40 mg PO HS 06/08/18 11/04/23 History Clopidogrel Bisulfate [Plavix] 75 mg PO DAILY 07/04/20 11/04/23 History Albuterol Inhaler [Ventolin Hfa 1 - 2 puff INHALATION RT-Q6H PRN 07/24/23 11/04/23 History Inhaler] Baclofen [Lioresal] 10 mg PO BID PRN 07/24/23 11/04/23 History Cholecalciferol (Vitamin D3) 1,250 mcg PO MO 07/24/23 11/04/23 History [Decara (50,000 Iu)] atenoloL [Tenormin] 50 mg PO DAILY 07/24/23 11/04/23 History ALPRAZolam [Xanax] 0.5 mg PO DAILY PRN 09/26/23 11/04/23 History predniSONE 20 mg PO DAILY 09/26/23 11/04/23 History Albuterol Nebulized [Ventolin 2.5 mg INHALATION RT-QID PRN 09/27/23 11/04/23 History Nebulized] Budesonide [Pulmicort] 0.5 mg INHALATION RT-BID 09/27/23 11/04/23 History Morphine Sulfate Ir [MSIR] 15 mg PO BID 11/04/23 11/04/23 History Omeprazole 40 mg PO DAILY 11/04/23 11/04/23 History oxyCODONE-APAP 10-325MG [Percocet 1 tab PO TID PRN 11/04/23 11/04/23 History 10-325 mg] Allergies Allergy/AdvReac Type Severity Reaction Status Date / Time nickel Allergy Rash/Hives Verified 11/04/23 17:20 Penicillins Allergy Rash/Hives Verified 11/04/23 17:20 Physical Exam Vitals: Vital Signs Temp Pulse Pulse Resp BP BP Pulse Ox 11/05/23 07:35 97.3 F L 71 16 108/80 97 11/05/23 03:03 97.7 F 68 16 125/65 95 11/04/23 23:41 97.6 F 98 20 126/58 98 11/04/23 20:02 65 11/04/23 20:00 97.9 F 63 16 107/57 97 11/04/23 19:52 68 11/04/23 18:15 95 11/04/23 18:00 75 12 111/82 98 11/04/23 15:43 83 18 104/62 98 11/04/23 14:07 97.5 F L 61 16 98/64 94 L Intake and Output 11/04/23 11/05/23 11/05/23 22:59 06:59 14:59 Intake Total 54.486 Balance 54.486 Intake: Intake, IV Titration 54.486 Amount Heparin Sod,Pork in 0.45% 54.486 NaCl 25,000 unit In 0.45 % NaCl 1 250ml.bag @ 12 UNITS/KG/HR 7.185 mls/hr IV .Q24H [facility] Rx#: [id number] Other: # Voids 1 Results 11/04/23 15:17 11/04/23 15:17 Cardiac Enzymes 11/04/23 11/04/23 11/04/23 Range/Units 15:17 15:17 18:18 AST 55 H (14-36) U/L Troponin I 0.971 H* 0.858 H* (0.000-0.034) ng/mL 11/04/23 Range/Units 22:54 AST (14-36) U/L Troponin I 1.010 H* (0.000-0.034) ng/mL Coagulation 11/04/23 11/04/23 Range/Units 15:17 22:54 PT 10.5 (10.0-12.5) sec APTT 20.3 L 82.8 H (22.0-30.0) sec CBC 11/04/23 Range/Units 15:17 WBC 5.2 (3.8-10.6) k/uL RBC 3.98 (3.80-5.40) m/uL Hgb 13.6 (11.4-16.0) gm/dL Hct 42.4 (34.0-46.0) % Plt Count 121 L (150-450) k/uL Comprehensive Metabolic Panel 11/04/23 Range/Units 15:17 Sodium 133 L (137-145) mmol/L Potassium 4.2 (3.5-5.1) mmol/L Chloride 98 (98-107) mmol/L Carbon Dioxide 30 (22-30) mmol/L BUN 33 H (7-17) mg/dL Creatinine 0.81 (0.52-1.04) mg/dL Glucose 163 H (74-99) mg/dL Calcium 8.6 (8.4-10.2) mg/dL AST 55 H (14-36) U/L ALT 21 (4-34) U/L Alkaline Phosphatase 111 (38-126) U/L Total Protein 5.5 L (6.3-8.2) g/dL Albumin 3.1 L (3.5-5.0) g/dL Current Medications Generic Name Dose Route Start Last Admin Trade Name Freq PRN Reason Stop Dose Admin Albuterol Sulfate 2.5 mg 11/04/23 18:00 11/04/23 19:51 Albuterol Nebulized 2.5 Mg/3 Ml INHALATION 2.5 mg RT-QID PRN Administration Shortness Of Breath Alprazolam 0.5 mg 11/04/23 18:00 Alprazolam 0.5 Mg Tab PO DAILY PRN Anxiety Alprazolam 0.5 mg 11/04/23 21:00 11/04/23 21:49 Alprazolam 0.5 Mg Tab PO 0.5 mg HS BRIE Administration Aspirin 325 mg 11/05/23 09:00 Aspirin 325 Mg Tab PO DAILY BRIE Atenolol 50 mg 11/05/23 09:00 Atenolol 50 Mg Tab PO DAILY BRIE Atorvastatin Calcium 20 mg 11/04/23 21:00 11/04/23 21:49 Atorvastatin 20 Mg Tab PO 20 mg HS BRIE Administration Baclofen 10 mg 11/04/23 18:00 Baclofen 10 Mg Tab PO BID PRN Muscle Pain Budesonide 0.5 mg 11/04/23 20:00 11/04/23 19:52 Budesonide 0.5 Mg/2 Ml Nebu INHALATION 0.5 mg RT-BID BRIE Administration Clopidogrel Bisulfate 75 mg 11/05/23 09:00 Clopidogrel 75 Mg Tab PO DAILY BRIE Gabapentin 600 mg 11/04/23 21:00 11/04/23 21:49 Gabapentin 300 Mg Cap PO 600 mg BID BRIE Administration Heparin Sodium/Sodium Chloride 250 mls @ 7.185 mls/hr 11/04/23 16:00 11/05/23 00:14 25,000 unit/ Sodium Chloride IV 10 units/kg/hr .Q24H BRIE 5.987 mls/hr Titration Protocol 12 UNITS/KG/HR Meclizine HCl 12.5 mg 11/04/23 21:00 11/04/23 21:49 Meclizine 12.5 Mg Tab PO 12.5 mg BID RBIE Administration Montelukast Sodium 10 mg 11/05/23 09:00 Montelukast 10 Mg Tab PO DAILY [facility] Morphine Sulfate 15 mg 11/04/23 21:00 11/04/23 22:00 Morphine Sulfate Ir 15 Mg Tablet PO 15 mg BID BRIE Administration Nitroglycerin 0.4 mg 11/04/23 17:23 Nitroglycerin Sl Tabs 0.4 Mg Tab SUBLINGUAL Q5M PRN Chest Pain Nitroglycerin 1 inch 11/04/23 18:00 11/05/23 05:56 Nitroglycerin Oint 1 Inch/Gm Packet TOPICAL 1 inch Q6HR BRIE Administration Oxycodone/Acetaminophen 1 each 11/04/23 18:00 Oxycodone-Apap 10-325mg 1 Each Tab PO TID PRN Pain Pantoprazole Sodium 40 mg 11/05/23 09:00 Pantoprazole 40 Mg Tablet PO DAILY [facility] Prednisone 20 mg 11/05/23 09:00 Prednisone 20 Mg Tab PO DAILY [facility] Intake and Output 11/04/23 11/05/23 11/05/23 22:59 06:59 14:59 Intake Total 54.486 Balance 54.486 Intake: Intake, IV Titration 54.486 Amount Heparin Sod,Pork in 0.45% 54.486 NaCl 25,000 unit In 0.45 % NaCl 1 250ml.bag @ 12 UNITS/KG/HR 7.185 mls/hr IV .Q24H [facility] Rx#: [id number] Other: # Voids 1 11/04/23 15:17 11/04/23 15:17
--- NOTE | 2023-11-05 11:47 | CA ---
Transthoracic Echo Report Name: Jazmyne Loyola Age: 78 Gender: F : 1945 Exam Date: 11/05/2023 08:51 Exam Location: [facility] Ht (in): 61 Wt (lb): 132 Ordering Physician: Clara Carter Attending/Referring Phys: Edison Pena MD [employer] Operator Brandon Askew RDCS Procedure CPT: Indications: LVF Cardiac Hx: Technical Quality: Contrast 1: Total Dose (mL): Contrast 2: Total Dose (mL): MEASUREMENTS (Male / Female) Normal Values 2D ECHO LV Diastolic Diameter PLAX 3.6 cm 4.2 - 5.9 / 3.9 - 5.3 cm LV Systolic Diameter PLAX 2.8 cm IVS Diastolic Thickness 1.0 cm 0.6 - 1.0 / 0.6 - 0.9 cm LVPW Diastolic Thickness 0.6 cm 0.6 - 1.0 / 0.6 - 0.9 cm LV Relative Wall Thickness 0.4 LA Systolic Diameter LX 3.8 cm 3.0 - 4.0 / 2.7 - 3.8 cm FINDINGS Left Ventricle Left ventricular ejection fraction is estimated at 50-55 %. Right Ventricle Right Atrium Left Atrium Mitral Valve Aortic Valve Tricuspid Valve Pulmonic Valve Pericardium Aorta CONCLUSIONS Limited study, EF only. Normal LV systolic function Dilated right ventricle Previewed by: Dr. Johnny Moffett MD (Electronically Signed) Final Date: 05 November 2023 11:46
--- NOTE | 2023-11-05 12:32 | P.HPIM ---
History of Present Illness Patient is a 78-year-old female with a history of left breast cancer and lymphedema of the left arm came in after a fall. Patient is complaining of pain in the right leg. Although there was not no fracture in the femur patient does have fracture of the left ulnar coronoid process. Patient denies any chest pain but found to have elevated troponin of about 1. Patient also found to have significant metastic disease. Patient was in remission for few years. Patient also bit hyponatremic. Because of the elevated troponin and possible non-ST elevation myocardial infarction cardiology evaluated the patient patient is on IV heparin considering her metastic disease cardiology is awaiting recommendations from oncology. Echocardiogram in the past showed normal ejection fraction. EKG showed first-degree AV block right ventricular hypertrophy patient serum sodium is 133 patient troponins were 0.971 0.858 and 1.01. Patient is also complaining of generalized weakness. REVIEW OF SYSTEMS: CONSTITUTIONAL: No fever, no malaise, no fatigue. HEENT: No recent visual problems or hearing problems. Denied any sore throat. CARDIOVASCULAR: No chest pain, orthopnea, PND, no palpitations, no syncope. PULMONARY: No shortness of breath, no cough, no hemoptysis. GASTROINTESTINAL: No diarrhea, no nausea, no vomiting, no abdominal pain. NEUROLOGICAL: No headaches, no weakness, no numbness. HEMATOLOGICAL: Denies any bleeding or petechiae. GENITOURINARY: Denies any burning micturition, frequency, or urgency. MUSCULOSKELETAL/RHEUMATOLOGICAL: Denies any joint pain, swelling, or any muscle pain. ENDOCRINE: Denies any polyuria or polydipsia. The rest of the 14-point review of systems is negative. PHYSICAL EXAMINATION: GENERAL: The patient is alert and oriented x3, not in any acute distress. Well developed, well nourished. HEENT: Pupils are round and equally reacting to light. EOMI. No scleral icterus. No conjunctival pallor. Normocephalic, atraumatic. No pharyngeal erythema. No thyromegaly. CARDIOVASCULAR: S1 and S2 present. No murmurs, rubs, or gallops. PULMONARY: Chest is clear to auscultation, no wheezing or crackles. ABDOMEN: Soft, nontender, nondistended, normoactive bowel sounds. No palpable organomegaly. MUSCULOSKELETAL: No joint swelling or deformity. EXTREMITIES: No cyanosis, clubbing, or pedal edema. NEUROLOGICAL: Gross neurological examination did not reveal any focal deficits. SKIN: No rashes. Assessment and plan -Acute non-ST elevation myocardial infarction patient will be continued on IV heparin cardiology is following the patient -Fracture of the large coronoid process possibly pathological fracture patient is on prednisone and orthopedic surgery will evaluate the patient -Metastatic breast cancer relapsed oncology is following the patient -RS infection supportive care -COPD with mild acute exacerbation continue systemic steroids and additional treatments -Hyperlipidemia -Hypertension -Peripheral neuropathy -Nicotine use: Counseling was provided DVT prophylaxis: Patient on IV heparin at this time Past Medical History Past Medical History: Cancer, COPD, Hyperlipidemia, Hypertension, Osteoarthritis (OA) Additional Past Medical History / Comment(s): breast cancer, osteoporosis, broken pelvis end of apr 2023. 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 LT LUMPECTOMY/WITH 12 LYMPH NODES REMOVED Past Anesthesia/Blood Transfusion Reactions: No Reported Reaction Past Psychological History: Depression Smoking Status: Current every day smoker Past Alcohol Use History: None Reported Past Drug Use History: None Reported - Past Family History Daughter(s) Family Medical History: Cancer Medications and Allergies Home Medications Medication Instructions Recorded Confirmed Type ALPRAZolam [Xanax] 0.5 mg PO HS 06/08/18 11/04/23 History Gabapentin 600 mg PO BID 06/08/18 11/04/23 History Meclizine [Antivert] 12.5 mg PO BID 06/08/18 11/04/23 History Montelukast [Singulair] 10 mg PO DAILY 06/08/18 11/04/23 History Simvastatin 40 mg PO HS 06/08/18 11/04/23 History Clopidogrel Bisulfate [Plavix] 75 mg PO DAILY 07/04/20 11/04/23 History Albuterol Inhaler [Ventolin Hfa 1 - 2 puff INHALATION RT-Q6H PRN 07/24/23 11/04/23 History Inhaler] Baclofen [Lioresal] 10 mg PO BID PRN 07/24/23 11/04/23 History Cholecalciferol (Vitamin D3) 1,250 mcg PO MO 07/24/23 11/04/23 History [Decara (50,000 Iu)] atenoloL [Tenormin] 50 mg PO DAILY 07/24/23 11/04/23 History ALPRAZolam [Xanax] 0.5 mg PO DAILY PRN 09/26/23 11/04/23 History predniSONE 20 mg PO DAILY 09/26/23 11/04/23 History Albuterol Nebulized [Ventolin 2.5 mg INHALATION RT-QID PRN 09/27/23 11/04/23 History Nebulized] Budesonide [Pulmicort] 0.5 mg INHALATION RT-BID 09/27/23 11/04/23 History Morphine Sulfate Ir [MSIR] 15 mg PO BID 11/04/23 11/04/23 History Omeprazole 40 mg PO DAILY 11/04/23 11/04/23 History oxyCODONE-APAP 10-325MG [Percocet 1 tab PO TID PRN 11/04/23 11/04/23 History 10-325 mg] Allergies Allergy/AdvReac Type Severity Reaction Status Date / Time nickel Allergy Rash/Hives Verified 11/04/23 17:20 Penicillins Allergy Rash/Hives Verified 11/04/23 17:20 Physical Exam Vitals: Vital Signs Temp Pulse Pulse Resp BP BP Pulse Ox 11/05/23 11:40 68 18 98 11/05/23 08:33 68 11/05/23 08:19 75 95 11/05/23 07:35 97.3 F L 71 16 108/80 97 11/05/23 03:03 97.7 F 68 16 125/65 95 11/04/23 23:41 97.6 F 98 20 126/58 98 11/04/23 20:02 65 11/04/23 20:00 97.9 F 63 16 107/57 97 11/04/23 19:52 68 11/04/23 18:15 95 11/04/23 18:00 75 12 111/82 98 11/04/23 15:43 83 18 104/62 98 11/04/23 14:07 97.5 F L 61 16 98/64 94 L Intake and Output 11/04/23 11/05/23 11/05/23 22:59 06:59 14:59 Intake Total 54.486 Balance 54.486 Intake: Intake, IV Titration 54.486 Amount Heparin Sod,Pork in 0.45% 54.486 NaCl 25,000 unit In 0.45 % NaCl 1 250ml.bag @ 12 UNITS/KG/HR 7.185 mls/hr IV .Q24H [facility] Rx#: [id number] Other: # Voids 1 Results CBC & Chem 7: 11/04/23 15:17 11/04/23 15:17 Labs: Abnormal Lab Results - Last 24 Hours (Table) 11/04/23 11/04/23 11/04/23 Range/Units 15:17 15:17 15:17 MCV 106.5 H (80.0-100.0) fL Plt Count 121 L (150-450) k/uL APTT 20.3 L (22.0-30.0) sec Sodium 133 L (137-145) mmol/L BUN 33 H (7-17) mg/dL Glucose 163 H (74-99) mg/dL Plasma Lactic Acid Luke (0.7-2.0) mmol/L AST 55 H (14-36) U/L Troponin I (0.000-0.034) ng/mL Total Protein 5.5 L (6.3-8.2) g/dL Albumin 3.1 L (3.5-5.0) g/dL RSV (PCR) (Not Detectd) 11/04/23 11/04/23 11/04/23 Range/Units 15:17 15:17 16:31 MCV (80.0-100.0) fL Plt Count (150-450) k/uL APTT (22.0-30.0) sec Sodium (137-145) mmol/L BUN (7-17) mg/dL Glucose (74-99) mg/dL Plasma Lactic Acid Luke 2.4 H* (0.7-2.0) mmol/L AST (14-36) U/L Troponin I 0.971 H* (0.000-0.034) ng/mL Total Protein (6.3-8.2) g/dL Albumin (3.5-5.0) g/dL RSV (PCR) Detected A (Not Detectd) 11/04/23 11/04/23 11/04/23 Range/Units 18:18 22:54 22:54 MCV (80.0-100.0) fL Plt Count (150-450) k/uL APTT 82.8 H (22.0-30.0) sec Sodium (137-145) mmol/L BUN (7-17) mg/dL Glucose (74-99) mg/dL Plasma Lactic Acid Luke (0.7-2.0) mmol/L AST (14-36) U/L Troponin I 0.858 H* 1.010 H* (0.000-0.034) ng/mL Total Protein (6.3-8.2) g/dL Albumin (3.5-5.0) g/dL RSV (PCR) (Not Detectd) 11/05/23 Range/Units 08:05 MCV (80.0-100.0) fL Plt Count (150-450) k/uL APTT 49.4 H (22.0-30.0) sec Sodium (137-145) mmol/L BUN (7-17) mg/dL Glucose (74-99) mg/dL Plasma Lactic Acid Luke (0.7-2.0) mmol/L AST (14-36) U/L Troponin I (0.000-0.034) ng/mL Total Protein (6.3-8.2) g/dL Albumin (3.5-5.0) g/dL RSV (PCR) (Not Detectd)
--- NOTE | 2023-11-05 15:19 | P.CNOR ---
History of Present Illness - [facility] Consult date: 11/05/23 Requesting physician: Sandro Morales Consult reason: other (Ulna fracture) History of present illness: History of Presenting Illness Patient is a pleasant 78-year-old female who presented to the ER due to increased fatigue and weakness. Patient does report that she had left breast cancer approximately 10 years ago and was in remission. She states it has now progressed to stage IV and has metastasized into her bone. Patient reported that she went to bed on Saturday and did not wake up for approximately 16 hours. Patient states that she has had generalized weakness and shakiness over the past few days and has fallen twice. Patient states that she did hit her left elbow which has had increased pain since this incident. Our services were consulted due to left ulna fracture that was demonstrated on x-ray. Patient has left upper extremity lymphedema. Patient has past medical history of Cancer, COPD, Hyperlipidemia, Hypertension. She has an orthopedic history of osteoporosis, broken pelvis end of apr 2023. 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 Patient does live at home with her spouse. Review of Systems Pertinent positives and negatives as discussed in HPI, a complete review of systems was performed and all other systems are negative. Physical Examination Inspection: Negative for any open fractures, ecchymosis, significant erythema/ulcers. Lymphedema of the left upper extremity. Sensation: Sensation is equal, symmetric, bilaterally intact throughout the upper and lower extremities Palpation: Tenderness to palpation of the left elbow, Nontender to palpation throughout bilateral upper and lower extremities and throughout spine exam Range of motion: Patient does have full range of motion right upper extremity and lower extremities on exam. Patient does have a limited range of motion to her left elbow due to pain and stiffness due to fracture. Motor: 4/5 in all major motor groups in the bilateral upper and lower extremities Special tests: Negative Homans bilaterally. Negative Nic bilaterally. N egative clonus bilaterally. Neurovascular: Radial pulse intact, 2+ bilaterally. Cap refill under 3 seconds in digits upper extremities. Assessment and Plan Frequent falls Left ulna fracture Multiple complex comorbidities At this time we do not recommend any emergent/urgent orthopedic surgical intervention. Continue with conservative measures at this time. Patient will benefit from a long arm splint. Patient to follow up in Dr. Pederson's office in 2 weeks. 2. Appreciate medical management 3. Pain management - Morphine, Percocet. Keep left arm elevated on 2 pillows to reduce swelling and utilize ice packs. 4. GI prophylaxis - per medicine 5. DVT prophylaxis - Heparin 6. PT/OT - weightbearing as tolerated with a walker as needed. 7. Appreciate consult I reviewed and discussed this case with my attending Dr. Pederson, whom has reviewed this chart and films and is in agreement with assessment and plan of care as outlined above. I have personally seen and examined the patient, performed the documentation and the assessment and plan as written. Number of minutes spent on the visit: 20m. Past Medical History Past Medical History: Cancer, COPD, Hyperlipidemia, Hypertension, Osteoarthritis (OA) Additional Past Medical History / Comment(s): breast cancer, osteoporosis, broken pelvis end of apr 2023. 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 LT LUMPECTOMY/WITH 12 LYMPH NODES REMOVED Past Anesthesia/Blood Transfusion Reactions: No Reported Reaction Past Psychological History: Depression Smoking Status: Current every day smoker Past Alcohol Use History: None Reported Past Drug Use History: None Reported - Past Family History Daughter(s) Family Medical History: Cancer Medications and Allergies Home Medications Medication Instructions Recorded Confirmed Type ALPRAZolam [Xanax] 0.5 mg PO HS 06/08/18 11/04/23 History Gabapentin 600 mg PO BID 06/08/18 11/04/23 History Meclizine [Antivert] 12.5 mg PO BID 06/08/18 11/04/23 History Montelukast [Singulair] 10 mg PO DAILY 06/08/18 11/04/23 History Simvastatin 40 mg PO HS 06/08/18 11/04/23 History Clopidogrel Bisulfate [Plavix] 75 mg PO DAILY 07/04/20 11/04/23 History Albuterol Inhaler [Ventolin Hfa 1 - 2 puff INHALATION RT-Q6H PRN 07/24/23 11/04/23 History Inhaler] Baclofen [Lioresal] 10 mg PO BID PRN 07/24/23 11/04/23 History Cholecalciferol (Vitamin D3) 1,250 mcg PO MO 07/24/23 11/04/23 History [Decara (50,000 Iu)] atenoloL [Tenormin] 50 mg PO DAILY 07/24/23 11/04/23 History ALPRAZolam [Xanax] 0.5 mg PO DAILY PRN 09/26/23 11/04/23 History predniSONE 20 mg PO DAILY 09/26/23 11/04/23 History Albuterol Nebulized [Ventolin 2.5 mg INHALATION RT-QID PRN 09/27/23 11/04/23 History Nebulized] Budesonide [Pulmicort] 0.5 mg INHALATION RT-BID 09/27/23 11/04/23 History Morphine Sulfate Ir [MSIR] 15 mg PO BID 11/04/23 11/04/23 History Omeprazole 40 mg PO DAILY 11/04/23 11/04/23 History oxyCODONE-APAP 10-325MG [Percocet 1 tab PO TID PRN 11/04/23 11/04/23 History 10-325 mg] Allergies Allergy/AdvReac Type Severity Reaction Status Date / Time nickel Allergy Rash/Hives Verified 11/04/23 17:20 Penicillins Allergy Rash/Hives Verified 11/04/23 17:20 Results - Labs Labs: Abnormal Lab Results - Last 24 Hours (Table) 11/04/23 11/04/23 11/04/23 Range/Units 15:17 15:17 15:17 MCV 106.5 H (80.0-100.0) fL Plt Count 121 L (150-450) k/uL APTT 20.3 L (22.0-30.0) sec Sodium 133 L (137-145) mmol/L BUN 33 H (7-17) mg/dL Glucose 163 H (74-99) mg/dL Plasma Lactic Acid Luke (0.7-2.0) mmol/L AST 55 H (14-36) U/L Troponin I (0.000-0.034) ng/mL Total Protein 5.5 L (6.3-8.2) g/dL Albumin 3.1 L (3.5-5.0) g/dL RSV (PCR) (Not Detectd) 11/04/23 11/04/23 11/04/23 Range/Units 15:17 15:17 16:31 MCV (80.0-100.0) fL Plt Count (150-450) k/uL APTT (22.0-30.0) sec Sodium (137-145) mmol/L BUN (7-17) mg/dL Glucose (74-99) mg/dL Plasma Lactic Acid Luke 2.4 H* (0.7-2.0) mmol/L AST (14-36) U/L Troponin I 0.971 H* (0.000-0.034) ng/mL Total Protein (6.3-8.2) g/dL Albumin (3.5-5.0) g/dL RSV (PCR) Detected A (Not Detectd) 11/04/23 11/04/23 11/04/23 Range/Units 18:18 22:54 22:54 MCV (80.0-100.0) fL Plt Count (150-450) k/uL APTT 82.8 H (22.0-30.0) sec Sodium (137-145) mmol/L BUN (7-17) mg/dL Glucose (74-99) mg/dL Plasma Lactic Acid Luke (0.7-2.0) mmol/L AST (14-36) U/L Troponin I 0.858 H* 1.010 H* (0.000-0.034) ng/mL Total Protein (6.3-8.2) g/dL Albumin (3.5-5.0) g/dL RSV (PCR) (Not Detectd) 11/05/23 Range/Units 08:05 MCV (80.0-100.0) fL Plt Count (150-450) k/uL APTT 49.4 H (22.0-30.0) sec Sodium (137-145) mmol/L BUN (7-17) mg/dL Glucose (74-99) mg/dL Plasma Lactic Acid Luke (0.7-2.0) mmol/L AST (14-36) U/L Troponin I (0.000-0.034) ng/mL Total Protein (6.3-8.2) g/dL Albumin (3.5-5.0) g/dL RSV (PCR) (Not Detectd) H & H 11/04/23 Range/Units 15:17 Hgb 13.6 (11.4-16.0) gm/dL Hct 42.4 (34.0-46.0) % Coagulation 03/11/24 Range/Units 15:17 INR 1.0 (<1.2) Result Diagrams: 11/04/23 15:17 11/04/23 15:17
[2023-11-05 16:29] LABS: Chol/HDL Ratio 4.97 Ratio; LDL Cholesterol,Calculated 75.8 mg/dL (0.0-131.0)
[2023-11-05 19:00] LABS: Appearance,Urine Clear (Clear); Bilirubin,Urine Negative (Negative); Blood,Urine Negative (Negative); Color,Urine Yellow; Glucose,Urine (UA) 1+ (Negative); Ketones,Urine Trace (Negative); Leukocyte Esterase,Urine Negative (Negative); Nitrite,Urine Negative (Negative); PH, Urine 6.5 (5.0-8.0); Protein,Urine Trace (Negative); Specific Gravity,Urine 1.017 (1.001-1.035)
[2023-11-05] MEDS: ATORVASTATIN 40 MG TAB PO SCH (20:08)
--- NOTE | 2023-11-05 22:03 | P.CONS ---
History of Present Illness - Reason for Consult Consult date: 11/05/23 metastatic breast cancer Requesting physician: Sandro Morales - Chief Complaint weakness and falls - History of Present Illness Jazmyne is a pleasant 67-year-old white female who at the time of her routine mammogram was found to have a mass in the left breast that was palpated by the digital imaging technician. The mass was not detected on the mammogram however, it was seen on the ultrasound. This led to a biopsy of the left breast under ultrasound guidance which was positive for IDC, histologic grade II. The tumor on initial biopsy was triple negative. She had lt partial mastectomy and axillary node dissection on 10/17/12. Path positive for in infiltrating, moderately differenti ated, ductal carcinoma, 2.5 cm with 1/10 lymph nodes positive for metastatic disease. She had treatment on clinical trial (B49) completing 6 cycles of chemotherapy with Taxotere/Cytoxan, had radiation after chemo and completed that 05/29/13. Pt has persistent lymphedema in the left arm. She did not f/u with Surgery or Medical Onc. She was seen as a referral in Jul 2023. Referred after CTA of CAP done by Vascular surgery to evaluate aorta, reported multiple new bilateral pulmonary nodules (largest 1.5 cm LLL), the patient has advanced O2- dependent COPD, stated having baseline activity-limiting COPD (In wheelchair). She had c/o excessive fatigue, back & pelvic pain, as well as, lt breast nipple inversion. Biopsy of left breast lesion: ER/NE -/- [id number] +1. Staging PET showed diffuse metastatic disease, more in bones but included lung & multiple lymph nodes. She was sched to start treatment-auth still pending. Was in office for chemo edu when she was c/o severe rt leg pain. She was referred to Rad Onc to treat painful bone mets, due to start this Thur. She is currently admitted with c/o weakness and falls. She was found to be positive for RSV-denied any significant changes in her breathing or cough, maybe some increased post nasal drip. Serial troponins were elevated-been seen by Cardiology and is being treated as a NSTEMI. Lactic acid was also elevated. She denies fevers, chills, N,V, chest pain, abd pain, bloating, acute changes in bowel or bladder. Noted to have ulnar fracture on xray, after fall. Review of Systems 14 point ROS is neg except as stated in HPI Past Medical History Past Medical History: Cancer, COPD, Hyperlipidemia, Hypertension, Osteoarthritis (OA) Additional Past Medical History / Comment(s): breast cancer, osteoporosis, broken pelvis end of apr 2023. 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 LT LUMPECTOMY/WITH 12 LYMPH NODES REMOVED Past Anesthesia/Blood Transfusion Reactions: No Reported Reaction Past Psychological History: Depression Smoking Status: Current every day smoker Past Alcohol Use History: None Reported Past Drug Use History: None Reported - Past Family History Daughter(s) Family Medical History: Cancer Medications and Allergies Home Medications Medication Instructions Recorded Confirmed Type ALPRAZolam [Xanax] 0.5 mg PO HS 06/08/18 11/04/23 History Gabapentin 600 mg PO BID 06/08/18 11/04/23 History Meclizine [Antivert] 12.5 mg PO BID 06/08/18 11/04/23 History Montelukast [Singulair] 10 mg PO DAILY 06/08/18 11/04/23 History Simvastatin 40 mg PO HS 06/08/18 11/04/23 History Clopidogrel Bisulfate [Plavix] 75 mg PO DAILY 07/04/20 11/04/23 History Albuterol Inhaler [Ventolin Hfa 1 - 2 puff INHALATION RT-Q6H PRN 07/24/23 11/04/23 History Inhaler] Baclofen [Lioresal] 10 mg PO BID PRN 07/24/23 11/04/23 History Cholecalciferol (Vitamin D3) 1,250 mcg PO MO 07/24/23 11/04/23 History [Decara (50,000 Iu)] atenoloL [Tenormin] 50 mg PO DAILY 07/24/23 11/04/23 History ALPRAZolam [Xanax] 0.5 mg PO DAILY PRN 09/26/23 11/04/23 History predniSONE 20 mg PO DAILY 09/26/23 11/04/23 History Albuterol Nebulized [Ventolin 2.5 mg INHALATION RT-QID PRN 09/27/23 11/04/23 History Nebulized] Budesonide [Pulmicort] 0.5 mg INHALATION RT-BID 09/27/23 11/04/23 History Morphine Sulfate Ir [MSIR] 15 mg PO BID 11/04/23 11/04/23 History Omeprazole 40 mg PO DAILY 11/04/23 11/04/23 History oxyCODONE-APAP 10-325MG [Percocet 1 tab PO TID PRN 11/04/23 11/04/23 History 10-325 mg] Allergies Allergy/AdvReac Type Severity Reaction Status Date / Time nickel Allergy Rash/Hives Verified 11/04/23 17:20 Penicillins Allergy Rash/Hives Verified 11/04/23 17:20 Physical Exam Vitals: Vital Signs Temp Pulse Pulse Resp BP BP Pulse Ox 11/05/23 08:19 75 95 11/05/23 07:35 97.3 F L 71 16 108/80 97 11/05/23 03:03 97.7 F 68 16 125/65 95 11/04/23 23:41 97.6 F 98 20 126/58 98 11/04/23 20:02 65 11/04/23 20:00 97.9 F 63 16 107/57 97 11/04/23 19:52 68 11/04/23 18:15 95 11/04/23 18:00 75 12 111/82 98 11/04/23 15:43 83 18 104/62 98 11/04/23 14:07 97.5 F L 61 16 98/64 94 L Intake and Output 11/04/23 11/05/23 11/05/23 22:59 06:59 14:59 Intake Total 54.486 Balance 54.486 Intake: Intake, IV Titration 54.486 Amount Heparin Sod,Pork in 0.45% 54.486 NaCl 25,000 unit In 0.45 % NaCl 1 250ml.bag @ 12 UNITS/KG/HR 7.185 mls/hr IV .Q24H [facility] Rx#: [id number] Other: # Voids 1 - Constitutional General appearance: average body habitus, cooperative, no acute distress - EENT Eyes: anicteric sclerae, EOMI ENT: hearing grossly normal, normal oropharynx - Neck Neck: no lymphadenopathy - Respiratory Respiratory: bilateral: CTA - Cardiovascular Rhythm: regular Heart sounds: normal: S1, S2 Abnormal Heart Sounds: no systolic murmur, no diastolic murmur, no rub, no S3 Gallop, no S4 Gallop, no click, no other leg Peripheral Edema: bilateral: None - Gastrointestinal General gastrointestinal: no absent bowel sounds, no decreased bowel sounds, no distended, no hepatomegaly, no hyperactive bowel sounds, normal bowel sounds, no organomegaly, no rigid, no scaphoid, soft, no splenomegaly, no tenderness, no umbilical hernia, no ventral hernia - Integumentary Integumentary: normal - Neurologic Neurologic: CNII-XII intact - Musculoskeletal LUE swelling, severe, has ulnar fracture Musculoskeletal: generalized weakness, strength equal bilaterally - Psychiatric Psychiatric: A&O x's 3, appropriate affect, intact judgment & insight Results CBC & Chem 7: 11/04/23 15:17 11/04/23 15:17 Labs: Abnormal Lab Results - Last 24 Hours (Table) 11/04/23 11/04/23 11/04/23 Range/Units 15:17 15:17 15:17 MCV 106.5 H (80.0-100.0) fL Plt Count 121 L (150-450) k/uL APTT 20.3 L (22.0-30.0) sec Sodium 133 L (137-145) mmol/L BUN 33 H (7-17) mg/dL Glucose 163 H (74-99) mg/dL Plasma Lactic Acid Luke (0.7-2.0) mmol/L AST 55 H (14-36) U/L Troponin I (0.000-0.034) ng/mL Total Protein 5.5 L (6.3-8.2) g/dL Albumin 3.1 L (3.5-5.0) g/dL RSV (PCR) (Not Detectd) 11/04/23 11/04/23 11/04/23 Range/Units 15:17 15:17 16:31 MCV (80.0-100.0) fL Plt Count (150-450) k/uL APTT (22.0-30.0) sec Sodium (137-145) mmol/L BUN (7-17) mg/dL Glucose (74-99) mg/dL Plasma Lactic Acid Luke 2.4 H* (0.7-2.0) mmol/L AST (14-36) U/L Troponin I 0.971 H* (0.000-0.034) ng/mL Total Protein (6.3-8.2) g/dL Albumin (3.5-5.0) g/dL RSV (PCR) Detected A (Not Detectd) 11/04/23 11/04/23 11/04/23 Range/Units 18:18 22:54 22:54 MCV (80.0-100.0) fL Plt Count (150-450) k/uL APTT 82.8 H (22.0-30.0) sec Sodium (137-145) mmol/L BUN (7-17) mg/dL Glucose (74-99) mg/dL Plasma Lactic Acid Luke (0.7-2.0) mmol/L AST (14-36) U/L Troponin I 0.858 H* 1.010 H* (0.000-0.034) ng/mL Total Protein (6.3-8.2) g/dL Albumin (3.5-5.0) g/dL RSV (PCR) (Not Detectd) Comments: cervical spine and head CT, report reviewed Chest x-ray: report reviewed Assessment and Plan (1) NSTEMI (non-ST elevated myocardial infarction) Current Visit: Yes Status: Acute Priority: High Code(s): I21.4 - NON-ST ELEVATION (NSTEMI) MYOCARDIAL INFARCTION SNOMED Code(s): 81392495 (2) Ulnar fracture Current Visit: Yes Status: Acute Priority: High Code(s): S52.209A - UNSP FRACTURE OF SHAFT OF UNSP ULNA, INIT FOR CLOS FX SNOMED Code(s): 74079479 (3) RSV (respiratory syncytial virus infection) Current Visit: Yes Status: Acute Code(s): B33.8 - OTHER SPECIFIED VIRAL DISEASES SNOMED Code(s): 46277067 (4) Breast cancer Current Visit: Yes Status: Acute Priority: High Code(s): C50.919 - MALIGNANT NEOPLASM OF UNSP SITE OF UNSPECIFIED FEMALE BREAST SNOMED Code(s): 512203920 Plan: NSTEMI -Elevated serial troponins -Cardiology following, defer management of the same Ulnar fracture -from fall -Orthopedics has seen pt, no plan for surgical intervention RSV -Supportive care, resp treatments ordered Breast cancer -Pending insurance auth to start treatment. Postponed until current acute medical c/o are treated adequately -Plan to have radiation to painful bone mets. Rad Onc consulted Doctor attests: I performed a history and physical examination of this patient, developed impression and plan of care. Discussed with dictator. I agree with dictators note, documented as a scribe.
--- NOTE | 2023-11-06 09:24 | P.PN ---
Subjective Progress Note Date: 11/06/23 Principal diagnosis: Frequent falls Left Ulna fracture Patient seen and examined this morning. Patient is resting comfortably in bed. Left arm is elevated on 2 pillows. Patient reports that the pain is improved since yesterday. Informed patient that we will be ordering a posterior long arm brace, prescription has been placed in chart. Patient verbalizes understanding. She states that she occasionally has some numbness and tingling that radiates into her left hand. Encouraged patient to work with physical therapy. No acute concerns at this time. Objective - Vital Signs Vital signs: Vital Signs Temp 98.1 F 11/05/23 20:00 Pulse 67 11/06/23 04:57 Resp 16 11/06/23 04:57 BP 117/56 11/06/23 04:57 Pulse Ox 99 11/06/23 04:57 FiO2 Intake & Output 11/05/23 11/06/23 11/06/23 18:59 06:59 18:59 Intake Total 211.297 0 Output Total 400 Balance -188.703 0 Weight 59.874 kg Intake: Intake, IV Titration 93.297 Amount Heparin Sod,Pork in 0.45% 93.297 NaCl 25,000 unit In 0.45 % NaCl 1 250ml.bag @ 12 UNITS/KG/HR 7.185 mls/hr IV .Q24H [facility] Rx#: [id number] Oral 118 0 Output: Urine 400 Other: Voiding Method Toilet # Voids 1 1 - Exam Inspection: Negative for any open fractures, ecchymosis, significant eryt lui/ulcers. Lymphedema of the left upper extremity. Sensation: Sensation is equal, symmetric, bilaterally intact throughout the upper and lower extremities Palpation: Tenderness to palpation of the left elbow, Nontender to palpation throughout bilateral upper and lower extremities and throughout spine exam Range of motion: Patient does have full range of motion right upper extremity and lower extremities on exam. Patient does have a limited range of motion to her left elbow due to pain and stiffness due to fracture. Motor: 4/5 in all major motor groups in the bilateral upper and lower e xtremities Special tests: Negative Homans bilaterally. Negative Nic bilaterally. Negative clonus bilaterally. Neurovascular: Radial pulse intact, 2+ bilaterally. Cap refill under 3 seconds in digits upper extremities. - Labs CBC & Chem 7: 11/04/23 15:17 11/04/23 15:17 Labs: Abnormal Lab Results - Last 24 Hours (Table) 11/05/23 11/05/23 Range/Units 09:14 18:14 Triglycerides 192.00 H (0.00-149.00) mg/dL HDL Cholesterol 28.80 L (40.00-60.00) mg/dL Urine Protein Trace H (Negative) Urine Glucose (UA) 1+ H (Negative) Urine Ketones Trace H (Negative) Assessment and Plan Assessment: Frequent falls Left ulna fracture Multiple complex comorbidities Plan: At this time we do not recommend any emergent/urgent orthopedic surgical intervention. Continue with conservative measures at this time. Prescription for a posterior long arm splint/brace has been placed in chart. Patient to follow up in Dr. Pederson's office in 2 weeks. 2. Appreciate medical management 3. Pain management - Morphine, Percocet. Keep left arm elevated on 2 pillows to reduce swelling and utilize ice packs. 4. GI prophylaxis - per medicine 5. DVT prophylaxis - Heparin 6. PT/OT - weightbearing as tolerated with a walker as needed. 7. Appreciate consult I reviewed and discussed this case with my attending Dr. Pederson, whom has reviewed this chart and films and is in agreement with assessment and plan of care as outlined above. I have personally seen and examined the patient, performed the documentation and the assessment and plan as written. Number of minutes spent on the visit: 20m.
[2023-11-06] MEDS: ISOSORBIDE MONONITRATE ER 30 MG TAB.ER.24H PO SCH (11:39)
--- NOTE | 2023-11-06 12:41 | P.PN ---
Subjective Progress Note Date: 11/06/23 Principal diagnosis: RSV, NSTEMI. Metastatic breast cancer In follow-up today patient is reporting not feeling very well overall, very weak, tired, malaize. Denies any specific complaints, no chest pain, nausea, acute changes in shortness of breath, bleeding. Objective - Vital Signs Vital signs: Vital Signs Temp 98.3 F 11/06/23 08:05 Pulse 70 11/06/23 11:36 Resp 18 11/06/23 11:36 BP 138/59 11/06/23 11:36 Pulse Ox 98 11/06/23 11:36 FiO2 Intake & Output 11/05/23 11/06/23 11/06/23 18:59 06:59 18:59 Intake Total 211.297 0 Output Total 400 Balance -188.703 0 Weight 59.874 kg Intake: Intake, IV Titration 93.297 Amount Heparin Sod,Pork in 0.45% 93.297 NaCl 25,000 unit In 0.45 % NaCl 1 250ml.bag @ 12 UNITS/KG/HR 7.185 mls/hr IV .Q24H [facility] Rx#: [id number] Oral 118 0 Output: Urine 400 Other: Voiding Method Toilet Toilet # Voids 1 1 1 - Constitutional General appearance: Present: cooperative, mild distress, obese - EENT Eyes: Present: anicteric sclerae, EOMI ENT: Present: hearing grossly normal - Respiratory Details: Congested cough - Cardiovascular Details: skin warm and dry to touch - Integumentary Integumentary: Present: pale - Neurologic Neurologic: Present: CNII-XII intact - Musculoskeletal Musculoskeletal: Present: generalized weakness - Psychiatric Psychiatric: Present: A&O x's 3, appropriate affect, intact judgment & insight - Labs CBC & Chem 7: 11/04/23 15:17 11/04/23 15:17 Labs: Abnormal Lab Results - Last 24 Hours (Table) 11/05/23 11/05/23 Range/Units 09:14 18:14 Triglycerides 192.00 H (0.00-149.00) mg/dL HDL Cholesterol 28.80 L (40.00-60.00) mg/dL Urine Protein Trace H (Negative) Urine Glucose (UA) 1+ H (Negative) Urine Ketones Trace H (Negative) Assessment and Plan (1) NSTEMI (non-ST elevated myocardial infarction) Current Visit: Yes Status: Acute Priority: High Code(s): I21.4 - NON-ST ELEVATION (NSTEMI) MYOCARDIAL INFARCTION SNOMED Code(s): 17722097 (2) Ulnar fracture Current Visit: Yes Status: Acute Priority: High Code(s): S52.209A - UNSP FRACTURE OF SHAFT OF UNSP ULNA, INIT FOR CLOS FX SNOMED Code(s): 55846434 (3) RSV (respiratory syncytial virus infection) Current Visit: Yes Status: Acute Code(s): B33.8 - OTHER SPECIFIED VIRAL DISEASES SNOMED Code(s): 63754784 (4) Breast cancer Current Visit: Yes Status: Acute Priority: High Code(s): C50.919 - MALIGNANT NEOPLASM OF UNSP SITE OF UNSPECIFIED FEMALE BREAST SNOMED Code(s): 501029294 Plan: NSTEMI -Elevated serial troponins -Cardiology has seen pt. Requesting prognosis as to how aggressively cardiac interventions should be. Oncology recommendation is to optimize medical management of cardiac conditions. Discussed this pt and she agrees. Ulnar fracture -from fall -Orthopedics has seen pt, no plan for surgical intervention -Pain control and symptom mgmt-injury is on the same side as patient's lymphedema from breast cancer. RSV -Supportive care, resp treatments ordered Breast cancer -Pending insurance auth to start treatment. Postponed until current acute medical c/o are treated adequately -Plan to have radiation to painful bone mets. Rad Onc consulted Doctor attests: I performed a history and physical examination of this patient, developed impression and plan of care. Discussed with dictator. I agree with dictators note, documented as a scribe.
[2023-11-06] MEDS ORDERED: IPRATROPIUM-ALBUTEROL 3 ML NEB INHALATION PRN (15:04)
--- NOTE | 2023-11-06 15:05 | P.PN ---
Subjective Progress Note Date: 11/06/23 Patient is a 78-year-old female with a history of left breast cancer and lymphedema of the left arm came in after a fall. Patient is complaining of pain in the right leg. Although there was not no fracture in the femur patient does have fracture of the left ulnar coronoid process. Patient denies any chest pain but found to have elevated troponin of about 1. Patient also found to have significant metastic disease. Patient was in remission for few years. Patient also bit hyponatremic. Because of the elevated troponin and possible non-ST elevation myocardial infarction cardiology evaluated the patient patient is on IV heparin considering her metastic disease cardiology is awaiting recommendatio ns from oncology. Echocardiogram in the past showed normal ejection fraction. EKG showed first-degree AV block right ventricular hypertrophy patient serum sodium is 133 patient troponins were 0.971 0.858 and 1.01. Patient is also complaining of generalized weakness. 11/06/2023 Patient is evaluated in follow-up today on the stepdown unit. She remains on oxygen support via nasal cannula. RSV was found to be positive. She continues to report shortness of breath. Orthopedics has evaluated the patient for the left ulnar fracture recommending no surgical intervention at this time and patient was placed in a splint. Patient was scheduled to undergo her first radiation treatment tomorrow and has also been pending authorization for outpatient chemotherapy. Oncology following and this will need to be placed on hold while patient becomes her medically stable. Cardiology has followed up and has discontinued the IV heparin. Echocardiogram reveals an EF of 50 to 55%. Lipid panel showing triglyceride level of 192, cholesterol 143, LDL 75.8, HDL 28.80. Hemodynamically she is stable. Review of Systems Constitutional: Denied any fatigue denied any fever. Cardio vascular: denied any chest pain, palpitations Gastrointestinal: denied any nausea, vomiting, diarrhea Pulmonary: Reports shortness of breath and cough Neurologic denied any new focal deficits All inpatient medications were reviewed and appropriate changes in these medications as dictated in the interval history and assessment and plan. PHYSICAL EXAMINATION: GENERAL: The patient is alert and oriented x3, not in any acute distress. Well developed, well nourished. HEENT: Pupils are round and equally reacting to light. EOMI. No scleral icterus. No conjunctival pallor. Normocephalic, atraumatic. No pharyngeal erythema. No thyromegaly. CARDIOVASCULAR: S1 and S2 present. No murmurs, rubs, or gallops. PULMONARY: Chest is diminished with scattered rhonchi ABDOMEN: Soft, nontender, nondistended, normoactive bowel sounds. No palpable organomegaly. MUSCULOSKELETAL: No joint swelling or deformity. EXTREMITIES: No cyanosis, clubbing, or pedal edema. NEUROLOGICAL: Gross neurological examination did not reveal any focal deficits. SKIN: No rashes. Assessment and plan -Acute non-ST elevation myocardial infarction; heparin has been discontinued patient will be optimized on cardiac medications. -Fall with subsequent fracture of the left ulna, mildly displaced; orthopedics recommending conservative management and will be ordering a splint; recommending office f/u in 2 weeks. -Metastatic breast cancer relapsed oncology is following the patient plan for operative chemotherapy pending operative pain and patient is supposed to start radiation treatment tomorrow. -Lymphadema of the left arm patient does not follow with the clinic anymore and not interested in compression. -Acute RSV infection supportive care -COPD with acute exacerbation continue systemic steroids and additional treatments; this is secondary to acute RSV infection. -Acute on chronic hypoxemic respiratory failure secondary to acute RSV -Hyperlipidemia -Hypertension -Peripheral neuropathy -Nicotine use: Counseling was provided DVT prophylaxis: Subcu heparin GI prophylaxis: Protonix Do Not Resuscitate/Do Not Intubate Pending further recommendations from cardiology. Continue supportive care for the acute RSV infection. Repeat labs in the AM The impression and plan of care has been dictated by Ileana Howell Nurse Practitioner as directed. Dr. Stephania MD I have performed a history and physical examination and medical decision making of this patient, discussed the same with the dictator, and agree with the dictators assessment and plan as written, documented as a scribe. Based on total visit time, I have performed more than 50% of this visit. Objective - Vital Signs Vital signs: Vital Signs Temp 98.1 F 11/05/23 20:00 Pulse 67 11/06/23 04:57 Resp 16 11/06/23 04:57 BP 117/56 11/06/23 04:57 Pulse Ox 99 11/06/23 04:57 FiO2 Intake & Output 11/05/23 11/06/23 11/06/23 18:59 06:59 18:59 Intake Total 211.297 0 Output Total 400 Balance -188.703 0 Weight 59.874 kg Intake: Intake, IV Titration 93.297 Amount Heparin Sod,Pork in 0.45% 93.297 NaCl 25,000 unit In 0.45 % NaCl 1 250ml.bag @ 12 UNITS/KG/HR 7.185 mls/hr IV .Q24H [facility] Rx#: [id number] Oral 118 0 Output: Urine 400 Other: Voiding Method Toilet # Voids 1 1 - Labs CBC & Chem 7: 11/04/23 15:17 11/04/23 15:17 Labs: Abnormal Lab Results - Last 24 Hours (Table) 11/05/23 11/05/23 Range/Units 09:14 18:14 Triglycerides 192.00 H (0.00-149.00) mg/dL HDL Cholesterol 28.80 L (40.00-60.00) mg/dL Urine Protein Trace H (Negative) Urine Glucose (UA) 1+ H (Negative) Urine Ketones Trace H (Negative) Assessment and Plan Time with Patient: Less than 30
[2023-11-06 15:07] LABS: HCT 35.4 % (34.0-46.0); HGB 11.5 gm/dL (11.4-16.0); Hypochromasia Slight; MCH 34.8 pg (25.0-35.0); MCHC 32.5 g/dL (31.0-37.0); MCV 107.3 fL (80.0-100.0); Macrocytosis Moderate; Mean Platelet Volume 8.1; Platelet Count 110 k/uL (150-450); RDW 13.3 % (11.5-15.5); WBC 4.4 k/uL (3.8-10.6)
--- NOTE | 2023-11-06 15:10 | P.PN ---
Subjective Progress Note Date: 11/06/23 NSTEMI History of present illness: History of present illness: This is a 78-year-old female patient of Dr. Handy with past medical history of left breast cancer with recurrence with metastatic disease to lung and bone, peripheral vascular disease s/p angioplasty and stenting of the bilateral iliac arteries, stent in the right external iliac by Dr. Marquez, hypertension, hyperlipidemia, peripheral neuropathy, COPD, left upper extremity lymphedema, tobacco use and dependence. We have been asked to evaluate the patient for non- ST elevated myocardial infarction. Patient had a recent hospitalization in September of this year at which time she was seen by cardiology for elevated troponins, EKG was a sinus rhythm with first-degree AV block possible right ventricular hypertrophy. Troponins were mildly elevated in the range of 0.035. Echocardiogram at that time revealed EF of 55 to 60%, mild mitral digitation, no pericardial effusion. Patient presented to the ER she had a fall, weakness. She denies any loss of consciousness and no dizziness. She may have occasional palpitations. She denies shortness of breath. She complains of lower right extremity edema. She denies any nausea or vomiting. No blood in her stools or urine. Patient is still active smoker 1 pack/day. EKG sinus rhythm with first-degree AV block, right ventricular hypertrophy. Chest x-ray: Chronic changes without acute pulmonary process. Elbow x-ray acute fracture of the coronoid process of the ulnar left. CT brain and cervical spine revealed no acute fracture or dislocation of the cervical spine. No acute intracranial hemorrhage mass effect or midline shift. WBC 5.2, hemoglobin 13.6, platelet count 121, INR 1. Sodium 133, potassium 4.2, chloride 98, CO2 30, BUN 33 creatinine 0.81. Blood sugar 163. Initial lactic acid 2 point 4 repeat 1.4. Magnesium 2.1. AST 55 otherwise liver function test are normal. Troponin 0.971, 0.858, 1.01. Influenza A, influenza B, COVID-19 not detected. RSV detected. Home cardiac medications: Atenolol 50 mg daily, Plavix 75 mg daily, simvastatin 40 mg daily. 11/05 Patient is seen today in follow-up. She continues to complain of cough. No chest pain. She has been maintained on heparin drip as well as Nitropaste. Blood pressure 138/59, heart rate 70, pulse ox 90% on 2 L nasal cannula. Limited echocardiogram reveals EF of 50 to 55%, dilated right ventricle. Regarding aggressive cardiac workup versus medical management, and oncology is recommending medical management at this point. Physical examination: Gen: This is a 78-year-old female in no acute distress VS: reviewed HEENT: Head is atraumatic, normocephalic. Pupils equal, round. Sclerae is anicteric. NECK: Supple. No JVD. LUNGS: Clear to auscultation. No wheezes or rhonchi. No intercostal retractions. HEART: Regular rate and rhythm. No murmur. ABDOMEN: Soft No tenderness. EXTREMITIES: Minimal right lower systolic pedal edema. Left upper extremity lymphedema. NEUROLOGICAL: Patient is awake, alert and oriented x3. Assessment: Non-ST elevated myocardial infarction RSV Metastatic breast disease Peripheral vascular disease COPD Hypertension Hyperlipidemia Peripheral neuropathy Active tobacco use and dependence Plan: Continue patient's home cardiac medications Discontinue heparin drip Continue aspirin 81 mg daily and atorvastatin to 40 mg at bedtime Start patient on Imdur 30 mg daily Continue RSV treatment Plan is for medical management at this time, no aggressive cardiac workup. Once patient is stabilized, patient is cleared for discharge and may follow-up with Dr. Handy in the office. Nurse practitioner note has been reviewed, I agree with documented findings and plan of care. Patient was seen and examined. Objective - Vital Signs Vital signs: Vital Signs Temp 98.1 F 11/05/23 20:00 Pulse 67 11/06/23 04:57 Resp 16 11/06/23 04:57 BP 117/56 11/06/23 04:57 Pulse Ox 99 11/06/23 04:57 FiO2 Intake & Output 11/05/23 11/06/23 11/06/23 18:59 06:59 18:59 Intake Total 211.297 0 Output Total 400 Balance -188.703 0 Weight 59.874 kg Intake: Intake, IV Titration 93.297 Amount Heparin Sod,Pork in 0.45% 93.297 NaCl 25,000 unit In 0.45 % NaCl 1 250ml.bag @ 12 UNITS/KG/HR 7.185 mls/hr IV .Q24H [facility] Rx#: [id number] Oral 118 0 Output: Urine 400 Other: Voiding Method Toilet # Voids 1 1 - Labs CBC & Chem 7: 03/11/24 15:17 11/04/23 15:17 Labs: Abnormal Lab Results - Last 24 Hours (Table) 11/05/23 11/05/23 Range/Units 09:14 18:14 Triglycerides 192.00 H (0.00-149.00) mg/dL HDL Cholesterol 28.80 L (40.00-60.00) mg/dL Urine Protein Trace H (Negative) Urine Glucose (UA) 1+ H (Negative) Urine Ketones Trace H (Negative)
[2023-11-06 15:23] LABS: African American GFR (CKD) >90 (>60 ml/min/1.73 sqM); Anion Gap 3 mmol/L; Blood Urea Nitrogen 18 mg/dL (7-17); Calcium 8.6 mg/dL (8.4-10.2); Carbon Dioxide 31 mmol/L (22-30); Chloride 101 mmol/L (98-107); Glucose 202 mg/dL (74-99); Magnesium 1.9 mg/dL (1.6-2.3); Non-African American GFR(CKD) 89 (>60 ml/min/1.73 sqM); Sodium 135 mmol/L (137-145)
[2023-11-06] MEDS: IPRATROPIUM-ALBUTEROL 3 ML NEB INHALATION SCH (16:00)
[2023-11-06] MEDS: HEPARIN SODIUM,PORCINE 5,000 UNIT/ML 1 ML VIAL SQ SCH (21:27)
[2023-11-07] MEDS ORDERED: DEXTROSE 50% SYRINGE 50 ML IVP PRN ×2 (07:40)
[2023-11-07 10:22] LABS: African American GFR (CKD) >90 (>60 ml/min/1.73 sqM); Blood Urea Nitrogen 17 mg/dL (7-17); Calcium 9.2 mg/dL (8.4-10.2); Chloride 98 mmol/L (98-107); Glucose 123 mg/dL (74-99); Non-African American GFR(CKD) >90 (>60 ml/min/1.73 sqM); Potassium 4.5 mmol/L (3.5-5.1); Sodium 138 mmol/L (137-145)
[2023-11-07 10:28] LABS: Anion Gap 7 mmol/L; Carbon Dioxide 33 mmol/L (22-30)
--- NOTE | 2023-11-07 11:26 | P.PN ---
Subjective Progress Note Date: 11/07/23 NSTEMI History of present illness: History of present illness: This is a 78-year-old female patient of Dr. Handy with past medical history of left breast cancer with recurrence with metastatic disease to lung and bone, peripheral vascular disease s/p angioplasty and stenting of the bilateral iliac arteries, stent in the right external iliac by Dr. Marquez, hypertension, hyperlipidemia, peripheral neuropathy, COPD, left upper extremity lymphedema, tobacco use and dependence. We have been asked to evaluate the patient for non- ST elevated myocardial infarction. Patient had a recent hospitalization in September of this year at which time she was seen by cardiology for elevated troponins, EKG was a sinus rhythm with first-degree AV block possible right ventricular hypertrophy. Troponins were mildly elevated in the range of 0.035. Echocardiogram at that time revealed EF of 55 to 60%, mild mitral digitation, no pericardial effusion. Patient presented to the ER she had a fall, weakness. She denies any loss of consciousness and no dizziness. She may have occasional palpitations. She denies shortness of breath. She complains of lower right extremity edema. She denies any nausea or vomiting. No blood in her stools or urine. Patient is still active smoker 1 pack/day. EKG sinus rhythm with first-degree AV block, right ventricular hypertrophy. Chest x-ray: Chronic changes without acute pulmonary process. Elbow x-ray acute fracture of the coronoid process of the ulnar left. CT brain and cervical spine revealed no acute fracture or dislocation of the cervical spine. No acute intracranial hemorrhage mass effect or midline shift. WBC 5.2, hemoglobin 13.6, platelet count 121, INR 1. Sodium 133, potassium 4.2, chloride 98, CO2 30, BUN 33 creatinine 0.81. Blood sugar 163. Initial lactic acid 2 point 4 repeat 1.4. Magnesium 2.1. AST 55 otherwise liver function test are normal. Troponin 0.971, 0.858, 1.01. Influenza A, influenza B, COVID-19 not detected. RSV detected. Home cardiac medications: Atenolol 50 mg daily, Plavix 75 mg daily, simvastatin 40 mg daily. 11/05 Patient is seen today in follow-up. She continues to complain of cough. No chest pain. She has been maintained on heparin drip as well as Nitropaste. Blood pressure 138/59, heart rate 70, pulse ox 90% on 2 L nasal cannula. Limited echocardiogram reveals EF of 50 to 55%, dilated right ventricle. Regarding aggressive cardiac workup versus medical management, and oncology is recommending medical management at this point. 11/06 Patient denies having any chest pain. She states she still has a little cough little shortness of breath and a little wheezing. She remains in isolation regarding RSV. She has been afebrile, heart rate in the 70s, blood pressure 133/60, pulse ox 100% on 2 L nasal cannula. Repeat blood work reveals sodium 138, potassium 4.5, BUN 17 creatinine 0.54. EKG from yesterday reviewed with sinus rhythm. Yesterday, heparin drip was discontinued patient started on Imdur. Physical examination: Gen: This is a 78-year-old female in no acute distress VS: reviewed HEENT: Head is atraumatic, normocephalic. Pupils equal, round. Sclerae is anicteric. NECK: Supple. No JVD. LUNGS: Clear to auscultation. No wheezes or rhonchi. No intercostal retractions. HEART: Regular rate and rhythm. No murmur. ABDOMEN: Soft No tenderness. EXTREMITIES: Minimal right lower systolic pedal edema. Left upper extremity lymphedema. NEUROLOGICAL: Patient is awake, alert and oriented x3. Assessment: Non-ST elevated myocardial infarction RSV Metastatic breast disease Peripheral vascular disease COPD Hypertension Hyperlipidemia Peripheral neuropathy Active tobacco use and dependence Plan: Continue current cardiac medications Continue RSV treatment Plan is for medical management at this time, no aggressive cardiac workup. Once patient is stabilized, patient is cleared for discharge and may follow-up with Dr. Handy in the office. Cardiology will sign off this case and follow on an as-needed basis. Please reconsult for any new concerns. Nurse practitioner note has been reviewed, I agree with documented findings and plan of care. Patient was seen and examined. Objective - Vital Signs Vital signs: Vital Signs Temp 97.2 F L 11/07/23 04:00 Pulse 78 11/07/23 08:18 Resp 16 11/07/23 04:00 BP 120/57 11/07/23 04:00 Pulse Ox 97 11/07/23 04:00 FiO2 Intake & Output 11/06/23 11/07/23 11/07/23 18:59 06:59 18:59 Intake Total 417 Output Total 400 Balance 417 -400 Weight 59.874 kg Intake: Oral 417 Output: Urine 400 Other: Voiding Method Toilet Toilet # Voids 1 - Labs CBC & Chem 7: 11/06/23 14:37 11/07/23 09:41 Labs: Abnormal Lab Results - Last 24 Hours (Table) 11/06/23 11/06/23 Range/Units 14:37 14:37 RBC 3.30 L (3.80-5.40) m/uL MCV 107.3 H (80.0-100.0) fL Plt Count 110 L (150-450) k/uL Sodium 135 L (137-145) mmol/L Carbon Dioxide 31 H (22-30) mmol/L BUN 18 H (7-17) mg/dL Glucose 202 H (74-99) mg/dL
--- NOTE | 2023-11-07 15:08 | P.PN ---
Subjective Progress Note Date: 11/07/23 Patient is a 78-year-old female with a history of left breast cancer and lymphedema of the left arm came in after a fall. Patient is complaining of pain in the right leg. Although there was not no fracture in the femur patient does have fracture of the left ulnar coronoid process. Patient denies any chest pain but found to have elevated troponin of about 1. Patient also found to have significant metastic disease. Patient was in remission for few years. Patient also bit hyponatremic. Because of the elevated troponin and possible non-ST elevation myocardial infarction cardiology evaluated the patient patient is on IV heparin considering her metastic disease cardiology is awaiting recommendatio ns from oncology. Echocardiogram in the past showed normal ejection fraction. EKG showed first-degree AV block right ventricular hypertrophy patient serum sodium is 133 patient troponins were 0.971 0.858 and 1.01. Patient is also complaining of generalized weakness. 11/06/2023 Patient is evaluated in follow-up today on the stepdown unit. She remains on oxygen support via nasal cannula. RSV was found to be positive. She continues to report shortness of breath. Orthopedics has evaluated the patient for the left ulnar fracture recommending no surgical intervention at this time and patient was placed in a splint. Patient was scheduled to undergo her first radiation treatment tomorrow and has also been pending authorization for outpatient chemotherapy. Oncology following and this will need to be placed on hold while patient becomes her medically stable. Cardiology has followed up and has discontinued the IV heparin. Echocardiogram reveals an EF of 50 to 55%. Lipid panel showing triglyceride level of 192, cholesterol 143, LDL 75.8, HDL 28.80. Hemodynamically she is stable. 11/07/2023 Patient is followed up today resting in bed. She remains on oxygen via nasal cannula is complaining of some shortness of breath today. She continues on oral prednisone. Patient will undergo radiation therapy today. She was cleared by cardiology for discharge home on medical management therapy for the NSTEMI. Blood work has normalized her sodium level is 138, BUN of 17 creatinine of 0.54. She is on 2 L of oxygen at 93%. Review of Systems Constitutional: Denied any fatigue denied any fever. Cardio vascular: denied any chest pain, palpitations Gastrointestinal: denied any nausea, vomiting, diarrhea Pulmonary: Reports shortness of breath and cough Neurologic denied any new focal deficits All inpatient medications were reviewed and appropriate changes in these medications as dictated in the interval history and assessment and plan. PHYSICAL EXAMINATION: GENERAL: The patient is alert and oriented x3, not in any acute distress. Well developed, well nourished. HEENT: Pupils are round and equally reacting to light. EOMI. No scleral icterus. No conjunctival pallor. Normocephalic, atraumatic. No pharyngeal erythema. No thyromegaly. CARDIOVASCULAR: S1 and S2 present. No murmurs, rubs, or gallops. PULMONARY: Chest is diminished with scattered rhonchi ABDOMEN: Soft, nontender, nondistended, normoactive bowel sounds. No palpable organomegaly. MUSCULOSKELETAL: No joint swelling or deformity. EXTREMITIES: No cyanosis, clubbing, or pedal edema. NEUROLOGICAL: Gross neurological examination did not reveal any focal deficits. SKIN: No rashes. Assessment and plan -Acute non-ST elevation myocardial infarction; heparin has been discontinued patient will be optimized on cardiac medications. -Fall with subsequent fracture of the left ulna, mildly displaced; orthopedics recommending conservative management and will be ordering a splint; recommending office f/u in 2 weeks. -Metastatic breast cancer relapsed oncology is following the patient plan for operative chemotherapy pending operative pain and patient is supposed to start radiation treatment tomorrow. -Lymphadema of the left arm patient does not follow with the clinic anymore and not interested in compression. -Acute RSV infection supportive care -COPD with acute exacerbation continue systemic steroids and additional treatments; this is secondary to acute RSV infection. -Acute on chronic hypoxemic respiratory failure secondary to acute RSV -Hyperlipidemia -Hypertension -Peripheral neuropathy -Nicotine use: Counseling was provided DVT prophylaxis: Subcu heparin GI prophylaxis: Protonix Do Not Resuscitate/Do Not Intubate Patient was cleared by cardiology. Patient continues on supportive care for the acute RSV infection. We will check a procalcitonin level. Scheduled to get radiation treatment today at 1515. Possible D/C home tomorrow. Wean oxygen as tolerated. The impression and plan of care has been dictated by Ileana Howell, Nurse Practitioner as directed. Dr. Stephania MD I have performed a history and physical examination and medical decision making of this patient, discussed the same with the dictator, and agree with the dictators assessment and plan as written, documented as a scribe. Based on total visit time, I have performed more than 50% of this visit. Objective - Vital Signs Vital signs: Vital Signs Temp 97.8 F 11/07/23 08:00 Pulse 72 11/07/23 11:55 Resp 16 11/07/23 14:56 BP 122/58 11/07/23 14:56 Pulse Ox 93 L 11/07/23 14:56 FiO2 Intake & Output 11/06/23 11/07/23 11/07/23 18:59 06:59 18:59 Intake Total 417 236 Output Total 400 Balance 417 -400 236 Weight 59.874 kg Intake: Oral 417 236 Output: Urine 400 Other: Voiding Method Toilet Toilet Toilet # Voids 1 - Labs CBC & Chem 7: 11/06/23 14:37 11/07/23 09:41 Labs: Abnormal Lab Results - Last 24 Hours (Table) 11/06/23 11/06/23 11/07/23 Range/Units 14:37 14:37 09:41 RBC 3.30 L (3.80-5.40) m/uL MCV 107.3 H (80.0-100.0) fL Plt Count 110 L (150-450) k/uL Sodium 135 L (137-145) mmol/L Carbon Dioxide 31 H 33 H (22-30) mmol/L BUN 18 H (7-17) mg/dL Glucose 202 H 123 H (74-99) mg/dL Assessment and Plan Time with Patient: Less than 30
--- NOTE | 2023-11-07 16:09 | P.PN ---
Subjective Progress Note Date: 11/07/23 Principal diagnosis: RSV, NSTEMI. Metastatic breast cancer In follow-up today patient is reporting not feeling much better than yesterday but, not worse. She continues to be overall weak, tires easily, her cough is very congested, she denies any hemoptysis, she is short of breath with activity. Objective - Vital Signs Vital signs: Vital Signs Temp 97.8 F 11/07/23 08:00 Pulse 76 11/07/23 15:33 Resp 16 11/07/23 14:56 BP 122/58 11/07/23 14:56 Pulse Ox 93 L 11/07/23 14:56 FiO2 Intake & Output 11/06/23 11/07/23 11/07/23 18:59 06:59 18:59 Intake Total 417 236 Output Total 400 Balance 417 -400 236 Weight 59.874 kg Intake: Oral 417 236 Output: Urine 400 Other: Voiding Method Toilet Toilet Toilet # Voids 1 - Constitutional General appearance: Present: average body habitus, cooperative, no acute distress - EENT Eyes: Present: anicteric sclerae, EOMI ENT: Present: hearing grossly normal - Respiratory Respiratory: bilateral: rhonchi - Cardiovascular Heart sounds: normal: S1, S2 - Neurologic Neurologic: Present: CNII-XII intact - Musculoskeletal Musculoskeletal: Present: generalized weakness - Psychiatric Psychiatric: Present: A&O x's 3, appropriate affect, intact judgment & insight - Labs CBC & Chem 7: 11/06/23 14:37 11/07/23 09:41 Labs: Abnormal Lab Results - Last 24 Hours (Table) 11/07/23 Range/Units 09:41 Carbon Dioxide 33 H (22-30) mmol/L Glucose 123 H (74-99) mg/dL Assessment and Plan (1) NSTEMI (non-ST elevated myocardial infarction) Current Visit: Yes Status: Acute Priority: High Code(s): I21.4 - NON-ST ELEVATION (NSTEMI) MYOCARDIAL INFARCTION SNOMED Code(s): 42807909 (2) Ulnar fracture Current Visit: Yes Status: Acute Priority: High Code(s): S52.209A - UNSP FRACTURE OF SHAFT OF UNSP ULNA, INIT FOR CLOS FX SNOMED Code(s): 93373872 (3) RSV (respiratory syncytial virus infection) Current Visit: Yes Status: Acute Code(s): B33.8 - OTHER SPECIFIED VIRAL DISEASES SNOMED Code(s): 37234225 (4) Breast cancer Current Visit: Yes Status: Acute Priority: High Code(s): C50.919 - MALIGNANT NEOPLASM OF UNSP SITE OF UNSPECIFIED FEMALE BREAST SNOMED Code(s): 759661363 Plan: NSTEMI -Elevated serial troponins -Cardiology has seen pt. Oncology recommendation is to optimize medical management of cardiac conditions. Reviewed this again with the patient and she agrees. Ulnar fracture -from fall -Orthopedics has seen pt, no plan for surgical intervention -Pain control and symptom mgmt-injury is on the same side as patient's lymphedema from breast cancer. RSV -Supportive care, resp treatments ordered Breast cancer -Pending insurance auth to start treatment. Treatment will continue to be postponed until current acute medical c/o are treated adequately -Plan to have radiation to painful bone mets. Rad Onc consulted, possibly starting today.
[2023-11-07] MEDS: INSULIN ASPART (NovoLOG) 100 UNIT/ML VIAL SQ SCH (18:03)
[2023-11-07 20:28] LABS: Glucose,Whole Blood 179 mg/dL (70-110)
[2023-11-08 05:29] LABS: Glucose,Whole Blood 145 mg/dL (70-110)
[2023-11-08 09:11] VITALS: RESP 16; TEMP 96.2
[2023-11-08 11:40] LABS: Glucose,Whole Blood 141 mg/dL (70-110)
--- NOTE | 2023-11-08 12:14 | P.PN ---
Subjective Progress Note Date: 11/08/23 No acute events. Patient resting comfortably in bed. Patient is reporting intermittent right lower back pain and left elbow pain. Also reporting shortness of breath and fatigue. Scheduled to start XRT today Objective - Vital Signs Vital signs: Vital Signs Temp 96.2 F L 11/08/23 08:00 Pulse 71 11/08/23 12:00 Resp 16 11/08/23 08:00 BP 151/68 11/08/23 08:00 Pulse Ox 99 11/08/23 08:08 FiO2 Intake & Output 11/07/23 11/08/23 11/08/23 18:59 06:59 18:59 Intake Total 476 236 Balance 476 236 Weight 61 kg Intake: Oral 476 236 Other: Voiding Method Toilet Toilet Toilet # Voids 1 3 1 # Bowel Movements 0 - Constitutional General appearance: Present: no acute distress - EENT Eyes: Present: anicteric sclerae, EOMI ENT: Present: hearing grossly normal - Respiratory Details: Breathing even and unlabored - Cardiovascular Details: Skin warm and dry - Gastrointestinal General gastrointestinal: Present: soft. Absent: tenderness - Integumentary Integumentary: Absent: cyanotic - Musculoskeletal Musculoskeletal Comment(s): left elbow tenderness, LUE lymphedema Musculoskeletal: Present: generalized weakness - Psychiatric Psychiatric: Present: A&O x's 3 - Labs CBC & Chem 7: 11/06/23 14:37 11/07/23 09:41 Labs: Abnormal Lab Results - Last 24 Hours (Table) 11/07/23 11/08/23 11/08/23 Range/Units 20:27 05:28 11:38 POC Glucose (mg/dL) 179 H 145 H 141 H (70-110) mg/dL Assessment and Plan (1) Breast cancer Current Visit: Yes Status: Acute Priority: High Code(s): C50.919 - MALIGNANT NEOPLASM OF UNSP SITE OF UNSPECIFIED FEMALE BREAST SNOMED Code(s): 420363806 (2) NSTEMI (non-ST elevated myocardial infarction) Current Visit: Yes Status: Acute Priority: High Code(s): I21.4 - NON-ST ELEVATION (NSTEMI) MYOCARDIAL INFARCTION SNOMED Code(s): 14591431 (3) RSV (respiratory syncytial virus infection) Current Visit: Yes Status: Acute Priority: High Code(s): B33.8 - OTHER SPECIFIED VIRAL DISEASES SNOMED Code(s): 85913550 (4) Ulnar fracture Current Visit: Yes Status: Acute Priority: High Code(s): S52.209A - UNSP FRACTURE OF SHAFT OF UNSP ULNA, INIT FOR CLOS FX SNOMED Code(s): 38301645 Plan: NSTEMI -Elevated serial troponins -Cardiology has seen pt. Oncology recommendation is to optimize medical management of cardiac conditions. Reviewed this again with the patient and she agrees. Ulnar fracture -S/p fall -Orthopedics has seen pt, no plan for surgical intervention -Pain control and symptom mgmt-injury is on the same side as patient's lymphedema from breast cancer. RSV -Supportive care, resp treatments ordered Breast cancer -Pending insurance auth to start treatment. Treatment will continue to be postponed until current acute medical complaints are treated adequately -Plan to have radiation to painful bone mets. Rad Onc consulted. RT scheduled to begin today
[2023-11-08 12:35] VITALS: BP 150/65
[2023-11-08 13:00] LABS: African American GFR (CKD) >90 (>60 ml/min/1.73 sqM); Anion Gap 1 mmol/L; Blood Urea Nitrogen 19 mg/dL (7-17); Carbon Dioxide 39 mmol/L (22-30); Chloride 95 mmol/L (98-107); Glucose 136 mg/dL (74-99); Non-African American GFR(CKD) 89 (>60 ml/min/1.73 sqM); Potassium 4.6 mmol/L (3.5-5.1); Sodium 135 mmol/L (137-145)
[2023-11-08 13:10] VITALS: BMI 25.4
[2023-11-08 13:18] LABS: Basophils % (A) 0 %; Eosinophils % (A) 0 %; HCT 37.6 % (34.0-46.0); HGB 11.6 gm/dL (11.4-16.0); Hypochromasia Slight; Lymphocytes % (A) 15 %; MCH 33.4 pg (25.0-35.0); MCHC 30.8 g/dL (31.0-37.0); MCV 108.3 fL (80.0-100.0); Macrocytosis Moderate; Mean Platelet Volume 8.2; Monocytes # (A) 0.3 k/uL (0-1.0); Monocytes % (A) 5 %; Neutrophils # (A) 4.9 k/uL (1.3-7.7); Neutrophils % (A) 77 %; Platelet Count 142 k/uL (150-450); RBC 3.47 m/uL (3.80-5.40); RDW 13.4 % (11.5-15.5); WBC 6.4 k/uL (3.8-10.6)
[2023-11-08 16:02] VITALS: PULSE 75
[2023-11-08] MEDS: oxyCODONE-APAP 10-325MG 1 EACH TAB PO PRN (16:09)
--- NOTE | 2023-11-10 12:49 | P.DS ---
Providers Date of admission: 11/04/23 17:23 Expected date of discharge: 11/08/23 Attending physician: Alfredo Islas Consults: 11/04/23 17:23 Consult Physician Urgent Consulting Provider: [facility] Consult Reason/Comments: NSTEMI Do you want consulting provider notified?: Yes 11/04/23 17:26 Consult Physician Urgent Consulting Provider: Russell Pederson Consult Reason/Comments: Ulnar fracture Do you want consulting provider notified?: Yes 11/04/23 17:43 Consult Physician Urgent Consulting Provider: Dimitri Pena Consult Reason/Comments: Breast cancer Do you want consulting provider notified?: Yes 11/05/23 20:21 Consult Physician Routine Consulting Provider: Ad Cabrera Consult Reason/Comments: Due to start XRT Thur, new fracture Do you want consulting provider notified?: Yes, Notify in am Primary care physician: Kapil Acosta [facility] Course: Final diagnosis -Acute non-ST elevation myocardial infarction, continue maximizing medical management -Fall with subsequent fracture of the left ulna, mildly displaced; orthopedics recommending conservative management and will be ordering a splint; recommending office f/u in 2 weeks. -Metastatic breast cancer relapsed oncology is following the patient plan for operative chemotherapy pending operative pain and patient has started radiation treatment -Lymphadema of the left arm patient does not follow with the clinic anymore and not interested in compression. -Acute RSV infection supportive care -COPD with acute exacerbation, this is secondary to acute RSV infection. -Acute on chronic hypoxemic respiratory failure secondary to acute RSV -Hyperlipidemia -Hypertension -Peripheral neuropathy -Nicotine use: Counseling was provided DVT prophylaxis GI prophylaxis Do Not Resuscitate/Do Not Intubate Discharge disposition Patient is being discharged in a stable condition with guarded prognosis to home with home care. Patient will follow-up with Dr. Acosta in the outpatient setting upon discharge. Patient is to continue with current medications as prescribed below and outpatient follow-up with radiation oncology, oncology, cardiology as scheduled. Total time taken is greater than 35 minutes. Hospital course This is a 78-year-old female who was recently admitted with increasing shortness of breath with elevated troponins concerns for NSTEMI and also recent history of fall fracture of the left ulna being monitored by orthopedics along with cardiology. Orthopedics recommending conservative management along with a splint and outpatient follow-up in 2 weeks. Patient started on steroids along with breathing inhalational treatments being followed by multiple consultations. Patient evaluated by radiation oncology underwent radiation therapy today and will follow-up in the outpatient setting. Patient also found to have acute RSV recommend supportive care. Patient to follow-up with pulmonary as needed outpatient. Patient has been cleared by consultations. Please refer to consultation notes for further HPI. Currently no reports of chest pain, no worsening shortness of breath, or palpitations. Patient is afebrile. No reports of nausea or vomiting and patient is tolerating diet. Patient will be discharged home today. High risk for readmissions given patient's significant comorbidities Physical exam: Gen: This is a 78-year-old female who is awake, alert and oriented x 3, well- developed, well-nourished, elderly appearing HEENT: Head is atraumatic, normocephalic. Pupils equal, round. Sclerae is anicteric. NECK: Supple. No JVD. No lymphadenopathy. No thyromegaly. LUNGS: Diminished breath sounds bilaterally with some faint expiratory wheezing noted, coarse rhonchi noted as well. No intercostal retractions. HEART: Regular rate and rhythm. No murmur. ABDOMEN: Soft. Bowel sounds are present. No masses. No tenderness. EXTREMITIES: No pedal edema. No calf tenderness. NEUROLOGICAL: Patient is awake, alert and oriented x3. Cranial nerves 2 through 12 are grossly intact. Please refer to medication reconciliation sheet for a list of medications. The impression and plan of care has been dictated by Tamara Contreras, Nurse Practitioner as directed. Dr. Stephania MD I have performed a history and examination and MDM of this patient, discussed the same with the dictator, and agree with the dictator's assessment and plan as written ,documented as a scribe. Based on total visit time, I have performed more than 50% of the visit. Patient Condition at Discharge: Fair Plan - Discharge Summary New Discharge Prescriptions: New Ipratropium-Albuterol Nebulize [Duoneb 0.5 mg-3 mg/3 ml Soln] 3 ml INHALATION RT-QID #100 each Aspirin 81 mg PO DAILY #30 tab Ipratropium-Albuterol Nebulize [Duoneb 0.5 mg-3 mg/3 ml Soln] 3 ml INHALATION RT-QID PRN each PRN Reason: Shortness Of Breath Or Wheezing Isosorbide Mononitrate ER [Imdur] 30 mg PO DAILY 30 Days #30 tab Continue Montelukast [Singulair] 10 mg PO DAILY Meclizine [Antivert] 12.5 mg PO BID Gabapentin 600 mg PO BID ALPRAZolam [Xanax] 0.5 mg PO HS Simvastatin 40 mg PO HS Clopidogrel Bisulfate [Plavix] 75 mg PO DAILY predniSONE 20 mg PO DAILY Morphine Sulfate Ir [MSIR] 15 mg PO BID Albuterol Inhaler [Ventolin Hfa Inhaler] 1 - 2 puff INHALATION RT-Q6H PRN PRN Reason: Shortness Of Breath Baclofen [Lioresal] 10 mg PO BID PRN PRN Reason: Muscle Pain atenoloL [Tenormin] 50 mg PO DAILY Cholecalciferol (Vitamin D3) [Decara (50,000 Iu)] 1,250 mcg PO MO ALPRAZolam [Xanax] 0.5 mg PO DAILY PRN PRN Reason: Anxiety Budesonide [Pulmicort] 0.5 mg INHALATION RT-BID Albuterol Nebulized [Ventolin Nebulized] 2.5 mg INHALATION RT-QID PRN PRN Reason: Shortness Of Breath Omeprazole 40 mg PO DAILY oxyCODONE-APAP 10-325MG [Percocet 10-325 mg] 1 tab PO TID PRN PRN Reason: Pain Discharge Medication List ALPRAZolam [Xanax] 0.5 mg PO HS 06/08/18 [History] Gabapentin 600 mg PO BID 06/08/18 [History] Meclizine [Antivert] 12.5 mg PO BID 06/08/18 [History] Montelukast [Singulair] 10 mg PO DAILY 06/08/18 [History] Simvastatin 40 mg PO HS 06/08/18 [History] Clopidogrel Bisulfate [Plavix] 75 mg PO DAILY 07/04/20 [History] Albuterol Inhaler [Ventolin Hfa Inhaler] 1 - 2 puff INHALATION RT-Q6H PRN 07/24/23 [History] Baclofen [Lioresal] 10 mg PO BID PRN 07/24/23 [History] Cholecalciferol (Vitamin D3) [Decara (50,000 Iu)] 1,250 mcg PO MO 07/24/23 [History] atenoloL [Tenormin] 50 mg PO DAILY 07/24/23 [History] ALPRAZolam [Xanax] 0.5 mg PO DAILY PRN 09/26/23 [History] predniSONE 20 mg PO DAILY 09/26/23 [History] Albuterol Nebulized [Ventolin Nebulized] 2.5 mg INHALATION RT-QID PRN 09/27/23 [History] Budesonide [Pulmicort] 0.5 mg INHALATION RT-BID 09/27/23 [History] Morphine Sulfate Ir [MSIR] 15 mg PO BID 11/04/23 [History] Omeprazole 40 mg PO DAILY 11/04/23 [History] oxyCODONE-APAP 10-325MG [Percocet 10-325 mg] 1 tab PO TID PRN 11/04/23 [History] Aspirin 81 mg PO DAILY #30 tab 11/08/23 [Rx] Ipratropium-Albuterol Nebulize [Duoneb 0.5 mg-3 mg/3 ml Soln] 3 ml INHALATION RT-QID #100 each 11/08/23 [Rx] Ipratropium-Albuterol Nebulize [Duoneb 0.5 mg-3 mg/3 ml Soln] 3 ml INHALATION RT-QID PRN each 11/08/23 [Rx] Isosorbide Mononitrate ER [Imdur] 30 mg PO DAILY 30 Days #30 tab 11/08/23 [Rx] Follow up Appointment(s)/Referral(s): Gregg Handy MD [Medical Doctor] - 1 Week Kapil Acosta DO [Primary Care Provider] - 1 Week Russell Pederson DO [Doctor of Osteopathic Medicine] - 2 Weeks Edison Pena MD [STAFF PHYSICIAN] - 11/29/23 3:30 pm (Pending auth to start chemo. Pt will be contacted with appt date and time) [facility] Visiting Nurse, [NON-STAFF] - 1 Week Patient Instructions/Handouts: Elbow Fracture (GEN) Activity/Diet/Wound Care/Special Instructions: Activity limited until follow-up Follow-up with oncology and radiation oncology outpatient Follow-up primary care provider on discharge Follow-up cardiology outpatient Follow-up orthopedics as needed outpatient Continue taking medications as prescribed Discharge Disposition: HOME SELF-CARE
== END 2023-11-08 16:19 | disposition home or self-care (01) | DRG 281 ==
LOC: EC 14:02 → 3SCARD 17:23
PROVIDERS: ADMIT Internal Medicine; ATTEND Internal Medicine
PROC: DP081ZZ Beam Radiation of Pelvic Bones using Photons 1 - 10 MeV (ICD-10-PCS; principal; 2023-11-07)
DX: I21.4 Non-ST elevation (NSTEMI) myocardial infarction (principal); C77.9 Secondary and unspecified malignant neoplasm of lymph node, unspecified; C79.51 Secondary malignant neoplasm of bone; E87.20 Acidosis, unspecified; C78.00 Secondary malignant neoplasm of unspecified lung; B97.4 Respiratory syncytial virus as the cause of diseases classified elsewhere; C50.919 Malignant neoplasm of unspecified site of unspecified female breast; Z71.6 Tobacco abuse counseling; F17.200 Nicotine dependence, unspecified, uncomplicated; Z66 Do not resuscitate; I44.0 Atrioventricular block, first degree; Z28.311 Partially vaccinated for COVID-19; M25.522 Pain in left elbow; Z11.52 Encounter for screening for COVID-19; G62.9 Polyneuropathy, unspecified; R91.8 Other nonspecific abnormal finding of lung field; I73.9 Peripheral vascular disease, unspecified; F32.A Depression, unspecified; R29.6 Repeated falls; Z91.81 History of falling; M81.0 Age-related osteoporosis without current pathological fracture; M47.9 Spondylosis, unspecified; Z96.82 Presence of neurostimulator; Z90.10 Acquired absence of unspecified breast and nipple; Z79.51 Long term (current) use of inhaled steroids; Z79.52 Long term (current) use of systemic steroids; Z79.60 Long term (current) use of unspecified immunomodulators and immunosuppressants; Z79.02 Long term (current) use of antithrombotics/antiplatelets; Z79.899 Other long term (current) drug therapy; Z92.21 Personal history of antineoplastic chemotherapy; Z92.3 Personal history of irradiation
CPT/HCPCS: 36415; 70450; 71046; 72125; 77280; 77307; 77334; 77387; 77412; 80048; 80053; 80061; 81003; 83036; 83605; 83735; 84145; 84484; 85025; 85027; 85610; 85730; 87636; 93005; 93308; 94640; 94760; 96365; 96366; 99291

== ENCOUNTER 2023-11-19 13:57 | Inpatient (IN) | payer MEDICARE ==
--- NOTE | 2023-11-19 14:19 | ED ---
General Adult HPI - General Chief complaint: Weakness Stated complaint: Weakness Time Seen by Provider: 11/19/23 14:06 Source: patient, EMS, RN notes reviewed Mode of arrival: EMS Limitations: no limitations - History of Present Illness Initial comments: Patient is a pleasant 78-year-old female presenting to the emergency department with concerns with weakness. Symptoms have started around 3 days ago. Patient is somewhat a poor historian. Patient complains of feeling weak and tired however does not offer any more significant history. Patient does reportedly have history of metastatic breast cancer with bone and liver involvement. - Related Data Home Medications Medication Instructions Recorded Confirmed ALPRAZolam [Xanax] 0.5 mg PO HS 06/08/18 11/04/23 Gabapentin 600 mg PO BID 06/08/18 11/04/23 Meclizine [Antivert] 12.5 mg PO BID 06/08/18 11/04/23 Montelukast [Singulair] 10 mg PO DAILY 06/08/18 11/04/23 Simvastatin 40 mg PO HS 06/08/18 11/04/23 Clopidogrel Bisulfate [Plavix] 75 mg PO DAILY 07/04/20 11/04/23 Albuterol Inhaler [Ventolin Hfa 1 - 2 puff INHALATION RT-Q6H PRN 07/24/23 Inhaler] Baclofen [Lioresal] 10 mg PO BID PRN 07/24/23 11/04/23 Cholecalciferol (Vitamin D3) 1,250 mcg PO MO 07/24/23 11/04/23 [Decara (50,000 Iu)] atenoloL [Tenormin] 50 mg PO DAILY 07/24/23 11/04/23 ALPRAZolam [Xanax] 0.5 mg PO DAILY PRN 09/26/23 11/04/23 predniSONE 20 mg PO DAILY 09/26/23 11/04/23 Albuterol Nebulized [Ventolin 2.5 mg INHALATION RT-QID PRN 09/27/23 11/04/23 Nebulized] Budesonide [Pulmicort] 0.5 mg INHALATION RT-BID 09/27/23 11/04/23 Morphine Sulfate Ir [MSIR] 15 mg PO BID 11/04/23 11/04/23 Omeprazole 40 mg PO DAILY 11/04/23 11/04/23 oxyCODONE-APAP 10-325MG [Percocet 1 tab PO TID PRN 11/04/23 11/04/23 10-325 mg] Previous Rx's Medication Instructions Recorded Aspirin 81 mg PO DAILY #30 tab 11/08/23 Ipratropium-Albuterol Nebulize 3 ml INHALATION RT-QID #100 each 11/08/23 [Duoneb 0.5 mg-3 mg/3 ml Soln] Ipratropium-Albuterol Nebulize 3 ml INHALATION RT-QID PRN each 11/08/23 [Duoneb 0.5 mg-3 mg/3 ml Soln] Isosorbide Mononitrate ER [Imdur] 30 mg PO DAILY 30 Days #30 tab 11/08/23 Allergies Allergy/AdvReac Type Severity Reaction Status Date / Time nickel Allergy Rash/Hives Verified 11/04/23 17:20 Penicillins Allergy Rash/Hives Verified 11/04/23 17:20 Review of Systems ROS Statement: Those systems with pertinent positive or pertinent negative responses have been documented in the HPI. ROS Other: All systems not noted in ROS Statement are negative. Limitations: ROS unobtainable due to patients medical condition Endocrine: Reports: fatigue Past Medical History Past Medical History: Cancer, COPD, Hyperlipidemia, Hypertension, Osteoarthritis (OA) Additional Past Medical History / Comment(s): breast cancer, osteoporosis, broken pelvis end of apr 2023. 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 LT LUMPECTOMY/WITH 12 LYMPH NODES REMOVED Past Anesthesia/Blood Transfusion Reactions: No Reported Reaction Past Psychological History: Depression Smoking Status: Current every day smoker Past Alcohol Use History: None Reported Past Drug Use History: None Reported - Past Family History Daughter(s) Family Medical History: Cancer General Exam General appearance: alert Head exam: Present: normocephalic Eye exam: Present: normal appearance ENT exam: Present: normal oropharynx Neck exam: Present: normal inspection Respiratory exam: Present: rhonchi Cardiovascular Exam: Present: tachycardia GI/Abdominal exam: Present: soft. Absent: distended, tenderness Extremities exam: Present: other (Left arm edema with some erythema). Absent: pedal edema Neurological exam: Present: alert. Absent: motor sensory deficit Psychiatric exam: Present: flat affect Skin exam: Present: erythema (Left forearm) Course Vital Signs 11/19/23 11/19/23 13:58 14:58 Temperature 100.6 F H Pulse Rate 104 H 106 H Respiratory 17 17 Rate Blood Pressure 164/74 155/79 O2 Sat by Pulse 99 98 Oximetry EKG Findings - EKG Results: EKG: interpreted by ERMD (Right axis), sinus rhythm, normal QRS, normal ST/T EKG shows: tachycardia Medical Decision Making - Medical Decision Making Was pt. sent in by a medical professional or institution (, PA, VAN DRIVER, urgent care, hospital, or [facility]...) When possible be specific @ -No Did you speak to anyone other than the patient for history (EMS, parent, family, police, friend...)? What history was obtained from this source @ -EMS helps provide history as patient is drowsy Did you review nursing and triage notes (agree or disagree)? Why? @ -I reviewed and agree with nursing and triage notes Were old charts reviewed (outside hosp., previous admission, EMS record, old EKG, old radiological studies, urgent care reports/EKG's, [facility] records)? Report findings @ -Previous chest x-ray reviewed Differential Diagnosis (chest pain, altered mental status, abdominal pain women, abdominal pain men, vaginal bleeding, weakness, fever, dyspnea, syncope, headache, dizziness, GI bleed, back pain, seizure, CVA, palpatations, mental health, musculoskeletal)? @ -Differential Altered Mental Status: Hypoglycemia, DKA, hypercapnia, ETOH, overdose, CO poisoning, trauma, myxedema coma, HTN encephalopathy, infection, encephalitis, psychosis, intercranial hemorrhage, hepatic encephalopathy, meningitis, CVA, this is not meant to be an all-inclusive list EKG interpreted by me (3pts min.). @ -As above X-rays interpreted by me (1pt min.). @ -Chest x-ray shows nonspecific interstitial changes CT interpreted by me (1pt min.). @ -None done U/S interpreted by me (1pt. min.). @ -None done What testing was considered but not performed or refused? (CT, X-rays, U/S, labs)? Why? @ -After further discussion CT scan of the brain will also be ordered What meds were considered but not given or refused? Why? @ -IV antibiotics will be ordered Did you discuss the management of the patient with other professionals (professionals i.e. , PA, VAN DRIVER, lab, RT, psych nurse, social services assistant, bench assembler, teacher, juvenile officer, outsole caser)? Give summary @ -Case discussed with Dr. Alanis who will admit covering Dr. Acosta. He does request CT scan of the brain and aztreonam. Was smoking cessation discussed for >3mins.? @ -No Was critical care preformed (if so, how long)? @ -33 minutes critical care Were there social determinants of health that impacted care today? How? (Homelessness, low income, unemployed, alcoholism, drug addiction, [place] sportation, low edu. Level, literacy, decrease access to med. care, prison, rehab)? @ -No Was there de-escalation of care discussed even if they declined (Discuss DNR or withdrawal of care, Hospice)? DNR status @ -No What co-morbidities impacted this encounter? (DM, HTN, Smoking, COPD, CAD, Cancer, CVA, ARF, Chemo, Hep., AIDS, mental health diagnosis, sleep apnea, morbid obesity)? @ -None Was patient admitted / discharged? Hospital course, mention meds given and route, prescriptions, significant lab abnormalities, going to OR and other pertinent info. @ -Patient reevaluated and somewhat improved. Patient and family are updated on results and plan. Patient has UTI and questionable pneumonia diagnosed at 1636. Patient will be started with IV antibiotics. Blood culture and lactic acid ordered. Admission orders written. Oncology will be placed on consult. Undiagnosed new problem with uncertain prognosis? @ -No Drug Therapy requiring intensive monitoring for toxicity (Heparin, Nitro, Insulin, Cardizem)? @ -No Were any procedures done? @ -No Diagnosis/symptom? @ -UTI Acute, or Chronic, or Acute on Chronic? @ -Acute Uncomplicated (without systemic symptoms) or Complicated (systemic symptoms)? @ -Complicated with leukocytosis Side effects of treatment? @ -No Exacerbation, Progression, or Severe Exacerbation? @ -No Poses a threat to life or bodily function? How? (Chest pain, [place], [place], pneumonia, PE, COPD, DKA, ARF, appy, cholecystitis, CVA, Diverticulitis, Homicidal, Pandya icidal, threat to staff... and all critical care pts) @ -No There is concern for sepsis diagnosed at 1636. Blood culture and lactic acid and IV antibiotics will be ordered - Lab Data Result diagrams: 11/19/23 14:40 11/19/23 15:15 Lab Results 11/19/23 11/19/23 11/19/23 Range/Units 14:40 14:40 14:59 WBC 12.9 H (3.8-10.6) k/uL RBC 4.00 (3.80-5.40) m/uL Hgb 13.7 (11.4-16.0) gm/dL Hct 43.2 (34.0-46.0) % MCV 107.9 H (80.0-100.0) fL MCH 34.2 (25.0-35.0) pg MCHC 31.7 (31.0-37.0) g/dL RDW 12.8 (11.5-15.5) % Plt Count 215 (150-450) k/uL MPV 7.3 Neutrophils % 66 % Lymphocytes % 21 % Monocytes % 9 % Eosinophils % 1 % Basophils % 0 % Neutrophils # 8.6 H (1.3-7.7) k/uL Lymphocytes # 2.8 (1.0-4.8) k/uL Monocytes # 1.1 H (0-1.0) k/uL Eosinophils # 0.1 (0-0.7) k/uL Basophils # 0.0 (0-0.2) k/uL Hypochromasia Moderate Macrocytosis Moderate PT 9.7 L (10.0-12.5) sec INR 0.9 (<1.2) APTT 21.2 L (22.0-30.0) sec Sodium (137-145) mmol/L Potassium (3.5-5.1) mmol/L Chloride (98-107) mmol/L Carbon Dioxide (22-30) mmol/L Anion Gap mmol/L BUN (7-17) mg/dL Creatinine (0.52-1.04) mg/dL Est GFR (CKD-EPI)AfAm (>60 ml/min/1.73 sqM) Est GFR (CKD-EPI)NonAf (>60 ml/min/1.73 sqM) Glucose (74-99) mg/dL Calcium (8.4-10.2) mg/dL Total Bilirubin (0.2-1.3) mg/dL AST (14-36) U/L ALT (4-34) U/L Alkaline Phosphatase (38-126) U/L Total Protein (6.3-8.2) g/dL Albumin (3.5-5.0) g/dL Urine Color Urine Appearance (Clear) Urine pH (5.0-8.0) Ur Specific [place] (1.001-1.035) Urine Protein (Negative) Urine Glucose (UA) (Negative) Urine Ketones (Negative) Urine Blood (Negative) Urine Nitrite (Negative) Urine Bilirubin (Negative) Urine Urobilinogen (<2.0) mg/dL Ur Leukocyte Esterase (Negative) Urine RBC (0-5) /hpf Urine WBC (0-5) /hpf Urine WBC Clumps (None) /hpf Urine Mucus (None) /hpf Influenza Type A (PCR) Not Detected (Not Detectd) Influenza Type B (PCR) Not Detected (Not Detectd) RSV (PCR) Not Detected (Not Detectd) SARS-CoV-2 (PCR) Not Detected (Not Detectd) 11/19/23 11/19/23 Range/Units 15:07 15:15 WBC (3.8-10.6) k/uL RBC (3.80-5.40) m/uL Hgb (11.4-16.0) gm/dL Hct (34.0-46.0) % MCV (80.0-100.0) fL MCH (25.0-35.0) pg MCHC (31.0-37.0) g/dL RDW (11.5-15.5) % Plt Count (150-450) k/uL MPV Neutrophils % % Lymphocytes % % Monocytes % % Eosinophils % % Basophils % % Neutrophils # (1.3-7.7) k/uL Lymphocytes # (1.0-4.8) k/uL Monocytes # (0-1.0) k/uL Eosinophils # (0-0.7) k/uL Basophils # (0-0.2) k/uL Hypochromasia Macrocytosis PT (10.0-12.5) sec INR (<1.2) APTT (22.0-30.0) sec Sodium 134 L (137-145) mmol/L Potassium 4.2 (3.5-5.1) mmol/L Chloride 96 L (98-107) mmol/L Carbon Dioxide 37 H (22-30) mmol/L Anion Gap 1 mmol/L BUN 11 (7-17) mg/dL Creatinine 0.47 L (0.52-1.04) mg/dL Est GFR (CKD-EPI)AfAm >90 (>60 ml/min/1.73 sqM) Est GFR (CKD-EPI)NonAf >90 (>60 ml/min/1.73 sqM) Glucose 139 H (74-99) mg/dL Calcium 8.4 (8.4-10.2) mg/dL Total Bilirubin 0.6 (0.2-1.3) mg/dL AST 26 (14-36) U/L ALT 9 (4-34) U/L Alkaline Phosphatase 75 (38-126) U/L Total Protein 5.7 L (6.3-8.2) g/dL Albumin 3.0 L (3.5-5.0) g/dL Urine Color Colorless Urine Appearance Cloudy H (Clear) Urine pH 6.5 (5.0-8.0) Ur Specific [place] 1.010 (1.001-1.035) Urine Protein Negative (Negative) Urine Glucose (UA) Negative (Negative) Urine Ketones Negative (Negative) Urine Blood Trace H (Negative) Urine Nitrite Negative (Negative) Urine Bilirubin Negative (Negative) Urine Urobilinogen <2.0 (<2.0) mg/dL Ur Leukocyte Esterase Large H (Negative) Urine RBC 1 (0-5) /hpf Urine WBC 145 H (0-5) /hpf Urine WBC Clumps Many H (None) /hpf Urine Mucus Rare H (None) /hpf Influenza Type A (PCR) (Not Detectd) Influenza Type B (PCR) (Not Detectd) RSV (PCR) (Not Detectd) SARS-CoV-2 (PCR) (Not Detectd) Critical Care Time Critical Care Time: Yes Total Critical Care Time: 33 Disposition Clinical Impression: UTI (urinary tract infection), Sepsis Disposition: ADMITTED IP TO THIS HOSP Condition: Serious Is patient prescribed a controlled substance at d/c from ED?: No Referrals: Kapil Acosta DO [Primary Care Provider] - 1-2 days Time of Disposition: 16:38
[2023-11-19] MEDS: ACETAMINOPHEN IV (For NPO) 1,000 MG in EMPTY BAG 1 BAG IVPB STA (14:52)
[2023-11-19 15:03] LABS: Basophils % (A) 0 %; Eosinophils # (A) 0.1 k/uL (0-0.7); Eosinophils % (A) 1 %; HCT 43.2 % (34.0-46.0); HGB 13.7 gm/dL (11.4-16.0); Hypochromasia Moderate; Lymphocytes # (A) 2.8 k/uL (1.0-4.8); Lymphocytes % (A) 21 %; MCH 34.2 pg (25.0-35.0); MCHC 31.7 g/dL (31.0-37.0); MCV 107.9 fL (80.0-100.0); Macrocytosis Moderate; Mean Platelet Volume 7.3; Monocytes # (A) 1.1 k/uL (0-1.0); Monocytes % (A) 9 %; Neutrophils # (A) 8.6 k/uL (1.3-7.7); Neutrophils % (A) 66 %; Platelet Count 215 k/uL (150-450); RDW 12.8 % (11.5-15.5); WBC 12.9 k/uL (3.8-10.6)
[2023-11-19 15:20] LABS: INR 0.9 (<1.2); Prothrombin Time 9.7 sec (10.0-12.5)
[2023-11-19 15:25] LABS: Partial Thromboplastin Time 21.2 sec (22.0-30.0)
[2023-11-19 15:34] LABS: Appearance,Urine Cloudy (Clear); Bilirubin,Urine Negative (Negative); Blood,Urine Trace (Negative); Color,Urine Colorless; Glucose,Urine (UA) Negative (Negative); Ketones,Urine Negative (Negative); Leukocyte Esterase,Urine Large (Negative); Mucus,Urine Rare /hpf; Nitrite,Urine Negative (Negative); PH, Urine 6.5 (5.0-8.0); Protein,Urine Negative (Negative); RBC,Urine 1 /hpf (0-5); Urobilinogen,Urine <2.0 mg/dL (<2.0); WBC,Urine 145 /hpf (0-5)
[2023-11-19 15:41] LABS: ALT 9 U/L (4-34); AST 26 U/L (14-36); African American GFR (CKD) >90 (>60 ml/min/1.73 sqM); Alkaline Phosphatase 75 U/L (38-126); Anion Gap 1 mmol/L; Blood Urea Nitrogen 11 mg/dL (7-17); Calcium 8.4 mg/dL (8.4-10.2); Carbon Dioxide 37 mmol/L (22-30); Chloride 96 mmol/L (98-107); Glucose 139 mg/dL (74-99); Non-African American GFR(CKD) >90 (>60 ml/min/1.73 sqM); Sodium 134 mmol/L (137-145); Total Bilirubin 0.6 mg/dL (0.2-1.3); Total Protein 5.7 g/dL (6.3-8.2)
--- NOTE | 2023-11-19 15:43 | XR ---
EXAMINATION TYPE: XR chest 1V portable DATE OF EXAM: 11/19/2023 COMPARISON: 11/04/2023 HISTORY: Fever TECHNIQUE: Single frontal view of the chest is obtained. FINDINGS: There is no focal air space opacity, pleural effusion, or pneumothorax seen. The cardiac silhouette size is within normal limits. The osseous structures are intact. A coarsened interstitiu m. Stimulator device and lead overlying the thoracic spine. Atherosclerotic change aorta. Diffuse ost eopenia with shoulder arthropathy. Left basilar atelectasis favored over pneumonia. IMPRESSION: 1. Coarsened interstitium correlate for interstitial pneumonitis or venous congestion.
[2023-11-19 15:45] LABS: Potassium 4.2 mmol/L (3.5-5.1)
--- NOTE | 2023-11-19 16:18 | US ---
EXAMINATION TYPE: US venous doppler duplex UE LT DATE OF EXAM: 11/19/2023 COMPARISON: NONE CLINICAL INDICATION: Female, 78 years old with history of swelling; Hx breast cancer with LUE lymphed katherine. Just finished radiation. Weak SIDE PERFORMED: Left Right Arm: NA Left Arm: Limited visualization; No DVT SVT as visualized Some edema through the left upper distal extremity is present. IMPRESSION: 1. Left upper extremity ultrasound negative for deep venous thrombosis.
[2023-11-19] MEDS ORDERED: NALOXONE 0.4 MG/ML 1 ML VIAL IV PRN (16:39)
[2023-11-19] MEDS ORDERED: ACETAMINOPHEN TAB 325 MG TAB PO PRN (16:39)
[2023-11-19] MEDS ORDERED: AZTREONAM 1 GM in SODIUM CHLORIDE 0.9% 50 ML IVPB SCH (16:45)
[2023-11-19] MEDS: FUROSEMIDE 10 MG/ML 4 ML VIAL IV SCH (17:45)
[2023-11-19] MEDS: PANTOPRAZOLE 40 MG/10 ML VIAL IVP SCH (17:45)
[2023-11-19] MEDS: AZTREONAM 2 GM in SODIUM CHLORIDE 0.9% 100 ML IVPB SCH (17:45)
--- NOTE | 2023-11-19 17:50 | CT ---
EXAMINATION TYPE: CT brain wo con CT DLP: 1125.1 mGycm, Automated exposure control for dose reduction was used. DATE OF EXAM: 11/19/2023 5:29 PM COMPARISON: 11/04/2023. CLINICAL INDICATION:Female, 78 years old with history of ams, mental status change TECHNIQUE: Brain: Axial CT images of the brain were obtained with coronal and sagittal reformats created and rev iewed. Contrast used: None. Oral contrast used: None. FINDINGS: Brain: Extra-axial spaces: No abnormal extra-axial fluid collections. Ventricular system: Dilatation in proportion to cerebral atrophy. Cerebral parenchyma: Cerebral atrophy. No acute intraparenchymal hemorrhage or mass effect. The noel giorgio of the farias-white junctions are well differentiated. Cerebellum: Unremarkable. Mass effect: No evidence of midline shift. Intracranial vasculature: Atherosclerotic calcifications of the intracranial vessels. Soft tissues: Normal. Calvarium/osseous structures: No depressed skull fracture. Paranasal sinuses and mastoid air cells: Mild scattered paranasal sinus disease. Visualized orbits: Orbital contents are intact. IMPRESSION: 1. No acute intracranial process. 2. Nonspecific white matter changes, likely secondary to chronic small vessel ischemic disease.
[2023-11-19] MEDS: SODIUM CHLORIDE 0.9% 1,000 ML IV STA (17:56)
[2023-11-19 18:06] LABS: Glucose,Whole Blood 123 mg/dL (70-110)
[2023-11-19] MEDS ORDERED: FAMOTIDINE 20 MG TAB PO SCH (21:00)
[2023-11-19] MEDS: HEPARIN SODIUM,PORCINE 5,000 UNIT/ML 1 ML VIAL SQ SCH (23:24)
[2023-11-20] MEDS ORDERED: AZTREONAM 2 GM in SODIUM CHLORIDE 0.9% 50 ML IVPB SCH
--- NOTE | 2023-11-20 03:36 | HP ---
HISTORY AND PHYSICAL CHIEF COMPLAINT: Weakness and change in mental status. HISTORY OF PRESENT ILLNESS: This is a 78-year-old woman with a past medical history of multiple medical problems including breast cancer, hypertension, hyperlipidemia, was found to have metastasis. The patient apparently had radiation for painful breast cancer, awaiting chemotherapy. The patient also had multiple other medical problems, recently admitted with ST- segment elevation myocardial infarction lymphedema. The patient has significant edema of the left arm, status post breast cancer surgery. The family noted the patient is drowsy, weak, and unresponsive, and the patient was taken to [facility]. Chest x-ray showed some pneumonia versus some vascular congestion. The patient also had features of UTI and white count is also elevated. The patient was admitted for further evaluation and treatment. The patient is unable to give a coherent history. Most of the history is taken by discussion with staff and review of chart at this time. PAST MEDICAL HISTORY: History of metastatic breast cancer, as mentioned early, history of COPD, hypertension, hyperlipidemia, history of recent [id number] myocardial infarction for recent RSV, COPD. Rest of history as in chart also reviewed. HOME MEDICATIONS: Reviewed and include prednisone, doses and rest of medications reviewed, they are not confirmed yet. ALLERGIES: Nickel and FAMILY HISTORY: History of cancer. SOCIAL HISTORY: History of smoking currently. REVIEW OF SYSTEMS: A 14-point review of systems could not be taken because of change in mental status. PHYSICAL EXAMINATION: VITAL SIGNS: Pulse is 104, blood pressure 160/70, respirations 17, temperature is 100.6. HEENT: Conjunctivae normal. NECK: No JVD. CARDIOVASCULAR: S1, S2. No murmurs. RESPIRATIONS: Bilateral scattered rhonchi and crackles. ABDOMEN: Soft. Obese. LEGS: No edema. No swelling. NERVOUS SYSTEM: The patient is stuporous, could not be examined completely. SKIN: Lymphedema of the left arm. LABORATORY DATA: WBC 12.9, rest of the labs are noted. ASSESSMENT: 1. Change in mental status, possible metabolic encephalopathy, multifactorial. 2. Rule out sepsis with pneumonia and UTI. 3. Rule out acute stroke. 4. 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 5. Increased WBC. 6. Hyponatremia. 7. Chronic obstructive pulmonary disease. 8. History of recent acute [id number]-elevation myocardial infarction. 9. Lymphedema of the left. 10.History of recent RSV. 11.Hypertension. 12.Hyperlipidemia. RECOMMENDATIONS AND DISCUSSION: This 78-year-old woman presented with multiple complex medical issues, we will monitor the patient closely. We will initiate broad-spectrum IV antibiotics. I would recommend aztreonam 2 g IV q.8 and obtain cultures and obtain consultation with Infectious Disease. I would also recommend CT scan of the brain to rule out the possibility of mets versus stroke and dose of Narcan also may be recommended because of the patient's pain medication history. Other than that, I would also recommend resume the home medication and bronchodilators. Monitor fluid electrolyte balance closely. Overall prognosis guarded because of multiple complex medical conditions. See orders. We discussed at length with the family at bedside, understand and agrees. JACINTO / HERMES: [id number] / AYAH
--- NOTE | 2023-11-20 04:59 | P.CNPUL ---
History of Present Illness Consult date: 11/20/23 Requesting physician: Earl Corona Reason for consult: COPD Chief complaint: Generalized weakness and fatigue History of present illness: Patient is a 78-year-old white female with past medical history significant for severe oxygen dependent COPD, chronic ongoing tobacco dependence, hyperlipidemi a, hypertension, and remote history of breast cancer with recent disease recurrence. Patient reportedly had breast cancer over 10 years ago, underwent partial left-sided mastectomy with axillary lymph node dissection followed by chemo/radiation. She does have severe left-sided lymphedema. More recently, she was evaluated by oncology outpatient, she was found to have disease recurrence. She underwent a biopsy of the left breast on 09/09/2023 which was positive for invasive ductal cell carcinoma. She reportedly also had a PET scan done outpatient, which was consistent with diffuse metastasis to the bone, lung and lymph nodes. She is not currently undergoing any treatment, but was supposed to start chemo next week. She had a recent hospital admission 11/03 through 11/07 where she was evaluated for a non-ST elevation UT, fall with fracture to the left ulna, and was also found to be RSV positive. Technically, the patient is a poor historian. She awakes and answers my questions, but then quickly falls back to sleep. Brain CT on admission did not show any acute intracranial process. There was nonspecific white matter changes, likely chronic small vessel ischemia. Patient apparently presented to emergency room yesterday afternoon complaining mostly of generalized weakness and fatigue. This has been ongoing for 2 to 3 days. She is currently sitting up in bed, on 4 L/min nasal cannula, in no acute distress. Patient denies any specific complaints. Denies any shortness of breath, cough, sputum production, chest tightness/pain, hemoptysis. She appears very fatigued. She does have history of COPD, and is oxygen dependent at baseline on 2 L/min nasal cannula. Chest x-ray on arrival showed a coarsened interstitium, concerning for pulmonary vascular congestion versus interstitial pneumonitis. Negative for influenza, RSV, COVID on this admission. NT proBNP was elevated at 7640. She has been started on Lasix 40 mg daily. Most recent echocardiogram from her previous admission showed a preserved left ventricular ejection fraction of 50 to 55%. CBC on arrival: WBC count 12.9, hemoglobin 13.7, hematocrit 43.2, platelets 215. BMP on arrival: Sodium 134, potassium 4.2, chloride 96, serum bicarb 37, BUN 11, creatinine 0.47, glucose 123. Urinalysis suspicious for UTI, however, patient denies any urinary symptoms. No dysuria, frequency, incomplete emptying, urgency. Patient was placed on Azactam. Afebrile. Vital signs are stable. Review of Systems REVIEW OF SYSTEMS: CONSTITUTIONAL: Denies any recent significant weight loss or weight gain. Admits generalized weakness and fatigue. EYES: Denies change in vision. EARS, NOSE, MOUTH, THROAT: Denies headaches, denies sore throat. CARDIOVASCULAR: Denies chest pain, palpitations or syncopal episodes. RESPIRATORY: See HPI. GASTROINTESTINAL: Denies change in appetite, abdominal pain, nausea and vomiting, or diarrhea GENITOURINARY: Denies hematuria, denies infections. MUSKULOSKELETAL: Admits chronic lower back pain INTEGUMENTARY: Denies rash, denies eczema. NEUROLOGICAL: Denies recent memory loss, no recent seizure activity. PSYCHIATRIC: Denies anxiety, denies depression. HEMATOLOGIC/LYMPHATIC: Denies anemia, denies enlarged lymph node Past Medical History Past Medical History: Cancer, COPD, Hyperlipidemia, Hypertension, Osteoarthritis (OA) Additional Past Medical History / Comment(s): breast cancer, osteoporosis, broken pelvis end of apr 2023. 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 LT LUMPECTOMY/WITH 12 LYMPH NODES REMOVED Past Anesthesia/Blood Transfusion Reactions: No Reported Reaction Past Psychological History: Depression Smoking Status: Current every day smoker Past Alcohol Use History: None Reported Additional Past Alcohol Use History / Comment(s): SMOKES 1 PPD SINCE AGE 17 Past Drug Use History: None Reported - Past Family History Daughter(s) Family Medical History: Cancer Medications and Allergies Home Medications Medication Instructions Recorded Confirmed Type ALPRAZolam [Xanax] 0.5 mg PO HS 06/08/18 11/19/23 History Gabapentin 600 mg PO BID 06/08/18 11/19/23 History Meclizine [Antivert] 12.5 mg PO BID 06/08/18 11/19/23 History Montelukast [Singulair] 10 mg PO DAILY 06/08/18 11/19/23 History Simvastatin 40 mg PO HS 06/08/18 11/19/23 History Clopidogrel Bisulfate [Plavix] 75 mg PO DAILY 07/04/20 11/19/23 History Albuterol Inhaler [Ventolin Hfa 1 - 2 puff INHALATION RT-Q6H PRN 07/24/23 11/19/23 History Inhaler] Baclofen [Lioresal] 10 mg PO BID PRN 07/24/23 11/19/23 History Cholecalciferol (Vitamin D3) 1,250 mcg PO MO 07/24/23 11/19/23 History [Decara (50,000 Iu)] atenoloL [Tenormin] 50 mg PO DAILY 07/24/23 11/19/23 History ALPRAZolam [Xanax] 0.5 mg PO DAILY PRN 09/26/23 11/19/23 History predniSONE 20 mg PO DAILY 09/26/23 11/19/23 History Albuterol Nebulized [Ventolin 2.5 mg INHALATION RT-QID PRN 09/27/23 11/19/23 History Nebulized] Budesonide [Pulmicort] 0.5 mg INHALATION RT-BID 09/27/23 11/19/23 History Morphine Sulfate Ir [MSIR] 15 mg PO BID 11/04/23 11/19/23 History Omeprazole 40 mg PO DAILY 11/04/23 11/19/23 History oxyCODONE-APAP 10-325MG [Percocet 1 tab PO TID PRN 11/04/23 11/19/23 History 10-325 mg] Aspirin 81 mg PO DAILY #30 tab 11/08/23 11/19/23 Rx Ipratropium-Albuterol Nebulize 3 ml INHALATION RT-QID #100 each 11/08/23 11/19/23 Rx [Duoneb 0.5 mg-3 mg/3 ml Soln] Ipratropium-Albuterol Nebulize 3 ml INHALATION RT-QID PRN each 11/08/23 4 Rx [Duoneb 0.5 mg-3 mg/3 ml Soln] Isosorbide Mononitrate ER [Imdur] 30 mg PO DAILY 30 Days #30 tab 11/08/23 11/19/23 Rx Allergies Allergy/AdvReac Type Severity Reaction Status Date / Time nickel Allergy Rash/Hives Verified 11/04/23 17:20 Penicillins Allergy Rash/Hives Verified 11/04/23 17:20 Physical Exam Vitals: Vital Signs Temp Pulse Pulse Resp BP BP Pulse Ox 11/20/23 02:20 98.2 F 65 18 105/65 100 11/19/23 21:29 98.9 F 73 16 116/53 96 11/19/23 20:53 78 18 122/70 99 11/19/23 19:30 77 16 129/67 99 11/19/23 17:57 82 15 146/60 96 11/19/23 16:36 97.9 F 94 18 146/60 11/19/23 14:58 106 H 17 155/79 98 11/19/23 13:58 100.6 F H 104 H 17 164/74 99 Intake and Output 11/19/23 11/19/23 11/20/23 14:59 22:59 06:59 Intake Total 0 Balance 0 Intake: Oral 0 Other: Voiding Method External Catheter Weight 63.503 kg 63.503 kg GENERAL EXAM: Lethargic, 78-year-old white female, awakens to verbal stimulation and answers questions, but then quickly falls back asleep HEAD: Normocephalic and atraumatic EYES: Normal reaction of pupils, equal size. NOSE: Clear with pink turbinates. THROAT: No erythema or exudates. NECK: No masses, no JVD. CHEST: No chest wall deformity. LUNGS: Equal air entry with markedly diminished lung sounds throughout. no crackles, wheeze, rhonchi or dullness. On 4 L/min nasal cannula. No conversational dyspnea or accessory muscle use.. CVS: S1 and S2 normal with no audible murmur, regular rhythm. No extra heart sounds ABDOMEN: No hepatosplenomegaly, active bowel sounds, no guarding or rigidity. SPINE: No scoliosis or deformity SKIN: No rashes CENTRAL NERVOUS SYSTEM: No focal deficits, tone is normal in all 4 extremities. EXTREMITIES: Severe left arm lymphedema. No clubbing, or cyanosis. Peripheral pulses are intact. Results - Laboratory Findings CBC and BMP: 11/19/23 14:40 11/19/23 15:15 PT/INR, D-dimer PT 9.7 sec (10.0-12.5) L 11/19/23 14:40 INR 0.9 (<1.2) 11/19/23 14:40 Abnormal lab findings: Abnormal Labs 11/19/23 11/19/23 11/19/23 14:40 14:40 15:07 WBC 12.9 H MCV 107.9 H Neutrophils # 8.6 H Monocytes # 1.1 H PT 9.7 L APTT 21.2 L Sodium Chloride Carbon Dioxide Creatinine Glucose POC Glucose (mg/dL) Total Protein Albumin Urine Appearance Cloudy H Urine Blood Trace H Ur Leukocyte Esterase Large H Urine WBC 145 H Urine WBC Clumps Many H Urine Mucus Rare H 11/19/23 11/19/23 15:15 18:05 WBC MCV Neutrophils # Monocytes # PT APTT Sodium 134 L Chloride 96 L Carbon Dioxide 37 H Creatinine 0.47 L Glucose 139 H POC Glucose (mg/dL) 123 H Total Protein 5.7 L Albumin 3.0 L Urine Appearance Urine Blood Ur Leukocyte Esterase Urine WBC Urine WBC Clumps Urine Mucus - Diagnostic Findings Chest x-ray: image reviewed Assessment and Plan Assessment: Acute on chronic hypoxemic respiratory failure, possibly multifactorial, secondary to acute exacerbation of diastolic congestive heart failure and acute COPD exacerbation. Chest x-ray on arrival showed a coarsened interstitium, concerning for pulmonary vascular congestion versus interstitial pneumonitis. NT proBNP was elevated at 7640. Negative for influenza, RSV, COVID on this admission. Suspected urinary tract infection Altered mental status, currently under investigation, suspect toxic metabolic encephalopathy secondary to above. Brain CT done on arrival does not show any intracranial hemorrhage or mass effect. History of breast cancer, with disease recurrence, left breast biopsy on 09/09/2023 was positive for invasive ductal cell carcinoma. Patient reportedly had a PET scan done outpatient, which was consistent with osseous and lung metastasis. Patient was scheduled to start chemotherapy next week. Left arm lymphedema, secondary to above and previous left mastectomy and lymph node dissection Recent history of fall with left ulnar fracture Recent acute RSV infection History of chronic obstructive pulmonary disease Chronic hypoxemic respiratory failure, secondary to above Chronic ongoing tobacco dependence Hyperlipidemia Hypertension History of peripheral vascular disease, with previous bilateral iliac faina oplasty/stenting Chronic lower back pain Plan: Patient's medications, labs, chest x-ray reviewed Continue supplemental oxygen, and wean FiO2 as tolerated to maintain oxygen saturation of 92% or greater Patient started on a combination of DuoNebs [id number], budesonide inhalation, formoterol inhalation, and IV Solu-Medrol Obtain ABG to rule out CO2 narcosis Agree with diuresis in the form of Lasix 40 mg daily Repeat chest x-ray in the morning Blood cultures pending. Urine culture pending. Antibiotics were added per admitting. We will continue to follow I have personally seen and examined the patient, performed the documentation and the assessment and plan as written. Number of minutes spent on the visit:20 Time with Patient: Greater than 30
[2023-11-20 05:18] LABS: ABG Oxygen Saturation 96.1 % (94-97); ABG PH 7.36 (7.35-7.45); ABG PO2 77 mmHg (83-108); ABG TCO2 47 mmol/L (19-24); Allen Test Performed? Yes
[2023-11-20 05:25] LABS: ABG HCO3 44 mmol/L (21-25); ABG PCO2 78 mmHg (35-45)
[2023-11-20 06:36] LABS: Glucose,Whole Blood 84 mg/dL (70-110)
--- NOTE | 2023-11-20 08:04 | XR ---
EXAMINATION TYPE: XR chest 1V portable DATE OF EXAM: 11/20/2023 COMPARISON: 11/19/2023 HISTORY: Fever TECHNIQUE: Single frontal view of the chest is obtained. FINDINGS: There is left lower lobe infiltrate and new from prior exam with tiny left effusion. There is underlying COPD. Chronic interstitial lung disease suspected. Patient is rotated with scoliosis, degenerative changes of the spine and severe arthropathy left shoulder. Surgical clips left breast\ax illa. Underlying COPD. Stimulator leads again noted. IMPRESSION: New left lower lobe infiltrate with tiny effusion correlate for pneumonia.
[2023-11-20] MEDS: IPRATROPIUM-ALBUTEROL 3 ML NEB INHALATION SCH (08:09)
[2023-11-20] MEDS: FORMOTEROL FUMARATE 20 MCG/2 ML NEBU INHALATION SCH (08:09)
[2023-11-20] MEDS: BUDESONIDE 1 MG/2 ML NEBU INHALATION SCH (08:09)
[2023-11-20 08:11] LABS: Basophils % (A) 0 %; Eosinophils # (A) 0.1 k/uL (0-0.7); Eosinophils % (A) 1 %; HCT 40.1 % (34.0-46.0); HGB 12.2 gm/dL (11.4-16.0); Hypochromasia Slight; Lymphocytes # (A) 1.7 k/uL (1.0-4.8); Lymphocytes % (A) 26 %; MCH 32.8 pg (25.0-35.0); MCHC 30.4 g/dL (31.0-37.0); MCV 107.6 fL (80.0-100.0); Macrocytosis Moderate; Mean Platelet Volume 7.5; Monocytes # (A) 0.6 k/uL (0-1.0); Monocytes % (A) 9 %; Neutrophils # (A) 3.9 k/uL (1.3-7.7); Neutrophils % (A) 61 %; Platelet Count 148 k/uL (150-450); RBC 3.73 m/uL (3.80-5.40); RDW 12.8 % (11.5-15.5); WBC 6.5 k/uL (3.8-10.6)
[2023-11-20] MEDS: methylPREDNISolone SOD SUCCI 40 MG/ML 1 ML VIAL IV SCH (08:23)
[2023-11-20 08:34] LABS: ALT 8 U/L (4-34); AST 27 U/L (14-36); African American GFR (CKD) >90 (>60 ml/min/1.73 sqM); Albumin 2.7 g/dL (3.5-5.0); Albumin/Globulin Ratio 1.1; Alkaline Phosphatase 81 U/L (38-126); Anion Gap 3 mmol/L; Blood Urea Nitrogen 14 mg/dL (7-17); Calcium 8.5 mg/dL (8.4-10.2); Carbon Dioxide 37 mmol/L (22-30); Chloride 95 mmol/L (98-107); Globulin 2.5 g/dL; Glucose 89 mg/dL (74-99); Magnesium 1.9 mg/dL (1.6-2.3); Non-African American GFR(CKD) >90 (>60 ml/min/1.73 sqM); Potassium 3.8 mmol/L (3.5-5.1); Sodium 135 mmol/L (137-145); Total Bilirubin 0.8 mg/dL (0.2-1.3); Total Protein 5.2 g/dL (6.3-8.2)
[2023-11-20] MEDS: oxyCODONE-APAP 10-325MG 1 EACH TAB PO PRN (11:52)
[2023-11-20] MEDS: MORPHINE SULFATE IR 15 MG TABLET PO SCH (12:11)
--- NOTE | 2023-11-20 14:14 | PN ---
PROGRESS NOTE DATE OF SERVICE: 11/20/2023 SUBJECTIVE: This is a 78-year-old woman, who was admitted with change in mental status, metabolic encephalopathy, multifactorial, also had possibly sepsis, pneumonia, and UTI. The patient is much more alert today. The patient was taking morphine. The patient received Narcan in the ER. Multiple consultants are following the patient closely. The chest x-ray which I reviewed personally today showed some improvement. PAST MEDICAL HISTORY: Reviewed. REVIEW OF SYSTEMS: Fourteen-point review is negative except as mentioned earlier. CURRENT MEDICATIONS: Reviewed include DuoNeb, dose and rest of medications noted. PHYSICAL EXAMINATION: VITAL SIGNS: Pulse 85, blood pressure 151/80, respirations 14. CHEST: A few scattered rhonchi and crackles. ABDOMEN: Soft. NERVOUS SYSTEM: Nonfocal. LABORATORY DATA: Reviewed. ABG showed pCO2 of 78, sodium 135. ASSESSMENT: 1. Chronic obstructive pulmonary disease acute exacerbation, acute hypoxic respiratory failure. 2. Change in mental status, metabolic encephalopathy, multifactorial. 3. Possible urinary tract infection and pneumonia with sepsis present on admission. 4. 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 5. Increased WBC. 6. Hyponatremia. 7. History of recent acute rlm-OL-xtbauul-elevation myocardial infarction. 8. History of recent RSV. 9. Lymphedema of the left. RECOMMENDATIONS AND DISCUSSION: Recommend to continue current management and continue symptomatic treatment, otherwise, at this time I would follow the patient closely. Empiric antibiotics. Multiple consultations. Cultures are negative so far. Repeat labs. Prognosis is guarded. Resume the home medications. DVT prophylaxis. Pain management. Discussed with Hematology/Oncology. Guarded prognosis. Further recommendations to follow. See orders for further details. MMODL / IJN: [id number] /
[2023-11-20] MEDS ORDERED: ZINC OXIDE PASTE (Z-GUARD) 1 APPLIC TOPICAL PRN (14:24)
[2023-11-20] MEDS: BACLOFEN 10 MG TAB PO PRN (15:37)
[2023-11-20] MEDS: GABAPENTIN 300 MG CAP PO SCH (15:37)
[2023-11-20] MEDS: ATORVASTATIN 20 MG TAB PO SCH (20:46)
[2023-11-20] MEDS: MECLIZINE 12.5 MG TAB PO SCH (20:46)
--- NOTE | 2023-11-20 23:00 | P.CONS ---
History of Present Illness - Reason for Consult Consult date: 11/20/23 Sepsis Requesting physician: Edmundo Alanis - Chief Complaint Weakness not feeling well x few days - History of Present Illness Patient is a 78-year-old female with a past medical history significant for hypertension hyperlipidemia COPD history of breast cancer pre senting to the hospital for evaluation of weakness patient symptom has been getting worse for the last 3 days initially started with some burning of urine concerning for possible UTI however the patient start drinking more water with some improvement her symptoms initially subsequent noticed to have any increasing weakness and not feeling well patient denies having any headache or URI symptoms no chest pain shortness of breath occasional cough no sputum production no nausea no vomiting no abdominal pain or any diarrhea on presentation to the hospital patient did have a fever of 100.6 F patient was tachycardic patient was not hypotensive or hypoxic patient did have a white count of 12.9 with a left shift creatinine was normal liver isms are normal urine was cloudy with large leukocyte esterase 145 WBC patient did have a chest x-ray coarse consolidation correlate for interstitial pneumonitis or venous congestion patient was admitted to ICU started on Azactam because of her penicillin allergy infectious was consulted for further management of antibiotic therapy Review of Systems Positive point and negatives has been mentioned in the HPI, complete review of systems was performed and all other systems are negative Past Medical History Past Medical History: Cancer, COPD, Hyperlipidemia, Hypertension, Osteoarthritis (OA) Additional Past Medical History / Comment(s): breast cancer, osteoporosis, broken pelvis end of apr 2023. 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 LT LUMPECTOMY/WITH 12 LYMPH NODES REMOVED Past Anesthesia/Blood Transfusion Reactions: No Reported Reaction Past Psychological History: Depression Smoking Status: Current every day smoker Past Alcohol Use History: None Reported Additional Past Alcohol Use History / Comment(s): SMOKES 1 PPD SINCE AGE 17 Past Drug Use History: None Reported - Past Family History Daughter(s) Family Medical History: Cancer Medications and Allergies Home Medications Medication Instructions Recorded Confirmed Type ALPRAZolam [Xanax] 0.5 mg PO HS 06/08/18 11/19/23 History Gabapentin 600 mg PO BID 06/08/18 11/19/23 History Meclizine [Antivert] 12.5 mg PO BID 06/08/18 11/19/23 History Montelukast [Singulair] 10 mg PO DAILY 06/08/18 11/19/23 History Simvastatin 40 mg PO HS 06/08/18 11/19/23 History Clopidogrel Bisulfate [Plavix] 75 mg PO DAILY 07/04/20 11/19/23 History Albuterol Inhaler [Ventolin Hfa 1 - 2 puff INHALATION RT-Q6H PRN 07/24/23 11/19/23 History Inhaler] Baclofen [Lioresal] 10 mg PO BID PRN 07/24/23 11/19/23 History Cholecalciferol (Vitamin D3) 1,250 mcg PO MO 07/24/23 11/19/23 History [Decara (50,000 Iu)] atenoloL [Tenormin] 50 mg PO DAILY 07/24/23 11/19/23 History ALPRAZolam [Xanax] 0.5 mg PO DAILY PRN 09/26/23 11/19/23 History Albuterol Nebulized [Ventolin 2.5 mg INHALATION RT-QID PRN 09/27/23 11/19/23 History Nebulized] Budesonide [Pulmicort] 0.5 mg INHALATION RT-BID 09/27/23 11/19/23 History Omeprazole 40 mg PO DAILY 11/04/23 11/19/23 History oxyCODONE-APAP 10-325MG [Percocet 1 tab PO TID PRN 11/04/23 11/19/23 History 10-325 mg] Aspirin 81 mg PO DAILY #30 tab 11/08/23 11/19/23 Rx Ipratropium-Albuterol Nebulize 3 ml INHALATION RT-QID #100 each 11/08/23 11/19/23 Rx [Duoneb 0.5 mg-3 mg/3 ml Soln] Ipratropium-Albuterol Nebulize 3 ml INHALATION RT-QID PRN each 11/08/23 11/19/23 Rx [Duoneb 0.5 mg-3 mg/3 ml Soln] Isosorbide Mononitrate ER [Imdur] 30 mg PO DAILY 30 Days #30 tab 11/08/23 11/19/23 Rx Furosemide [Lasix] 40 mg PO DAILY #60 tab 11/22/23 Rx Morphine Sulfate Ir [MSIR] 7.5 mg PO BID #0 11/22/23 11/19/23 Rx cefUROXime axetiL [Ceftin] 500 mg PO BID 7 Days #14 tab 11/22/23 Rx Allergies Allergy/AdvReac Type Severity Reaction Status Date / Time nickel Allergy Rash/Hives Verified 11/04/23 17:20 Penicillins Allergy Rash/Hives Verified 11/04/23 17:20 Physical Exam Vitals: Vital Signs Temp Pulse Pulse Resp BP BP Pulse Ox 11/20/23 08:33 84 11/20/23 08:24 81 11/20/23 08:16 11/20/23 08:09 79 11/20/23 08:00 76 16 141/51 99 11/20/23 07:00 69 11 L 133/49 96 11/20/23 05:32 11/20/23 02:20 98.2 F 65 18 105/65 100 11/19/23 21:29 98.9 F 73 16 116/53 96 11/19/23 20:53 78 18 122/70 99 11/19/23 19:30 77 16 129/67 99 11/19/23 17:57 82 15 146/60 96 11/19/23 16:36 97.9 F 94 18 146/60 11/19/23 14:58 106 H 17 155/79 98 11/19/23 13:58 100.6 F H 104 H 17 164/74 99 FiO2 11/20/23 08:33 11/20/23 08:24 11/20/23 08:16 40 11/20/23 08:09 11/20/23 08:00 40 11/20/23 07:00 40 11/20/23 05:32 40 11/20/23 02:20 11/19/23 21:29 11/19/23 20:53 11/19/23 19:30 11/19/23 17:57 11/19/23 16:36 11/19/23 14:58 11/19/23 13:58 Intake and Output 11/19/23 11/20/23 11/20/23 22:59 06:59 14:59 Intake Total 0 Output Total 500 Balance 0 -500 Intake: Oral 0 Output: Urine 500 Other: Voiding Method External Catheter Weight 63.503 kg GENERAL DESCRIPTION: Elderly female lying in bed, no distress. No tachypnea or accessory muscle of respiration use. HEENT: Shows Pallor , no scleral icterus. Oral mucous membrane is dry. No ph aryngeal erythema or thrush NECK: Trachea central, no thyromegaly. LUNGS: Unlabored breathing. Clear to auscultation anteriorly. No wheeze or crackle. HEART: S1, S2, regular rate and rhythm. No loud murmur ABDOMEN: Soft, no tenderness , EXTREMITIES: No edema of feet. SKIN: No rash, no masses palpable. NEUROLOGICAL: The patient is awake, alert, oriented x3, mood and affect normal. Results CBC & Chem 7: 11/22/23 05:50 11/22/23 05:50 Labs: Abnormal Lab Results - Last 24 Hours (Table) 11/19/23 11/19/23 11/19/23 Range/Units 14:40 14:40 15:07 WBC 12.9 H (3.8-10.6) k/uL RBC (3.80-5.40) m/uL MCV 107.9 H (80.0-100.0) fL MCHC (31.0-37.0) g/dL Plt Count (150-450) k/uL Neutrophils # 8.6 H (1.3-7.7) k/uL Monocytes # 1.1 H (0-1.0) k/uL PT 9.7 L (10.0-12.5) sec APTT 21.2 L (22.0-30.0) sec ABG pCO2 (35-45) mmHg ABG pO2 (83-108) mmHg ABG HCO3 (21-25) mmol/L ABG Total CO2 (19-24) mmol/L Sodium (137-145) mmol/L Chloride (98-107) mmol/L Carbon Dioxide (22-30) mmol/L Creatinine (0.52-1.04) mg/dL Glucose (74-99) mg/dL POC Glucose (mg/dL) (70-110) mg/dL Total Protein (6.3-8.2) g/dL Albumin (3.5-5.0) g/dL Urine Appearance Cloudy H (Clear) Urine Blood Trace H (Negative) Ur Leukocyte Esterase Large H (Negative) Urine WBC 145 H (0-5) /hpf Urine WBC Clumps Many H (None) /hpf Urine Mucus Rare H (None) /hpf 11/19/23 11/19/23 11/20/23 Range/Units 15:15 18:05 05:15 WBC (3.8-10.6) k/uL RBC (3.80-5.40) m/uL MCV (80.0-100.0) fL MCHC (31.0-37.0) g/dL Plt Count (150-450) k/uL Neutrophils # (1.3-7.7) k/uL Monocytes # (0-1.0) k/uL PT (10.0-12.5) sec APTT (22.0-30.0) sec ABG pCO2 78 H* (35-45) mmHg ABG pO2 77 L (83-108) mmHg ABG HCO3 44 H* (21-25) mmol/L ABG Total CO2 47 H (19-24) mmol/L Sodium 134 L (137-145) mmol/L Chloride 96 L (98-107) mmol/L Carbon Dioxide 37 H (22-30) mmol/L Creatinine 0.47 L (0.52-1.04) mg/dL Glucose 139 H (74-99) mg/dL POC Glucose (mg/dL) 123 H (70-110) mg/dL Total Protein 5.7 L (6.3-8.2) g/dL Albumin 3.0 L (3.5-5.0) g/dL Urine Appearance (Clear) Urine Blood (Negative) Ur Leukocyte Esterase (Negative) Urine WBC (0-5) /hpf Urine WBC Clumps (None) /hpf Urine Mucus (None) /hpf 11/20/23 11/20/23 Range/Units 07:38 07:38 WBC (3.8-10.6) k/uL RBC 3.73 L (3.80-5.40) m/uL MCV 107.6 H (80.0-100.0) fL MCHC 30.4 L (31.0-37.0) g/dL Plt Count 148 L (150-450) k/uL Neutrophils # (1.3-7.7) k/uL Monocytes # (0-1.0) k/uL PT (10.0-12.5) sec APTT (22.0-30.0) sec ABG pCO2 (35-45) mmHg ABG pO2 (83-108) mmHg ABG HCO3 (21-25) mmol/L ABG Total CO2 (19-24) mmol/L Sodium 135 L (137-145) mmol/L Chloride 95 L (98-107) mmol/L Carbon Dioxide 37 H (22-30) mmol/L Creatinine 0.48 L (0.52-1.04) mg/dL Glucose (74-99) mg/dL POC Glucose (mg/dL) (70-110) mg/dL Total Protein 5.2 L (6.3-8.2) g/dL Albumin 2.7 L (3.5-5.0) g/dL Urine Appearance (Clear) Urine Blood (Negative) Ur Leukocyte Esterase (Negative) Urine WBC (0-5) /hpf Urine WBC Clumps (None) /hpf Urine Mucus (None) /hpf Assessment and Plan (1) Penicillin allergy Status: Acute Code(s): Z88.0 - ALLERGY STATUS TO PENICILLIN SNOMED Code(s): 68854181 (2) Sepsis Status: Acute Code(s): A41.9 - SEPSIS, UNSPECIFIED ORGANISM SNOMED Code(s): 28989614 (3) UTI (urinary tract infection) Status: Acute Code(s): N39.0 - URINARY TRACT INFECTION, SITE NOT SPECIFIED SNOMED Code(s): 33429754 Plan: 1patient presented to hospital with sepsis in this patient who did have fever tachycardia elevated white count did have urinary symptoms positive UA source likely UTI and likely from enteric gram-negative pathogen. 2penicillin allergy that will limit the number of antibiotics safe to use. 3continue Azactam while waiting for the culture to finalize we will follow on clinical condition and cultures to further adjust medication if needed Thank you for this consultation we will follow the patient along with you Dictation was produced using [employer] dictation software. please excuse any grammatical, word or spelling errors. Time with Patient: Greater than 30
[2023-11-20] MEDS: MORPHINE SULFATE ER 15 MG TABLET PO SCH (23:04)
[2023-11-21] MEDS ORDERED: NON FORMULARY DRUG (Omeprazole [Omeprazole] 40 MG Capsule.Dr) PO SCH (09:00)
[2023-11-21 09:28] LABS: Basophils % (A) 0 %; Eosinophils % (A) 0 %; HCT 37.9 % (34.0-46.0); HGB 13.2 gm/dL (11.4-16.0); Lymphocytes # (A) 0.9 k/uL (1.0-4.8); Lymphocytes % (A) 9 %; MCH 35.2 pg (25.0-35.0); MCHC 34.9 g/dL (31.0-37.0); Mean Platelet Volume 8.8; Monocytes # (A) 0.5 k/uL (0-1.0); Monocytes % (A) 5 %; Neutrophils # (A) 8.3 k/uL (1.3-7.7); Neutrophils % (A) 85 %; Platelet Count 147 k/uL (150-450); RBC 3.76 m/uL (3.80-5.40); RDW 13.1 % (11.5-15.5); WBC 9.8 k/uL (3.8-10.6)
[2023-11-21 09:29] LABS: MCV 100.9 fL (80.0-100.0)
[2023-11-21] MEDS: ASPIRIN 81 MG PO SCH (09:31)
[2023-11-21] MEDS: ISOSORBIDE MONONITRATE ER 30 MG TAB.ER.24H PO SCH (09:31)
[2023-11-21] MEDS: atenoloL 50 MG TAB PO SCH (09:31)
[2023-11-21] MEDS: MONTELUKAST 10 MG TAB PO SCH (09:31)
[2023-11-21] MEDS: CLOPIDOGREL 75 MG TAB PO SCH (09:31)
[2023-11-21 09:37] LABS: African American GFR (CKD) >90 (>60 ml/min/1.73 sqM); Anion Gap 6 mmol/L; Blood Urea Nitrogen 19 mg/dL (7-17); Carbon Dioxide 34 mmol/L (22-30); Chloride 94 mmol/L (98-107); Glucose 232 mg/dL (74-99); Non-African American GFR(CKD) >90 (>60 ml/min/1.73 sqM); Sodium 134 mmol/L (137-145)
[2023-11-21 10:00] LABS: Potassium 5.3 mmol/L (3.5-5.1)
--- NOTE | 2023-11-21 14:31 | P.PN ---
Subjective Progress Note Date: 11/21/23 Principal diagnosis: Reason for follow-up is UTI and positive blood culture Patient is a 78-year-old female with a past medical history significant for hypertension hyperlipidemia COPD history of breast cancer presenting to the hospital for evaluation of weakness, patient did have some urinary symptoms did have a fever positive UA concerning for symptomatic ureteric infection. On today's visit that is 11/21/2023, Patient is afebrile patient is currently on 3 L nasal cannula oxygen and denies having any shortness of breath, the patient denies any chest pain or cough, the patient denies any nausea vomiting did not have any abdominal pain and no diarrhea. Patient white count is 9.8, creatinine 0.48 blood culture with coagulase- negative staph Objective - Vital Signs Vital signs: Vital Signs Temp 98.1 F 11/21/23 14:14 Pulse 77 11/21/23 14:14 Resp 15 11/21/23 14:14 BP 148/71 11/21/23 14:14 Pulse Ox 97 11/21/23 14:14 FiO2 40 11/20/23 08:16 Intake & Output 11/20/23 11/21/23 11/21/23 18:59 06:59 18:59 Intake Total 200 Output Total 1750 Balance -1550 Weight 63.503 kg 63 kg Intake: Oral 200 Output: Urine 1750 Other: Voiding Method Toilet Toilet Toilet Bedside Commode Bedside Commode # Voids 3 1 - Exam GENERAL DESCRIPTION: An elderly female lying in bed in no distress RESPIRATORY SYSTEM: Unlabored breathing , decreased breath sounds at bases HEART: S1 S2 regular rate and rhythm , ABDOMEN: Soft , no tenderness EXTREMITIES: No edema feet - Labs CBC & Chem 7: 11/21/23 08:37 11/21/23 08:37 Labs: Abnormal Lab Results - Last 24 Hours (Table) 11/21/23 11/21/23 Range/Units 08:37 08:37 RBC 3.76 L (3.80-5.40) m/uL MCV 100.9 H D (80.0-100.0) fL MCH 35.2 H (25.0-35.0) pg Plt Count 147 L (150-450) k/uL Neutrophils # 8.3 H (1.3-7.7) k/uL Lymphocytes # 0.9 L (1.0-4.8) k/uL Sodium 134 L (137-145) mmol/L Potassium 5.3 H (3.5-5.1) mmol/L Chloride 94 L (98-107) mmol/L Carbon Dioxide 34 H (22-30) mmol/L BUN 19 H (7-17) mg/dL Creatinine 0.48 L (0.52-1.04) mg/dL Glucose 232 H (74-99) mg/dL Microbiology - Last 24 Hours (Table) 11/19/23 16:45 Blood Culture Gram Stain - Preliminary Blood Blood Culture - Preliminary Coagulase Negative Staph 11/19/23 23:00 Urine Culture - Final Urine,Voided 11/19/23 16:30 Blood Culture - Preliminary Blood Assessment and Plan (1) Positive blood culture Current Visit: Yes Status: Acute Code(s): R78.81 - BACTEREMIA SNOMED Code(s): 896313943 (2) Penicillin allergy Current Visit: Yes Status: Acute Code(s): Z88.0 - ALLERGY STATUS TO PENICILLIN SNOMED Code(s): 06671698 (3) UTI (urinary tract infection) Current Visit: Yes Status: Acute Code(s): N39.0 - URINARY TRACT INFECTION, SITE NOT SPECIFIED SNOMED Code(s): 26375094 Plan: 1patient presented to hospital with sepsis in this patient who did have fever tachycardia elevated white count did have urinary symptoms positive UA source likely UTI and likely from enteric gram-negative pathogen. 2penicillin allergy however the patient mention she has taken amoxicillin without any problem clinic without true penicillin allergy. 3patient did have positive blood culture with coagulase-negative staph likely skin contamination as the patient has no clinical disease to go along with it no need for vancomycin 4-discontinue Azactam start the patient Rocephin 2 g daily while waiting for the culture to finalize Dictation was produced using [employer] dictation software. please excuse any grammatical, word or spelling errors. Time with Patient: Less than 30
--- NOTE | 2023-11-21 16:02 | P.PN ---
Subjective Progress Note Date: 11/21/23 Patient is a 78-year-old white female with past medical history significant for severe oxygen dependent COPD, chronic ongoing tobacco dependence, hyperlipidemia, hypertension, and remote history of breast cancer with recent disease recurrence. Patient reportedly had breast cancer over 10 years ago, underwent partial left-sided mastectomy with axillary lymph node dissection followed by chemo/radiation. She does have severe left-sided lymphedema. More recently, she was evaluated by oncology outpatient, she was found to have disease recurrence. She underwent a biopsy of the left breast on 09/09/2023 which was positive for invasive ductal cell carcinoma. She reportedly also had a PET scan done outpatient, which was consistent with diffuse metastasis to the bone, lung and lymph nodes. She is not currently undergoing any treatment, but was supposed to start chemo next week. She had a recent hospital admission 11/03 through 11/07 where she was evaluated for a non-ST elevation SD, fall with fra cture to the left ulna, and was also found to be RSV positive. Technically, the patient is a poor historian. She awakes and answers my questions, but then quickly falls back to sleep. Brain CT on admission did not show any acute intracranial process. There was nonspecific white matter changes, likely chronic small vessel ischemia. Patient apparently presented to emergency room yesterday afternoon complaining mostly of generalized weakness and fatigue. This has been ongoing for 2 to 3 days. She is currently sitting up in bed, on 4 L/min nasal cannula, in no acute distress. Patient denies any specific complaints. Denies any shortness of breath, cough, sputum production, chest tightness/pain, hemoptysis. She appears very fatigued. She does have history of COPD, and is oxygen dependent at baseline on 2 L/min nasal cannula. Chest x- ray on arrival showed a coarsened interstitium, concerning for pulmonary vascular congestion versus interstitial pneumonitis. Negative for influenza, R SV, COVID on this admission. NT proBNP was elevated at 7640. She has been started on Lasix 40 mg daily. Most recent echocardiogram from her previous admission showed a preserved left ventricular ejection fraction of 50 to 55%. CBC on arrival: WBC count 12.9, hemoglobin 13.7, hematocrit 43.2, platelets 215. BMP on arrival: Sodium 134, potassium 4.2, chloride 96, serum bicarb 37, BUN 11, creatinine 0.47, glucose 123. Urinalysis suspicious for UTI, however, patient denies any urinary symptoms. No dysuria, frequency, incomplete emptying, urgency. Patient was placed on Azactam. Afebrile. Vital signs are stable. The patient is seen today November 21, 2023 in follow-up on the regular medical floor. She is currently resting comfortably in bed. Awake and alert in no acute distress. Maintaining O2 saturations in the 90s on 2 L/min per nasal cannula. Initial blood culture was positive for coag negative staph. Suspect contaminant. Urine culture revealed no growth. White count 9.8. Hemoglobin 13.2. Platelets 147. Sodium 134. Potassium 5.3. Bicarb 34. BUN 19. Creatinine 0.48. Glucose 232. She is continued on ceftriaxone. Azactam was discontinued. She remains on bronchodilators. Heparin for DVT prophylaxis. Remains on IV diuretics. Currently net -1.5 L balance Objective - Vital Signs Vital signs: Vital Signs Temp 98.1 F 11/21/23 14:14 Pulse 72 11/21/23 15:35 Resp 15 11/21/23 14:14 BP 148/71 11/21/23 14:14 Pulse Ox 97 11/21/23 14:14 FiO2 40 11/20/23 08:16 Intake & Output 11/20/23 11/21/23 11/21/23 18:59 06:59 18:59 Intake Total 200 Output Total 1750 Balance -1550 Weight 63.503 kg 63 kg Intake: Oral 200 Output: Urine 1750 Other: Voiding Method Toilet Toilet Toilet Bedside Commode Bedside Commode # Voids 3 1 - Exam GENERAL EXAM: Awake, alert 78-year-old female, on 2 L nasal cannula, no acute distress HEAD: Normocephalic and atraumatic EYES: Normal reaction of pupils, equal size. NOSE: Clear with pink turbinates. THROAT: No erythema or exudates. NECK: No masses, no JVD. CHEST: No chest wall deformity. LUNGS: Equal air entry with markedly diminished lung sounds throughout. no crackles, wheeze, rhonchi or dullness. CVS: S1 and S2 normal with no audible murmur, regular rhythm. No extra heart sounds ABDOMEN: No hepatosplenomegaly, active bowel sounds, no guarding or rigidity. SPINE: No scoliosis or deformity SKIN: No rashes CENTRAL NERVOUS SYSTEM: No focal deficits, tone is normal in all 4 extremities. EXTREMITIES: Severe left arm lymphedema. No clubbing, or cyanosis. Peripheral pulses are intact. - Labs CBC & Chem 7: 11/21/23 08:37 11/21/23 08:37 Labs: Abnormal Lab Results - Last 24 Hours (Table) 11/21/23 11/21/23 Range/Units 08:37 08:37 RBC 3.76 L (3.80-5.40) m/uL MCV 100.9 H D (80.0-100.0) fL MCH 35.2 H (25.0-35.0) pg Plt Count 147 L (150-450) k/uL Neutrophils # 8.3 H (1.3-7.7) k/uL Lymphocytes # 0.9 L (1.0-4.8) k/uL Sodium 134 L (137-145) mmol/L Potassium 5.3 H (3.5-5.1) mmol/L Chloride 94 L (98-107) mmol/L Carbon Dioxide 34 H (22-30) mmol/L BUN 19 H (7-17) mg/dL Creatinine 0.48 L (0.52-1.04) mg/dL Glucose 232 H (74-99) mg/dL Microbiology - Last 24 Hours (Table) 11/19/23 16:45 Blood Culture Gram Stain - Preliminary Blood Blood Culture - Preliminary Coagulase Negative Staph 11/19/23 23:00 Urine Culture - Final Urine,Voided 11/19/23 16:30 Blood Culture - Preliminary Blood Assessment and Plan Assessment: Acute on chronic hypoxemic respiratory failure, possibly multifactorial, second sherwin to acute exacerbation of diastolic congestive heart failure and acute COPD exacerbation. Chest x-ray on arrival showed a coarsened interstitium, concerning for pulmonary vascular congestion versus interstitial pneumonitis. NT proBNP was elevated at 7640. Negative for influenza, RSV, COVID on this admission. Suspected urinary tract infection initially however urine culture negative Altered mental status, currently under investigation, suspect toxic metabolic encephalopathy secondary to above. Brain CT done on arrival does not show any intracranial hemorrhage or mass effect. History of breast cancer, with disease recurrence, left breast biopsy on 09/09/2023 was positive for invasive ductal cell carcinoma. Patient reportedly had a PET scan done outpatient, which was consistent with osseous and lung metastasis. Patient was scheduled to start chemotherapy next week. Left arm lymphedema, secondary to above and previous left mastectomy and lymph node dissection Recent history of fall with left ulnar fracture Recent acute RSV infection History of chronic obstructive pulmonary disease Chronic hypoxemic respiratory failure, secondary to above Chronic ongoing tobacco dependence Hyperlipidemia Hypertension History of peripheral vascular disease, with previous bilateral iliac angioplasty/stenting Chronic lower back pain Plan: The patient was seen and evaluated Labs and medications reviewed Antibiotics adjusted per ID services Titrate down the FiO2 as tolerated Increase activity as tolerated Continued on diuretics We will continue to follow I have personally seen and examined the patient, performed the documentation and the assessment and plan as written. Number of minutes spent on the visit: 10.
--- NOTE | 2023-11-21 17:53 | P.CONS ---
History of Present Illness - Reason for Consult Consult date: 11/20/23 breast cancer Requesting physician: Earl Corona - Chief Complaint altered mental status - History of Present Illness Jazmyne is a pleasant 67-year-old female who at the time of her routine mammogram was found to have a mass in the left breast that was palpated by the customer service technician. The mass was not detected on the mammogram however, it was seen on the ultrasound. This led to a biopsy of the left breast under ultrasound guidance which was positive for IDC, histologic grade II. The tumor on initial biopsy was triple negative. She had left partial mastectomy and axillary node dissection on 10/17/12. Path positive for infiltrating, moderately differentiated, ductal carcinoma, 2.5 cm with 1/10 lymph nodes positive for metastatic disease. She had treatment on clinical trial (B49) completing 6 cycles of chemotherapy with Taxotere/Cytoxan, had radiation after chemo and c ompleted that 05/29/13. Pt has persistent lymphedema in the left arm. She did not f/u with Surgery or Medical Onc. She was seen as a referral in Jul 2023. Referred after CTA of CAP done by Vascular surgery to evaluate aorta, reported multiple new bilateral pulmonary nodules (largest 1.5 cm LLL), the patient has advanced O2-dependent COPD, stated having baseline activity-limiting COPD (In wheelchair). She had c/o excessive fatigue, back & pelvic pain, as well as, lt breast nipple inversion. Biopsy of left breast lesion: ER/AL -/- [id number] +1. Staging PET showed diffuse metastatic disease, more in bones but included lung & multiple lymph nodes. She was sched to start treatment with keytruda and abraxane but PDL1 testing was negative so patient is now scheduled to start Enhertu, currently awaiting insurance auth. She has been referred to Rad Onc to treat painful bone mets. Patient presented to the emergency room with progressing weakness. Of note, patient was admitted on 11/03 for NSTEMI and was found to have RSV and ulnar fracture s/p fall. Chest x-ray revealed coarsened interstitium correlate for interstitial pneumonitis or venous congestion. CT brain negative for acute intr acranial processes. CBC revealed hemoglobin 6.5, WBC 12.2, platelets 148,000. Creatinine 0.48, GFR greater than 90. BNP elevated at 7640. IV lasix started. LFTs and bilirubin WNL. Viral panel negative. UA suspicious for UTI. Blood cultures and urine culture pending. Patient started on IV antibiotics. Tmax of 100.6. Vital signs are stable, SpO2 99% 2L nasal cannula. Patient was initially placed on BiPAP. At today's visit BiPAP has been discontinued. Complaining of back and abdominal pain and fatigue. Patient reports occasional cough but no increasing symptoms and denies hemoptysis. Brreathing has improved. She states that she was feeling normal and at baseline prior to admission but does not recall being brought to the ER. Of note patient does take Xanax, morphine and Percocets, concern that she may have taken additional medications. Review of Systems 10 point ROS is negative except as stated in the HPI Past Medical History Past Medical History: Cancer, COPD, Hyperlipidemia, Hypertension, Osteoarthritis (OA) Additional Past Medical History / Comment(s): breast cancer, osteoporosis, broken pelvis end of apr 2023. 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 LT LUMPECTOMY/WITH 12 LYMPH NODES REMOVED Past Anesthesia/Blood Transfusion Reactions: No Reported Reaction Past Psychological History: Depression Smoking Status: Current every day smoker Past Alcohol Use History: None Reported Additional Past Alcohol Use History / Comment(s): SMOKES 1 PPD SINCE AGE 17 Past Drug Use History: None Reported - Past Family History Daughter(s) Family Medical History: Cancer Medications and Allergies Home Medications Medication Instructions Recorded Confirmed Type ALPRAZolam [Xanax] 0.5 mg PO HS 06/08/18 11/19/23 History Gabapentin 600 mg PO BID 06/08/18 11/19/23 History Meclizine [Antivert] 12.5 mg PO BID 06/08/18 11/19/23 History Montelukast [Singulair] 10 mg PO DAILY 06/08/18 11/19/23 History Simvastatin 40 mg PO HS 06/08/18 11/19/23 History Clopidogrel Bisulfate [Plavix] 75 mg PO DAILY 07/04/20 11/19/23 History Albuterol Inhaler [Ventolin Hfa 1 - 2 puff INHALATION RT-Q6H PRN 07/24/23 11/19/23 History Inhaler] Baclofen [Lioresal] 10 mg PO BID PRN 07/24/23 11/19/23 History Cholecalciferol (Vitamin D3) 1,250 mcg PO MO 07/24/23 11/19/23 History [Decara (50,000 Iu)] atenoloL [Tenormin] 50 mg PO DAILY 07/24/23 11/19/23 History ALPRAZolam [Xanax] 0.5 mg PO DAILY PRN 09/26/23 11/19/23 History predniSONE 20 mg PO DAILY 09/26/23 11/19/23 History Albuterol Nebulized [Ventolin 2.5 mg INHALATION RT-QID PRN 09/27/23 11/19/23 History Nebulized] Budesonide [Pulmicort] 0.5 mg INHALATION RT-BID 09/27/23 11/19/23 History Morphine Sulfate Ir [MSIR] 15 mg PO BID 11/04/23 11/19/23 History Omeprazole 40 mg PO DAILY 11/04/23 11/19/23 History oxyCODONE-APAP 10-325MG [Percocet 1 tab PO TID PRN 11/04/23 11/19/23 History 10-325 mg] Aspirin 81 mg PO DAILY #30 tab 11/08/23 11/19/23 Rx Ipratropium-Albuterol Nebulize 3 ml INHALATION RT-QID #100 each 11/08/23 11/19/23 Rx [Duoneb 0.5 mg-3 mg/3 ml Soln] Ipratropium-Albuterol Nebulize 3 ml INHALATION RT-QID PRN each 11/08/23 11/19/23 Rx [Duoneb 0.5 mg-3 mg/3 ml Soln] Isosorbide Mononitrate ER [Imdur] 30 mg PO DAILY 30 Days #30 tab 11/08/23 11/19/23 Rx Allergies Allergy/AdvReac Type Severity Reaction Status Date / Time nickel Allergy Rash/Hives Verified 11/04/23 17:20 Penicillins Allergy Rash/Hives Verified 11/04/23 17:20 Physical Exam Vitals: Vital Signs Temp Pulse Pulse Resp BP BP Pulse Ox 11/20/23 08:33 84 11/20/23 08:24 81 11/20/23 08:16 11/20/23 08:09 79 11/20/23 08:00 76 16 141/51 99 11/20/23 07:00 69 11 L 133/49 96 11/20/23 05:32 11/20/23 02:20 98.2 F 65 18 105/65 100 11/19/23 21:29 98.9 F 73 16 116/53 96 11/19/23 20:53 78 18 122/70 99 11/19/23 19:30 77 16 129/67 99 11/19/23 17:57 82 15 146/60 96 11/19/23 16:36 97.9 F 94 18 146/60 11/19/23 14:58 106 H 17 155/79 98 11/19/23 13:58 100.6 F H 104 H 17 164/74 99 FiO2 11/20/23 08:33 11/20/23 08:24 11/20/23 08:16 40 11/20/23 08:09 11/20/23 08:00 40 11/20/23 07:00 40 11/20/23 05:32 40 11/20/23 02:20 11/19/23 21:29 11/19/23 20:53 11/19/23 19:30 11/19/23 17:57 11/19/23 16:36 11/19/23 14:58 11/19/23 13:58 Intake and Output 11/19/23 11/20/23 11/20/23 22:59 06:59 14:59 Intake Total 0 Output Total 500 Balance 0 -500 Intake: Oral 0 Output: Urine 500 Other: Voiding Method External Catheter Weight 63.503 kg - Constitutional General appearance: average body habitus, no acute distress - EENT Eyes: anicteric sclerae, EOMI ENT: hearing grossly normal - Respiratory Respiratory: right: wheezing, left: diminished - Cardiovascular Rhythm: regular Heart sounds: normal: S1, S2 - Gastrointestinal General gastrointestinal: soft, no tenderness - Integumentary Integumentary: no cyanotic, no jaundiced - Neurologic Neurologic: CNII-XII intact - Musculoskeletal Musculoskeletal: generalized weakness - Psychiatric Psychiatric: A&O x's 3 Results CBC & Chem 7: 11/21/23 08:37 11/21/23 08:37 Labs: Abnormal Lab Results - Last 24 Hours (Table) 11/19/23 11/19/23 11/19/23 Range/Units 14:40 14:40 15:07 WBC 12.9 H (3.8-10.6) k/uL RBC (3.80-5.40) m/uL MCV 107.9 H (80.0-100.0) fL MCHC (31.0-37.0) g/dL Plt Count (150-450) k/uL Neutrophils # 8.6 H (1.3-7.7) k/uL Monocytes # 1.1 H (0-1.0) k/uL PT 9.7 L (10.0-12.5) sec APTT 21.2 L (22.0-30.0) sec ABG pCO2 (35-45) mmHg ABG pO2 (83-108) mmHg ABG HCO3 (21-25) mmol/L ABG Total CO2 (19-24) mmol/L Sodium (137-145) mmol/L Chloride (98-107) mmol/L Carbon Dioxide (22-30) mmol/L Creatinine (0.52-1.04) mg/dL Glucose (74-99) mg/dL POC Glucose (mg/dL) (70-110) mg/dL Total Protein (6.3-8.2) g/dL Albumin (3.5-5.0) g/dL Urine Appearance Cloudy H (Clear) Urine Blood Trace H (Negative) Ur Leukocyte Esterase Large H (Negative) Urine WBC 145 H (0-5) /hpf Urine WBC Clumps Many H (None) /hpf Urine Mucus Rare H (None) /hpf 11/19/23 11/19/23 11/20/23 Range/Units 15:15 18:05 05:15 WBC (3.8-10.6) k/uL RBC (3.80-5.40) m/uL MCV (80.0-100.0) fL MCHC (31.0-37.0) g/dL Plt Count (150-450) k/uL Neutrophils # (1.3-7.7) k/uL Monocytes # (0-1.0) k/uL PT (10.0-12.5) sec APTT (22.0-30.0) sec ABG pCO2 78 H* (35-45) mmHg ABG pO2 77 L (83-108) mmHg ABG HCO3 44 H* (21-25) mmol/L ABG Total CO2 47 H (19-24) mmol/L Sodium 134 L (137-145) mmol/L Chloride 96 L (98-107) mmol/L Carbon Dioxide 37 H (22-30) mmol/L Creatinine 0.47 L (0.52-1.04) mg/dL Glucose 139 H (74-99) mg/dL POC Glucose (mg/dL) 123 H (70-110) mg/dL Total Protein 5.7 L (6.3-8.2) g/dL Albumin 3.0 L (3.5-5.0) g/dL Urine Appearance (Clear) Urine Blood (Negative) Ur Leukocyte Esterase (Negative) Urine WBC (0-5) /hpf Urine WBC Clumps (None) /hpf Urine Mucus (None) /hpf 11/20/23 11/20/23 Range/Units 07:38 07:38 WBC (3.8-10.6) k/uL RBC 3.73 L (3.80-5.40) m/uL MCV 107.6 H (80.0-100.0) fL MCHC 30.4 L (31.0-37.0) g/dL Plt Count 148 L (150-450) k/uL Neutrophils # (1.3-7.7) k/uL Monocytes # (0-1.0) k/uL PT (10.0-12.5) sec APTT (22.0-30.0) sec ABG pCO2 (35-45) mmHg ABG pO2 (83-108) mmHg ABG HCO3 (21-25) mmol/L ABG Total CO2 (19-24) mmol/L Sodium 135 L (137-145) mmol/L Chloride 95 L (98-107) mmol/L Carbon Dioxide 37 H (22-30) mmol/L Creatinine 0.48 L (0.52-1.04) mg/dL Glucose (74-99) mg/dL POC Glucose (mg/dL) (70-110) mg/dL Total Protein 5.2 L (6.3-8.2) g/dL Albumin 2.7 L (3.5-5.0) g/dL Urine Appearance (Clear) Urine Blood (Negative) Ur Leukocyte Esterase (Negative) Urine WBC (0-5) /hpf Urine WBC Clumps (None) /hpf Urine Mucus (None) /hpf Chest x-ray: report reviewed CT Scan - head: report reviewed Assessment and Plan (1) UTI (urinary tract infection) Current Visit: Yes Status: Acute Code(s): N39.0 - URINARY TRACT INFECTION, SITE NOT SPECIFIED SNOMED Code(s): 68972787 (2) Breast cancer Current Visit: No Status: Acute Priority: Medium Code(s): C50.919 - MALIGNANT NEOPLASM OF UNSP SITE OF UNSPECIFIED FEMALE BREAST SNOMED Code(s): 237149110 Plan: COPD and CHF exacerbation: Presented with weakness, AMS, and MIC. She states that she was feeling normal and at baseline prior to admission but does not recall being brought to the ER. Of note patient does take Xanax, morphine and Percocets, concern that she may have taken additional medications. -Chest x-ray revealed coarsened interstitium correlate for interstitial pneumonitis or venous congestion. CT brain negative for acute intracranial processes. BNP elevated at 7640. IV lasix started. Viral panel negative. UA suspicious for UTI. Blood cultures and urine culture pending. Patient started on IV antibiotics. Tmax of 100.6. -Defer management to IM and pulmonology teams Breast cancer -Full oncological history in HPI -Pending insurance auth to start Enhertu. Treatment will continue to be postponed until current acute medical complaints are treated adequately -Follows with rad onc for painful bone mets. -Clinic f/u scheduled upon discharge Dr attests: I have performed H&P and developed impression and plan of care for patient, discussed with dictator. I agree with dictated note, documented as a scribe
--- NOTE | 2023-11-21 21:02 | PN ---
PROGRESS NOTE DATE OF SERVICE: 11/21/2023 SUBJECTIVE: This is a 78-year-old woman, who was admitted with COPD exacerbation, acute hypoxic respiratory failure, on BiPAP. The patient was monitored closely in the ICU yesterday. The patient is on antibiotics. Chest x-ray showed possibly some minimal infiltrates on the right side. The patient also had a UTI and blood culture showed only coagulase- negative Staph. Repeat cultures are not available. PAST MEDICAL HISTORY: Reviewed. REVIEW OF SYSTEMS: A 14-point review is negative except as mentioned earlier. CURRENT MEDICATIONS: Reviewed include Lipitor, dose and rest of medications noted. PHYSICAL EXAMINATION: VITAL SIGNS: Pulse is 86, blood pressure 116/74, respirations 16. HEENT: Conjunctivae normal. NECK: No JVD. CARDIOVASCULAR: S1, S2. RESPIRATIONS: Breath sounds diminished at the bases. Bilateral scattered rhonchi and crackles. Expiratory wheezing also present. ABDOMEN: Soft, nontender. LEGS: No edema. NERVOUS SYSTEM: Nonfocal. SKIN: No ulcer, rash, bleeding. JOINTS: No active deforming arthropathy. LABORATORY DATA: WBC 9 5, hemoglobin 13.2. ABGs noted. Sodium 134, potassium 5.3. ASSESSMENT: 1. Chronic obstructive pulmonary disease acute exacerbation with acute hypoxic respiratory failure. 2. Possible right lower lobe pneumonia, possibly gram-negative. 3. Possible urinary tract infection with sepsis present on admission. 4. 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 5. Change in mental status, metabolic encephalopathy, multifactorial, possibly medication induced as well. 6. Increased WBC. 7. Hyponatremia. 8. History of recent acute [id number] elevation myocardial infarction. 9. History of recent RSV. 10.Lymphedema of the left. RECOMMENDATIONS AND DISCUSSION: Recommend to continue current management and continue symptomatic treatment with antibiotics. Potassium is 5.3. The patient is on aztreonam. I recommend to continue current medications and we will continue with bronchodilators and repeat labs. I recommend repeat cultures. The blood culture showed coag-negative staph, possibly contaminant. Follow with multiple consultants. Prognosis guarded. Increase ambulation. Guarded prognosis. Further recommendations to follow. MMODL / IJN: [id number] /
[2023-11-21] MEDS: ALPRAZolam 0.5 MG TAB PO SCH (21:25)
[2023-11-22 11:18] LABS: Basophils # (A) 0.01 X 10*3/uL (0.00-0.10); Basophils % (A) 0.1 %; Eosinophils # (A) 0.03 X 10*3/uL (0.04-0.35); Eosinophils % (A) 0.3 %; HCT 33.9 % (37.2-46.3); HGB 10.7 g/dL (12.0-15.0); Lymphocytes # (A) 1.63 X 10*3/uL (0.90-5.00); Lymphocytes % (A) 18.8 %; MCH 32.7 pg (27.0-32.0); MCHC 31.6 g/dL (32.0-37.0); MCV 103.7 FL (80.0-97.0); Mean Platelet Volume 9.9 FL (9.5-12.2); Monocytes # (A) 0.85 X 10*3/uL (0.20-1.00); Monocytes % (A) 9.8 %; NRBC Per 100 WBC 0 X 10*3/uL (0.00-0.01); Neutrophils % (A) 70.5 %; Platelet Count 149 X 10*3/uL (140-440); RBC 3.27 X 10*6/uL (4.10-5.20); RDW 12.8 % (11.5-14.5); WBC 8.66 X 10*3/uL (4.50-10.00)
[2023-11-22 11:30] LABS: BUN/Creat Ratio 33.83 Ratio (12.00-20.00); Blood Urea Nitrogen 20.3 mg/dL (9.0-27.0); Calcium 8.6 mg/dL (8.7-10.3); Carbon Dioxide 36.4 mmol/L (21.6-31.8); Chloride 94 mmol/L (96-109); Glucose 132 mg/dL (70-110); Potassium 3.8 mmol/L (3.5-5.5); Sodium 138 mmol/L (135-145)
--- NOTE | 2023-11-22 14:42 | P.PN ---
Subjective Progress Note Date: 11/22/23 This is a 78-year-old female who was recently admitted with COPD exacerbation along with acute on chronic hypoxic respiratory failure initially requiring BiPAP. Patient was briefly in the ICU and transitioned off BiPAP maintained on nasal cannula and downgraded out of the ICU. Patient is continued on an tibiotics in the form of ceftriaxone with infectious disease following. There was concern initially for urinary tract infection with sepsis and positive blood cultures on admission. Urine cultures have finalized as normal oren and blood cultures 1 of 2 showing coag negative staph likely contaminant as other 1 is negative. Patient will continue on oral Ceftin per ID recommendations on discharge and close outpatient follow-up with pulmonary as well as primary care provider. Patient reports awaiting her family and will be discharged in 24 hours. Patient reports she will be going to stay with her granddaughter. Review of systems: Constitutional: No reports of fatigue, fever, or chills Cardiovascular: No reports of chest pain or palpitations Respiratory: No reports of worsening shortness of breath or cough GI: No reports of nausea, no reports of vomiting, no diarrhea : No reports of dysuria or retention Neurovascular: reports of generalized weakness All medications have been reviewed PHYSICAL EXAMINATION: GENERAL: The patient is alert and oriented x3, Well developed, well nourished. Elderly appearing HEENT: Pupils are round and equally reacting to light. EOMI. no scleral icterus. No conjunctival pallor. Normocephalic, atraumatic. No pharyngeal erythema. No thyromegaly. CARDIOVASCULAR: S1 and S2 muffled PULMONARY: diminished breath sounds bilaterally with some coarse rhonchi noted. ABDOMEN: soft. Nontender on exam. obese. non-distended, normoactive bowel s ounds. No palpable organomegaly. MUSCULOSKELETAL: No joint swelling or deformity. EXTREMITIES: No cyanosis, clubbing, or pedal edema. NEUROLOGICAL: Gross neurological examination did not reveal any focal deficits. Diffuse weakness SKIN: No rashes. 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 Patient currently continued on ceftriaxone and confirmed with micro lab cultures were coag negative staph and likely contaminant. Urine culture finalized showing no growth. Per ID recommendations patient will continue on oral Ceftin twice daily for 1 week Continue with current medications and discussed with the patient about limiting narcotic use and decreasing the dose slightly as patient came in and was extremely lethargic and obtunded likely secondary to the narcotics as patient takes morphine, Percocets, and benzodiazepines. Recommend follow-up with primary care provider on discharge Due to multiple complex medical issues, prognosis is guarded Patient's family arranging for pickup and bringing her oxygen tanks as she will be going to stay with her granddaughter on discharge. Patient will discharge in 24 hours The impression and plan of care has been dictated by Tamara Contreras, nurse practitioner as directed. Dr. Zeke MD I have performed a history and examination and MDM of this patient, discussed th e same with the dictator, and agree with the dictator's assessment and plan as written ,documented as a scribe. Based on total visit time, I have performed more than 50% of the visit. Any additional findings or plans will be noted. Objective - Vital Signs Vital signs: Vital Signs Temp 97.9 F 11/22/23 07:32 Pulse 80 11/22/23 11:49 Resp 16 11/22/23 07:32 BP 150/70 11/22/23 07:32 Pulse Ox 100 11/22/23 01:43 FiO2 40 11/20/23 08:16 Intake & Output 11/21/23 11/22/23 11/22/23 18:59 06:59 18:59 Intake Total 550 Balance 550 Weight 62 kg Intake: Oral 550 Other: Voiding Method Toilet # Voids 1 3 - Labs CBC & Chem 7: 11/22/23 05:50 11/22/23 05:50 Labs: Abnormal Lab Results - Last 24 Hours (Table) 11/22/23 11/22/23 Range/Units 05:50 05:50 RBC 3.27 L (4.10-5.20) X 10*6/uL Hgb 10.7 L (12.0-15.0) g/dL Hct 33.9 L (37.2-46.3) % MCV 103.7 H (80.0-97.0) FL MCH 32.7 H (27.0-32.0) pg MCHC 31.6 L (32.0-37.0) g/dL Eosinophils # 0.03 L (0.04-0.35) X 10*3/uL Chloride 94 L (96-109) mmol/L Carbon Dioxide 36.4 H (21.6-31.8) mmol/L BUN/Creatinine Ratio 33.83 H (12.00-20.00) Ratio Glucose 132 H (70-110) mg/dL Calcium 8.6 L (8.7-10.3) mg/dL Microbiology - Last 24 Hours (Table) 11/19/23 16:45 Blood Culture Gram Stain - Final Blood Blood Culture - Final Coagulase Negative Staph 11/19/23 16:30 Blood Culture - Preliminary Blood
[2023-11-22 15:19] VITALS: BMI 25.8
--- NOTE | 2023-11-22 15:37 | P.PN ---
Subjective Progress Note Date: 11/22/23 Principal diagnosis: Reason for follow-up is UTI and positive blood culture Patient is a 78-year-old female with a past medical history significant for hypertension hyperlipidemia COPD history of breast cancer presenting to the hospital for evaluation of weakness, patient did have some urinary symptoms did have a fever positive UA concerning for symptomatic ureteric infection. On today's visit that is 11/22/2023, patient has been afebrile, patient is breathing comfortably and is currently on 2 L nasal cannula oxygen patient denies having any significant cough no chest pain shortness of breath, patient denies nausea vomiting or diarrhea and no abdominal pain, feeling better. Patient white count is 8.66 creatinine 0.6 blood culture with coagulase-negative staph Objective - Vital Signs Vital signs: Vital Signs Temp 97.9 F 11/22/23 07:32 Pulse 80 11/22/23 11:49 Resp 16 11/22/23 07:32 BP 150/70 11/22/23 07:32 Pulse Ox 100 11/22/23 01:43 FiO2 40 11/20/23 08:16 Intake & Output 11/21/23 11/22/23 11/22/23 18:59 06:59 18:59 Intake Total 550 Balance 550 Weight 62 kg Intake: Oral 550 Other: Voiding Method Toilet # Voids 1 3 - Exam GENERAL DESCRIPTION: An elderly female lying in bed in no distress RESPIRATORY SYSTEM: Unlabored breathing , decreased breath sounds at bases HEART: S1 S2 regular rate and rhythm , ABDOMEN: Soft , no tenderness EXTREMITIES: No edema feet - Labs CBC & Chem 7: 11/22/23 05:50 11/22/23 05:50 Labs: Abnormal Lab Results - Last 24 Hours (Table) 11/22/23 11/22/23 Range/Units 05:50 05:50 RBC 3.27 L (4.10-5.20) X 10*6/uL Hgb 10.7 L (12.0-15.0) g/dL Hct 33.9 L (37.2-46.3) % MCV 103.7 H (80.0-97.0) FL MCH 32.7 H (27.0-32.0) pg MCHC 31.6 L (32.0-37.0) g/dL Eosinophils # 0.03 L (0.04-0.35) X 10*3/uL Chloride 94 L (96-109) mmol/L Carbon Dioxide 36.4 H (21.6-31.8) mmol/L BUN/Creatinine Ratio 33.83 H (12.00-20.00) Ratio Glucose 132 H (70-110) mg/dL Calcium 8.6 L (8.7-10.3) mg/dL Microbiology - Last 24 Hours (Table) 11/19/23 16:45 Blood Culture Gram Stain - Final Blood Blood Culture - Final Coagulase Negative Staph 11/19/23 16:30 Blood Culture - Preliminary Blood Assessment and Plan (1) Positive blood culture Current Visit: Yes Status: Acute Code(s): R78.81 - BACTEREMIA SNOMED Code(s): 179108221 (2) Penicillin allergy Current Visit: Yes Status: Acute Code(s): Z88.0 - ALLERGY STATUS TO PENICILLIN SNOMED Code(s): 10912385 (3) UTI (urinary tract infection) Current Visit: Yes Status: Acute Code(s): N39.0 - URINARY TRACT INFECTION, SITE NOT SPECIFIED SNOMED Code(s): 62985811 Plan: 1patient presented to hospital with sepsis in this patient who did have fever tachycardia elevated white count did have urinary symptoms positive UA source likely UTI and likely from enteric gram-negative pathogen. 2penicillin allergy however the patient mention she has taken amoxicillin without any problem clinic without true penicillin allergy. 3patient did have positive blood culture with coagulase-negative staph likely skin contamination as the patient has no clinical disease to go along with it no need for vancomycin 4-patient to continue Rocephin 2 g daily plan to finish therapy with oral Ceftin for 7 days discussed with the [employer] for admitting team working on discharge Dictation was produced using [email or web address] dictation software. please excuse any grammatical, word or spelling errors. Time with Patient: Less than 30
--- NOTE | 2023-11-22 15:45 | P.PN ---
Subjective Progress Note Date: 11/22/23 Patient is a 78-year-old white female with past medical history significant for severe oxygen dependent COPD, chronic ongoing tobacco dependence, hyperlipidemia, hypertension, and remote history of breast cancer with recent disease recurrence. Patient reportedly had breast cancer over 10 years ago, underwent partial left-sided mastectomy with axillary lymph node dissection followed by chemo/radiation. She does have severe left-sided lymphedema. More recently, she was evaluated by oncology outpatient, she was found to have disease recurrence. She underwent a biopsy of the left breast on 09/09/2023 which was positive for invasive ductal cell carcinoma. She reportedly also had a PET scan done outpatient, which was consistent with diffuse metastasis to the bone, lung and lymph nodes. She is not currently undergoing any treatment, but was supposed to start chemo next week. She had a recent hospital admission 11/03 through 11/07 where she was evaluated for a non-ST elevation [facility], fall with fra cture to the left ulna, and was also found to be RSV positive. Technically, the patient is a poor historian. She awakes and answers my questions, but then quickly falls back to sleep. Brain CT on admission did not show any acute intracranial process. There was nonspecific white matter changes, likely chronic small vessel ischemia. Patient apparently presented to emergency room yesterday afternoon complaining mostly of generalized weakness and fatigue. This has been ongoing for 2 to 3 days. She is currently sitting up in bed, on 4 L/min nasal cannula, in no acute distress. Patient denies any specific complaints. Denies any shortness of breath, cough, sputum production, chest tightness/pain, hemoptysis. She appears very fatigued. She does have history of COPD, and is oxygen dependent at baseline on 2 L/min nasal cannula. Chest x- ray on arrival showed a coarsened interstitium, concerning for pulmonary vascular congestion versus interstitial pneumonitis. Negative for influenza, R SV, COVID on this admission. NT proBNP was elevated at 7640. She has been started on Lasix 40 mg daily. Most recent echocardiogram from her previous admission showed a preserved left ventricular ejection fraction of 50 to 55%. CBC on arrival: WBC count 12.9, hemoglobin 13.7, hematocrit 43.2, platelets 215. BMP on arrival: Sodium 134, potassium 4.2, chloride 96, serum bicarb 37, BUN 11, creatinine 0.47, glucose 123. Urinalysis suspicious for UTI, however, patient denies any urinary symptoms. No dysuria, frequency, incomplete emptying, urgency. Patient was placed on Azactam. Afebrile. Vital signs are stable. The patient is seen today November 21, 2023 in follow-up on the regular medical floor. She is currently resting comfortably in bed. Awake and alert in no acute distress. Maintaining O2 saturations in the 90s on 2 L/min per nasal cannula. Initial blood culture was positive for coag negative staph. Suspect contaminant. Urine culture revealed no growth. White count 9.8. Hemoglobin 13.2. Platelets 147. Sodium 134. Potassium 5.3. Bicarb 34. BUN 19. Creatinine 0.48. Glucose 232. She is continued on ceftriaxone. Azactam was discontinued. She remains on bronchodilators. Heparin for DVT prophylaxis. Remains on IV diuretics. Currently net -1.5 L balance The patient is seen today November 22, 2023 in follow-up on the regular medical floor. She is awake and alert in no acute distress. Sitting up in bed. Maintaining O2 saturations in the 90s on 2 L/min per nasal cannula. Follow-up blood cultures pending. Initial blood culture suspect contamination. White count 8.6. Hemoglobin 10.7. Platelets 149. Sodium 138. Potassium 3.8. Bicarb 36. BUN 20. Creatinine 0.6. She remains on ceftriaxone per infectious disease. She remains on bronchodilators. Heparin for DVT prophylaxis. Remains on IV diuretics. Objective - Vital Signs Vital signs: Vital Signs Temp 97.8 F 11/22/23 13:56 Pulse 80 11/22/23 15:15 Resp 17 11/22/23 13:56 BP 145/66 11/22/23 13:56 Pulse Ox 100 11/22/23 01:43 FiO2 40 11/20/23 08:16 Intake & Output 11/21/23 11/22/23 11/22/23 18:59 06:59 18:59 Intake Total 550 Balance 550 Weight 62 kg 62 kg Intake: Oral 550 Other: Voiding Method Toilet # Voids 1 3 - Exam GENERAL EXAM: Awake, 78-year-old female, up in bed, no acute distress HEAD: Normocephalic and atraumatic EYES: Normal reaction of pupils, equal size. NOSE: Clear with pink turbinates. THROAT: No erythema or exudates. NECK: No masses, no JVD. CHEST: No chest wall deformity. LUNGS: Equal air entry with markedly diminished lung sounds throughout. no crackles, wheeze, rhonchi or dullness. CVS: S1 and S2 normal with no audible murmur, regular rhythm. No extra heart sounds ABDOMEN: No hepatosplenomegaly, active bowel sounds, no guarding or rigidity. SPINE: No scoliosis or deformity SKIN: No rashes CENTRAL NERVOUS SYSTEM: No focal deficits, tone is normal in all 4 extremities. EXTREMITIES: Severe left arm lymphedema. No clubbing, or cyanosis. Peripheral pulses are intact. - Labs CBC & Chem 7: 11/22/23 05:50 11/22/23 05:50 Labs: Abnormal Lab Results - Last 24 Hours (Table) 11/22/23 11/22/23 Range/Units 05:50 05:50 RBC 3.27 L (4.10-5.20) X 10*6/uL Hgb 10.7 L (12.0-15.0) g/dL Hct 33.9 L (37.2-46.3) % MCV 103.7 H (80.0-97.0) FL MCH 32.7 H (27.0-32.0) pg MCHC 31.6 L (32.0-37.0) g/dL Eosinophils # 0.03 L (0.04-0.35) X 10*3/uL Chloride 94 L (96-109) mmol/L Carbon Dioxide 36.4 H (21.6-31.8) mmol/L BUN/Creatinine Ratio 33.83 H (12.00-20.00) Ratio Glucose 132 H (70-110) mg/dL Calcium 8.6 L (8.7-10.3) mg/dL Microbiology - Last 24 Hours (Table) 11/19/23 16:45 Blood Culture Gram Stain - Final Blood Blood Culture - Final Coagulase Negative Staph 11/19/23 16:30 Blood Culture - Preliminary Blood Assessment and Plan Assessment: Acute on chronic hypoxemic respiratory failure, possibly multifactorial, secondary to acute exacerbation of diastolic congestive heart failure and acute COPD exacerbation. Chest x-ray on arrival showed a coarsened interstitium, concerning for pulmonary vascular congestion versus interstitial pneumonitis. NT proBNP was elevated at 7640. Negative for influenza, RSV, COVID on this admission. Suspected urinary tract infection initially however urine culture negative Altered mental status, currently under investigation, suspect toxic metabolic encephalopathy secondary to above. Brain CT done on arrival does not show any intracranial hemorrhage or mass effect. History of breast cancer, with disease recurrence, left breast biopsy on 09/09/2023 was positive for invasive ductal cell carcinoma. Patient reportedly had a PET scan done outpatient, which was consistent with osseous and lung metastasis. Patient was scheduled to start chemotherapy next week. Left arm lymphedema, secondary to above and previous left mastectomy and lymph node dissection Recent history of fall with left ulnar fracture Recent acute RSV infection History of chronic obstructive pulmonary disease Chronic hypoxemic respiratory failure, secondary to above Chronic ongoing tobacco dependence Hyperlipidemia Hypertension History of peripheral vascular disease, with previous bilateral iliac angioplasty/stenting Chronic lower back pain Plan: The patient was seen and evaluated Labs and medications reviewed Antibiotics per ID services Titrate down the FiO2 as tolerated Cleared for discharge Plan is for home with home care I have personally seen and examined the patient, performed the documentation and the assessment and plan as written. Number of minutes spent on the visit: 10.
[2023-11-22] MEDS: ALPRAZolam 0.5 MG TAB PO PRN (23:18)
--- NOTE | 2023-11-23 08:13 | P.DS ---
Providers Date of admission: 11/19/23 16:41 Expected date of discharge: 11/23/23 Attending physician: Edmundo Alanis Consults: 11/19/23 16:39 Consult Physician Urgent Consulting Provider: Álvaro Liriano Consult Reason/Comments: Oncological care Do you want consulting provider notified?: Yes 11/19/23 16:52 Consult Physician Routine Consulting Provider: Lilli Joe Consult Reason/Comments: copd Do you want consulting provider notified?: Yes Consult Physician Routine Consulting Provider: Mohit Kaur Consult Reason/Comments: sepsis Do you want consulting provider notified?: Yes Primary care physician: Kapil Acosta Hospital Course: Final diagnosis Chronic obstructive pulmonary disease, acute exacerbation with acute on chronic hypoxic respiratory failure, requiring BiPAP on admission Chronic hypoxic respiratory failure, wears 2 to 3 L outpatient Acute right lower lobe pneumonia, likely gram-negative Acute urinary tract infection with sepsis, present on admission 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 Patient will follow-up with Dr. Acosta in the outpatient setting upon discharge. Patient is to continue with oral Ceftin 500 mg twice daily for 1 week and close outpatient follow-up with pulmonary as scheduled. Total time taken is greater than 35 minutes. Hospital course This is a 78-year-old female who was recently admitted with increasing shortness of breath with COPD exacerbation along with acute right lower lobe pneumonia being closely monitored. Patient was minimally responsive and obtunded requiring BiPAP on admission. Multifactorial likely secondary to polypharmacy as patient takes multiple pain medications due to metastatic breast cancer with bone metastasis. Patient came off BiPAP and was transferred out of the ICU maintained on 2 L which she chronically wears outpatient. Patient being evaluated by pulmonary continue on breathing treatments and diuresis. Patient will continue with antibiotics on discharge and close outpatient follow-up with repeat labs. Patient will be staying with her granddaughter on discharge. Plan is for home with home care. Patient has been cleared by consultations. Please refer to other consultation notes for further HPI. Currently no reports of chest pain, no worsening shortness of breath, or palpitations. Patient is afebrile. No reports of nausea or vomiting and patient is tolerating diet. Patient will be discharged home with home care today. Guarded prognosis and high risk for readmissions given patient's significant comorbidities. Physical exam: Gen: This is a 78-year-old female who is awake, alert and oriented x 3, well- developed, well-nourished, elderly appearing HEENT: Head is atraumatic, normocephalic. Pupils equal, round. Sclerae is anicteric. NECK: Supple. No JVD. No lymphadenopathy. No thyromegaly. LUNGS: Diminished breath sounds bilaterally with some coarse scattered rhonchi. No intercostal retractions. HEART: S1, S2 are muffled ABDOMEN: Soft. Obese. Bowel sounds are present. No masses. No tenderness. EXTREMITIES: No pedal edema. No calf tenderness. NEUROLOGICAL: Patient is awake, alert and oriented x3. Cranial nerves 2 through 12 are grossly intact. Please refer to medication reconciliation sheet for a list of medications. The impression and plan of care has been dictated by Tamara Contreras, Nurse Practitioner as directed. Dr. Zeke MD I have performed a history and examination and MDM of this patient, discussed the same with the dictator, and agree with the dictator's assessment and plan as written ,documented as a scribe. Based on total visit time, I have performed more than 50% of the visit. Patient Condition at Discharge: Fair Plan - Discharge Summary Discharge Rx Participant: No New Discharge Prescriptions: New cefUROXime axetiL [Ceftin] 500 mg PO BID 7 Days #14 tab Furosemide [Lasix] 40 mg PO DAILY #60 tab Continue Montelukast [Singulair] 10 mg PO DAILY Meclizine [Antivert] 12.5 mg PO BID Gabapentin 600 mg PO BID ALPRAZolam [Xanax] 0.5 mg PO HS Simvastatin 40 mg PO HS Clopidogrel Bisulfate [Plavix] 75 mg PO DAILY Ipratropium-Albuterol Nebulize [Duoneb 0.5 mg-3 mg/3 ml Soln] 3 ml INHALATION RT-QID #100 each Albuterol Inhaler [Ventolin Hfa Inhaler] 1 - 2 puff INHALATION RT-Q6H PRN PRN Reason: Shortness Of Breath Baclofen [Lioresal] 10 mg PO BID PRN PRN Reason: Muscle Pain atenoloL [Tenormin] 50 mg PO DAILY Cholecalciferol (Vitamin D3) [Decara (50,000 Iu)] 1,250 mcg PO MO ALPRAZolam [Xanax] 0.5 mg PO DAILY PRN PRN Reason: Anxiety Budesonide [Pulmicort] 0.5 mg INHALATION RT-BID Albuterol Nebulized [Ventolin Nebulized] 2.5 mg INHALATION RT-QID PRN PRN Reason: Shortness Of Breath Omeprazole 40 mg PO DAILY oxyCODONE-APAP 10-325MG [Percocet 10-325 mg] 1 tab PO TID PRN PRN Reason: Pain Aspirin 81 mg PO DAILY #30 tab Ipratropium-Albuterol Nebulize [Duoneb 0.5 mg-3 mg/3 ml Soln] 3 ml INHALATION RT-QID PRN each PRN Reason: Shortness Of Breath Or Wheezing Isosorbide Mononitrate ER [Imdur] 30 mg PO DAILY 30 Days #30 tab Changed Morphine Sulfate Ir [MSIR] 7.5 mg PO BID #0 Discontinued predniSONE 20 mg PO DAILY Discharge Medication List ALPRAZolam [Xanax] 0.5 mg PO HS 06/08/18 [History] Gabapentin 600 mg PO BID 06/08/18 [History] Meclizine [Antivert] 12.5 mg PO BID 06/08/18 [History] Montelukast [Singulair] 10 mg PO DAILY 06/08/18 [History] Simvastatin 40 mg PO HS 06/08/18 [History] Clopidogrel Bisulfate [Plavix] 75 mg PO DAILY 07/04/20 [History] Albuterol Inhaler [Ventolin Hfa Inhaler] 1 - 2 puff INHALATION RT-Q6H PRN 07/24/23 [History] Baclofen [Lioresal] 10 mg PO BID PRN 07/24/23 [History] Cholecalciferol (Vitamin D3) [Decara (50,000 Iu)] 1,250 mcg PO MO 07/24/23 [History] atenoloL [Tenormin] 50 mg PO DAILY 07/24/23 [History] ALPRAZolam [Xanax] 0.5 mg PO DAILY PRN 09/26/23 [History] Albuterol Nebulized [Ventolin Nebulized] 2.5 mg INHALATION RT-QID PRN 09/27/23 [History] Budesonide [Pulmicort] 0.5 mg INHALATION RT-BID 09/27/23 [History] Omeprazole 40 mg PO DAILY 11/04/23 [History] oxyCODONE-APAP 10-325MG [Percocet 10-325 mg] 1 tab PO TID PRN 11/04/23 [History] Aspirin 81 mg PO DAILY #30 tab 11/08/23 [Rx] Ipratropium-Albuterol Nebulize [Duoneb 0.5 mg-3 mg/3 ml Soln] 3 ml INHALATION RT-QID #100 each 11/08/23 [Rx] Ipratropium-Albuterol Nebulize [Duoneb 0.5 mg-3 mg/3 ml Soln] 3 ml INHALATION RT-QID PRN each 11/08/23 [Rx] Isosorbide Mononitrate ER [Imdur] 30 mg PO DAILY 30 Days #30 tab 11/08/23 [Rx] Furosemide [Lasix] 40 mg PO DAILY #60 tab 11/22/23 [Rx] Morphine Sulfate Ir [MSIR] 7.5 mg PO BID #0 11/22/23 [Rx] cefUROXime axetiL [Ceftin] 500 mg PO BID 7 Days #14 tab 11/22/23 [Rx] Follow up Appointment(s)/Referral(s): Lilli Joe MD [STAFF PHYSICIAN] - 1 Week Kapil Acosta DO [Primary Care Provider] - 1-2 days [facility] Visiting Nurse, [NON-STAFF] - As Needed Ambulatory/Diagnostic Orders: Comprehensive Metabolic Panel [LAB.AMB] Time Frame: 3 Days, Location: None Selected Patient Instructions/Handouts: Urinary Tract Infection in Women (DC), Sepsis (DC) Activity/Diet/Wound Care/Special Instructions: Activity limited until follow-up Follow-up with primary care provider on discharge Follow-up with pulmonary outpatient Continue with medications as prescribed Continue with antibiotics for 7 days until finished Discharge Disposition: HOME WITH HOME HEALTH SERVICES
[2023-11-23 09:04] VITALS: TEMP 98.9
[2023-11-23 10:18] VITALS: RESP 18
[2023-11-23 12:01] VITALS: BP 146/70; PULSE 79
--- NOTE | 2023-11-23 14:48 | P.PN ---
Subjective Progress Note Date: 11/23/23 Patient is a 78-year-old white female with past medical history significant for severe oxygen dependent COPD, chronic ongoing tobacco dependence, hyperlipidemia, hypertension, and remote history of breast cancer with recent disease recurrence. Patient reportedly had breast cancer over 10 years ago, underwent partial left-sided mastectomy with axillary lymph node dissection followed by chemo/radiation. She does have severe left-sided lymphedema. More recently, she was evaluated by oncology outpatient, she was found to have disease recurrence. She underwent a biopsy of the left breast on 09/09/2023 which was positive for invasive ductal cell carcinoma. She reportedly also had a PET scan done outpatient, which was consistent with diffuse metastasis to the bone, lung and lymph nodes. She is not currently undergoing any treatment, but was supposed to start chemo next week. She had a recent hospital admission 11/03 through 11/07 where she was evaluated for a non-ST elevation MO, fall with fra cture to the left ulna, and was also found to be RSV positive. Technically, the patient is a poor historian. She awakes and answers my questions, but then quickly falls back to sleep. Brain CT on admission did not show any acute intracranial process. There was nonspecific white matter changes, likely chronic small vessel ischemia. Patient apparently presented to emergency room yesterday afternoon complaining mostly of generalized weakness and fatigue. This has been ongoing for 2 to 3 days. She is currently sitting up in bed, on 4 L/min nasal cannula, in no acute distress. Patient denies any specific complaints. Denies any shortness of breath, cough, sputum production, chest tightness/pain, hemoptysis. She appears very fatigued. She does have history of COPD, and is oxygen dependent at baseline on 2 L/min nasal cannula. Chest x- ray on arrival showed a coarsened interstitium, concerning for pulmonary vascular congestion versus interstitial pneumonitis. Negative for influenza, R SV, COVID on this admission. NT proBNP was elevated at 7640. She has been started on Lasix 40 mg daily. Most recent echocardiogram from her previous admission showed a preserved left ventricular ejection fraction of 50 to 55%. CBC on arrival: WBC count 12.9, hemoglobin 13.7, hematocrit 43.2, platelets 215. BMP on arrival: Sodium 134, potassium 4.2, chloride 96, serum bicarb 37, BUN 11, creatinine 0.47, glucose 123. Urinalysis suspicious for UTI, however, patient denies any urinary symptoms. No dysuria, frequency, incomplete emptying, urgency. Patient was placed on Azactam. Afebrile. Vital signs are stable. The patient is seen today November 21, 2023 in follow-up on the regular medical floor. She is currently resting comfortably in bed. Awake and alert in no acute distress. Maintaining O2 saturations in the 90s on 2 L/min per nasal cannula. Initial blood culture was positive for coag negative staph. Suspect contaminant. Urine culture revealed no growth. White count 9.8. Hemoglobin 13.2. Platelets 147. Sodium 134. Potassium 5.3. Bicarb 34. BUN 19. Creatinine 0.48. Glucose 232. She is continued on ceftriaxone. Azactam was discontinued. She remains on bronchodilators. Heparin for DVT prophylaxis. Remains on IV diuretics. Currently net -1.5 L balance The patient is seen today November 22, 2023 in follow-up on the regular medical floor. She is awake and alert in no acute distress. Sitting up in bed. Maintaining O2 saturations in the 90s on 2 L/min per nasal cannula. Follow-up blood cultures pending. Initial blood culture suspect contamination. White count 8.6. Hemoglobin 10.7. Platelets 149. Sodium 138. Potassium 3.8. Bicarb 36. BUN 20. Creatinine 0.6. She remains on ceftriaxone per infectious disease. She remains on bronchodilators. Heparin for DVT prophylaxis. Remains on IV diuretics. The patient is seen today November 23, 2023 in follow-up on the regular medical floor. She is awake and alert in no acute distress. Maintaining good O2 saturations in the 90s on room air. She denies any worsening shortness of breath, cough or congestion. Follow-up blood culture reveals no growth. Urine culture revealed no growth. She is continued on bronchodilators, antibiotics and oral diuretics. Objective - Vital Signs Vital signs: Vital Signs Temp 98.9 F 11/23/23 07:14 Pulse 79 11/23/23 11:58 Resp 18 11/23/23 09:55 BP 146/70 11/23/23 11:48 Pulse Ox 96 11/23/23 09:55 FiO2 40 11/20/23 08:16 Intake & Output 11/22/23 11/23/23 11/23/23 18:59 06:59 18:59 Intake Total 480 Balance 480 Weight 62 kg 63 kg Intake: Oral 480 Other: Voiding Method Toilet # Voids 10 3 # Bowel Movements 1 - Exam GENERAL EXAM: Awake, pleasant 78-year-old female, sitting up in bed, in no acute distress. HEAD: Normocephalic and atraumatic EYES: Normal reaction of pupils, equal size. NOSE: Clear with pink turbinates. THROAT: No erythema or exudates. NECK: No masses, no JVD. CHEST: No chest wall deformity. LUNGS: Equal air entry with markedly diminished lung sounds throughout. no crackles, wheeze, rhonchi or dullness. CVS: S1 and S2 normal with no audible murmur, regular rhythm. No extra heart sounds ABDOMEN: No hepatosplenomegaly, active bowel sounds, no guarding or rigidity. SPINE: No scoliosis or deformity SKIN: No rashes CENTRAL NERVOUS SYSTEM: No focal deficits, tone is normal in all 4 extremities. EXTREMITIES: Severe left arm lymphedema. No clubbing, or cyanosis. Peripheral pulses are intact. - Labs CBC & Chem 7: 11/22/23 05:50 11/22/23 05:50 Labs: Microbiology - Last 24 Hours (Table) 11/21/23 15:13 Blood Culture - Preliminary Blood 11/19/23 16:30 Blood Culture - Preliminary Blood 11/19/23 16:45 Blood Culture Gram Stain - Final Blood Blood Culture - Final Coagulase Negative Staph Assessment and Plan Assessment: Acute on chronic hypoxemic respiratory failure, possibly multifactorial, secondary to acute exacerbation of diastolic congestive heart failure and acute COPD exacerbation. Chest x-ray on arrival showed a coarsened interstitium, concerning for pulmonary vascular congestion versus interstitial pneumonitis. NT proBNP was elevated at 7640. Negative for influenza, RSV, COVID on this admission. Suspected urinary tract infection initially however urine culture negative Altered mental status, currently under investigation, suspect toxic metabolic encephalopathy secondary to above. Brain CT done on arrival does not show any intracranial hemorrhage or mass effect. History of breast cancer, with disease recurrence, left breast biopsy on 09/09/2023 was positive for invasive ductal cell carcinoma. Patient reportedly had a PET scan done outpatient, which was consistent with osseous and lung metastasis. Patient was scheduled to start chemotherapy next week. Left arm lymphedema, secondary to above and previous left mastectomy and lymph node dissection Recent history of fall with left ulnar fracture Recent acute RSV infection History of chronic obstructive pulmonary disease Chronic hypoxemic respiratory failure, secondary to above Chronic ongoing tobacco dependence Hyperlipidemia Hypertension History of peripheral vascular disease, with previous bilateral iliac angioplasty/stenting Chronic lower back pain Plan: The patient was seen and evaluated Medications reviewed Cleared for discharge Plan is for home with home care I have personally seen and examined the patient, performed the documentation and the assessment and plan as written. Number of minutes spent on the visit: 10.
[2023-11-25] MEDS ORDERED: CHOLECALCIFEROL 1250 MCG PO SCH (09:00)
== END 2023-11-23 13:20 | disposition home health service (06) | DRG 871 ==
LOC: EC 13:57 → 4SSUR 16:41 → 2SICU 11-20 06:38 → 4SSUR 11-20 16:22
PROVIDERS: ADMIT Hospitalist; ATTEND Hospitalist
DX: A41.9 Sepsis, unspecified organism (principal); G93.41 Metabolic encephalopathy; I50.33 Acute on chronic diastolic (congestive) heart failure; J15.69 Pneumonia due to other Gram-negative bacteria; J44.1 Chronic obstructive pulmonary disease with (acute) exacerbation; C78.00 Secondary malignant neoplasm of unspecified lung; C79.51 Secondary malignant neoplasm of bone; J44.0 Chronic obstructive pulmonary disease with (acute) lower respiratory infection; N39.0 Urinary tract infection, site not specified; C50.919 Malignant neoplasm of unspecified site of unspecified female breast; Z79.51 Long term (current) use of inhaled steroids; E78.5 Hyperlipidemia, unspecified; G89.3 Neoplasm related pain (acute) (chronic); Z88.0 Allergy status to penicillin; E11.51 Type 2 diabetes mellitus with diabetic peripheral angiopathy without gangrene; I11.0 Hypertensive heart disease with heart failure; I25.2 Old myocardial infarction; I89.0 Lymphedema, not elsewhere classified; M81.0 Age-related osteoporosis without current pathological fracture; Z17.1 Estrogen receptor negative status [ER-]; Z79.02 Long term (current) use of antithrombotics/antiplatelets; M54.50 Low back pain, unspecified; Z79.82 Long term (current) use of aspirin; Z79.899 Other long term (current) drug therapy; Z85.3 Personal history of malignant neoplasm of breast; Z90.12 Acquired absence of left breast and nipple; Z92.3 Personal history of irradiation; Z99.81 Dependence on supplemental oxygen; Z90.49 Acquired absence of other specified parts of digestive tract; Z98.51 Tubal ligation status
CPT/HCPCS: 36415; 36600; 70450; 71045; 80048; 80053; 81001; 82805; 83605; 83735; 83880; 85025; 85610; 85730; 87040; 87086; 87636; 93005; 94640; 94660; 94760; 96365; 96366; 96375; 99291

== ENCOUNTER 2024-01-23 15:13 | Inpatient (IN) | payer MEDICARE ==
[2024-01-23] MEDS: SODIUM CHLORIDE 0.9% 1,000 ML IV ONE (15:41)
[2024-01-23 15:45] LABS: Glucose,Whole Blood 130 mg/dL (70-110)
[2024-01-23 15:46] LABS: Anisocytosis Slight; Basophils # (A) 0.1 k/uL (0-0.2); Basophils % (A) 1 %; Eosinophils # (A) 0.1 k/uL (0-0.7); Eosinophils % (A) 2 %; HGB 13.1 gm/dL (11.4-16.0); Hypochromasia Slight; Lymphocytes # (A) 1.7 k/uL (1.0-4.8); Lymphocytes % (A) 25 %; MCH 35.4 pg (25.0-35.0); Macrocytosis Marked; Mean Platelet Volume 8.1; Monocytes # (A) 0.4 k/uL (0-1.0); Monocytes % (A) 6 %; Neutrophils # (A) 4.4 k/uL (1.3-7.7); Neutrophils % (A) 64 %; Platelet Count 174 k/uL (150-450); RDW 16.4 % (11.5-15.5); WBC 6.9 k/uL (3.8-10.6)
[2024-01-23 15:53] LABS: MCV 110.6 fL (80.0-100.0)
[2024-01-23 16:01] LABS: ALT 7 U/L (4-34); AST 22 U/L (14-36); African American GFR (CKD) 46 (>60 ml/min/1.73 sqM); Albumin 3.6 g/dL (3.5-5.0); Alkaline Phosphatase 93 U/L (38-126); Anion Gap 4 mmol/L; Blood Urea Nitrogen 24 mg/dL (7-17); Calcium 8.3 mg/dL (8.4-10.2); Carbon Dioxide 28 mmol/L (22-30); Chloride 107 mmol/L (98-107); Glucose 122 mg/dL (74-99); Non-African American GFR(CKD) 40 (>60 ml/min/1.73 sqM); Sodium 139 mmol/L (137-145); Total Bilirubin 0.7 mg/dL (0.2-1.3); Total Protein 6.1 g/dL (6.3-8.2)
--- NOTE | 2024-01-23 16:02 | XR ---
EXAMINATION TYPE: XR chest 2V DATE OF EXAM: 01/23/2024 COMPARISON: 11/20/2023 INDICATION: Altered mental status TECHNIQUE: Frontal and lateral views of the chest are obtained. FINDINGS: The heart size is normal. The pulmonary vasculature is normal. The lungs are clear. Stimulator leads are in the midthoracic region. Osseous structures as visualized appear intact. IMPRESSION: 1. No acute pulmonary process.
[2024-01-23 16:04] LABS: Prothrombin Time 10.5 sec (10.0-12.5)
--- NOTE | 2024-01-23 16:16 | ED ---
General Adult HPI - General Chief complaint: Altered Mental Status Stated complaint: AMS Time Seen by Provider: 01/23/24 15:15 Source: EMS Mode of arrival: EMS Limitations: altered mental status - History of Present Illness Initial comments: Jazmyne is a pleasant 78-year-old female with history most significant for known metastatic breast cancer with mets to the lungs and bone, who presents the ER today via EMS for evaluation of altered mental status. reports that yesterday evening the patient had some vomiting and was not doing well. This morning she resumed her oral morphine which she had been on previously but had not taken in some time. reports the patient is just not acting herself, she was difficult to wake up, she isnt eating or drinking. - Related Data Home Medications Medication Instructions Recorded Confirmed ALPRAZolam [Xanax] 0.5 mg PO HS 06/08/18 01/23/24 Gabapentin 600 mg PO BID 06/08/18 01/23/24 Meclizine [Antivert] 12.5 mg PO BID PRN 06/08/18 01/23/24 Montelukast [Singulair] 10 mg PO DAILY 06/08/18 01/23/24 Simvastatin 40 mg PO HS 06/08/18 01/23/24 Clopidogrel Bisulfate [Plavix] 75 mg PO DAILY 07/04/20 01/23/24 Albuterol Inhaler [Ventolin Hfa 1 - 2 puff INHALATION RT-Q6H PRN 07/24/23 01/23/24 Inhaler] Baclofen [Lioresal] 10 mg PO BID PRN 07/24/23 01/23/24 atenoloL [Tenormin] 50 mg PO DAILY 07/24/23 01/23/24 ALPRAZolam [Xanax] 0.5 mg PO DAILY PRN 09/26/23 01/23/24 Albuterol Nebulized [Ventolin 2.5 mg INHALATION RT-QID PRN 09/27/23 01/23/24 Nebulized] Budesonide [Pulmicort] 0.5 mg INHALATION RT-BID 09/27/23 01/23/24 Omeprazole 40 mg PO DAILY 11/04/23 01/23/24 oxyCODONE-APAP 10-325MG [Percocet 1 tab PO TID PRN 11/04/23 01/23/24 10-325 mg] Capecitabine 500mg 1,500 mg PO BID 01/23/24 01/23/24 Magic Mouth Wash 5 ml PO QID PRN 01/23/24 01/23/24 Morphine Sulfate Ir [MSIR] 15 mg PO BID 01/23/24 01/23/24 OLANZapine [ZyPREXA] 2.5 mg PO DAILY PRN 01/23/24 01/23/24 Ondansetron [Zofran] 4 mg PO Q12HR PRN 01/23/24 01/23/24 Previous Rx's Medication Instructions Recorded Aspirin 81 mg PO DAILY #30 tab 11/08/23 Ipratropium-Albuterol Nebulize 3 ml INHALATION RT-QID #100 each 11/08/23 [Duoneb 0.5 mg-3 mg/3 ml Soln] Ipratropium-Albuterol Nebulize 3 ml INHALATION RT-QID PRN each 11/08/23 [Duoneb 0.5 mg-3 mg/3 ml Soln] Isosorbide Mononitrate ER [Imdur] 30 mg PO DAILY 30 Days #30 tab 11/08/23 Allergies Allergy/AdvReac Type Severity Reaction Status Date / Time nickel Allergy Rash/Hives Verified 01/23/24 16:29 Penicillins Allergy Rash/Hives Verified 01/23/24 16:29 Review of Systems ROS Statement: Those systems with pertinent positive or pertinent negative responses have been documented in the HPI. ROS Other: All systems not noted in ROS Statement are negative. Past Medical History Past Medical History: Cancer, COPD, Hyperlipidemia, Hypertension, Osteoarthritis (OA) Additional Past Medical History / Comment(s): breast cancer, osteoporosis, broken pelvis end of apr 2023. 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 LT LUMPECTOMY/WITH 12 LYMPH NODES REMOVED Past Anesthesia/Blood Transfusion Reactions: No Reported Reaction Past Psychological History: Depression Smoking Status: Current every day smoker Past Alcohol Use History: None Reported Past Drug Use History: None Reported - Past Family History Daughter(s) Family Medical History: Cancer General Exam - General Exam Comments Initial Comments: Physical Exam GENERAL: Chronically ill-appearing elderly female HENT: Dry mucous membranes, appears dehydrated EYES: PERRL, EOMI PULMONARY: Mild expiratory wheezing CARDIOVASCULAR: Regular rate and rhythm ABDOMEN: Soft and nontender with normal bowel sounds. SKIN: Skin is clear with no lesions or rashes and otherwise unremarkable. : Deferred NEUROLOGIC: Alert and oriented to person place and events leading to hospitalization MUSCULOSKELETAL: Profound lymphedema of the left arm PSYCHIATRIC: Normal psychiatric evaluation. Limitations: altered mental status Course Vital Signs 01/23/24 01/23/24 01/23/24 15:14 15:19 16:19 Temperature 98.2 F Pulse Rate 113 H 91 87 Respiratory 12 14 18 Rate Blood Pressure 89/79 92/69 93/58 O2 Sat by Pulse 80 L 92 L 96 Oximetry Fraction of Inspired Oxygen (FIO2) 01/23/24 01/23/24 01/23/24 17:15 18:20 20:04 Temperature Pulse Rate 84 59 L Respiratory 18 16 Rate Blood Pressure 103/66 100/55 O2 Sat by Pulse 94 L 90 L Oximetry Fraction of 40 Inspired Oxygen (FIO2) 01/23/24 01/23/24 01/23/24 20:32 21:01 21:11 Temperature Pulse Rate 81 80 Respiratory 14 18 Rate Blood Pressure 108/75 O2 Sat by Pulse 100 Oximetry Fraction of Inspired Oxygen (FIO2) EKG Findings - EKG Comments: EKG Findings:: EKG interpreted by me, EKG obtained at 1518 rate is 92 rhythm is sinus with first-degree AV block KS is 225, QRS 109 QTc 416 T wave inversions are noted with no acute ST elevations. Medical Decision Making - Medical Decision Making Was pt. sent in by a medical professional or institution (Dr. PA, ECONOMIC CONSULTANT, urgent care, hospital, or half-way...) When possible be specific @ -No Did you speak to anyone other than the patient for history (EMS, parent, family, police, friend...)? What history was obtained from this source @ -EMS at bedside Did you review nursing and triage notes (agree or disagree)? Why? @ -I reviewed and agree with nursing and triage notes Were old charts reviewed (outside hosp., previous admission, EMS record, old EKG, old radiological studies, urgent care reports/EKG's, half-way records)? Report findings @ -Yes visits were reviewed Differential Diagnosis (chest pain, altered mental status, abdominal pain women, abdominal pain men, vaginal bleeding, weakness, fever, dyspnea, syncope, headache, dizziness, GI bleed, back pain, seizure, CVA, palpatations, mental health)? @ -Differential Altered Mental Status: Hypoglycemia, DKA, hypercapnia, ETOH, overdose, CO poisoning, trauma, myxedema coma, HTN encephalopathy, infection, encephalitis, psychosis, intercranial hemorrhage, hepatic encephalopathy, meningitis, CVA, this is not meant to be an all-inclusive list EKG interpreted by me (3pts min.). @ -As above X-rays interpreted by me (1pt min.). @ -None done CT interpreted by me (1pt min.). @ -No signs of metastases no bleeds U/S interpreted by me (1pt. min.). @ -None done What testing was considered but not performed or refused? (CT, X-rays, U/S, labs)? Why? @ -None What meds were considered but not given or refused? Why? @ -None Did you discuss the management of the patient with other professionals (professionals i.e. , PA, ECONOMIC CONSULTANT, lab, RT, psych nurse, 7th grade social studies teacher, tracer clerk, teacher, field health officer, showcase trimmer)? Give summary @ -No Was smoking cessation discussed for >3mins.? @ -No Was critical care preformed (if so, how long)? @ -No Were there social determinants of health that impacted care today? How? (Homelessness, low income, unemployed, alcoholism, drug addiction, transportation, low edu. Level, literacy, decrease access to med. care, residential, rehab)? @ -No Was there de-escalation of care discussed even if they declined (Discuss DNR or withdrawal of care, Hospice)? DNR status @ -No What co-morbidities impacted this encounter? (DM, HTN, Smoking, COPD, CAD, Cancer, CVA, ARF, Chemo, Hep., AIDS, mental health diagnosis, sleep apnea, morbid obesity)? @ -Metastatic breast cancer, chronic pain, morbid obesity Was patient admitted / discharged? Hospital course, mention meds given and route, prescriptions, significant lab abnormalities, going to OR and other pertinent info. @ -Admit Patient was seen and evaluated patient appears quite dehydrated and unwell. Patient's baseline oxygen is 3 L/min she was increased to 6. Workup was relatively unremarkable patient has an acute kidney injury she is somewhat dehydrated she is receiving IV fluids. Patient was reevaluated she had an episode of hypoxia and decision was made to give Narcan. Patient then had increased respiratory effort. She was placed on a Ventimask for oxygen supplementation given that she is usually on 3 L nasal cannula. At this time patient will be admitted for acute kidney injury, accidental morphine overdose. Undiagnosed new problem with uncertain prognosis? @ -Yes Drug Therapy requiring intensive monitoring for toxicity (Heparin, Nitro, Insulin, Cardizem)? @ -No Were any procedures done? @ -No Diagnosis/symptom? @ -Acute kidney injury, accidental overdose Acute, or Chronic, or Acute on Chronic? @ -Acute Uncomplicated (without systemic symptoms) or Complicated (systemic symptoms)? @ -Placated Side effects of treatment? @ -No Exacerbation, Progression, or Severe Exacerbation? @ -No Poses a threat to life or bodily function? How? (Chest pain, USA, MS, pneumonia, PE, COPD, DKA, ARF, appy, cholecystitis, CVA, Diverticulitis, Homicidal, Suicidal, threat to staff... and all critical care pts) @ -Yes - Lab Data Result diagrams: 01/23/24 15:37 01/23/24 15:37 Lab Results 01/23/24 01/23/24 01/23/24 Range/Units 15:37 15:37 15:37 WBC 6.9 (3.8-10.6) k/uL RBC 3.70 L (3.80-5.40) m/uL Hgb 13.1 (11.4-16.0) gm/dL Hct 41.0 (34.0-46.0) % MCV 110.6 H D (80.0-100.0) fL MCH 35.4 H (25.0-35.0) pg MCHC 32.0 (31.0-37.0) g/dL RDW 16.4 H (11.5-15.5) % Plt Count 174 (150-450) k/uL MPV 8.1 Neutrophils % 64 % Lymphocytes % 25 % Monocytes % 6 % Eosinophils % 2 % Basophils % 1 % Neutrophils # 4.4 (1.3-7.7) k/uL Lymphocytes # 1.7 (1.0-4.8) k/uL Monocytes # 0.4 (0-1.0) k/uL Eosinophils # 0.1 (0-0.7) k/uL Basophils # 0.1 (0-0.2) k/uL Manual Slide Review Performed Large Platelets Present Polychromasia Present Hypochromasia Slight Anisocytosis Slight Macrocytosis Marked A PT 10.5 (10.0-12.5) sec INR 1.0 (<1.2) APTT 22.0 (22.0-30.0) sec Sodium (137-145) mmol/L Potassium (3.5-5.1) mmol/L Chloride (98-107) mmol/L Carbon Dioxide (22-30) mmol/L Anion Gap mmol/L BUN (7-17) mg/dL Creatinine (0.52-1.04) mg/dL Est GFR (CKD-EPI)AfAm (>60 ml/min/1.73 sqM) Est GFR (CKD-EPI)NonAf (>60 ml/min/1.73 sqM) Glucose (74-99) mg/dL POC Glucose (mg/dL) (70-110) mg/dL POC Glu Entry Level Account Representative ID Calcium (8.4-10.2) mg/dL Total Bilirubin (0.2-1.3) mg/dL AST (14-36) U/L ALT (4-34) U/L Alkaline Phosphatase (38-126) U/L Total Protein (6.3-8.2) g/dL Albumin (3.5-5.0) g/dL Urine Opiates Screen Detected H (NotDetected) Ur Oxycodone Screen Detected H (NotDetected) Urine Methadone Screen Not Detected (NotDetected) Ur Barbiturates Screen Not Detected (NotDetected) U Tricyclic Antidepress Not Detected (NotDetected) Ur Phencyclidine Scrn Not Detected (NotDetected) Ur Amphetamines Screen Not Detected (NotDetected) U Methamphetamines Scrn Not Detected (NotDetected) U Benzodiazepines Scrn Detected H (NotDetected) Urine Cocaine Screen Not Detected (NotDetected) U Marijuana (THC) Screen Not Detected (NotDetected) 01/23/24 01/23/24 Range/Units 15:37 15:43 WBC (3.8-10.6) k/uL RBC (3.80-5.40) m/uL Hgb (11.4-16.0) gm/dL Hct (34.0-46.0) % MCV (80.0-100.0) fL MCH (25.0-35.0) pg MCHC (31.0-37.0) g/dL RDW (11.5-15.5) % Plt Count (150-450) k/uL MPV Neutrophils % % Lymphocytes % % Monocytes % % Eosinophils % % Basophils % % Neutrophils # (1.3-7.7) k/uL Lymphocytes # (1.0-4.8) k/uL Monocytes # (0-1.0) k/uL Eosinophils # (0-0.7) k/uL Basophils # (0-0.2) k/uL Manual Slide Review Large Platelets Polychromasia Hypochromasia Anisocytosis Macrocytosis PT (10.0-12.5) sec INR (<1.2) APTT (22.0-30.0) sec Sodium 139 (137-145) mmol/L Potassium 5.0 (3.5-5.1) mmol/L Chloride 107 (98-107) mmol/L Carbon Dioxide 28 (22-30) mmol/L Anion Gap 4 mmol/L BUN 24 H (7-17) mg/dL Creatinine 1.29 H (0.52-1.04) mg/dL Est GFR (CKD-EPI)AfAm 46 (>60 ml/min/1.73 sqM) Est GFR (CKD-EPI)NonAf 40 (>60 ml/min/1.73 sqM) Glucose 122 H (74-99) mg/dL POC Glucose (mg/dL) 130 H (70-110) mg/dL POC Glu Entry Level Account Representative ID OscarDonna parra Calcium 8.3 L (8.4-10.2) mg/dL Total Bilirubin 0.7 (0.2-1.3) mg/dL AST 22 (14-36) U/L ALT 7 (4-34) U/L Alkaline Phosphatase 93 (38-126) U/L Total Protein 6.1 L (6.3-8.2) g/dL Albumin 3.6 (3.5-5.0) g/dL Urine Opiates Screen (NotDetected) Ur Oxycodone Screen (NotDetected) Urine Methadone Screen (NotDetected) Ur Barbiturates Screen (NotDetected) U Tricyclic Antidepress (NotDetected) Ur Phencyclidine Scrn (NotDetected) Ur Amphetamines Screen (NotDetected) U Methamphetamines Scrn (NotDetected) U Benzodiazepines Scrn (NotDetected) Urine Cocaine Screen (NotDetected) U Marijuana (THC) Screen (NotDetected) Disposition Clinical Impression: Altered mental status, Breast cancer, LISA (acute kidney injury), Accidental overdose of morphine Disposition: ADMITTED IP TO THIS HOSP Is patient prescribed a controlled substance at d/c from ED?: No
[2024-01-23 16:27] LABS: Large Platelets Present; Polychromasia Present
[2024-01-23] MEDS: SODIUM CHLORIDE 0.9% 500 ML 500 ML IV ONE (16:44)
--- NOTE | 2024-01-23 16:46 | CT ---
EXAMINATION TYPE: CT brain wo con DATE OF EXAM: 01/23/2024 COMPARISON: INDICATION: AMS known metastatic breast ca DLP: 1046.4 mGycm, Automated exposure control for dose reduction was used. CONTRAST: None CT of the brain is performed utilizing 3 mm thick sections through the posterior fossa and 3 mm thick sections through the remaining calvarium. Study is performed within 24 hours of arrival to the hosp ital. No abnormal hyperdensity is present to suggest an acute intracranial hemorrhage. No mass lesion is evident. No calvarial defects are evident. No vasogenic edema is evident. No acute infarcts are evident. There is some mild nonspecific hypodensity which can be related to chr onic white matter ischemic changes. Ventricles and sulci are appropriate for the patient age. Paranasal sinuses and mastoid air cells within the [id number] are clear. IMPRESSION: 1. No acute intracranial process. Follow-up MRI can be performed as clinically indicated. 2. No suspicious intracranial process to suggest intracranial metastasis. 3. There may be some mild scattered microvascular ischemic type changes present.
[2024-01-23 17:36] LABS: Amphetamine Screen,Urine Not Detected (NotDetected); Barbiturate Screen,Urine Not Detected (NotDetected); Benzodiazepines Screen,Urine Detected (NotDetected); Cocaine Screen,Urine Not Detected (NotDetected); Methadone Screen, Urine Not Detected (NotDetected); Opiate Screen,Urine Detected (NotDetected); Oxycodone Screen, Urine Detected (NotDetected); Phencyclidine Screen,Urine Not Detected (NotDetected); Tricyclic Antidepressant,Urine Not Detected (NotDetected); Urn Cannabinoid Scrn Not Detected (NotDetected)
[2024-01-23] MEDS ORDERED: NALOXONE 0.4 MG/ML 1 ML VIAL IV PRN (20:12)
[2024-01-23] MEDS: NALOXONE 0.4 MG/ML 1 ML VIAL IVP STA (20:32)
[2024-01-23] MEDS: IPRATROPIUM-ALBUTEROL 3 ML NEB INHALATION STA (20:58)
[2024-01-24] MEDS ORDERED: OLANZapine 2.5 MG TAB PO PRN (10:05)
[2024-01-24] MEDS ORDERED: MECLIZINE 12.5 MG TAB PO PRN (10:05)
[2024-01-24] MEDS ORDERED: BACLOFEN 10 MG TAB PO PRN (10:05)
[2024-01-24] MEDS ORDERED: ALPRAZolam 0.5 MG TAB PO PRN (10:05)
[2024-01-24] MEDS ORDERED: ONDANSETRON 4 MG TAB PO PRN (10:05)
[2024-01-24 11:03] LABS: Appearance,Urine Clear (Clear); Bilirubin,Urine Negative (Negative); Blood,Urine Negative (Negative); Color,Urine Colorless; Glucose,Urine (UA) Negative (Negative); Ketones,Urine Negative (Negative); Leukocyte Esterase,Urine Negative (Negative); Nitrite,Urine Negative (Negative); PH, Urine 5.5 (5.0-8.0); Protein,Urine Negative (Negative); Specific Gravity,Urine 1.009 (1.001-1.035); Urobilinogen,Urine <2.0 mg/dL (<2.0)
[2024-01-24 11:05] LABS: C Reactive Protein 3.9 mg/dL (<1.0)
[2024-01-24] MEDS: ASPIRIN 81 MG PO SCH (11:16)
[2024-01-24] MEDS: CLOPIDOGREL 75 MG TAB PO SCH (11:16)
[2024-01-24] MEDS: atenoloL 50 MG TAB PO SCH (11:22)
[2024-01-24 12:17] LABS: T4, Free (Free Thyroxine) 1.15 ng/dL (0.78-2.19)
--- NOTE | 2024-01-24 13:04 | XR ---
EXAMINATION TYPE: XR Hip Complete LT DATE OF EXAM: 01/24/2024 COMPARISON: NONE HISTORY: Pain TECHNIQUE: 2 views submitted FINDINGS: There is marked heterogeneous pattern to the pubic rami with evidence of fracture of the superior and inferior pubic ramus with incomplete healing. Heterogeneous pattern with colon question the possibil ity of underlying marrow occupying process. Moderate hip arthropathy. Tiny spur along the greater trochanter. Soft tissue ossification also noted adjacent to the greater trochanter. Vascular calcifications are noted and there is partial inclusion of a metallic stent on the oblique image. IMPRESSION: 1. There is a fracture of the superior and inferior pubic rami. Marked heterogeneous mineralization i s seen. Recommend CT scan.
--- NOTE | 2024-01-24 13:05 | XR ---
EXAMINATION TYPE: XR knee complete LT DATE OF EXAM: 01/24/2024 COMPARISON: NONE HISTORY: Pain TECHNIQUE: Three views are submitted. FINDINGS: Mild demineralization. Mild narrowing of the patellofemoral and medial compartment joint space.. Oss eous structures are intact. No acute fracture seen. IMPRESSION: 1. No acute fracture or dislocation.
--- NOTE | 2024-01-24 13:24 | P.HPIM ---
History of Present Illness H&P Date: 01/24/24 History of present illness; patient 78-year-old lady with past medical history significant for metastatic breast cancer who presented to ER for altered mental status. Patient's history is limited and most of it has been obtained from the EMR. According to patient he noted that the patient was not acting her normal self for the last day. Patient was lethargic and difficult to arouse. Patient was not eating and drinking. There was complaint nausea and vomiting. Patient is on pain medication and had taken her oral morphine this morning. There was no complaint of chest pain or shortness of breath. There is no complaint of orthopnea or PND. There was no complaint of altered bowel movements. Initial lab work done in the ER showed WBC 6.9, hemoglobin 13.1, platelet count 174, sodium 139, potassium 5, BUN 24, creatinine 1.29, glucose 122 AST 22, ALT 7 Urine drug screen positive for opioids, benzos, oxycodone Chest x-ray done in the ER showed no acute pulmonary process CT head done showed no acute intracranial process Patient admitted to internal medicine service REVIEW OF SYSTEMS: CONSTITUTIONAL: No fever, no malaise, no fatigue. HEENT: No recent visual problems or hearing problems. Denied any sore throat. CARDIOVASCULAR: No chest pain, orthopnea, PND, no palpitations, no syncope. PULMONARY: No shortness of breath, no cough, no hemoptysis. GASTROINTESTINAL: No diarrhea, no nausea, no vomiting, no abdominal pain. NEUROLOGICAL: No headaches, no weakness, no numbness. HEMATOLOGICAL: Denies any bleeding or petechiae. GENITOURINARY: Denies any burning micturition, frequency, or urgency. MUSCULOSKELETAL/RHEUMATOLOGICAL: Denies any joint pain, swelling, or any muscle pain. ENDOCRINE: Denies any polyuria or polydipsia. The rest of the 14-point review of systems is negative. PHYSICAL EXAMINATION: GENERAL: The patient is alert, chronically ill looking HEENT: Pupils are round and equally reacting to light. EOMI. No scleral icterus. No conjunctival pallor. Normocephalic, atraumatic. No pharyngeal erythema. No thyromegaly. CARDIOVASCULAR: S1 and S2 present. No murmurs, rubs, or gallops. PULMONARY: Chest is clear to auscultation, no wheezing or crackles. ABDOMEN: Soft, nontender, nondistended, normoactive bowel sounds. No palpable organomegaly. MUSCULOSKELETAL: No joint swelling or deformity. EXTREMITIES: No cyanosis, clubbing, or pedal edema. NEUROLOGICAL: Gross neurological examination did not reveal any focal deficits. SKIN: No rashes. Assessment and plan Acute metabolic encephalopathy Acute on chronic hypoxic respiratory failure Acute COPD exacerbation Chronic hypoxic respiratory failure, wears 2 to 3 L outpatient Metastatic breast cancer with painful bone metastasis status post radiation Chronic lymphedema of the left upper extremity Monitor vital signs Monitor CBC Monitor CMP Continue telemetry monitoring Continue supplementation Continue breathing treatments Started IV Solu-Medrol Ordered CRP, Pro-Umesh, ESR Ordered UA Judicious use of pain medications Consult pulmonary Consult hematology oncology Labs and medication were reviewed.. Continue same treatment. Continue with symptomatic treatment. Resume home medication. Monitor labs and vitals. DVT and GI prophylaxis. Further recommendations as per clinical course of the patient Dictation was produced using [employer] dictation software. please excuse any gramma tical, word or spelling errors. Past Medical History Past Medical History: Cancer, COPD, Hyperlipidemia, Hypertension, Osteoarthritis (OA) Additional Past Medical History / Comment(s): breast cancer, osteoporosis, broken pelvis end of apr 2023. 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 LT LUMPECTOMY/WITH 12 LYMPH NODES REMOVED Past Anesthesia/Blood Transfusion Reactions: No Reported Reaction Past Psychological History: Depression Smoking Status: Current every day smoker Past Alcohol Use History: None Reported Past Drug Use History: None Reported - Past Family History Daughter(s) Family Medical History: Cancer Medications and Allergies Home Medications Medication Instructions Recorded Confirmed Type ALPRAZolam [Xanax] 0.5 mg PO HS 06/08/18 01/23/24 History Gabapentin 600 mg PO BID 06/08/18 01/23/24 History Meclizine [Antivert] 12.5 mg PO BID PRN 06/08/18 01/23/24 History Montelukast [Singulair] 10 mg PO DAILY 06/08/18 01/23/24 History Simvastatin 40 mg PO HS 06/08/18 01/23/24 History Clopidogrel Bisulfate [Plavix] 75 mg PO DAILY 07/04/20 01/23/24 History Albuterol Inhaler [Ventolin Hfa 1 - 2 puff INHALATION RT-Q6H PRN 07/24/23 01/23/24 History Inhaler] Baclofen [Lioresal] 10 mg PO BID PRN 07/24/23 01/23/24 History atenoloL [Tenormin] 50 mg PO DAILY 07/24/23 01/23/24 History ALPRAZolam [Xanax] 0.5 mg PO DAILY PRN 09/26/23 01/23/24 History Albuterol Nebulized [Ventolin 2.5 mg INHALATION RT-QID PRN 09/27/23 01/23/24 History Nebulized] Budesonide [Pulmicort] 0.5 mg INHALATION RT-BID 09/27/23 01/23/24 History Omeprazole 40 mg PO DAILY 11/04/23 01/23/24 History oxyCODONE-APAP 10-325MG [Percocet 1 tab PO TID PRN 11/04/23 01/23/24 History 10-325 mg] Aspirin 81 mg PO DAILY #30 tab 11/08/23 01/23/24 Rx Ipratropium-Albuterol Nebulize 3 ml INHALATION RT-QID #100 each 11/08/23 01/23/24 Rx [Duoneb 0.5 mg-3 mg/3 ml Soln] Ipratropium-Albuterol Nebulize 3 ml INHALATION RT-QID PRN each 11/08/23 01/23/24 Rx [Duoneb 0.5 mg-3 mg/3 ml Soln] Isosorbide Mononitrate ER [Imdur] 30 mg PO DAILY 30 Days #30 tab 11/08/23 01/23/24 Rx Capecitabine 500mg 1,500 mg PO BID 01/23/24 01/23/24 History Magic Mouth Wash 5 ml PO QID PRN 01/23/24 01/23/24 History Morphine Sulfate Ir [MSIR] 15 mg PO BID 01/23/24 01/23/24 History OLANZapine [ZyPREXA] 2.5 mg PO DAILY PRN 01/23/24 01/23/24 History Ondansetron [Zofran] 4 mg PO Q12HR PRN 01/23/24 01/23/24 History Allergies Allergy/AdvReac Type Severity Reaction Status Date / Time nickel Allergy Rash/Hives Verified 01/23/24 16:29 Penicillins Allergy Rash/Hives Verified 01/23/24 16:29 Physical Exam Vitals: Vital Signs Temp Pulse Pulse Resp BP BP Pulse Ox 01/24/24 09:05 89 20 125/82 97 01/24/24 07:00 96 18 109/48 100 01/24/24 06:51 95 18 117/55 97 01/24/24 05:00 97 18 120/56 97 01/24/24 01:00 85 16 115/55 98 01/23/24 21:11 80 18 108/75 100 01/23/24 21:01 81 01/23/24 20:32 14 01/23/24 20:04 01/23/24 18:20 59 L 16 100/55 90 L 01/23/24 17:15 84 18 103/66 94 L 01/23/24 16:19 87 18 93/58 96 01/23/24 15:19 98.2 F 91 14 92/69 92 L 01/23/24 15:14 113 H 12 89/79 80 L FiO2 01/24/24 09:05 01/24/24 07:00 01/24/24 06:51 01/24/24 05:00 01/24/24 01:00 01/23/24 21:11 01/23/24 21:01 01/23/24 20:32 01/23/24 20:04 40 01/23/24 18:20 01/23/24 17:15 01/23/24 16:19 01/23/24 15:19 01/23/24 15:14 Intake and Output 01/23/24 01/24/24 01/24/24 22:59 06:59 14:59 Output Total 500 Balance -500 Output: Urine 500 Other: Voiding Method External Catheter Weight 72.575 kg Results CBC & Chem 7: 01/23/24 15:37 01/23/24 15:37 Labs: Abnormal Lab Results - Last 24 Hours (Table) 01/23/24 01/23/24 01/23/24 Range/Units 15:37 15:37 15:37 RBC 3.70 L (3.80-5.40) m/uL MCV 110.6 H D (80.0-100.0) fL MCH 35.4 H (25.0-35.0) pg RDW 16.4 H (11.5-15.5) % Macrocytosis Marked A BUN 24 H (7-17) mg/dL Creatinine 1.29 H (0.52-1.04) mg/dL Glucose 122 H (74-99) mg/dL POC Glucose (mg/dL) (70-110) mg/dL Calcium 8.3 L (8.4-10.2) mg/dL Total Protein 6.1 L (6.3-8.2) g/dL Urine Opiates Screen Detected H (NotDetected) Ur Oxycodone Screen Detected H (NotDetected) U Benzodiazepines Scrn Detected H (NotDetected) 01/23/24 Range/Units 15:43 RBC (3.80-5.40) m/uL MCV (80.0-100.0) fL MCH (25.0-35.0) pg RDW (11.5-15.5) % Macrocytosis BUN (7-17) mg/dL Creatinine (0.52-1.04) mg/dL Glucose (74-99) mg/dL POC Glucose (mg/dL) 130 H (70-110) mg/dL Calcium (8.4-10.2) mg/dL Total Protein (6.3-8.2) g/dL Urine Opiates Screen (NotDetected) Ur Oxycodone Screen (NotDetected) U Benzodiazepines Scrn (NotDetected)
--- NOTE | 2024-01-24 16:53 | P.CNPUL ---
History of Present Illness Consult date: 01/24/24 Requesting physician: Phu Reeder Reason for consult: dyspnea, COPD Chief complaint: Altered mental status, shortness of breath History of present illness: This is a 78-year-old female patient with a known history of severe oxygen dependent chronic obstructive pulmonary disease, chronic ongoing tobacco dependence, hypertension, hyperlipidemia, remote history of breast cancer with previous partial left-sided mastectomy and axillary lymph node dissection followed by chemoradiation. She does have severe left-sided lymphedema. She was found to have recurrence and was positive for invasive ductal cell carcinoma in August 2023. Most recent PET scan showed diffuse metastatic disease to the bones, lungs and lymph nodes. The patient follows with oncology and planned to be on Enhertu. She presented here to the emergency room yesterday afternoon with altered mental status according to her . There was some concern regarding accidental overdose on her morphine. She had been difficult to arouse and was not eating or drinking. CT scan of the brain revealed no acute intracranial process. No suspicious intracranial metastasis. Chest x-ray revealed no acute pulmonary process. White count 6.9. Hemoglobin 13.1. Platelets 174. Sodium 139. Potassium 5.0. Bicarb 28. BUN 24. Creatinine 1.29. Glucose 122. Urinalysis clean. Urine drug screen positive for opiates, oxycodone and benzodiazepines. She is seen today in consultation in the emergency department. She is currently resting on a stretcher. Awake and alert but confused to time and place. Unaware of how she ended up here in the hospital. She is maintaining O2 saturations in the 90s on 2 L/min per nasal cannula. She is afebrile. Hemodynamically stable. She has been initiated on Symbicort, Singulair and Solu-Medrol. Review of Systems ROS unobtainable: due to mental status Past Medical History Past Medical History: Cancer, COPD, Hyperlipidemia, Hypertension, Osteoarthritis (OA) Additional Past Medical History / Comment(s): breast cancer, osteoporosis, broken pelvis end of apr 2023. 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 LT LUMPECTOMY/WITH 12 LYMPH NODES REMOVED Past Anesthesia/Blood Transfusion Reactions: No Reported Reaction Past Psychological History: Depression Smoking Status: Current every day smoker Past Alcohol Use History: None Reported Past Drug Use History: None Reported - Past Family History Daughter(s) Family Medical History: Cancer Medications and Allergies Home Medications Medication Instructions Recorded Confirmed Type ALPRAZolam [Xanax] 0.5 mg PO HS 06/08/18 01/23/24 History Gabapentin 600 mg PO BID 06/08/18 01/23/24 History Meclizine [Antivert] 12.5 mg PO BID PRN 06/08/18 01/23/24 History Montelukast [Singulair] 10 mg PO DAILY 06/08/18 01/23/24 History Simvastatin 40 mg PO HS 06/08/18 01/23/24 History Clopidogrel Bisulfate [Plavix] 75 mg PO DAILY 07/04/20 01/23/24 History Albuterol Inhaler [Ventolin Hfa 1 - 2 puff INHALATION RT-Q6H PRN 07/24/23 01/23/24 History Inhaler] Baclofen [Lioresal] 10 mg PO BID PRN 07/24/23 01/23/24 History atenoloL [Tenormin] 50 mg PO DAILY 07/24/23 01/23/24 History ALPRAZolam [Xanax] 0.5 mg PO DAILY PRN 09/26/23 01/23/24 History Albuterol Nebulized [Ventolin 2.5 mg INHALATION RT-QID PRN 09/27/23 01/23/24 History Nebulized] Budesonide [Pulmicort] 0.5 mg INHALATION RT-BID 09/27/23 01/23/24 History Omeprazole 40 mg PO DAILY 11/04/23 01/23/24 History oxyCODONE-APAP 10-325MG [Percocet 1 tab PO TID PRN 11/04/23 01/23/24 History 10-325 mg] Aspirin 81 mg PO DAILY #30 tab 11/08/23 01/23/24 Rx Ipratropium-Albuterol Nebulize 3 ml INHALATION RT-QID #100 each 11/08/23 01/23/24 Rx [Duoneb 0.5 mg-3 mg/3 ml Soln] Ipratropium-Albuterol Nebulize 3 ml INHALATION RT-QID PRN each 11/08/23 01/23/24 Rx [Duoneb 0.5 mg-3 mg/3 ml Soln] Isosorbide Mononitrate ER [Imdur] 30 mg PO DAILY 30 Days #30 tab 11/08/23 01/23/24 Rx Capecitabine 500mg 1,500 mg PO BID 01/23/24 01/23/24 History Magic Mouth Wash 5 ml PO QID PRN 01/23/24 01/23/24 History Morphine Sulfate Ir [MSIR] 15 mg PO BID 01/23/24 01/23/24 History OLANZapine [ZyPREXA] 2.5 mg PO DAILY PRN 01/23/24 01/23/24 History Ondansetron [Zofran] 4 mg PO Q12HR PRN 01/23/24 01/23/24 History Allergies Allergy/AdvReac Type Severity Reaction Status Date / Time nickel Allergy Rash/Hives Verified 01/23/24 16:29 Penicillins Allergy Rash/Hives Verified 01/23/24 16:29 Physical Exam Vitals: Vital Signs Temp Pulse Pulse Resp BP BP Pulse Ox 01/24/24 12:00 98.3 F 64 14 116/44 93 L 01/24/24 09:05 89 20 125/82 97 01/24/24 07:00 96 18 109/48 100 01/24/24 06:51 95 18 117/55 97 01/24/24 05:00 97 18 120/56 97 01/24/24 01:00 85 16 115/55 98 01/23/24 21:11 80 18 108/75 100 01/23/24 21:01 81 01/23/24 20:32 14 01/23/24 20:04 01/23/24 18:20 59 L 16 100/55 90 L 01/23/24 17:15 84 18 103/66 94 L FiO2 01/24/24 12:00 01/24/24 09:05 01/24/24 07:00 01/24/24 06:51 01/24/24 05:00 01/24/24 01:00 01/23/24 21:11 01/23/24 21:01 01/23/24 20:32 01/23/24 20:04 40 01/23/24 18:20 01/23/24 17:15 Intake and Output 01/24/24 01/24/24 01/24/24 06:59 14:59 22:59 Output Total 700 Balance -700 Output: Urine 700 Other: Voiding Method External Catheter # Voids 1 GENERAL EXAM: Alert, alert, confused 78-year-old female, on 2 L nasal cannula, fairly comfortable in no apparent distress. HEAD: Normocephalic. EYES: Normal reaction of pupils, equal size. NOSE: Clear with pink turbinates. THROAT: No erythema or exudates. NECK: No masses, no JVD. CHEST: No chest wall deformity. LUNGS: Equal air entry with no crackles, wheeze, rhonchi or dullness. CVS: S1 and S2 normal with no audible murmur, regular rhythm. ABDOMEN: No hepatosplenomegaly, normal bowel sounds, no guarding or rigidity. SPINE: No scoliosis or deformity SKIN: No rashes CENTRAL NERVOUS SYSTEM: No focal deficits, tone is normal in all 4 extremities. EXTREMITIES: There is no peripheral edema. No clubbing, no cyanosis. Peripheral pulses are intact. Results - Laboratory Findings CBC and BMP: 01/23/24 15:37 01/23/24 15:37 PT/INR, D-dimer PT 10.5 sec (10.0-12.5) 01/23/24 15:37 INR 1.0 (<1.2) 01/23/24 15:37 Abnormal lab findings: Abnormal Labs 01/23/24 01/23/24 01/23/24 15:37 15:37 15:37 RBC 3.70 L MCV 110.6 H D MCH 35.4 H RDW 16.4 H Macrocytosis Marked A BUN 24 H Creatinine 1.29 H Glucose 122 H POC Glucose (mg/dL) Calcium 8.3 L C-Reactive Protein Total Protein 6.1 L TSH Urine Opiates Screen Detected H Ur Oxycodone Screen Detected H U Benzodiazepines Scrn Detected H 01/23/24 01/24/24 15:43 10:41 RBC MCV MCH RDW Macrocytosis BUN Creatinine Glucose POC Glucose (mg/dL) 130 H Calcium C-Reactive Protein 3.9 H Total Protein TSH 0.421 L Urine Opiates Screen Ur Oxycodone Screen U Benzodiazepines Scrn - Diagnostic Findings Chest x-ray: image reviewed Assessment and Plan Assessment: Altered mental status possibly secondary to accidental overdose of pain medications. Drug screen positive for opiates, oxycodone and benzodiazepines. CT scan of the brain negative for acute process or metastatic disease Metastatic breast cancer to the bones, lung and multiple lymph nodes. Was to be on Enhertu pending insurance authorization Left arm lymphedema secondary previous left mastectomy with lymph node dissection Chronic hypoxemic respiratory failure secondary to COPD and diastolic congestive heart failure Chronic obstructive pulmonary disease, currently in active and stable, chest x- ray reveals no acute pulmonary Chronic tobacco dependence Hypertension Hyperlipidemia Peripheral vascular disease with previous bilateral iliac angioplasty/stenting Chronic pain syndrome Plan: The patient was seen and evaluated Chest x-ray, CT scan of the brain, labs and medications reviewed Suspect accidental overdose of narcotics Currently awake and alert yet confused COPD inactive and stable No need for steroids Continue bronchodilators We will continue to follow and make further recommendations based on her clinical status I have personally seen and examined the patient, performed the documentation and the assessment and plan as written. Number of minutes spent on the visit: 20.
[2024-01-24] MEDS: methylPREDNISolone SOD SUCCI 40 MG/ML 1 ML VIAL IV SCH (17:17)
[2024-01-24] MEDS: oxyCODONE-APAP 10-325MG 1 EACH TAB PO PRN (18:44)
[2024-01-24] MEDS: ALPRAZolam 0.5 MG TAB PO SCH (20:37)
[2024-01-24] MEDS: ATORVASTATIN 20 MG TAB PO SCH (20:37)
[2024-01-24] MEDS: IPRATROPIUM-ALBUTEROL 3 ML NEB INHALATION SCH (20:55)
[2024-01-24] MEDS: SYMBICORT 160-4.5 MCG INHALER INHALATION SCH (20:55)
[2024-01-25] MEDS ORDERED: ALBUTEROL NEBULIZED 2.5 MG/3 ML INHALATION PRN (02:38)
[2024-01-25] MEDS: IPRATROPIUM-ALBUTEROL 3 ML NEB INHALATION PRN (03:08)
--- NOTE | 2024-01-25 08:18 | P.CNOR ---
History of Present Illness - [facility] Consult date: 01/25/24 Consult reason: other (Pubic rami fractures) History of present illness: The patient is a 78-year-old female with a significant history of metastatic breast cancer, COPD, hyperlipidemia, and hypertension who presented to the emergency department with altered mental status due to suspected accidental morphine overdose. The patient is known to our office and has seen Dr. Kenji Grajeda last April and May 2023 for left-sided pubic rami fractures with a possible pathologic component. The patient was confirmed to have metastatic breast cancer in August 2023. Her initial injury was in March where she fell straight on her tailbone. Initially she did not have pain but after 3 weeks the pain developed and localized to the groin area. Orthopedics was consulted for further evaluation of these pubic rami fractures on this hospital admission. Today, the patient is able to answer simple questions but is on a high flow oxygen at this time and difficult to fully arouse. Nursing staff states that lisa manuel has been up to the bedside commode for the midnight shift with no complaints of left hip or groin pain. The patient states this morning that she has pain everywhere and cannot localize it just to her left hip at this time. No family is at the bedside this morning. Review of Systems ROS unobtainable: due to mental status Past Medical History Past Medical History: Cancer, COPD, Hyperlipidemia, Hypertension, Osteoarthritis (OA) Additional Past Medical History / Comment(s): breast cancer, osteoporosis, broken pelvis end of apr 2023. 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 LT LUMPECTOMY/WITH 12 LYMPH NODES REMOVED Past Anesthesia/Blood Transfusion Reactions: No Reported Reaction Past Psychological History: Depression Smoking Status: Current every day smoker Past Alcohol Use History: None Reported Additional Past Alcohol Use History / Comment(s): SMOKES 1 PPD SINCE AGE 17 Past Drug Use History: None Reported - Past Family History Daughter(s) Family Medical History: Cancer Medications and Allergies Home Medications Medication Instructions Recorded Confirmed Type ALPRAZolam [Xanax] 0.5 mg PO HS 06/08/18 01/23/24 History Gabapentin 600 mg PO BID 06/08/18 01/23/24 History Meclizine [Antivert] 12.5 mg PO BID PRN 06/08/18 01/23/24 History Montelukast [Singulair] 10 mg PO DAILY 06/08/18 01/23/24 History Simvastatin 40 mg PO HS 06/08/18 01/23/24 History Clopidogrel Bisulfate [Plavix] 75 mg PO DAILY 07/04/20 01/23/24 History Albuterol Inhaler [Ventolin Hfa 1 - 2 puff INHALATION RT-Q6H PRN 07/24/23 01/23/24 History Inhaler] Baclofen [Lioresal] 10 mg PO BID PRN 07/24/23 01/23/24 History atenoloL [Tenormin] 50 mg PO DAILY 07/24/23 01/23/24 History ALPRAZolam [Xanax] 0.5 mg PO DAILY PRN 09/26/23 01/23/24 History Albuterol Nebulized [Ventolin 2.5 mg INHALATION RT-QID PRN 09/27/23 01/23/24 History Nebulized] Budesonide [Pulmicort] 0.5 mg INHALATION RT-BID 09/27/23 01/23/24 History Omeprazole 40 mg PO DAILY 11/04/23 01/23/24 History oxyCODONE-APAP 10-325MG [Percocet 1 tab PO TID PRN 11/04/23 01/23/24 History 10-325 mg] Aspirin 81 mg PO DAILY #30 tab 11/08/23 01/23/24 Rx Ipratropium-Albuterol Nebulize 3 ml INHALATION RT-QID #100 each 11/08/23 01/23/24 Rx [Duoneb 0.5 mg-3 mg/3 ml Soln] Ipratropium-Albuterol Nebulize 3 ml INHALATION RT-QID PRN each 11/08/23 01/23/24 Rx [Duoneb 0.5 mg-3 mg/3 ml Soln] Isosorbide Mononitrate ER [Imdur] 30 mg PO DAILY 30 Days #30 tab 11/08/23 01/23/24 Rx Capecitabine 500mg 1,500 mg PO BID 01/23/24 01/23/24 History Magic Mouth Wash 5 ml PO QID PRN 01/23/24 01/23/24 History Morphine Sulfate Ir [MSIR] 15 mg PO BID 01/23/24 01/23/24 History OLANZapine [ZyPREXA] 2.5 mg PO DAILY PRN 01/23/24 01/23/24 History Ondansetron [Zofran] 4 mg PO Q12HR PRN 01/23/24 01/23/24 History Allergies Allergy/AdvReac Type Severity Reaction Status Date / Time nickel Allergy Rash/Hives Verified 01/23/24 16:29 Penicillins Allergy Rash/Hives Verified 01/23/24 16:29 Physical Examination The patient is a 78 year old female who is slightly lethargic and oriented x1. The patient's head is normocephalic and atraumatic. Exam of the right upper extremitiy reveal no obvious deformities or pain upon range of motion. There is severe lymphedema to the left arm. Exam of the bilateral lower extremities reveals no point tenderness upon palpation. No pain upon palpation to the lateral hips or to AP and lateral compression of the pelvis. Patient has good foot and ankle motion bilaterally. Neurological and circulatory status is intact. Results X-ray of the left hip dated 01/24/2024 reveals old healed superior and inferior pubic rami fracture that appears to be stable compared to previous x-rays in our office and at [facility]. CT of the pelvis dated 06/11/2023 reveals a inferior medial left pubic rami fracture with diffuse moth-eaten appearance of the pelvis concerning for metastatic disease. - Labs Labs: Abnormal Lab Results - Last 24 Hours (Table) 01/24/24 01/24/24 Range/Units 10:30 10:41 C-Reactive Protein 3.9 H (<1.0) mg/dL Procalcitonin 0.17 H (0.02-0.09) ng/mL TSH 0.421 L (0.465-4.680) mIU/L H & H 01/23/24 Range/Units 15:37 Hgb 13.1 (11.4-16.0) gm/dL Hct 41.0 (34.0-46.0) % Coagulation 01/23/24 Range/Units 15:37 INR 1.0 (<1.2) Result Diagrams: 01/23/24 15:37 01/23/24 15:37 Assessment and Plan (1) Pubic ramus fracture Current Visit: Yes Status: Acute Code(s): S32.599A - OTH FRACTURE OF UNSP PUBIS, INIT ENCNTR FOR CLOSED FRACTURE SNOMED Code(s): 5027075888 (2) Altered mental status Current Visit: Yes Status: Acute Code(s): R41.82 - ALTERED MENTAL STATUS, UNSPECIFIED SNOMED Code(s): 023431046 (3) Breast cancer Current Visit: Yes Status: Acute Priority: Medium Code(s): C50.919 - MALIGNANT NEOPLASM OF UNSP SITE OF UNSPECIFIED FEMALE BREAST SNOMED Code(s): 089389837 Plan: The clinical and x-ray findings were discussed with the nursing staff this morning. The case was discussed with Dr. Trevizo. These fractures are old and were previously treated in the fall of 2022. The patient does not seem to have localized pain to the left hip and has diffuse pain throughout her body, most likely due to her advanced metastatic disease. Continue pain management per the internal medicine and oncology team. The patient may weight-bear as tolerated to the left lower extremity and may ambulate as tolerated. We will sign off at this time but would be happy to reevaluate the patient if her hip/leg pain changes or worsens.
--- NOTE | 2024-01-25 09:18 | P.CONS ---
History of Present Illness - Reason for Consult Consult date: 01/24/24 breast cancer Requesting physician: Phu Reeder - Chief Complaint AMS - History of Present Illness Jazmyne is a pleasant 78-year-old female who at the time of her routine ma mmogram was found to have a mass in the left breast that was palpated by the pharmaceutical laboratory technician. The mass was not detected on the mammogram however, it was seen on the ultrasound. This led to a biopsy of the left breast under ultrasound guidance which was positive for IDC, histologic grade II. The tumor on initial biopsy was triple negative. She had left partial mastectomy and axillary node dissection on 10/17/12. Path positive for infiltrating, moderately differentiated, ductal carcinoma, 2.5 cm with 1/10 lymph nodes positive for metastatic disease. She had treatment on clinical trial (B49) completing 6 cycles of chemotherapy with Taxotere/Cytoxan, had radiation after chemo and completed that 05/29/13. Pt has persistent lymphedema in the left arm. She did not f/u with Surgery or Medical Onc. She was seen as a referral in Jul 2023. Referred after CTA of CAP done by Vascular surgery to evaluate aorta, reported multiple new bilateral pulmonary nodules (largest 1.5 cm LLL), the patient has advanced O2-dependent COPD, stated having baseline activity-limiting COPD (In wheelchair). She had c/o excessive fatigue, back & pelvic pain, as well as, lt breast nipple inversion. Biopsy of left breast lesion: ER/AK -/- [id number] +1. Staging PET showed diffuse metastatic disease, more in bones but included lung & multiple lymph nodes. She was scheduled to start treatment with keytruda and abraxane but PDL1 testing was negative so patient was started on Xeloda. She began her 3rd cycle approx 4-5 days ago. After cycle 2 patient was experiencing nausea, diarrhea and decreased appetite. Xeloda was held for an additional 3 days to allow adequate recovery between cycles and anti-emetics were adjusted and olanzapine was added. Patient presented to the emergency room with n/v, and AMS. She had restarted Xeloda last week and states she was feeling improved since she was last seen in clinic, but Saturday night began experiencing n/v and oral intake. noted she had been "more out of it" at which time he brought her into the ER for further evaluation. Of note, pt is on PO morphine at home and had run out of medication and was off of morphine for a couple days prior to onset of symptoms. On admission chest x-ray was negative for acute pulmonary processes. CT brain showed no acute intracranial processes. No suspicious intracranial process to suggest intracranial metastasis. CBC showing WBC 6.9, hemoglobin 13.1, platelets 174,000. Bilirubin and LFTs WNL. Ammonia less than 9. Creatinine elevated at 1.29, GFR 40. UA negative for UTI. Patient is afebrile, was mildly hypotensive on admission, BP now stable. Patient has been given IV hydration in the ER. At today's visit patient reports vomiting has resolved but is still experiencing mild nausea. Denies diarrhea and abdominal pain. She states she took her last dose of Xeloda on Saturday morning, but did not take her p.m. dose that day due to symptom onset. When discussing her use of antiemetics as previously discussed and adjusted in clinic on 01/13, she reports she stopped taking the olanzapine and only used it once and had not used Zofran when she started to have nausea and vomiting. Review of Systems 10 point ROS is negative except as stated in the HPI Past Medical History Past Medical History: Cancer, COPD, Hyperlipidemia, Hypertension, Osteoarthritis (OA) Additional Past Medical History / Comment(s): breast cancer, osteoporosis, broken pelvis end of apr 2023. 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 LT LUMP ECTOMY/WITH 12 LYMPH NODES REMOVED Past Anesthesia/Blood Transfusion Reactions: No Reported Reaction Past Psychological History: Depression Smoking Status: Current every day smoker Past Alcohol Use History: None Reported Past Drug Use History: None Reported - Past Family History Daughter(s) Family Medical History: Cancer Medications and Allergies Home Medications Medication Instructions Recorded Confirmed Type ALPRAZolam [Xanax] 0.5 mg PO HS 06/08/18 01/23/24 History Gabapentin 600 mg PO BID 06/08/18 01/23/24 History Meclizine [Antivert] 12.5 mg PO BID PRN 06/08/18 01/23/24 History Montelukast [Singulair] 10 mg PO DAILY 06/08/18 01/23/24 History Simvastatin 40 mg PO HS 06/08/18 01/23/24 History Clopidogrel Bisulfate [Plavix] 75 mg PO DAILY 07/04/20 01/23/24 History Albuterol Inhaler [Ventolin Hfa 1 - 2 puff INHALATION RT-Q6H PRN 07/24/23 History Inhaler] Baclofen [Lioresal] 10 mg PO BID PRN 07/24/23 01/23/24 History atenoloL [Tenormin] 50 mg PO DAILY 07/24/23 01/23/24 History ALPRAZolam [Xanax] 0.5 mg PO DAILY PRN 09/26/23 01/23/24 History Albuterol Nebulized [Ventolin 2.5 mg INHALATION RT-QID PRN 09/27/23 01/23/24 H istory Nebulized] Budesonide [Pulmicort] 0.5 mg INHALATION RT-BID 09/27/23 01/23/24 History Omeprazole 40 mg PO DAILY 11/04/23 01/23/24 History oxyCODONE-APAP 10-325MG [Percocet 1 tab PO TID PRN 11/04/23 01/23/24 History 10-325 mg] Aspirin 81 mg PO DAILY #30 tab 11/08/23 01/23/24 Rx Ipratropium-Albuterol Nebulize 3 ml INHALATION RT-QID #100 each 11/08/23 01/23/24 Rx [Duoneb 0.5 mg-3 mg/3 ml Soln] Ipratropium-Albuterol Nebulize 3 ml INHALATION RT-QID PRN each 11/08/23 01/23/24 Rx [Duoneb 0.5 mg-3 mg/3 ml Soln] Isosorbide Mononitrate ER [Imdur] 30 mg PO DAILY 30 Days #30 tab 11/08/23 01/23/24 Rx Capecitabine 500mg 1,500 mg PO BID 01/23/24 01/23/24 History Magic Mouth Wash 5 ml PO QID PRN 01/23/24 01/23/24 History Morphine Sulfate Ir [MSIR] 15 mg PO BID 01/23/24 01/23/24 History OLANZapine [ZyPREXA] 2.5 mg PO DAILY PRN 01/23/24 01/23/24 History Ondansetron [Zofran] 4 mg PO Q12HR PRN 01/23/24 01/23/24 History Allergies Allergy/AdvReac Type Severity Reaction Status Date / Time nickel Allergy Rash/Hives Verified 01/23/24 16:29 Penicillins Allergy Rash/Hives Verified 01/23/24 16:29 Physical Exam Vitals: Vital Signs Temp Pulse Pulse Resp BP BP Pulse Ox 01/24/24 09:05 89 20 125/82 97 01/24/24 07:00 96 18 109/48 100 01/24/24 06:51 95 18 117/55 97 01/24/24 05:00 97 18 120/56 97 01/24/24 01:00 85 16 115/55 98 01/23/24 21:11 80 18 108/75 100 01/23/24 21:01 81 01/23/24 20:32 14 01/23/24 20:04 01/23/24 18:20 59 L 16 100/55 90 L 01/23/24 17:15 84 18 103/66 94 L 01/23/24 16:19 87 18 93/58 96 01/23/24 15:19 98.2 F 91 14 92/69 92 L 01/23/24 15:14 113 H 12 89/79 80 L FiO2 01/24/24 09:05 01/24/24 07:00 01/24/24 06:51 01/24/24 05:00 01/24/24 01:00 01/23/24 21:11 01/23/24 21:01 01/23/24 20:32 01/23/24 20:04 40 01/23/24 18:20 01/23/24 17:15 01/23/24 16:19 01/23/24 15:19 01/23/24 15:14 Intake and Output 01/23/24 01/24/24 01/24/24 22:59 06:59 14:59 Output Total 700 Balance -700 Output: Urine 700 Other: Voiding Method External Catheter # Voids 1 Weight 72.575 kg - Constitutional General appearance: average body habitus, no acute distress - EENT Eyes: anicteric sclerae, EOMI ENT: hearing grossly normal - Respiratory Respiratory: bilateral: diminished - Cardiovascular Rhythm: regular - Gastrointestinal General gastrointestinal: soft, no tenderness - Integumentary Integumentary: no cyanotic - Musculoskeletal Musculoskeletal: generalized weakness - Psychiatric Psychiatric: A&O x's 3 Results CBC & Chem 7: 01/23/24 15:37 01/23/24 15:37 Labs: Abnormal Lab Results - Last 24 Hours (Table) 01/23/24 01/23/24 01/23/24 Range/Units 15:37 15:37 15:37 RBC 3.70 L (3.80-5.40) m/uL MCV 110.6 H D (80.0-100.0) fL MCH 35.4 H (25.0-35.0) pg RDW 16.4 H (11.5-15.5) % Macrocytosis Marked A BUN 24 H (7-17) mg/dL Creatinine 1.29 H (0.52-1.04) mg/dL Glucose 122 H (74-99) mg/dL POC Glucose (mg/dL) (70-110) mg/dL Calcium 8.3 L (8.4-10.2) mg/dL C-Reactive Protein (<1.0) mg/dL Total Protein 6.1 L (6.3-8.2) g/dL TSH (0.465-4.680) mIU/L Urine Opiates Screen Detected H (NotDetected) Ur Oxycodone Screen Detected H (NotDetected) U Benzodiazepines Scrn Detected H (NotDetected) 01/23/24 01/24/24 Range/Units 15:43 10:41 RBC (3.80-5.40) m/uL MCV (80.0-100.0) fL MCH (25.0-35.0) pg RDW (11.5-15.5) % Macrocytosis BUN (7-17) mg/dL Creatinine (0.52-1.04) mg/dL Glucose (74-99) mg/dL POC Glucose (mg/dL) 130 H (70-110) mg/dL Calcium (8.4-10.2) mg/dL C-Reactive Protein 3.9 H (<1.0) mg/dL Total Protein (6.3-8.2) g/dL TSH 0.421 L (0.465-4.680) mIU/L Urine Opiates Screen (NotDetected) Ur Oxycodone Screen (NotDetected) U Benzodiazepines Scrn (NotDetected) Chest x-ray: report reviewed CT Scan - head: report reviewed Assessment and Plan (1) LISA (acute kidney injury) Current Visit: Yes Status: Acute Priority: High Code(s): N17.9 - ACUTE KIDNEY FAILURE, UNSPECIFIED SNOMED Code(s): 02483515 (2) Altered mental status Current Visit: Yes Status: Acute Priority: High Code(s): R41.82 - ALTERED MENTAL STATUS, UNSPECIFIED SNOMED Code(s): 261398478 (3) Breast cancer Current Visit: Yes Status: Acute Priority: Medium Code(s): C50.919 - MALIGNANT NEOPLASM OF UNSP SITE OF UNSPECIFIED FEMALE BREAST SNOMED Code(s): 825866562 Plan: N/V, dehydration, confusion: Presented with weakness, n/v and AMS. She had previous admissions for the same. She had restarted Xeloda last week and states she was feeling improved since she was last seen in clinic, but Saturday night began experiencing n/v and oral intake. noted she had been "more out of it" at which time he brought her into the ER for further evaluation. Of note, pt is on PO morphine at home and had run out of medication and was off of morphine for a couple days prior to onset of symptoms. -On admission chest x-ray was negative for acute pulmonary processes. CT brain showed no acute intracranial processes. No suspicious intracranial process to suggest intracranial metastasis. -CBC showing WBC 6.9, hemoglobin 13.1, platelets 174,000. Bilirubin and LFTs WNL. Ammonia less than 9. Creatinine elevated at 1.29, GFR 40. UA negative for UTI. Patient is afebrile. -Continue IV hydration and prn anti-emetics -Reported symptoms could be multifactorial from withdrawal from opiates as patient ran out of medications and was off of them for the days leading up to her symptoms, as well as AE from Xeloda. -Will hold Xeloda until patient acutely recovers Breast cancer -Full oncological history in [facility] -Started cycle 3 Xeloda 5 days ago. Will hold Xeloda until patient acute recovers -Clinic f/u scheduled for 02/03, with Dr. Pena Doctor attests: I performed a history and physical examination of this patient, developed impression and plan of care. Discussed with dictator. I agree with dictators note, documented as a scribe
[2024-01-25] MEDS: MONTELUKAST 10 MG TAB PO SCH (10:03)
[2024-01-25] MEDS: PANTOPRAZOLE 40 MG TABLET PO SCH (10:03)
--- NOTE | 2024-01-25 12:20 | P.PN ---
Subjective Progress Note Date: 01/25/24 Principal diagnosis: Altered mental status, multifactorial This is a 78-year-old female patient with a known history of severe oxygen dependent chronic obstructive pulmonary disease, chronic ongoing tobacco dependence, hypertension, hyperlipidemia, remote history of breast cancer with previous partial left-sided mastectomy and axillary lymph node dissection followed by chemoradiation. She does have severe left-sided lymphedema. She was found to have recurrence and was positive for invasive ductal cell carcinoma in August 2023. Most recent PET scan showed diffuse metastatic disease to the bones, lungs and lymph nodes. The patient follows with oncology and planned to be on Enhertu. She presented here to the emergency room yesterday afternoon with altered mental status according to her . There was some concern regarding accidental overdose on her morphine. She had been difficult to arouse and was not eating or drinking. CT scan of the brain revealed no acute intracranial process. No suspicious intracranial metastasis. Chest x-ray revealed no acute pulmonary process. White count 6.9. Hemoglobin 13.1. Platelets 174. Sodium 139. Potassium 5.0. Bicarb 28. BUN 24. Creatinine 1.29. Glucose 122. Urinalysis clean. Urine drug screen positive for opiates, oxycodone and benzodiazepines. She is seen today in consultation in the emergency department. She is currently resting on a stretcher. Awake and alert but confused to time and place. Unaware of how she ended up here in the hospital. She is maintaining O2 saturations in the 90s on 2 L/min per nasal cannula. She is afebrile. Hemodynamically stable. She has been initiated on Symbicort, Singulair and Solu-Medrol. Patient was evaluated today on 01/25/24, doing better, hardly any cough wheezing or shortness of breath, her mental status seems to be much better today compared to her presentation. Remains on oxygen, remains on bronchodilators/Her usual meds for COPD and did not feel the need for steroids/prednisone Objective - Vital Signs Vital signs: Vital Signs Temp 97.3 F L 01/25/24 12:00 Pulse 87 01/25/24 12:00 Resp 18 01/25/24 12:00 BP 117/67 01/25/24 12:00 Pulse Ox 94 L 01/25/24 12:00 FiO2 40 01/23/24 20:04 Intake & Output 01/24/24 01/25/24 01/25/24 18:59 06:59 18:59 Intake Total 10 237 128 Output Total 700 Balance -690 237 128 Weight 72.575 kg Intake: IV 10 10 Invasive Line 1 10 10 Oral 237 [id number] Output: Urine 700 Other: Voiding Method External Catheter Bedside Commode External Catheter # Voids 1 1 1 # Bowel Movements 1 1 - Exam GENERAL EXAM: Reveals 78-year-old female in no distress, on 2 L nasal cannula HEAD: Normocephalic. EYES: Normal reaction of pupils, equal size. NOSE: Clear with pink turbinates. THROAT: No erythema or exudates. NECK: No masses, no JVD. CHEST: No chest wall deformity. LUNGS: Minich breath sound bilaterally no crackles rhonchi or wheezes CVS: S1 and S2 normal with no audible murmur, regular rhythm. ABDOMEN: No hepatosplenomegaly, normal bowel sounds, no guarding or rigidity. SKIN: No rashes CENTRAL NERVOUS SYSTEM: Alert and oriented x 3 no gross focal deficit EXTREMITIES: Clubbing edema or cyanosis - Labs CBC & Chem 7: 01/23/24 15:37 01/23/24 15:37 Labs: Abnormal Lab Results - Last 24 Hours (Table) 01/24/24 Range/Units 10:30 Procalcitonin 0.17 H (0.02-0.09) ng/mL Assessment and Plan Assessment: Pression: Altered mental status possibly secondary to accidental overdose of pain medications. Drug screen positive for opiates, oxycodone and benzodiazepines. Metastatic breast cancer to the bones, lung and multiple lymph nodes. Was to be on Enhertu pending insurance authorization CT of the brain was nondiagnostic Left arm lymphedema secondary previous left mastectomy with lymph node diss ection Chronic hypoxemic respiratory failure secondary to COPD and diastolic congestive heart failure Chronic obstructive pulmonary disease, severe but relatively stable Chronic tobacco dependence Hypertension Hyperlipidemia Peripheral vascular disease with previous bilateral iliac angioplasty/stenting Chronic pain syndrome Recommendation: Continue present supportive care measures, Continue present bronchodilators, Again no need for Solu-Medrol or prednisone Consider discharge planning once the patient is cleared by other consultants her initial presentation was mostly a presentation of altered mental status. Will continue to follow while inpatient for her COPD Time with Patient: Less than 30
--- NOTE | 2024-01-25 12:22 | P.PN ---
Subjective Progress Note Date: 01/25/24 patient 78-year-old lady with past medical history significant for metastatic breast cancer who presented to ER for altered mental status. Patient's history is limited and most of it has been obtained from the EMR. According to patient he noted that the patient was not acting her normal self for the last day. Patient was lethargic and difficult to arouse. Patient was not eating and drinking. There was complaint nausea and vomiting. Patient is on pain medication and had taken her oral morphine this morning. There was no complaint of chest pain or shortness of breath. There is no complaint of orthopnea or PND. There was no complaint of altered bowel movements. Initial lab work done in the ER showed WBC 6.9, hemoglobin 13.1, platelet count 174, sodium 139, potassium 5, BUN 24, creatinine 1.29, glucose 122 AST 22, ALT 7 Urine drug screen positive for opioids, benzos, oxycodone Chest x-ray done in the ER showed no acute pulmonary process CT head done showed no acute intracranial process Patient admitted to internal medicine service 01/24. Patient seen and examined. Still complaining of hip pain on the left side. Shortness of breath is improved. Currently on 3 L of oxygen REVIEW OF SYSTEMS: CONSTITUTIONAL: No fever, no malaise,. CARDIOVASCULAR: No chest pain, no palpitations, no syncope. PULMONARY: No shortness of breath, no cough, GASTROINTESTINAL: No diarrhea, no nausea, no vomiting, no abdominal pain. NEUROLOGICAL: No headaches, no weakness, PHYSICAL EXAMINATION: GENERAL: The patient is alert and oriented x3, not in any acute distress. Ill looking HEENT: Pupils are round and equally reacting to light. EOMI. No scleral icterus. No conjunctival pallor. Normocephalic, atraumatic. No pharyngeal erythema. No thyromegaly. CARDIOVASCULAR: S1 and S2 present. No murmurs, rubs, or gallops. PULMONARY: Coarse breath sounds bilaterally, no wheezing or crackles. ABDOMEN: Soft, nontender, nondistended, normoactive bowel sounds. No palpable organomegaly. MUSCULOSKELETAL: No joint swelling or deformity. EXTREMITIES: No cyanosis, clubbing chronic lymphedema of left upper extremity NEUROLOGICAL: Gross neurological examination did not reveal any focal deficits. SKIN: No rashes. 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 Continue same treatment. Continue with symptomatic treatment. Resume home medication. Monitor labs and vitals. DVT and GI prophylaxis. Further recommendations as per clinical course of the patient Dictation was produced using [employer] dictation software. please excuse any grammatical, word or spelling errors. Objective - Vital Signs Vital signs: Vital Signs Temp 97.3 F L 01/25/24 12:00 Pulse 87 01/25/24 12:00 Resp 18 01/25/24 12:00 BP 117/67 01/25/24 12:00 Pulse Ox 94 L 01/25/24 12:00 FiO2 40 01/23/24 20:04 Intake & Output 01/24/24 01/25/24 01/25/24 18:59 06:59 18:59 Intake Total 10 237 128 Output Total 700 Balance -690 237 128 Weight 72.575 kg Intake: IV 10 10 Invasive Line 1 10 10 Oral 237 118 Output: Urine 700 Other: Voiding Method External Catheter Bedside Commode Bedside Commode External Catheter External Catheter # Voids 1 1 1 # Bowel Movements 1 1 - Labs CBC & Chem 7: 01/23/24 15:37 01/23/24 15:37 Labs: Abnormal Lab Results - Last 24 Hours (Table) 01/24/24 Range/Units 10:30 Procalcitonin 0.17 H (0.02-0.09) ng/mL
--- NOTE | 2024-01-26 09:18 | P.CNNES ---
History of Present Illness Consult date: 01/25/24 Requesting physician: Mandie Anderson Reason for Consult: AMS History of Present Illness: Patient is a 78-year-old right-handed female with history of COPD, hypertension, metastatic breast cancer, came to the hospital by ambulance on 01/23/2024 at 3:13 PM for altered mental status. Patient's was also present, who provided with a history as well. Patient's mentions that she was doing fine on Saturday night. She did throw up and cleared. On morning, patient's could not get her to fully awake and was almost "out of it", therefore he called the ambulance. There were no focal symptoms like focal facial droop, numbness tingling or weakness. When EMS came, that her oxygen was very low, blood pressure was low and was placed on oxygen. Patient does have oxygen at home, and uses it as needed but not too often. As per EMS flowsheet when they arrived, patient was laying supine in the bed and very hard to arouse on oxygen at 3 L/min applied by fire department personnel due to initial oxygen saturation 75% on room air. Patient's has mentioned that patient was sleeping and when he came in to check on her, she would open her eyes but did not respond to him. stated that patient started taking oral morphine 10 mg yesterday for pain management due to history of bone cancer. Initial blood pressure was 78/14 in supine position. Blood glucose 164 mg/dL. Pupils were equal, round and reacting. Patient started to respond to EMS personnel and stated that she was very weak and tired. Also complaining of severe thirst. Patient denied any chest pain abdominal pain, nausea vomiting or neurodeficits. 20-gauge IV was established in the right wrist with NS bolus initiated. Patient was given 2.5 mg albuterol via an empty with improvement in breathing and saturation. Her repeat blood pressure was 117/60. Patient has been afebrile since she arrived to the hospital. Blood test shows normal WBC, hemoglobin with MCV elevated 110.6. Platelets are normal. PT PTT normal, electrolytes are normal BUN 24, creatinine 1.29. Hepatic panel is normal TSH is 0.421, free T4 is normal 1.15. UA negative. Urine drug screen positive for opiate, oxycodone, benzodiazepine. CT head revealed no acute intracranial process. Follow-up MRI can be performed as clinically indicated. No suspicious intracranial process to suggest intracranial metastasis. There may be some mild scattered microvascular ischemic type changes noted. I personally reviewed CT head, agree with the findings. Chest x-ray normal. Knee x-ray normal. Hip x-ray there is fracture of the superior and inferior pubic rami. Mild heterogeneous mineralization is seen. Recommend CT. Patient's previous CT of the abdomen pelvis revealed remote injuries of the pelvis including left superior and inferior pubic rami as well as the right inferior pubic ramus. Patient has history of COPD, hypertension, denies diabetes. No history of strokes or TIA. She does have sleep apnea. Patient has smoked 1 pack per day most of her life. She says "I'm trying" when asked about quitting. Patient has been under a lot of stress since her son on 01/06/2024 from [place]. Bunny benson has history of stage IV breast cancer, with metastasis to the bones. She drinks alcohol "very very little". Patient states that last night she was feeling fine, but today she does not feel good. Patient follows up with Dr. Herr for pain control, patient does have a pain pump implanted. Review of Systems Constitutional: Denies chills, Denies fever Eyes: bilateral blurred vision, denies diplopia, denies pain, denies loss of vision Ears: deny: decreased hearing, ear discharge Ears, nose, mouth and throat: Reports headache (Every now and then), Reports vertigo (For long time), Denies sore throat Cardiovascular: Reports shortness of breath, Denies chest pain Respiratory: Reports cough, Reports excessive sputum Gastrointestinal: Reports abdominal pain, Reports diarrhea, Reports nausea, Reports vomiting Genitourinary: Reports dysuria (Just a little yesterday), Denies urge incontinence Musculoskeletal: Reports low back pain, Reports neck pain Integumentary: Denies pruritus, Denies rash Neurological: Reports as per HPI Psychiatric: Reports anxiety, Reports depression Hematologic/Lymphatic: Reports easy bleeding, Reports easy bruising Past Medical History Past Medical History: Cancer, COPD, Hyperlipidemia, Hypertension, Osteoarthritis (OA) Additional Past Medical History / Comment(s): breast cancer, osteoporosis, broken pelvis end of apr 2023. 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 LT LUMPECTOMY/WITH 12 LYMPH NODES REMOVED Past Anesthesia/Blood Transfusion Reactions: No Reported Reaction Past Psychological History: Depression Smoking Status: Current every day smoker Past Alcohol Use History: None Reported Past Drug Use History: None Reported - Past Family History Daughter(s) Family Medical History: Cancer Medications and Allergies Home Medications Medication Instructions Recorded Confirmed Type ALPRAZolam [Xanax] 0.5 mg PO HS 06/08/18 01/23/24 History Gabapentin 600 mg PO BID 06/08/18 01/23/24 History Meclizine [Antivert] 12.5 mg PO BID PRN 06/08/18 01/23/24 History Montelukast [Singulair] 10 mg PO DAILY 06/08/18 01/23/24 History Simvastatin 40 mg PO HS 06/08/18 01/23/24 History Clopidogrel Bisulfate [Plavix] 75 mg PO DAILY 07/04/20 01/23/24 History Albuterol Inhaler [Ventolin Hfa 1 - 2 puff INHALATION RT-Q6H PRN 07/24/23 01/23/24 History Inhaler] Baclofen [Lioresal] 10 mg PO BID PRN 07/24/23 01/23/24 History atenoloL [Tenormin] 50 mg PO DAILY 07/24/23 01/23/24 History ALPRAZolam [Xanax] 0.5 mg PO DAILY PRN 09/26/23 01/23/24 History Albuterol Nebulized [Ventolin 2.5 mg INHALATION RT-QID PRN 09/27/23 01/23/24 History Nebulized] Budesonide [Pulmicort] 0.5 mg INHALATION RT-BID 09/27/23 01/23/24 History Omeprazole 40 mg PO DAILY 11/04/23 01/23/24 History oxyCODONE-APAP 10-325MG [Percocet 1 tab PO TID PRN 11/04/23 01/23/24 History 10-325 mg] Aspirin 81 mg PO DAILY #30 tab 11/08/23 01/23/24 Rx Ipratropium-Albuterol Nebulize 3 ml INHALATION RT-QID #100 each 11/08/23 01/23/24 Rx [Duoneb 0.5 mg-3 mg/3 ml Soln] Ipratropium-Albuterol Nebulize 3 ml INHALATION RT-QID PRN each 11/08/23 01/23/24 Rx [Duoneb 0.5 mg-3 mg/3 ml Soln] Isosorbide Mononitrate ER [Imdur] 30 mg PO DAILY 30 Days #30 tab 11/08/23 01/23/24 Rx Capecitabine 500mg 1,500 mg PO BID 01/23/24 01/23/24 History Magic Mouth Wash 5 ml PO QID PRN 01/23/24 01/23/24 History Morphine Sulfate Ir [MSIR] 15 mg PO BID 01/23/24 01/23/24 History OLANZapine [ZyPREXA] 2.5 mg PO DAILY PRN 01/23/24 01/23/24 History Ondansetron [Zofran] 4 mg PO Q12HR PRN 01/23/24 01/23/24 History Allergies Allergy/AdvReac Type Severity Reaction Status Date / Time nickel Allergy Rash/Hives Verified 01/23/24 16:29 Penicillins Allergy Rash/Hives Verified 01/23/24 16:29 Physical Examination - Vital Signs Vital Signs: Vital Signs Temp Pulse Pulse Resp BP BP Pulse Ox 01/25/24 15:34 74 01/25/24 12:00 97.3 F L 87 18 117/67 94 L 01/25/24 11:21 72 01/25/24 11:09 74 01/25/24 08:13 76 01/25/24 08:06 79 20 123/67 100 01/25/24 07:58 78 97 01/25/24 03:50 98.1 F 72 21 105/45 97 01/25/24 03:08 87 01/24/24 23:39 98.1 F 68 18 100/58 94 L 01/24/24 21:05 85 01/24/24 20:55 82 01/24/24 20:00 97.9 F 75 19 125/63 93 L 01/24/24 18:34 98.1 F 67 19 116/50 99 01/24/24 17:20 98.2 F 66 19 114/38 96 Intake and Output 01/25/24 01/25/24 01/25/24 06:59 14:59 22:59 Intake Total 246 Balance 246 Intake: IV 10 Invasive Line 1 10 Oral 236 Other: Voiding Method Bedside Commode Bedside Commode External Catheter External Catheter # Voids 1 1 # Bowel Movements 1 Patient is an elderly female, who appears in mild short of breath and using oxygen. Patient is alert awake oriented to time place and person. She says it is December and the year is 2023 and that she is in [facility] in [place] and knows name of the current president Mr. Medina. Speech and language functions are normal. Patient can name and repeat very well. No aphasia or dysarthria. Attention, concentration and fund of knowledge is adequate. On cranial nerve examination, pupils are equal, round and reacting to light, visual martinez are full on confrontation, with no neglect on double simultaneous stimulation. Extraocular muscles are intact with no nystagmus. Face is symmetric, tongue protrudes to the midline. Palatal elevation and sensation normal, hearing and shoulder shrug normal, facial sensation normal. On muscle strength testing, there is no pronator drift and the strength is liliana l in arms and legs distally and proximally. Patient has significant lymphedema of the left upper extremity. This is present for last 13 years. Deep tendon reflexes are asymmetric (right/left) biceps 1+/0, brachioradialis 1+/0, knees 1/1 and plantars downgoing. Sensory to touch is equal with no neglect on double simultaneous stimulation. Cerebellar function showed no ataxia for [id number] testing. No dysdiadochokinesia. No ataxia for [id number] testing on either side. Tone and bulk of muscles normal. Gait deferred.. On general examination, there is no carotid bruit or murmur, S1-S2 audible. Chest is clear on consultation. Abdomen is soft nontender. No organomegaly, bowel sounds present. Peripheral pulses are present. Patient has significant left upper arm lymphedema. Results - Laboratory Findings CBC and BMP: 01/23/24 15:37 01/23/24 15:37 Abnormal Lab Findings: Abnormal Labs 01/23/24 01/23/24 01/23/24 15:37 15:37 15:37 RBC 3.70 L MCV 110.6 H D MCH 35.4 H RDW 16.4 H Macrocytosis Marked A BUN 24 H Creatinine 1.29 H Glucose 122 H POC Glucose (mg/dL) Calcium 8.3 L C-Reactive Protein Total Protein 6.1 L Procalcitonin TSH Urine Opiates Screen Detected H Ur Oxycodone Screen Detected H U Benzodiazepines Scrn Detected H 01/23/24 01/24/24 01/24/24 15:43 10:30 10:41 RBC MCV MCH RDW Macrocytosis BUN Creatinine Glucose POC Glucose (mg/dL) 130 H Calcium C-Reactive Protein 3.9 H Total Protein Procalcitonin 0.17 H TSH 0.421 L Urine Opiates Screen Ur Oxycodone Screen U Benzodiazepines Scrn Assessment and Plan Assessment: * Altered mental status, likely due to metabolic encephalopathy. Patient was significantly hypoxemic and hypotensive, likely resulting in altered mentation. At present her mentation is perfectly normal. * COPD exacerbation * Metastatic breast cancer * Left upper extremity lymphedema * Hypertension * Hyperlipidemia * Osteoporosis * History of pelvic fracture end of April 2023 * Presence of pain pump Plan: * Patient's altered mental status was likely due to transient encephalopathy due to reasons mentioned above. Her examination is completely nonfocal. * No other neurological workup indicated. * Medical management as per IM and other specialties. * Neurology will sign off. Please reconsult neurology if any concerns. Thank you for the consult.
[2024-01-26 10:17] LABS: Anisocytosis Slight; Basophils % (A) 0 %; Eosinophils # (A) 0.3 k/uL (0-0.7); Eosinophils % (A) 5 %; HCT 32.4 % (34.0-46.0); HGB 10.4 gm/dL (11.4-16.0); Hypochromasia Slight; Lymphocytes # (A) 1.2 k/uL (1.0-4.8); Lymphocytes % (A) 23 %; MCH 35.5 pg (25.0-35.0); MCHC 32.1 g/dL (31.0-37.0); MCV 110.8 fL (80.0-100.0); Macrocytosis Marked; Mean Platelet Volume 8.3; Monocytes # (A) 0.4 k/uL (0-1.0); Monocytes % (A) 7 %; Neutrophils # (A) 3.2 k/uL (1.3-7.7); Neutrophils % (A) 62 %; Platelet Count 126 k/uL (150-450); RBC 2.93 m/uL (3.80-5.40); RDW 16.5 % (11.5-15.5); WBC 5.2 k/uL (3.8-10.6)
[2024-01-26 10:36] LABS: ALT <6 U/L (4-34); AST 19 U/L (14-36); African American GFR (CKD) >90 (>60 ml/min/1.73 sqM); Albumin 2.7 g/dL (3.5-5.0); Alkaline Phosphatase 80 U/L (38-126); Anion Gap -1 mmol/L; Blood Urea Nitrogen 6 mg/dL (7-17); Calcium 8.4 mg/dL (8.4-10.2); Carbon Dioxide 32 mmol/L (22-30); Chloride 109 mmol/L (98-107); Glucose 114 mg/dL (74-99); Non-African American GFR(CKD) >90 (>60 ml/min/1.73 sqM); Sodium 140 mmol/L (137-145); Total Bilirubin 0.6 mg/dL (0.2-1.3); Total Protein 4.9 g/dL (6.3-8.2)
--- NOTE | 2024-01-26 13:02 | P.PN ---
Subjective Progress Note Date: 01/26/24 patient 78-year-old lady with past medical history significant for metastatic breast cancer who presented to ER for altered mental status. Patient's history is limited and most of it has been obtained from the EMR. According to patient he noted that the patient was not acting her normal self for the last day. Patient was lethargic and difficult to arouse. Patient was not eating and drinking. There was complaint nausea and vomiting. Patient is on pain medication and had taken her oral morphine this morning. There was no complaint of chest pain or shortness of breath. There is no complaint of orthopnea or PND. There was no complaint of altered bowel movements. Initial lab work done in the ER showed WBC 6.9, hemoglobin 13.1, platelet count 174, sodium 139, potassium 5, BUN 24, creatinine 1.29, glucose 122 AST 22, ALT 7 Urine drug screen positive for opioids, benzos, oxycodone Chest x-ray done in the ER showed no acute pulmonary process CT head done showed no acute intracranial process Patient admitted to internal medicine service 01/24. Patient seen and examined. Still complaining of hip pain on the left side. Shortness of breath is improved. Currently on 3 L of oxygen 01/25. Patient seen and examined . Complaining of generalized weakness. Denies any lightness or dizziness REVIEW OF SYSTEMS: CONSTITUTIONAL: No fever, no malaise,. CARDIOVASCULAR: No chest pain, no palpitations, no syncope. PULMONARY: No shortness of breath, no cough, GASTROINTESTINAL: No diarrhea, no nausea, no vomiting, no abdominal pain. NEUROLOGICAL: No headaches, no weakness, PHYSICAL EXAMINATION: GENERAL: The patient is alert and oriented x3, not in any acute distress. Ill looking HEENT: Pupils are round and equally reacting to light. EOMI. No scleral icterus. No conjunctival pallor. Normocephalic, atraumatic. No pharyngeal erythema. No thyromegaly. CARDIOVASCULAR: S1 and S2 present. No murmurs, rubs, or gallops. PULMONARY: Coarse breath sounds bilaterally, no wheezing or crackles. ABDOMEN: Soft, nontender, nondistended, normoactive bowel sounds. No palpable organomegaly. MUSCULOSKELETAL: No joint swelling or deformity. EXTREMITIES: No cyanosis, clubbing chronic lymphedema of left upper extremity NEUROLOGICAL: Gross neurological examination did not reveal any focal deficits. SKIN: No rashes. Assessment and plan Acute metabolic encephalopathy Acute on chronic hypoxic respiratory failure Acute COPD exacerbation Chronic hypoxic respiratory failure, wears 2 to 3 L outpatient Metastatic breast cancer with painful bone metastasis status post radiation Chronic lymphedema of the left upper extremity Chronic pubic ramus fractures Monitor vital signs Monitor CBC Monitor CMP Continue telemetry monitoring Continue supplementation Continue breathing treatments Continue aspirin, Plavix Lipitor, atenolol, Judicious use of pain medications Pulmonary following hematology oncology following Orthopedic eval the patient, reviewed imaging, they concluded that ramus fractures are old, recommend weightbearing as tolerated and pain control Labs and medication were reviewed.. Continue same treatment. Continue with symptomatic treatment. Resume home medication. Monitor labs and vitals. DVT and GI prophylaxis. Further recommendations as per clinical course of the patient Dictation was produced using [employer] dictation software. please excuse any grammatical, word or spelling errors. Objective - Vital Signs Vital signs: Vital Signs Temp 97.8 F 01/26/24 08:16 Pulse 79 01/26/24 08:16 Resp 20 01/26/24 08:16 BP 107/59 01/26/24 08:16 Pulse Ox 98 01/26/24 08:16 FiO2 40 01/23/24 20:04 Intake & Output 01/25/24 01/26/24 01/26/24 18:59 06:59 18:59 Intake Total 486 128 Output Total 700 1200 Balance -214 -1200 128 Intake: IV 10 10 Invasive Line 1 10 10 Oral [id number] Output: Urine 700 1200 Other: Voiding Method Bedside Commode Bedside Commode Bedside Commode External Catheter External Catheter External Catheter # Voids 1 1 - Labs CBC & Chem 7: 01/26/24 09:51 01/26/24 09:51
--- NOTE | 2024-01-26 13:52 | P.PN ---
Subjective Progress Note Date: 01/26/24 Principal diagnosis: Altered mental status, multifactorial This is a 78-year-old female patient with a known history of severe oxygen dependent chronic obstructive pulmonary disease, chronic ongoing tobacco dependence, hypertension, hyperlipidemia, remote history of breast cancer with previous partial left-sided mastectomy and axillary lymph node dissection followed by chemoradiation. She does have severe left-sided lymphedema. She was found to have recurrence and was positive for invasive ductal cell carcinoma in August 2023. Most recent PET scan showed diffuse metastatic disease to the bones, lungs and lymph nodes. The patient follows with oncology and planned to be on Enhertu. She presented here to the emergency room yesterday afternoon with altered mental status according to her . There was some concern regarding accidental overdose on her morphine. She had been difficult to arouse and was not eating or drinking. CT scan of the brain revealed no acute intracranial process. No suspicious intracranial metastasis. Chest x-ray revealed no acute pulmonary process. White count 6.9. Hemoglobin 13.1. Platelets 174. Sodium 139. Potassium 5.0. Bicarb 28. BUN 24. Creatinine 1.29. Glucose 122. Urinalysis clean. Urine drug screen positive for opiates, oxycodone and benzodiazepines. She is seen today in consultation in the emergency department. She is currently resting on a stretcher. Awake and alert but confused to time and place. Unaware of how she ended up here in the hospital. She is maintaining O2 saturations in the 90s on 2 L/min per nasal cannula. She is afebrile. Hemodynamically stable. She has been initiated on Symbicort, Singulair and Solu-Medrol. Patient was evaluated today on 01/25/24, doing better, hardly any cough wheezing or shortness of breath, her mental status seems to be much better today compared to her presentation. Remains on oxygen, remains on bronchodilators/Her usual meds for COPD and did not feel the need for steroids/prednisone Patient was seen again today on 01/26/2024, patient is complaining of mostly generally weak, no cough no wheezing no shortness of breath, no lightheadedness. She basically describes weakness. Metabolic workup is normal hemoglobin is 10.4, however it was 13.1 on admission. Basic metabolic profile is normal renal profile is normal. No cough no wheezing no fever no chills no hemoptysis Objective - Vital Signs Vital signs: Vital Signs Temp 98.4 F 01/26/24 12:13 Pulse 73 01/26/24 12:13 Resp 18 01/26/24 12:13 BP 96/52 01/26/24 12:13 Pulse Ox 90 L 01/26/24 12:13 FiO2 40 01/23/24 20:04 Intake & Output 01/25/24 01/26/24 01/26/24 18:59 06:59 18:59 Intake Total 486 128 Output Total 700 1200 Balance -214 -1200 128 Intake: IV 10 10 Invasive Line 1 10 10 Oral [id number] Output: Urine 700 1200 Other: Voiding Method Bedside Commode Bedside Commode Bedside Commode External Catheter External Catheter External Catheter # Voids 1 1 - Exam GENERAL EXAM: Reveals 78-year-old female in no distress, on 2 L nasal cannula HEAD: Normocephalic. EYES: Normal reaction of pupils, equal size. NOSE: Clear with pink turbinates. THROAT: No erythema or exudates. NECK: No masses, no JVD. CHEST: No chest wall deformity. LUNGS: Diminished breath sound bilaterally no crackles rhonchi or wheezes CVS: S1 and S2 normal with no audible murmur, regular rhythm. ABDOMEN: No hepatosplenomegaly, normal bowel sounds, no guarding or rigidity. SKIN: No rashes CENTRAL NERVOUS SYSTEM: Alert and oriented x 3 no gross focal deficit EXTREMITIES: Clubbing edema or cyanosis - Labs CBC & Chem 7: 01/26/24 09:51 01/26/24 09:51 Labs: Abnormal Lab Results - Last 24 Hours (Table) 01/26/24 01/26/24 Range/Units 09:51 09:51 RBC 2.93 L (3.80-5.40) m/uL Hgb 10.4 L (11.4-16.0) gm/dL Hct 32.4 L (34.0-46.0) % MCV 110.8 H (80.0-100.0) fL MCH 35.5 H (25.0-35.0) pg RDW 16.5 H (11.5-15.5) % Plt Count 126 L (150-450) k/uL Macrocytosis Marked A Chloride 109 H (98-107) mmol/L Carbon Dioxide 32 H (22-30) mmol/L BUN 6 L (7-17) mg/dL Glucose 114 H (74-99) mg/dL Total Protein 4.9 L (6.3-8.2) g/dL Albumin 2.7 L (3.5-5.0) g/dL Assessment and Plan Assessment: Pression: Altered mental status possibly secondary to accidental overdose of pain medications. Drug screen positive for opiates, oxycodone and benzodiazepines. This is consistent with acute metabolic encephalopathy Metastatic breast cancer to the bones, lung and multiple lymph nodes. Was to be on Enhertu pending insurance authorization CT of the brain was nondiagnostic Left arm lymphedema secondary previous left mastectomy with lymph node dis section Chronic hypoxemic respiratory failure secondary to COPD and diastolic congestive heart failure Chronic obstructive pulmonary disease, severe but relatively stable Chronic tobacco dependence Hypertension Hyperlipidemia Peripheral vascular disease with previous bilateral iliac angioplasty/stenting Chronic pain syndrome Recommendation: Continue present supportive care measures, Continue present bronchodilators, No need for prednisone Consider discharge planning and outpatient workup if cleared by other consultants Will continue to follow while inpatient for her COPD Time with Patient: Less than 30
[2024-01-26] MEDS: CALCIUM CARBONATE 500 MG CHEWABLE PO PRN (22:36)
[2024-01-27 05:27] VITALS: RESP 18
[2024-01-27 09:03] LABS: ALT <6 U/L (4-34); AST 19 U/L (14-36); African American GFR (CKD) >90 (>60 ml/min/1.73 sqM); Albumin 2.9 g/dL (3.5-5.0); Alkaline Phosphatase 81 U/L (38-126); Anion Gap -1 mmol/L; Blood Urea Nitrogen 6 mg/dL (7-17); Calcium 8.7 mg/dL (8.4-10.2); Carbon Dioxide 35 mmol/L (22-30); Chloride 107 mmol/L (98-107); Glucose 104 mg/dL (74-99); Non-African American GFR(CKD) >90 (>60 ml/min/1.73 sqM); Potassium 4.1 mmol/L (3.5-5.1); Sodium 141 mmol/L (137-145); Total Bilirubin 0.8 mg/dL (0.2-1.3); Total Protein 5.2 g/dL (6.3-8.2)
[2024-01-27 09:34] LABS: Anisocytosis Slight; Basophils # (A) 0.1 k/uL (0-0.2); Basophils % (A) 1 %; Eosinophils # (A) 0.3 k/uL (0-0.7); Eosinophils % (A) 4 %; HCT 35.8 % (34.0-46.0); HGB 11.3 gm/dL (11.4-16.0); Hypochromasia Moderate; Lymphocytes # (A) 1.8 k/uL (1.0-4.8); Lymphocytes % (A) 26 %; MCH 35.7 pg (25.0-35.0); MCHC 31.4 g/dL (31.0-37.0); MCV 113.5 fL (80.0-100.0); Macrocytosis Marked; Mean Platelet Volume 8.2; Monocytes # (A) 0.5 k/uL (0-1.0); Monocytes % (A) 7 %; Neutrophils # (A) 3.8 k/uL (1.3-7.7); Neutrophils % (A) 57 %; Platelet Count 141 k/uL (150-450); RBC 3.16 m/uL (3.80-5.40); RDW 16.6 % (11.5-15.5); WBC 6.7 k/uL (3.8-10.6)
[2024-01-27 13:23] VITALS: BP 115/52; PULSE 87; TEMP 97.9
--- NOTE | 2024-01-27 13:24 | P.PN ---
Subjective Progress Note Date: 01/27/24 Principal diagnosis: Mental status changes. This is a 78-year-old female patient with a known history of severe oxygen dependent chronic obstructive pulmonary disease, chronic ongoing tobacco dependence, hypertension, hyperlipidemia, remote history of breast cancer with previous partial left-sided mastectomy and axillary lymph node dissection followed by chemoradiation. She does have severe left-sided lymphedema. She was found to have recurrence and was positive for invasive ductal cell carcinoma in August 2023. Most recent PET scan showed diffuse metastatic disease to the bones, lungs and lymph nodes. The patient follows with oncology and planned to be on Enhertu. She presented here to the emergency room yesterday afternoon with altered mental status according to her . There was some concern regarding accidental overdose on her morphine. She had been difficult to arouse and was not eating or drinking. CT scan of the brain revealed no acute intracra nial process. No suspicious intracranial metastasis. Chest x-ray revealed no acute pulmonary process. White count 6.9. Hemoglobin 13.1. Platelets 174. Sodium 139. Potassium 5.0. Bicarb 28. BUN 24. Creatinine 1.29. Glucose 122. Urinalysis clean. Urine drug screen positive for opiates, oxycodone and benzodiazepines. She is seen today in consultation in the emergency department. She is currently resting on a stretcher. Awake and alert but confused to time and place. Unaware of how she ended up here in the hospital. She is maintaining O2 saturations in the 90s on 2 L/min per nasal cannula. She is afebrile. Hemodynamically stable. She has been initiated on Symbicort, Singulair and Solu-Medrol. Patient was evaluated today on 01/25/24, doing better, hardly any cough wheezing o r shortness of breath, her mental status seems to be much better today compared to her presentation. Remains on oxygen, remains on bronchodilators/Her usual meds for COPD and did not feel the need for steroids/prednisone Patient was seen again today on 01/26/2024, patient is complaining of mostly ge nerally weak, no cough no wheezing no shortness of breath, no lightheadedness. She basically describes weakness. Metabolic workup is normal hemoglobin is 10.4, however it was 13.1 on admission. Basic metabolic profile is normal renal profile is normal. No cough no wheezing no fever no chills no hemoptysis Progress note dated January 27, 2024. 78-year-old female seen in room 354. The patient is currently on 2 L of oxygen. She is not receiving any IV fluids. Apparently she may be discharged home later today. The patient has no major complaints, other than some weakness. She denies any significant shortness of breath, cough, or wheezing. Current laboratory data includes a white count of 6.7, hemoglobin 11.3, hematocrit 35.8, and a platelet count of 141,000. Sodium 141, potassium 4.1, chlorides 107, CO2 35, BUN 6, creatinine 0.55. Glucose is 104. Calcium is 8.7. Albumin is 2.9. Procalcitonin level was 0.17, on January 23. Objective - Vital Signs Vital signs: Vital Signs Temp 97.9 F 01/27/24 08:00 Pulse 84 01/27/24 08:23 Resp 18 01/27/24 08:00 BP 115/52 01/27/24 08:00 Pulse Ox 94 L 01/27/24 08:00 FiO2 40 01/23/24 20:04 Intake & Output 01/26/24 01/27/24 01/27/24 18:59 06:59 18:59 Intake Total 364 0 Output Total 650 1200 Balance -286 -1200 0 Intake: IV 10 Invasive Line 1 10 Oral 354 0 Output: Urine 650 1200 Other: Voiding Method Bedside Commode Bedside Commode External Catheter # Voids 0 - Exam No acute distress, oriented 3. Patient is currently on 2 L of oxygen. HEENT examination is grossly unremarkable. Mucous membranes are moist. No oral lesions. Neck supple. Full range of motion. No adenopathy thyromegaly or neck vein distention. Cardiovascular examination reveals regular rhythm rate. S1-S2 normal. No S3 or S4. No discernible murmur noted. Lungs reveal mostly clear but diminished breath sounds. Few scattered rhonchi. No wheezes or crackles. Abdomen soft bowel sounds are heard. No masses or tenderness. Extremities are intact. No cyanosis clubbing or edema. Skin is without rash or lesion. Neurologic examination is brief but nonfocal. - Labs CBC & Chem 7: 01/27/24 07:16 01/27/24 07:16 Labs: Abnormal Lab Results - Last 24 Hours (Table) 01/27/24 01/27/24 Range/Units 07:16 07:16 RBC 3.16 L (3.80-5.40) m/uL Hgb 11.3 L (11.4-16.0) gm/dL MCV 113.5 H (80.0-100.0) fL MCH 35.7 H (25.0-35.0) pg RDW 16.6 H (11.5-15.5) % Plt Count 141 L (150-450) k/uL Macrocytosis Marked A Carbon Dioxide 35 H (22-30) mmol/L BUN 6 L (7-17) mg/dL Glucose 104 H (74-99) mg/dL Total Protein 5.2 L (6.3-8.2) g/dL Albumin 2.9 L (3.5-5.0) g/dL Assessment and Plan Assessment: Acute mental status changes, possibly secondary to accidental overdose of pain medications. Metastatic breast cancer, to the bones, lungs, and multiple lymph nodes. Left arm lymphedema, secondary to previous left mastectomy, with lymph node dissection. Chronic hypoxemic respiratory failure secondary to COPD. Diastolic CHF. Chronic tobacco dependence. History of essential hypertension. Dyslipidemia. Peripheral vascular disease. Chronic pain syndrome. Plan: Plan updated January 27, 2024. The patient is seen today in room 354. She is not receiving any IV fluids. She is on 2 L of oxygen. The nurse tells us that she may be discharged home later today. Labs, x-rays, medications are reviewed. The patient's overall prognosis remains guarded given her multiple medical problems, and her metastatic breast cancer, with metastasis, to the bones, lung, and multiple lymph nodes. The patient is counseled about the importance of smoking cessation. Will continue to follow the patient, make recommendations along the way. Labs, x-rays, and medications are reviewed. Time with Patient: Less than 30
--- NOTE | 2024-01-27 14:08 | P.DS ---
Providers Date of admission: 01/23/24 20:14 Expected date of discharge: 01/27/24 Attending physician: Edmundo Alanis Consults: 01/23/24 20:15 Consult Physician Routine Consulting Provider: Lilli Joe Consult Reason/Comments: COPD Do you want consulting provider notified?: Yes, Notify in am 01/24/24 09:26 Consult Physician Routine Consulting Provider: Sami Ferrara Consult Reason/Comments: AMS Do you want consulting provider notified?: Yes 01/24/24 10:02 Consult Physician Routine Consulting Provider: Álvaro Liriano Consult Reason/Comments: Metastatic breast cancer Do you want consulting provider notified?: Yes 01/24/24 13:24 Consult Physician Routine Consulting Provider: Trev Pinedo Consult Reason/Comments: Pelvic fracture Do you want consulting provider notified?: Yes Primary care physician: Kapil [place] Hospital Course: Discharge diagnoses; Acute metabolic encephalopathy Acute on chronic hypoxic respiratory failure Acute COPD exacerbation Chronic hypoxic respiratory failure, wears 2 to 3 L outpatient Metastatic breast cancer with painful bone metastasis status post radiation Chronic lymphedema of the left upper extremity Chronic pubic ramus fractures Hospital course; patient 78-year-old lady with past medical history significant for metastatic breast cancer who presented to ER for altered mental status. Patient's history is limited and most of it has been obtained from the EMR. According to patient he noted that the patient was not acting her normal self for the last day. Patient was lethargic and difficult to arouse. Patient was not eating and drinking. There was complaint nausea and vomiting. Patient is on pain medication and had taken her oral morphine this morning. There was no complaint of chest pain or shortness of breath. There is no complaint of orthopnea or PND. There was no complaint of altered bowel movements. Initial lab work done in the ER showed WBC 6.9, hemoglobin 13.1, platelet count 174, sodium 139, potassium 5, BUN 24, creatinine 1.29, glucose 122 AST 22, ALT 7 Urine drug screen positive for opioids, benzos, oxycodone Chest x-ray done in the ER showed no acute pulmonary process CT head done showed no acute intracranial process Patient admitted to internal medicine service 01/24. Patient seen and examined. Still complaining of hip pain on the left side. Shortness of breath is improved. Currently on 3 L of oxygen 6/2. Patient seen and examined . Complaining of generalized weakness. Denies any lightness or dizziness 6/3. Patient seen and examined. Had a long discussion with patient patient has been regarding course of events in the hospital, explained to them the need for patient to stop taking morphine, patient to follow-up outpatient with anthropological linguist oncologist. Patient is medically stable for discharge PHYSICAL EXAMINATION: GENERAL: The patient is alert and oriented x3, not in any acute distress. Ill looking HEENT: Pupils are round and equally reacting to light. EOMI. No scleral icterus. No conjunctival pallor. Normocephalic, atraumatic. No pharyngeal erythema. No thyromegaly. CARDIOVASCULAR: S1 and S2 present. No murmurs, rubs, or gallops. PULMONARY: Coarse breath sounds bilaterally, no wheezing or crackles. ABDOMEN: Soft, nontender, nondistended, normoactive bowel sounds. No palpable organomegaly. MUSCULOSKELETAL: No joint swelling or deformity. EXTREMITIES: No cyanosis, clubbing chronic lymphedema of left upper extremity NEUROLOGICAL: Gross neurological examination did not reveal any focal deficits. SKIN: No rashes. Dictation was produced using [employer] dictation software. please excuse any grammatical, word or spelling errors. Patient Condition at Discharge: Fair Plan - Discharge Summary Discharge Rx Participant: Yes New Discharge Prescriptions: Continue Montelukast [Singulair] 10 mg PO DAILY Meclizine [Antivert] 12.5 mg PO BID PRN PRN Reason: Vertigo Gabapentin 600 mg PO BID ALPRAZolam [Xanax] 0.5 mg PO HS Simvastatin 40 mg PO HS Clopidogrel Bisulfate [Plavix] 75 mg PO DAILY Ipratropium-Albuterol Nebulize [Duoneb 0.5 mg-3 mg/3 ml Soln] 3 ml INHALATION RT-QID #100 each Capecitabine 500mg 1,500 mg PO BID Ondansetron [Zofran] 4 mg PO Q12HR PRN PRN Reason: Nausea Albuterol Inhaler [Ventolin Hfa Inhaler] 1 - 2 puff INHALATION RT-Q6H PRN PRN Reason: Shortness Of Breath Baclofen [Lioresal] 10 mg PO BID PRN PRN Reason: Muscle Pain atenoloL [Tenormin] 50 mg PO DAILY ALPRAZolam [Xanax] 0.5 mg PO DAILY PRN PRN Reason: Anxiety Budesonide [Pulmicort] 0.5 mg INHALATION RT-BID Albuterol Nebulized [Ventolin Nebulized] 2.5 mg INHALATION RT-QID PRN PRN Reason: Shortness Of Breath Omeprazole 40 mg PO DAILY oxyCODONE-APAP 10-325MG [Percocet 10-325 mg] 1 tab PO TID PRN PRN Reason: Pain Aspirin 81 mg PO DAILY #30 tab Ipratropium-Albuterol Nebulize [Duoneb 0.5 mg-3 mg/3 ml Soln] 3 ml INHALATION RT-QID PRN each PRN Reason: Shortness Of Breath Or Wheezing Isosorbide Mononitrate ER [Imdur] 30 mg PO DAILY 30 Days #30 tab OLANZapine [ZyPREXA] 2.5 mg PO DAILY PRN PRN Reason: Nausea Magic Mouth Wash 5 ml PO QID PRN PRN Reason: mouth pain Discontinued Morphine Sulfate Ir [MSIR] 15 mg PO BID Discharge Medication List ALPRAZolam [Xanax] 0.5 mg PO HS 06/08/18 [History] Gabapentin 600 mg PO BID 06/08/18 [History] Meclizine [Antivert] 12.5 mg PO BID PRN 06/08/18 [History] Montelukast [Singulair] 10 mg PO DAILY 06/08/18 [History] Simvastatin 40 mg PO HS 06/08/18 [History] Clopidogrel Bisulfate [Plavix] 75 mg PO DAILY 07/04/20 [History] Albuterol Inhaler [Ventolin Hfa Inhaler] 1 - 2 puff INHALATION RT-Q6H PRN 07/24/23 [History] Baclofen [Lioresal] 10 mg PO BID PRN 07/24/23 [History] atenoloL [Tenormin] 50 mg PO DAILY 07/24/23 [History] ALPRAZolam [Xanax] 0.5 mg PO DAILY PRN 09/26/23 [History] Albuterol Nebulized [Ventolin Nebulized] 2.5 mg INHALATION RT-QID PRN 09/27/23 [History] Budesonide [Pulmicort] 0.5 mg INHALATION RT-BID 09/27/23 [History] Omeprazole 40 mg PO DAILY 11/04/23 [History] oxyCODONE-APAP 10-325MG [Percocet 10-325 mg] 1 tab PO TID PRN 11/04/23 [History] Aspirin 81 mg PO DAILY #30 tab 11/08/23 [Rx] Ipratropium-Albuterol Nebulize [Duoneb 0.5 mg-3 mg/3 ml Soln] 3 ml INHALATION RT-QID #100 each 11/08/23 [Rx] Ipratropium-Albuterol Nebulize [Duoneb 0.5 mg-3 mg/3 ml Soln] 3 ml INHALATION RT-QID PRN each 11/08/23 [Rx] Isosorbide Mononitrate ER [Imdur] 30 mg PO DAILY 30 Days #30 tab 11/08/23 [Rx] Capecitabine 500mg 1,500 mg PO BID 01/23/24 [History] Magic Mouth Wash 5 ml PO QID PRN 01/23/24 [History] OLANZapine [ZyPREXA] 2.5 mg PO DAILY PRN 01/23/24 [History] Ondansetron [Zofran] 4 mg PO Q12HR PRN 01/23/24 [History] Follow up Appointment(s)/Referral(s): None,Stated [REFERRING] - 1-2 days (please call to make follow up appointment with primary physician) [facility] Visiting Nurse, [NON-STAFF] - Discharge Disposition: HOME WITH HOME HEALTH SERVICES
== END 2024-01-27 14:31 | disposition home health service (06) | DRG 70 ==
LOC: SUPCPDRO 15:13 → EC 15:13 → 3SCARD 20:14
PROVIDERS: ADMIT Hospitalist; ATTEND Hospitalist
DX: G93.41 Metabolic encephalopathy (principal); J96.21 Acute and chronic respiratory failure with hypoxia; J44.1 Chronic obstructive pulmonary disease with (acute) exacerbation; J44.0 Chronic obstructive pulmonary disease with (acute) lower respiratory infection; C79.51 Secondary malignant neoplasm of bone; I50.32 Chronic diastolic (congestive) heart failure; N17.9 Acute kidney failure, unspecified; C78.02 Secondary malignant neoplasm of left lung; C78.01 Secondary malignant neoplasm of right lung; C77.9 Secondary and unspecified malignant neoplasm of lymph node, unspecified; I11.0 Hypertensive heart disease with heart failure; C50.919 Malignant neoplasm of unspecified site of unspecified female breast; G89.3 Neoplasm related pain (acute) (chronic); I89.0 Lymphedema, not elsewhere classified; Z92.3 Personal history of irradiation; E78.5 Hyperlipidemia, unspecified; G89.4 Chronic pain syndrome; M81.0 Age-related osteoporosis without current pathological fracture; I95.9 Hypotension, unspecified; Z90.12 Acquired absence of left breast and nipple; F17.210 Nicotine dependence, cigarettes, uncomplicated; I73.9 Peripheral vascular disease, unspecified; E86.0 Dehydration; F32.A Depression, unspecified; T40.2X1A Poisoning by other opioids, accidental (unintentional), initial encounter; N63.20 Unspecified lump in the left breast, unspecified quadrant; Z79.02 Long term (current) use of antithrombotics/antiplatelets; Z79.82 Long term (current) use of aspirin; Z79.899 Other long term (current) drug therapy; Z99.81 Dependence on supplemental oxygen; Z88.0 Allergy status to penicillin; Z91.048 Other nonmedicinal substance allergy status; Z90.49 Acquired absence of other specified parts of digestive tract; Z98.51 Tubal ligation status; Z17.1 Estrogen receptor negative status [ER-]; G47.30 Sleep apnea, unspecified
CPT/HCPCS: 36415; 70450; 71046; 73502; 80053; 80306; 81003; 82140; 84145; 84439; 84443; 85025; 85610; 85730; 86140; 93005; 94640; 94760; 96361; 96374; 99285

== ENCOUNTER 2024-03-23 08:55 | Day surgery (SDC) | payer MEDICARE ==
[2024-03-19 14:09] VITALS: BMI 24.2
[~2024-03-23 08:55] MED LIST changes: +ACETAMINOPHEN TAB 500 MG TAB PO PRN; +HYDROmorphone 0.5 MG/0.5 ML SYRINGE IVP PRN; +Pre Op ABX Message 1 EACH MISC MISCELLANE ONE; -SODIUM CHLORIDE 0.9% 500 ML 500 ML in EMPTY BAG 1 BAG IV PRN; -ZOLEDRONIC ACID 5 MG in SODIUM CHLORIDE 0.9% 100 ML IV NR
[2024-03-23] MEDS: IV FLUID CONTINUATION 1,000 ML IV ONE (09:03)
[2024-03-23] MEDS: ONDANSETRON 4 MG/2 ML VIAL IVP ONE (09:23)
[2024-03-23] MEDS: HEPARIN SODIUM,PORCINE 5,000 UNIT/ML 1 ML VIAL SQ PRN (09:23)
[2024-03-23] MEDS: LACTATED RINGERS 1,000 ML IV SCH (09:23)
[2024-03-23 09:24] LABS: Glucose,Whole Blood 102 mg/dL (70-110)
[2024-03-23] MEDS: DEXAMETHASONE SOD PHOSPHATE 4 MG/ML 1 ML VIAL IVP STA (09:25)
--- NOTE | 2024-03-23 09:28 | P.GSHP ---
History of Present Illness H&P Date: 03/23/24 Chief Complaint: Metastatic breast cancer 78-year-old female here today for Port-A-Cath placement. Patient states she has very poor IV access. She has had a port previously on the left-hand side. Her initial breast cancer was left-sided. Undergoing palliative chemotherapy currently. Past Medical History Past Medical History: Cancer, COPD, GERD/Reflux, Hyperlipidemia, Hypertension, Osteoarthritis (OA), Sleep Apnea/CPAP/BIPAP Additional Past Medical History / Comment(s): metastatic left breast cancer to lungs and bone, osteoporosis, broken pelvis end of apr 2023, osteoarthritis in back, uses O2 @ 2L NC @ hs, current prednisone History of Any Multi-Drug Resistant Organisms: None Reported Past Surgical History: Appendectomy, Breast Surgery, Cholecystectomy, Tubal Ligation Additional Past Surgical History / Comment(s): SPINAL stimulator IMPLANT. LT LUMPECTOMY/WITH 12 LYMPH NODES REMOVED Past Anesthesia/Blood Transfusion Reactions: No Reported Reaction Additional Past Anesthesia/Blood Transfusion Reaction / Comment(s): no hx blood transfusion Smoking Status: Current every day smoker - Past Family History Daughter(s) Family Medical History: Cancer Additional Family Medical History / Comment(s): breast. granddaughter has cancer on stomach muscles Medications and Allergies Home Medications Medication Instructions Recorded Confirmed Type ALPRAZolam [Xanax] 0.5 mg PO HS 06/08/18 03/23/24 History Gabapentin 600 mg PO BID 06/08/18 03/23/24 History Meclizine [Antivert] 12.5 mg PO BID PRN 06/08/18 03/23/24 History Montelukast [Singulair] 10 mg PO QAM 06/08/18 03/23/24 History Simvastatin 40 mg PO DAILY 06/08/18 03/23/24 History Clopidogrel Bisulfate [Plavix] 75 mg PO DAILY 07/04/20 03/23/24 History Albuterol Inhaler [Ventolin Hfa 1 - 2 puff INHALATION RT-Q6H PRN 07/24/23 03/23/24 History Inhaler] Baclofen [Lioresal] 10 mg PO BID PRN 07/24/23 03/23/24 History atenoloL [Tenormin] 50 mg PO QAM 07/24/23 03/23/24 History Albuterol Nebulized [Ventolin 2.5 mg INHALATION RT-QID PRN 09/27/23 03/23/24 History Nebulized] Omeprazole 40 mg PO QAM 11/04/23 03/23/24 History oxyCODONE-APAP 10-325MG [Percocet 1 tab PO TID PRN 11/04/23 03/23/24 History 10-325 mg] Magic Mouth Wash 5 ml PO QID PRN 01/23/24 03/23/24 History OLANZapine [ZyPREXA] 2.5 mg PO DAILY PRN 01/23/24 03/23/24 History Ondansetron [Zofran] 4 mg PO Q12HR PRN 01/23/24 03/23/24 History predniSONE 10 mg PO QAM 03/19/24 03/23/24 History Allergies Allergy/AdvReac Type Severity Reaction Status Date / Time nickel Allergy Rash/Hives Verified 03/23/24 09:14 Penicillins Allergy Rash/Hives Verified 03/23/24 09:14 Surgical - Exam Vital Signs Temp Pulse Resp BP Pulse Ox 97.1 F L 91 16 152/67 88 L 03/23/24 09:16 03/23/24 09:16 03/23/24 09:16 03/23/24 09:16 03/23/24 09:16 Physical exam: General: Well-developed, well-nourished HEENT: Normocephalic, sclerae nonicteric Abdomen: Nontender, nondistended Extremities: Lymphedema left arm Neuro: Alert and oriented Assessment and Plan (1) Breast cancer Narrative/Plan: Will proceed with Port-A-Cath placement at this time. Risks of bleeding, infection, DVT, pneumothorax, catheter malfunction, anesthesia related complications were discussed. The patient understands and wishes to proceed. Current Visit: No Status: Acute Priority: Medium Code(s): C50.919 - MALIGNANT NEOPLASM OF UNSP SITE OF UNSPECIFIED FEMALE BREAST SNOMED Code(s): 090202062
[2024-03-23] MEDS ORDERED: PROPOFOL 10 MG/ML 20 ML VIAL IV ONE (09:48)
[2024-03-23] MEDS ORDERED: LIDOCAINE 1% INJ 10MG/ML (20 ML MDV) ONE (09:48)
[2024-03-23] MEDS ORDERED: KETAMINE HCL IN 0.9 % NACL 50 MG/5 ML SYRINGE ONE (09:48)
[2024-03-23] MEDS ORDERED: fentaNYL (PF) 50 MCG/ML 2 ML AMP ONE (09:48)
[2024-03-23] MEDS ORDERED: ePHEDrine 50 MG/ML 1 ML VIAL ONE (09:48)
[2024-03-23] MEDS ORDERED: MIDAZOLAM 2 MG/2 ML VIAL ONE (09:48)
[2024-03-23] MEDS: LIDOCAINE 1% INJ 10MG/ML (20 ML MDV) SQ ONE ×2 (09:51→10:10)
[2024-03-23] MEDS: SODIUM CHLORIDE 0.9% 50 ML with ceFAZolin 2,000 MG IV ONE (09:52)
--- NOTE | 2024-03-23 10:57 | FL ---
EXAMINATION TYPE: FL guided central line placemt Intraoperative/procedural fluoroscopic services were provided. Total fluoroscopy time is 9 seconds with a total of 2 submitted images to PACS. Please see the operative/procedural note for further details. DAP: 0.3107 Gycm2
[2024-03-23] MEDS ORDERED: HYDROcodone/APAP 5-325MG 1 EACH TAB PO PRN (11:02)
[2024-03-23] MEDS ORDERED: NALOXONE 0.4 MG/ML 1 ML VIAL IV PRN (11:02)
[2024-03-23 11:03] VITALS: TEMP 97
--- NOTE | 2024-03-23 11:08 | P.OP ---
Date of Procedure: 03/23/24 Procedure(s) Performed: PREOPERATIVE DIAGNOSIS: Breast cancer POSTOPERATIVE DIAGNOSIS: Same PROCEDURE: Port-A-Cath placement with fluoroscopic and ultrasound guidance SURGEON: Ruben EBL: 10 cc ANESTHESIA: General COMPLICATIONS: None OPERATIVE PROCEDURE: Patient was brought and placed on the operative table in the supine position. The patient was placed under general anesthesia at that time. The chest and neck were prepped and draped in usual sterile fashion. The ultrasound probe was used to identify the location of the right internal jugular vein. The skin was localized with lidocaine. The Seldinger needle was advanced into the IJ under ultrasound guidance. The wire was advanced through the needle under fluoroscopic guidance into the superior vena cava. A port pocket was created in the right infraclavicular location through the previous scar site. The catheter was tunneled from the wire entrance site to the port pocket. The port was then connected to the catheter. The dilator introducer was threaded over the guidewire. The guidewire and dilator were then removed. The catheter was advanced through the introducer and introducer was then removed. The tip was seen to be in the right atrial junction via fluoroscopy. A picture of the radiograph showing the tip of the catheter was taken. Port was flushed with both saline and a Hep-Lock solution. There was good flow both in and out of the port. The port was sutured in underlying tissues using 3-0 silk sutures. The subcutaneous tissues were reapproximated using 3-0 Vicryl sutures and the skin at both locations using 4-0 Monocryl sutures. Skin glue and sterile dressings then applied. DISPOSITION: Stable to recovery room
[2024-03-23 12:17] VITALS: RESP 18
--- NOTE | 2024-03-23 12:27 | XR ---
EXAMINATION TYPE: XR chest 1V confirm line plcmt DATE OF EXAM: 03/23/2024 11:37 AM CLINICAL INDICATION:Female, 78 years old with history of Check Line; H COMPARISON: Chest radiographs from 01/23/2024 TECHNIQUE: XR chest 1V confirm line plcmt Frontal view of the chest. FINDINGS: Lungs/Pleura: Prominent interstitial lung markings are seen scattered throughout the lungs. No eviden ce of focal consolidation, pneumothorax or pleural effusion. Pulmonary vascularity: Unremarkable. Heart/mediastinum: Cardiomediastinal silhouette is unremarkable. Musculoskeletal: No acute osseous pathology. Other findings: Nerve stimulator leads project over the spine. Lines/Tubes: [id number] projecting over the right hemithorax with distal tip projecting over the superior vena cava. IMPRESSION: [id number] with tip in the superior vena cava. Chronic changes without acute pulmonary process. No significant change from prior.
[2024-03-23 12:44] VITALS: BP 102/50; PULSE 78
== END 2024-03-23 13:07 | disposition home or self-care (01) ==
LOC: OR 08:55
PROVIDERS: ATTEND Surgery
DX: C50.912 Malignant neoplasm of unspecified site of left female breast (principal); E78.5 Hyperlipidemia, unspecified; G47.30 Sleep apnea, unspecified; I10 Essential (primary) hypertension; J44.9 Chronic obstructive pulmonary disease, unspecified; K21.9 Gastro-esophageal reflux disease without esophagitis; M19.90 Unspecified osteoarthritis, unspecified site; M81.0 Age-related osteoporosis without current pathological fracture; F17.200 Nicotine dependence, unspecified, uncomplicated; Z79.02 Long term (current) use of antithrombotics/antiplatelets; Z79.52 Long term (current) use of systemic steroids; Z88.0 Allergy status to penicillin; Z90.49 Acquired absence of other specified parts of digestive tract; Z98.51 Tubal ligation status
CPT/HCPCS: 77001; 36561; C1788; J2250; J1644; J1100; J2405; J0690; J2001; J3010; J1642; J2704

== ENCOUNTER 2024-07-25 17:44 | Emergency (ER) | payer MEDICARE ==
[2024-07-25 17:52] VITALS: RESP 18
--- NOTE | 2024-07-25 18:39 | ED ---
General Adult HPI - General Chief complaint: Shortness of Breath Stated complaint: weakness/urogenital Time Seen by Provider: 07/25/24 18:00 Source: patient, EMS, RN notes reviewed, old records reviewed Mode of arrival: EMS Limitations: no limitations - History of Present Illness Initial comments: 78-year-old female presents emergency department with multiple complaints. Is complaining of generalized weakness since Saturday. States she is also short of breath with exertion. Has a history of breast and lung cancer with metastasis. Recently finished radiation the last few months and is due to restart chemotherapy on Saturday. States she does have a history of a UTI and states these are identical symptoms to when she had a UTI previously and wanted to be evaluated. Denies any fevers, chills, cough. Denies chest pain or abdominal pain. Denies any shortness of breath at rest. Uses oxygen as needed. He has no other acute complaints at this time. Denies any lower extremity swelling or edema. Presents for further evaluation. - Related Data Home Medications Medication Instructions Recorded Confirmed Gabapentin 600 mg PO BID 06/08/18 07/25/24 Meclizine [Antivert] 12.5 mg PO BID PRN 06/08/18 07/25/24 Montelukast [Singulair] 10 mg PO DAILY 06/08/18 07/25/24 Simvastatin 40 mg PO HS 06/08/18 07/25/24 Clopidogrel Bisulfate [Plavix] 75 mg PO DAILY 07/04/20 07/25/24 Albuterol Inhaler [Ventolin Hfa 2 puff INHALATION RT-Q6H PRN 07/24/23 07/25/24 Inhaler] Baclofen [Lioresal] 10 mg PO BID 07/24/23 07/25/24 atenoloL [Tenormin] 50 mg PO DAILY 07/24/23 07/25/24 Albuterol Nebulized [Ventolin 2.5 mg INHALATION RT-QID PRN 09/27/23 07/25/24 Nebulized] Omeprazole 40 mg PO DAILY 11/04/23 07/25/24 oxyCODONE-APAP 10-325MG [Percocet 1 tab PO Q6H 11/04/23 07/25/24 10-325 mg] predniSONE 10 mg PO BID 03/19/24 07/25/24 ALPRAZolam [Xanax] 0.5 mg PO BID PRN 07/25/24 07/25/24 Budesonide 0.5 mg INHALATION RT-DAILY 07/25/24 07/25/24 Denosumab [Prolia] 120 mg SQ Q90D 07/25/24 07/25/24 Ibuprofen [Motrin] 800 mg PO TID PRN 07/25/24 07/25/24 Morphine Sulfate ER [Ms Contin] 30 mg PO Q12HR 07/25/24 07/25/24 Ondansetron Odt [Zofran Odt] 4 mg PO Q8HR PRN 07/25/24 07/25/24 Previous Rx's Medication Instructions Recorded Azithromycin [Zithromax] 250 mg PO DAILY 4 Days #4 tab 07/25/24 predniSONE [Deltasone] 40 mg PO DAILY 5 Days #10 tab 07/25/24 Allergies Allergy/AdvReac Type Severity Reaction Status Date / Time nickel Allergy Rash/Hives Verified 07/25/24 19:31 Penicillins Allergy Rash/Hives Verified 07/25/24 19:31 Review of Systems ROS Statement: Those systems with pertinent positive or pertinent negative responses have been documented in the HPI. Review of Systems: CONST: Denies fever EYES: Denies blurry vision ENT: Denies nasal congestion C/V: Denies Chest pain RESP: Denies shortness of breath GI: Denies abdominal pain : Denies dysuria SKIN: Denies rash. MSK: Denies joint pain. NEURO: Endorses weakness ROS Other: All systems not noted in ROS Statement are negative. 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 LT LUMPECTOMY/WITH 12 LYMPH NODES REMOVED Past Anesthesia/Blood Transfusion Reactions: No Reported Reaction Additional Past Anesthesia/Blood Transfusion Reaction / Comment(s): no hx blood transfusion Past Psychological History: Depression Smoking Status: Current every day smoker - Past Family History Daughter(s) Family Medical History: Cancer Additional Family Medical History / Comment(s): breast. granddaughter has cancer on stomach muscles General Exam - General Exam Comments Initial Comments: General: Appears in no acute distress. HEAD: Normal with no signs of head trauma. EYES: EOMI ENT: Hearing grossly intact, normal oropharynx. RESPIRATORY: No hypoxia on room air. No significant increased work of breathing. Patient does have bilateral end expiratory wheezing. C/V: Regular rate and rhythm. S1 and S2 auscultated, no edema, peripheral pulses 2+ and intact throughout ABD: Abd is soft, nontender, nondistended EXT: Normal range of motion, no obvious deformity SKIN: No rashes or lesions observed on exposed skin. NEURO: Alert and oriented x 4. No focal deficits. Limitations: no limitations Course Vital Signs 07/25/24 07/25/24 17:49 19:56 Temperature 98.2 F Pulse Rate 65 59 L Respiratory 18 18 Rate Blood Pressure 146/60 145/63 O2 Sat by Pulse 99 100 Oximetry Medical Decision Making - Medical Decision Making Was pt. sent in by a medical professional or institution (, PA, LASER BEAM MACHINE OPERATOR, urgent care, hospital, or skilled nursing...) When possible be specific @ -No Did you speak to anyone other than the patient for history (EMS, parent, family, police, friend...)? What history was obtained from this source @ -No Did you review nursing and triage notes (agree or disagree)? Why? @ -I reviewed and agree with nursing and triage notes Were old charts reviewed (outside hosp., previous admission, EMS record, old EKG, old radiological studies, urgent care reports/EKG's, skilled nursing records)? Report findings @ -. Today's EKG compared with with EKG from December 2023. No obvious significant dynamic change. Differential Diagnosis (chest pain, altered mental status, abdominal pain women, abdominal pain men, vaginal bleeding, weakness, fever, dyspnea, syncope, headache, dizziness, GI bleed, back pain, seizure, CVA, palpatations, mental health, musculoskeletal)? @ -Differential Weakness: Hypoglycemia, shock, sepsis, hyponatremia, anemia, infection, MA, ETOH, adverse medicine reaction, overdose, stroke, this is not meant to be an all-inclusive list. EKG interpreted by me (3pts min.). @ -As above X-rays interpreted by me (1pt min.). @ -Chest x-ray shows left pleural effusion with possible consolidation in the left lower lobe. CT interpreted by me (1pt min.). @ -None done U/S interpreted by me (1pt. min.). @ -None done What testing was considered but not performed or refused? (CT, X-rays, U/S, labs)? Why? @ -None What meds were considered but not given or refused? Why? @ -None Did you discuss the management of the patient with other professionals (professionals i.e. DrBrittany, PA, LASER BEAM MACHINE OPERATOR, lab, RT, psych nurse, psychiatric social worker, jinriksha driver, teacher, airframe technical officer, case checker)? Give summary @ -No Was smoking cessation discussed for >3mins.? @ -No Was critical care preformed (if so, how long)? @ -No Were there social determinants of health that impacted care today? How? (Homelessness, low income, unemployed, alcoholism, drug addiction, transportation, low edu. Level, literacy, decrease access to med. care, prison, rehab)? @ -No Was there de-escalation of care discussed even if they declined (Discuss DNR or withdrawal of care, Hospice)? DNR status @ -No What co-morbidities impacted this encounter? (DM, HTN, Smoking, COPD, CAD, Cancer, CVA, ARF, Chemo, Hep., AIDS, mental health diagnosis, sleep apnea, morbid obesity)? @ -Cancer, COPD Was patient admitted / discharged? Hospital course, mention meds given and route, prescriptions, significant lab abnormalities, going to OR and other pertinent info. @ -Patient presents emergency department weakness, mild dyspnea. Appears to be having COPD exacerbation as she is wheezy bilaterally. But no significant hypoxia. We will obtain general workup. Patient was in agreement this plan. She will be given a 1 L fluid bolus, as well as a breathing treatment and IV steroids. Patient was in agreement this plan. EKG shows no signs of acute ischemia. Chest x-ray shows possible left lower lobe developing infiltrate with a small pleural effusion, and laboratory studies are all within acceptable limits at this time. Viral swabs negative. On reevaluation, patient is feeling improved. Discussed results with the patient. I offered to admit for IV hydration however patient does like to go home and I believe this is reasonable as she is tolerating oral intake. We will empirically treat for possible pneumonia with azithromycin and discharged home on oral prednisone as well as instructions to use her breathing treatments and inhalers at home. She was in agreement this plan. Recommended follow-up with her PCP and physicians in the next 1 to 3 days. She was also in agreement this plan. Strict return precautions discussed. I will provide the patient with a prescription for prednisone, azithromycin. I instructed the patient to follow up with their PCP in the next 1-3 days.. I explained that the patient should return to the emergency department if they experience any worsening symptoms. Strict return precautions were discussed with the patient. The patient expressed understanding of these instructions. I answered all questions that the patient had. The patient was discharged home in good condition with their prescriptions and follow up information. Undiagnosed new problem with uncertain prognosis? @ -No Drug Therapy requiring intensive monitoring for toxicity (Heparin, Nitro, Insulin, Cardizem)? @ -No Were any procedures done? @ -No Diagnosis/symptom? @ -COPD, possible left lower lobe developing pneumonia Acute, or Chronic, or Acute on Chronic? @ -Acute Uncomplicated (without systemic symptoms) or Complicated (systemic symptoms)? @ -Complicated Side effects of treatment? @ -No Exacerbation, Progression, or Severe Exacerbation? @ -No Poses a threat to life or bodily function? How? (Chest pain, [place], MA, pneumonia, PE, COPD, DKA, ARF, appy, cholecystitis, CVA, Diverticulitis, Homicidal, Suicidal, threat to staff... and all critical care pts) @ -Unlikely at this time - Lab Data Result diagrams: 07/25/24 18:38 07/25/24 18:38 Lab Results 07/25/24 07/25/24 07/25/24 Range/Units 18:38 18:38 18:38 WBC 4.7 (3.8-10.6) k/uL RBC 3.46 L (3.80-5.40) m/uL Hgb 12.2 (11.4-16.0) gm/dL Hct 38.4 (34.0-46.0) % MCV 110.9 H (80.0-100.0) fL MCH 35.2 H (25.0-35.0) pg MCHC 31.7 (31.0-37.0) g/dL RDW 14.9 (11.5-15.5) % Plt Count 129 L (150-450) k/uL MPV 7.7 Neutrophils % 75 % Lymphocytes % 18 % Monocytes % 5 % Eosinophils % 0 % Basophils % 0 % Neutrophils # 3.5 (1.3-7.7) k/uL Lymphocytes # 0.8 L (1.0-4.8) k/uL Monocytes # 0.2 (0-1.0) k/uL Eosinophils # 0.0 (0-0.7) k/uL Basophils # 0.0 (0-0.2) k/uL Hypochromasia Slight Macrocytosis Marked A Sodium 137 (137-145) mmol/L Potassium 4.1 (3.5-5.1) mmol/L Chloride 105 (98-107) mmol/L Carbon Dioxide 34 H (22-30) mmol/L Anion Gap -2 mmol/L BUN 14 (7-17) mg/dL Creatinine 0.68 (0.52-1.04) mg/dL Est GFR (CKD-EPI)AfAm >90 (>60 ml/min/1.73 sqM) Est GFR (CKD-EPI)NonAf 85 (>60 ml/min/1.73 sqM) Glucose 114 H (74-99) mg/dL Plasma Lactic Acid Luke (0.7-2.0) mmol/L Calcium 8.7 (8.4-10.2) mg/dL Magnesium 2.0 (1.6-2.3) mg/dL Total Bilirubin 0.5 (0.2-1.3) mg/dL AST 25 (14-36) U/L ALT 10 (4-34) U/L Alkaline Phosphatase 54 (38-126) U/L Total Protein 5.4 L (6.3-8.2) g/dL Albumin 2.9 L (3.5-5.0) g/dL Urine Color Colorless Urine Appearance Clear (Clear) Urine pH 6.0 (5.0-8.0) Ur Specific [place] 1.009 (1.001-1.035) Urine Protein Negative (Negative) Urine Glucose (UA) Negative (Negative) Urine Ketones Negative (Negative) Urine Blood Negative (Negative) Urine Nitrite Negative (Negative) Urine Bilirubin Negative (Negative) Urine Urobilinogen <2.0 (<2.0) mg/dL Ur Leukocyte Esterase Negative (Negative) Influenza Type A (PCR) (Not Detectd) Influenza Type B (PCR) (Not Detectd) RSV (PCR) (Not Detectd) SARS-CoV-2 (PCR) (Not Detectd) 07/25/24 07/25/24 Range/Units 18:38 18:38 WBC (3.8-10.6) k/uL RBC (3.80-5.40) m/uL Hgb (11.4-16.0) gm/dL Hct (34.0-46.0) % MCV (80.0-100.0) fL MCH (25.0-35.0) pg MCHC (31.0-37.0) g/dL RDW (11.5-15.5) % Plt Count (150-450) k/uL MPV Neutrophils % % Lymphocytes % % Monocytes % % Eosinophils % % Basophils % % Neutrophils # (1.3-7.7) k/uL Lymphocytes # (1.0-4.8) k/uL Monocytes # (0-1.0) k/uL Eosinophils # (0-0.7) k/uL Basophils # (0-0.2) k/uL Hypochromasia Macrocytosis Sodium (137-145) mmol/L Potassium (3.5-5.1) mmol/L Chloride (98-107) mmol/L Carbon Dioxide (22-30) mmol/L Anion Gap mmol/L BUN (7-17) mg/dL Creatinine (0.52-1.04) mg/dL Est GFR (CKD-EPI)AfAm (>60 ml/min/1.73 sqM) Est GFR (CKD-EPI)NonAf (>60 ml/min/1.73 sqM) Glucose (74-99) mg/dL Plasma Lactic Acid Luke 1.0 (0.7-2.0) mmol/L Calcium (8.4-10.2) mg/dL Magnesium (1.6-2.3) mg/dL Total Bilirubin (0.2-1.3) mg/dL AST (14-36) U/L ALT (4-34) U/L Alkaline Phosphatase (38-126) U/L Total Protein (6.3-8.2) g/dL Albumin (3.5-5.0) g/dL Urine Color Urine Appearance (Clear) Urine pH (5.0-8.0) Ur Specific [place] (1.001-1.035) Urine Protein (Negative) Urine Glucose (UA) (Negative) Urine Ketones (Negative) Urine Blood (Negative) Urine Nitrite (Negative) Urine Bilirubin (Negative) Urine Urobilinogen (<2.0) mg/dL Ur Leukocyte Esterase (Negative) Influenza Type A (PCR) Not Detected (Not Detectd) Influenza Type B (PCR) Not Detected (Not Detectd) RSV (PCR) Not Detected (Not Detectd) SARS-CoV-2 (PCR) Not Detected (Not Detectd) - EKG Data -: EKG Interpreted by Me EKG Comments: 12-lead Electrocardiogram Interpretation Note EKG was reviewed and interpreted by myself. 12-lead ECG performed at 1838 is interpreted by me as revealing normal sinus rhythm with first-degree AV block and PVC at a rate of 62 beats per minute. Davis is indeterminate. CO interval is 235 ms, QRS duration is 95 ms, QTc is 398 ms. There were no ST or T wave abnormalities to suggest myocardial ischemia or injury. R wave progression across the precordium was satisfactory. By my interpretation this EKG is non- diagnostic for acute ischemia. Disposition Clinical Impression: Pneumonia, COPD (chronic obstructive pulmonary disease) Disposition: HOME SELF-CARE Condition: Good Instructions (If sedation given, give patient instructions): COPD (Chronic Obstructive Pulmonary Disease) (ED), Community Acquired Pneumonia (ED) Additional Instructions: Your workup today showed a small left pleural effusion and possible developing left lower lobe pneumonia. Remainder the review of workup within acceptable limits. We will empirically treat for the pneumonia with antibiotics. He also have a COPD exacerbation which will be treated with oral steroids as well as her home breathing treatments. Please return the emergency department for any worsening symptoms. Follow-up with your physicians in the next 1 to 3 days. Prescriptions: predniSONE [Deltasone] 40 mg PO DAILY 5 Days #10 tab Azithromycin [Zithromax] 250 mg PO DAILY 4 Days #4 tab Is patient prescribed a controlled substance at d/c from ED?: No Referrals: Kapil Acosta DO [Primary Care Provider] - 1-2 days Time of Disposition: 21:00
[2024-07-25] MEDS: SODIUM CHLORIDE 0.9% 1,000 ML IV STA (19:03)
[2024-07-25] MEDS: methylPREDNISolone SOD SUCCI 40 MG/ML 1 ML VIAL IV STA (19:04)
[2024-07-25 19:14] LABS: Basophils % (A) 0 %; Eosinophils % (A) 0 %; HCT 38.4 % (34.0-46.0); HGB 12.2 gm/dL (11.4-16.0); Hypochromasia Slight; Lymphocytes # (A) 0.8 k/uL (1.0-4.8); Lymphocytes % (A) 18 %; MCH 35.2 pg (25.0-35.0); MCHC 31.7 g/dL (31.0-37.0); MCV 110.9 fL (80.0-100.0); Macrocytosis Marked; Mean Platelet Volume 7.7; Monocytes # (A) 0.2 k/uL (0-1.0); Monocytes % (A) 5 %; Neutrophils # (A) 3.5 k/uL (1.3-7.7); Neutrophils % (A) 75 %; Platelet Count 129 k/uL (150-450); RBC 3.46 m/uL (3.80-5.40); RDW 14.9 % (11.5-15.5); WBC 4.7 k/uL (3.8-10.6)
[2024-07-25 19:19] LABS: ALT 10 U/L (4-34); AST 25 U/L (14-36); African American GFR (CKD) >90 (>60 ml/min/1.73 sqM); Albumin 2.9 g/dL (3.5-5.0); Alkaline Phosphatase 54 U/L (38-126); Anion Gap -2 mmol/L; Blood Urea Nitrogen 14 mg/dL (7-17); Calcium 8.7 mg/dL (8.4-10.2); Carbon Dioxide 34 mmol/L (22-30); Chloride 105 mmol/L (98-107); Glucose 114 mg/dL (74-99); Non-African American GFR(CKD) 85 (>60 ml/min/1.73 sqM); Potassium 4.1 mmol/L (3.5-5.1); Sodium 137 mmol/L (137-145); Total Bilirubin 0.5 mg/dL (0.2-1.3); Total Protein 5.4 g/dL (6.3-8.2)
--- NOTE | 2024-07-25 19:27 | XR ---
EXAMINATION TYPE: XR chest 2V DATE OF EXAM: 07/25/2024 7:18 PM COMPARISON: 03/23/2024 CLINICAL INDICATION: Female, 78 years old with history of Weakness, , TECHNIQUE: AP and lateral views FINDINGS: Right anterior chest wall injection port. Catheter tip at the expected brachiocephalic vein confluenc e. Patient rotated toward the left altering the normal cardiac mediastinal contours. Spinal stimulato r array centered along the mid to lower thoracic spinal canal. Surgical clips left axilla. Degenerati ve changes left shoulder. Heart borderline in size. Mild hyperinflation. There is trace left pleural effusion with adjacent patchy opacity. IMPRESSION: 1. Limitations due to patient rotation. 2. There appears to be a small left pleural effusion with adjacent atelectasis and/or consolidation. [facility], , 07/25/2024 7:25 PM
[2024-07-25 19:28] LABS: Appearance,Urine Clear (Clear); Bilirubin,Urine Negative (Negative); Blood,Urine Negative (Negative); Color,Urine Colorless; Glucose,Urine (UA) Negative (Negative); Ketones,Urine Negative (Negative); Leukocyte Esterase,Urine Negative (Negative); Nitrite,Urine Negative (Negative); Protein,Urine Negative (Negative); Specific Gravity,Urine 1.009 (1.001-1.035); Urobilinogen,Urine <2.0 mg/dL (<2.0)
[2024-07-25] MEDS: oxyCODONE-APAP 10-325MG 1 EACH TAB PO STA (19:57)
[2024-07-25] MEDS: AZITHROMYCIN 500 MG TAB PO STA (20:44)
[2024-07-25] MEDS: IPRATROPIUM-ALBUTEROL 3 ML NEB INHALATION STA (20:52)
[2024-07-25 21:00] VITALS: BP 160/73; PULSE 64; TEMP 97
== END 2024-07-25 21:13 | disposition home or self-care (01) ==
LOC: EC 17:44
DX: J18.9 Pneumonia, unspecified organism (principal); J44.9 Chronic obstructive pulmonary disease, unspecified; F17.200 Nicotine dependence, unspecified, uncomplicated; Z85.118 Personal history of other malignant neoplasm of bronchus and lung; Z88.0 Allergy status to penicillin; Z88.8 Allergy status to other drugs, medicaments and biological substances
CPT/HCPCS: 99285; 96374; 96361 ×2; 36415; 93005; 80053; 83605; 83735; 85025; 81003; 87636; 71046; J2919

== ENCOUNTER → 2024-08-18 | Outpatient (CLI) | payer MEDICARE ==
--- NOTE | 2024-08-18 14:05 | CA ---
Transthoracic Echo Report Name: Jazmyne Loyola Age: 78 Gender: F : 1945 Exam Date: 08/18/2024 09:54 Exam Location: [facility] Ht (in): 61 Wt (lb): 117 Ordering Physician: Edison Pena MD Attending/Referring Phys: Assayer Helper Nikkie Fernandez RDCS Procedure CPT: Indications: HTN Cardiac Hx: PT AN CHEMO Technical Quality: Good Contrast 1: Total Dose (mL): Contrast 2: Total Dose (mL): MEASUREMENTS (Male / Female) Normal Values 2D ECHO LV Diastolic Diameter PLAX 4.2 cm 4.2 - 5.9 / 3.9 - 5.3 cm LV Systolic Diameter PLAX 2.8 cm IVS Diastolic Thickness 0.8 cm 0.6 - 1.0 / 0.6 - 0.9 cm LVPW Diastolic Thickness 1.0 cm 0.6 - 1.0 / 0.6 - 0.9 cm LV Relative Wall Thickness 0.4 RV Internal Dim ED PLAX 3.1 cm LA Systolic Diameter LX 3.3 cm 3.0 - 4.0 / 2.7 - 3.8 cm LV Diastolic Volume MOD 4C 50.2 cm??? LV Systolic Volume MOD 4C 18.1 cm??? LV Ejection Fraction MOD 4C 63.9 % LV Cardiac Index MOD 4C 1926.9 cm???/min???m??? LV Diastolic Length 4C 6.3 cm LV Systolic Length 4C 5.6 cm LV Diastolic Volume MOD 2C 56.3 cm??? LV Systolic Volume MOD 2C 25.7 cm??? LV Ejection Fraction MOD 2C 54.4 % LV Cardiac Index MOD 2C 1837.8 cm???/min???m??? LV Diastolic Length 2C 7.2 cm LV Systolic Length 2C 5.7 cm M-MODE Aortic Root Diameter MM 2.9 cm AV Cusp Separation MM 2.0 cm DOPPLER AV Peak Velocity 117.9 cm/s AV Peak Gradient 5.6 mmHg Mitral E Point Velocity 82.1 cm/s Mitral A Point Velocity 86.4 cm/s Mitral E to A Ratio 1.0 MV Deceleration Time 177.8 ms MV E' Velocity 4.3 cm/s Mitral E to MV E' Ratio 19.1 TR Peak Velocity 401.1 cm/s TR Peak Gradient 64.4 mmHg Right Ventricular Systolic Press 75.0 mmHg FINDINGS Left Ventricle Left ventricular ejection fraction is estimated at 55-60 %. Left ventricular cavity size normal. Mildly increased posterior wall thickness. Normal left ventricular wall motion. Mildly decrease LV systolic strain Right Ventricle Normal right ventricular size. Severe pulmonary hypertension. Right ventricular systolic pressure estimated at 75 mm hg. Right Atrium Normal right atrial size. No right atrial thrombus or mass seen. Left Atrium Normal left atrial size. No left atrial thrombus or mass present. Mitral Valve Structurally normal mitral valve. Mild mitral regurgitation. Aortic Valve Trileaflet aortic valve. No aortic valve stenosis or regurgitation. Tricuspid Valve Structurally normal tricuspid valve. [id number] tricuspid regurgitation. Pulmonic Valve Structurally normal pulmonic valve. No pulmonic regurgitation. Pericardium No pericardial or pleural effusion. Aorta Normal size aortic root and proximal ascending aorta. CONCLUSIONS Mild LVH with preserved systolic function Severe pulmonary hypertension Previewed by: Dr. Herve Medina MD (Electronically Signed) Final Date: 18 August 2024 14:04
== END | disposition home or self-care (01) ==
LOC: RADECHMAIN 09:51
PROVIDERS: ATTEND Internal Medicine Hematology & Oncology
DX: Z01.818 Encounter for other preprocedural examination (principal); I27.20 Pulmonary hypertension, unspecified; J98.4 Other disorders of lung; J44.9 Chronic obstructive pulmonary disease, unspecified; C50.919 Malignant neoplasm of unspecified site of unspecified female breast
CPT/HCPCS: 93306